=== PATIENT | female | born 1975 | race Caucasian/White ===

== ENCOUNTER 2021-01-22 18:06 | Inpatient (IN) | payer SELFPAY ==
--- OUTSIDE RECORDS SUMMARY | 2021-01-22 18:10 | XMS REPORT | Continuity of Care Document ---
:1975 Author Organization [facility] t Address [address] [place] [address] Care Team Providers Name Role Phone Asked, Pcp Primary Care Physician Unavailable Neva VOGT Attending Clinician Hoa Gonzalez Attending Clinician Ian MOLINA Attending Clinician Vishnu MOLINA Attending Clinician Doctor Unassigned, Name Attending Clinician Unavailable Da Duval MD Attending Clinician Priscilla MOLINA Attending Clinician Pranav MOLINA Attending Clinician Rogerio Lawrence MD Attending Clinician Provider Attending Clinician Unavailable MD ROGERIO LAWRENCE Attending Clinician Unavailable Prem MOLINA Attending Clinician Edwin MOLINA Attending Clinician Nas Rueda MD Attending Clinician MD ROMULO FLORIAN Attending Clinician Unavailab opal Gaona MD, Attending Clinician Jesus Thomason MD Attending Clinician Vishnu MOLINA Admitting Clinician PRISCILLA Admitting Clinician Unavailable OMAR Admitting Clinician Unavailable MD ROGERIO LAWRENCE Admitting Clinician Unavailable EDWIN Admitting Clinician Unavailable MD ROMULO FLORIAN Admitting Clinician Unavailab Li Admitting Clinician Unavailable Payers Payer Name Policy Type Policy Number Effective Date Expiration Date S ource Problems Condition Condition Condition Status Onset Resolution Last Treating Co mments Source Name Details Category Date Date Treatment Clinician Date Acute on Acute on Disease Active [place] chronic chronic 4-13 [facility] congestive congestive 00:00: st heart heart 00 failure failure Abdominal Abdominal Disease Active Rafy ston pain pain 11-19 Methodi 00:00: st 00 COPD COPD Disease Active [place] (chronic (chronic 308 Method i obstructiv obstructiv 00:00: st e e 00 pulmonary pulmonary disease) disease) COPD COPD Disease Active [place] exacerbati exacerbati 3-05 Me thodi on on 00:00: st 00 Acute Acute Disease Active Overview: [place] systolic systolic 3-05 [place] Met hodi congestive congestive 00:00: g of this heart heart note failure failure might be different from the original. Added automatic ally from request for surgery [id number] Dyspnea on Dyspnea on Disease Active [place] exertion exertion 2-22 Method i 00:00: st 00 Allergies, Adverse Reactions, Alerts Allergy Allergy Status Severity Reaction(s) Onset Inactive Treating Comm ents Source Name Type Date Date Clinician Metronid Propensi Active Rash [place] azole ty to 2-22 Method[facility] adverse 00:00: st reaction 00 s to drug metronid DA Active [facility] azole 1-16 [place] [facility] Social History Social Habit Start Date Stop Date Quantity Comments Source History SDOH [place] Meth odist Alcohol Std Drinks History [facility] Meth odist Alcohol Binge Tobacco use and 2020-11-19 2020-11-19 Former user Alonso Buddhist exposure 00:00:00 00:00:00 Alcohol intake 2020-11-19 2020-11-19 Lifetime [place] Me thodist 00:00:00 00:00:00 non-drinker (finding) History of tobacco 2020-11-05 Current smoker Dieter felipe Buddhist use 00:00:00 History SDOH 2020-10-14 2020-10-14 1 Gupta Meth odist Alcohol Frequency 00:00:00 00:00:00 History SDOH 2020-10-14 2020-10-14 3 Alonso Meth odist Financial 00:00:00 00:00:00 History SDOH Food 2020-10-14 2020-10-14 2 Alonso Mendez Worry 00:00:00 00:00:00 History SOFYRI Food 2020-10-14 2020-10-14 2 Alonso Mendez Scarcity 00:00:00 00:00:00 Sex [birth year] Alonso conrad 00:00:00 00:00:00 Smoking Status Start Date Stop Date Source Former smoker 2020-11-19 00:00:00 2020-11-19 00:00:00 Alonso Mendez Medications Ordered Filled Start Stop Current Ordering Indication Dosage Frequency Signature Comments Components Source Medication Medication Date Date Medication? Clinician (SIG) Name Name lisinopriL Yes 10mg QD Take 1 [place] (PRINIVIL) 4-14 tablet (10 Met hodi 10 mg 00:00: mg total) st tablet 00 by mouth daily for 30 days. albuterol Yes Q6H Inhale [place] (PROAIR 4-13 every 6 Method[facility] HFA) 90 13:04: (six) st mcg/actuati 21 hours as on inhaler needed for wheezing or shortness of breath. carvediloL 2020- No 6.25mg Q.5D Take 1 [place] (COREG) 12-02- tablet Methodi 6.25 MG 00:00: 23:59 (6.[address] tablet 00 :00 total) by mouth 2 (two) times a day for 30 days. furosemide No 40mg QD Take 1 [place] (Lasix) 40 12-02-13 tablet (40 Me thodi mg tablet 00:00: 23:59 mg total) st 00 :00 by mouth daily for 30 days. doxycycline 2020- No 100mg Q.5D Take 1 [place] (DORYX) 100 11-20-06 tablet Metho di MG EC 00:00: 23:59 ([address] tablet 00 :00 total) by mouth 2 (two) times a day for 5 days. fluticasone 2020-0 Yes QD Inhale 1 [place] furoate-omar 3-10 inhalation Me thodi anteroL 00:00: s once st (BREO 00 daily. ELLIPTA) 200-25 mcg/dose blister with device powder for inhalation lisinopriL 0 Yes 5mg QD Take 1 [place] (PRINIVIL) -10 tablet (5 Meth preeti 5 mg tablet 00:00: mg total) s t 00 by mouth daily for 30 days. spironolact 2020- No 25mg QD Take 1 Rafy ston one 10-29 tablet (25 Methodi (ALDACTONE) 00:00: 23:59 mg total) st 25 MG 00 :00 by mouth tablet daily for 30 days. aspirin 2020- No 81mg QD Take 1 Gupta (ECOTRIN) 10-28 tablet (81 Met hodi 81 MG 00:00: 23:59 mg total) st enteric 00 :00 by mouth coated daily for tablet 30 days. carvediloL 2020- No 6.25mg Q.5D Take 1 [place] (COREG) 10-28 tablet Methodi 6.25 MG 00:00: 23:59 (6.[address] tablet 00 :00 total) by mouth 2 (two) times a day for 30 days. Hold if heart rate below 55 acetaminoph 2020- No 650mg Q6H Take 2 [place] en 10-28 tablets Methodi (TYLENOL) 00:00: 23:59 ([address] 325 MG 00 :00 total) by tablet mouth every 6 (six) hours as needed for mild pain or fever for up to 30 days. furosemide 2020- No 40mg QD Take 1 [place] (LASIX) 40 10-28 tablet (40 Me thodi mg tablet 00:00: 23:59 mg total) st 00 :00 by mouth daily for 30 days. guaiFENesin 2020-2020- No 100mg Q4H Take 5 mL Gupta (ROBITUSSIN 10-28 (100 mg Meth preeti ) 100 mg/5 00:00: 23:59 total) by s t mL syrup 00 :00 mouth every 4 (four) hours as needed for cough or congestion for up to 14 days. budesonide/ No Inhale. Dieter felipe formoterol 10-24-05 Methodi fumarate 21:54: 00:00 st (SYMBICORT 20 :00 INHL) budesonide- 2020- No 2{puff} Q.5D Inhale 2 Gupta formoteroL 10-24-13 puffs 2 Metho di (Symbicort) 00:00: 00:00 (two) st 80-4.5 00 :00 times a mcg/actuati day. on inhaler albuterol No 2{puff} Q4H Inhale 2 Alonso (PROAIR 10-24-04 puffs Methodi HFA) 90 00:00: 23:[address] mcg/actuati 00 :00 (four) on inhaler hours as needed for wheezing for up to 30 days. predniSONE No 20mg QD Take 2 Teodora menchaca (DELTASONE) 10-24-10 tablets Meth preeti 10 mg 00:00: 23:59 ([address] tablet 00 :00 total) by mouth daily for 5 days. azithromyci No 250mg QD Take 1 Dieter felipe n 10-24-10 tablet Methodi (ZITHROMAX) 00:00: 23:59 ([address] 250 MG 00 :00 total) by tablet mouth daily for 5 days. Take first 2 tablets together, then 1 every day until finished. Vital Signs Vital Name Observation Time Observation Value Comments Source Systolic blood 2020-12-02 13:30:00 130 mm[Hg] Champ arce Buddhist pressure Diastolic blood 2020-12-02 13:30:00 62 mm[Hg] Zaria huang Buddhist pressure Heart rate 2020-12-02 13:30:00 90 /min Alonso Mendez Respiratory rate 2020-12-02 13:30:00 18 /min Teodora Mendez Oxygen saturation in 2020-12-02 13:30:00 98 /min Alonso Mendez Arterial blood by Pulse oximetry Body temperature 2020-12-02 09:22:00 36.56 Chandrika Mendez Body height 2020-12-02 04:22:00 165.1 cm Alonso Mendez Body weight 2020-12-02 04:22:00 86.183 kg Alonso Mendez BMI 2020-12-02 04:22:00 31.62 kg/m2 Alonso Mendez Procedures Procedure Date / Time Performing Clinician Source Performed TROPONIN 2020-12-02 12:37:00 Yeyo Wells URINE DRUGS OF ABUSE 2020-12-02 09:49:00 Yeyo Wells SCREEN TROPONIN 2020-12-02 09:30:00 Yeyo Wells ECG ED PRELIMINARY 2020-12-02 05:02:38 Calvin Duval ethodist INTERPRETATION Da XR CHEST 1 VW PORTABLE 2020-12-02 04:58:58 Calvin Duval on Buddhist Da B NATRIURETIC PEPTIDE 2020-12-02 04:52:00 Calvin Duval Buddhist Da HC COMPLETE BLD COUNT 2020-12-02 04:52:00 Calvin Duvalist W/AUTO DIFF Da COMPREHENSIVE METABOLIC 2020-12-02 04:52:00 Calvin Duval Buddhist PANEL Da TROPONIN 2020-12-02 04:52:00 Yeyo Wells ESTIMATED GFR 2020-12-02 04:52:00 Calvin Duval Meth odist Da SMEAR REVIEW 2020-12-02 04:52:00 Calvin Duval Meth odist Da ECG 12-LEAD 2020-12-02 04:43:07 Calvin Duval Meth odist Da HC COMPLETE BLD COUNT 2020-11-20 05:30:00 Derick Rock Buddhist W/AUTO DIFF COMPREHENSIVE METABOLIC 2020-11-20 05:30:00 Derick Rock Buddhist PANEL B NATRIURETIC PEPTIDE 2020-11-20 05:30:00 Mathew Latif ESTIMATED GFR 2020-11-20 05:30:00 Derick Rock odthee LACTIC ACID LEVEL, SEPSIS 2020-11-20 01:33:00 Derick Rockist - NOW AND REPEAT 2X EVERY 3 HOURS LACTIC ACID LEVEL, SEPSIS 2020-11-19 22:36:00 Rock, Derick Moreist - NOW AND REPEAT 2X EVERY 3 HOURS COVID-19 QUALITATIVE PCR 2020-11-19 19:39:00 Derick Rock LACTIC ACID LEVEL, SEPSIS 2020-11-19 19:11:00 Rock, Derick eMndez - NOW AND REPEAT 2X EVERY 3 HOURS BLOOD CULTURE, AEROBIC & 2020-11-19 19:11:00 RockDerick ANAEROBIC BLOOD CULTURE, AEROBIC & 2020-11-19 18:52:[address] ABDOMEN PELVIS W 2020-11-19 16:43:[address] ANGIOGRAM PE CHEST 2020-11-19 16:42:26 Derick Rock XR CHEST 1 VW PORTABLE 2020-11-19 16:25:00 Derick Rock on Buddhist URINE CULTURE 2020-11-19 14:08:00 Derick Rock odist ECG 12-LEAD 2020-11-19 13:58:50 Derick Rock Meth odist HC COMPLETE BLD COUNT 2020-11-19 13:57:00 Derick Rock W/AUTO DIFF COMPREHENSIVE METABOLIC 2020-11-19 13:57:00 Derick Rock PANEL URINALYSIS SCREEN AND 2020-11-19 13:57:00 Derick Rock MICROSCOPY, WITH REFLEX TO CULTURE ALCOHOL LEVEL, BLOOD 2020-11-19 13:57:00 Derick Rock D-DIMER 2020-11-19 13:57:00 Derick Rock Meth odist ESTIMATED GFR 2020-11-19 13:57:00 Derick Rock HCG QUALITATIVE, URINE 2020-11-19 13:57:00 Derick Rock on Buddhist SCREEN URINE DRUGS OF ABUSE 2020-11-19 13:48:00 Mathew Latif Buddhist SCREEN ECG ED PRELIMINARY 2020-11-19 13:42:01 Derick Rock M ethodist INTERPRETATION HC COMPLETE BLD COUNT 2020-10-28 05:44:00 Amaya Corbett W/AUTO DIFF BASIC METABOLIC PANEL 2020-10-28 05:44:00 Amaya Corbett MAGNESIUM LEVEL 2020-10-28 05:44:00 Amaya Corbett ESTIMATED GFR 2020-10-28 05:44:00 Amaya Corbett CV RIGHT AND LEFT HEART 2020-10-27 16:46:00 David Richter CATH SELECTIVE CORONARY LV GRAM POC BLOOD GAS, VENOUS AND 2020-10-27 16:37:00 Hong Florian LYTES POC BLOOD GAS, VENOUS AND 2020-10-27 16:32:00 Hong Florian LYLULÚ POC BLOOD GAS, ARTERIAL 2020-10-27 16:27:00 Hong Florian AND LYTES TYPE AND SCREEN 2020-10-27 06:57:00 David Richter Met hodist PARTIAL THROMBOPLASTIN 2020-10-27 06:57:00 David Richter TIME (PTT) PROTHROMBIN TIME WITH INR 2020-10-27 06:57:00 David Richter HCG QUANTITATIVE, SERUM 2020-10-27 06:57:00 David Richter CBC WITH PLATELET AND 2020-10-27 04:42:00 PearsonAnahi smith Buddhist DIFFERENTIAL Kiya COMPREHENSIVE METABOLIC 2020-10-27 04:42:00 PearsonAnahi smith PANEL Kiya MAGNESIUM LEVEL 2020-10-27 04:42:00 Amaya Corbett ESTIMATED GFR 2020-10-27 04:42:00 Anahi Pearson Ok thodist Kiya MANUAL DIFFERENTIAL 2020-10-27 04:42:00 Anahi Pearson n Buddhist Kiya ECG 12-LEAD 2020-10-26 23:07:15 David Richter Met hodthee URINE CULTURE 2020-10-26 18:22:00 Amaya Corbett URINALYSIS SCREEN AND 2020-10-26 18:15:00 Amaya Corbett Buddhist MICROSCOPY, WITH REFLEX TO CULTURE XR CHEST 1 VW PORTABLE 2020-10-26 10:32:17 Amaya Corbett HC COMPLETE BLD COUNT 2020-10-26 05:40:00 PearsonAnahi trujillo Buddhist W/AUTO DIFF Kiya COMPREHENSIVE METABOLIC 2020-10-26 05:40:00 PearsonAnahi smith Buddhist PANEL Kiya ESTIMATED GFR 2020-10-26 05:40:00 Anahi Pearson Me thodist Kiya TTE COMPLETE, W CONTRAST, 2020-10-25 13:55:00 David Richter Buddhist W DOPPLER ([id number]) TROPONIN 2020-10-25 05:37:00 Luis Amaro odist HC COMPLETE BLD COUNT 2020-10-25 05:37:00 PearsonAnahi smith Buddhist W/AUTO DIFF Kiya COMPREHENSIVE METABOLIC 2020-10-25 05:37:00 Anahi Pearson Buddhist PANEL Kiya ESTIMATED GFR 2020-10-25 05:37:00 Anahi Pearson Me thodist Kiya TROPONIN 2020-10-25 01:30:00 Luis Amaro COVID-19 QUALITATIVE PCR 2020-10-24 22:57:00 Luis Amaro HCG QUALITATIVE, URINE 2020-10-24 22:14:00 Luis Amaro on Buddhist SCREEN XR CHEST 1 VW 2020-10-24 22:13:30 Luis Amaro odthee HC COMPLETE BLD COUNT 2020-10-24 20:11:00 Luis Amaro Buddhist W/AUTO DIFF COMPREHENSIVE METABOLIC 2020-10-24 20:11:00 Luis Amaro Buddhist PANEL PARTIAL THROMBOPLASTIN 2020-10-24 20:11:00 Luis Amaro on Buddhist TIME (PTT) PROTHROMBIN TIME WITH INR 2020-10-24 20:11:00 Luis Amaro CREATINE KINASE, TOTAL 2020-10-24 20:11:00 Luis Amaro Buddhist (CPK) B NATRIURETIC PEPTIDE 2020-10-24 20:11:00 Luis Amaro Buddhist ESTIMATED GFR 2020-10-24 20:11:00 Luis Amaro odist TROPONIN 2020-10-24 20:11:00 Luis Amaro ECG 12-LEAD 2020-10-24 19:45:52 Luis Amaro ECG ED PRELIMINARY 2020-10-24 19:34:02 Luis Amaro ethodist INTERPRETATION US HEPATIC 2020-10-14 15:52:47 NwokedKaren tejeda Mary TROPONIN 2020-10-14 04:25:00 NwokediKaren Mary HC COMPLETE BLD COUNT 2020-10-14 04:25:00 NwKaren gore Buddhist W/AUTO DIFF Mary PROTHROMBIN TIME WITH INR 2020-10-14 04:25:00 NwKaren gore Mary LIPASE LEVEL 2020-10-14 04:25:00 NwokedKaren tejeda Mary COMPREHENSIVE METABOLIC 2020-10-14 04:25:00 NwKaren gore Buddhist PANEL Mary THYROID STIMULATING 2020-10-14 04:25:00 NwokedKaren tejeda HORMONE Mary ESTIMATED GFR 2020-10-14 04:25:00 NwKaren gore Mary LIPID PANEL 2020-10-14 04:25:00 NwokediKaren odist Mary RESPIRATORY PATHOGEN PANEL 2020-10-14 02:41:00 Sidra Giron WITH COVID-19 TROPONIN 2020-10-14 00:23:[address] ANGIOGRAM PE CHEST 2020-10-13 23:18:26 Sidra Giron ECG ED PRELIMINARY 2020-10-13 21:27:29 Sidra Giron ethodist INTERPRETATION ECG 12-LEAD 2020-10-13 21:18:29 Karen Bello Mary HC COMPLETE BLD COUNT 2020-10-13 21:04:00 Sidra Giron W/AUTO DIFF COMPREHENSIVE METABOLIC 2020-10-13 21:04:00 Sidra Giron PANEL CREATINE KINASE, TOTAL 2020-10-13 21:04:00 Sidra Giron on Buddhist (CPK) TROPONIN 2020-10-13 21:04:00 Karen Bello Mary B NATRIURETIC PEPTIDE 2020-10-13 21:04:00 Sidra Giron D-DIMER 2020-10-13 21:04:00 Sidra Giron HCG QUALITATIVE, SERUM 2020-10-13 21:04:00 Sidra Giron on Buddhist SCREEN ESTIMATED GFR 2020-10-13 21:04:00 Sidra Giron XR CHEST 1 VW PORTABLE 2020-10-13 20:39:45 Sidra Giron on Buddhist Plan of Care Planned Activity Planned Date Details Comments Source Future Scheduled 2021-03-22 INFLUENZA VACCINE Champ arce Buddhist Test 00:00:00 [code = INFLUENZA VACCINE] Future Scheduled 1995 Screening for Gupta Ok thodist Test 00:00:00 malignant neoplasm of cervix (procedure) [code = 926505004] Future Scheduled 1992 Hepatitis C Gupta Met hodist Test 00:00:00 screening (procedure) [code = 186349427] Future Scheduled 1986 COVID-19 VACCINE (1) Rafy leonardon Buddhist Test 00:00:00 [code = COVID-19 VACCINE (1)] Encounters Start End Encounter Admission Attending Care Care Encounter Source Date/Time Date/Time Type Type Clinicians Facility Department ID 2021-01-14 2021-01-14 Transition Jeni Hooks [id number] 00:00:00 00:00:00 of Care Molly Almendarez [id number] [place] [id number] 2021-01-11 2021-01-13 [facility] Shahnaz Zamudio [facility] [id number] 17:30:00 15:20:00 Encounter IanTatianna Gin 350.1.13.10 Noah Mares [facility] [id number] [place] [id number] 2021-01-11 2021-01-11 Orders Doctor GASTON [id number] 00:00:00 00:00:00 Only Unassigned, ROSALIO [id number] [facility] [id number] [id number] 2020-12-02 2020-12-02 Outpatient GORDONBEATRIZYESSENIA, [facility] [id number] [place] 00:00:00 00:00:00 YYEO [address] 2020-11-19 2020-11-20 Inpatient RADHAMES LAWRENCE [facility] [id number] [place] 00:00:00 00:00:[address] 2020-10-24 2020-10-28 Inpatient EDWIN, [place] [id number] [place] 00:00:00 00:00:00 HONG 675 Method i 2020-10-13 2020-10-14 Inpatient SALVADOR [place] [id number] [place] 00:00:00 00:00:00 JANELL Chris [address] Results Test Description Test Time Test Comments Results Result [facility] e Comments - XR SHOULDER 2 + 2020-12-05 V RT 04:14:[facility] 1975 Sex: F FAX: Carmita Truong [phone] [place]: St: REG FAX: Jose Herrmann MD Name: ANAHI HAYWOOD [facility] : 1975 Age/S: 45/F [address] [facility] Unit #: [id number] Loc: [address] Phys: [place] [id number] Acct: [id number] Dis Date: Status: REG ER PHONE #: [phone] Exam Date: 12/05/2020 0401 FAX #: [phone] Reason: pain EXAMS: CPT CODE: [id number] XR SHOULDER 2 + V RT [id number] EXAM: - XR SHOULDER 2 + V RT HISTORY: Pain. COMPARISON: None available time of interpretation. FINDINGS: Internal and external rotated AP views of the right shoulder with scapular Y view is provided. There is no acute fracture or dislocation. The osseous structures are intact. IMPRESSION: No acute osseous abnormality. at 0419 Reported and signed by: Gerald Light M.D. CC: Carmita Randall MD; Jose Herrmann MD Technologist: NGUYEN RÍOS Trnscrd Date/Time/By: 12/05/2020 (0414) : By: [email or web address] PAGE 1 Signed Report FAX: Carmita Truong [phone] [place]: St: REG FAX: Jose Herrmann MD Name: ANAHI HAYWOOD : 1975 Age/S: 45/F [address] [facility] Unit #: [id number] Loc: E.ERS2 [place], [place] Phys: [place] [id number] Acct: [id number] Dis Date: Status: REG ER PHONE #: [phone] Exam Date: 12/05/2020 040 FAX #: [phone] Reason: pain EXAMS: CPT CODE: [id number] XR SHOULDER 2 + V RT [id number] <Continued> Orig Print D/T: S: 12/05/2020 (0418) PAGE 2 Signed Report ECG 12 lead 2020-12-02 22:49:04 Test Item Value Reference Range Interpretation Comme nts Ventricular rate (test code = 253) 110 Atrial rate (test code = 255) 110 CO interval (test code = 266) 170 QRSD interval (test code = 260) 82 QT interval (test code = 264) 358 QTC interval (test code = 265) 484 P axis 1 (test code = 267) 78 QRS axis 1 (test code = 268) -29 T wave axis (test code = 270) 89 EKG impression (test code = 273) Sinus tachycardia-Nonspecific T wa ve abnormality-Abnormal ECG-In automated comparison with ECG of 19-NOV-2020 13:58,-No significant change was found-- [place] [facility] 1 Vw [id number] 05:11:23Hm Interface, Radiology Results Incoming - 12/02/2020 5:14 AM CDT Examination: XR CHEST 1 VW PORTABLEClinical history: "SOB" Comparison: Prior imaging, including a chest radiograph obtained on 11/19/2020.One radiographic view of the chest was evaluated.Impression: There are no apparent infiltrates, pleural effusions, or pneumothoraces. The cardiomediastinal silhouette, the imaged bones, and the remainder of the chest are stable in appearance.[facility] Methodist[facility] ED Preliminary Interpretation - Not an [id number] 05:02:38Calvin Duval MD 12/02/2020 5:48 AMECG ED Preliminary Interpretation - Not an OrderPerformed by: Calvin Duval MDAuthorized by: Calvin Duval MD Interpretation: Interpretation: non-specific Quality: Tracing quality: Limited by artifactRate: ECG rate: 110 ECG rate assessment: tachycardic Rhythm: Rhythm: sinus tachycardia Ectopy: Ectopy: none ST segments: ST segments: Non-specificT waves: T waves: non-specific Alonso MethodistUrine [id number] 14:17:27 Test Item Value Reference Range Interpretation Comments Urine culture Mixed lawrence Specimen isolate (test <=10-3 col/cc InformationSp ecimen code = 58534-5) Source: Urin eSpecimen Site: Clean cat [facility] IfayedsoaSNUD-SvB-1 (COVID-19) RNA [Presence] in Respiratory specimen by SYD with probe [id number] 05:35:10 Test Item Value Reference Range Interpretation Comments SARS-CoV-2 (COVID-19) RNA Not detected Not-Detected [Presence] in Respiratory specimen by SYD with probe detection (test code = 92432-0) CT Angiogram Pe [id number] 16:55:30Hm Interface, Radiology Results Incoming - 11/19/2020 4:58 PM CDT EXAMINATION:CT ANGIOGRAM PE CHESTCLINICAL HISTORY: dyspnea tachycarida ho copdTECHNIQUE:CT angiographic images of the chest were obtained during intravenous administration of iodinated contrast. Computerized reformatted images and 3-D MIP images were also obtained and archived (CT pulmonary embolus protocol). Approximately 60 cc of Omnipaque [address] scan performed using radiation dose reduction techniques. Technical factors are evaluated and adjusted to ensure appropriate moderation of exposure. Automated dose management technology is applied to adjust the radiation dose to minimize expose while achieving a diagnostic quality image.COMPARISON:10/13/2020FINDINGS:The main pulmonary artery, right pulmonary artery and left pulmonary artery as well as their visualized segmental and subsegmental branches demonstrate no evidence of pulmonary embolism. The pulmonary arteries are normal in caliber.There is no evidence of aortic aneurysm or dissection.Mild right hilar adenopathy as prior. No mediastinum, left hilar or axillary pathologic adenopathy is seen.The heart is normal in caliber. No pericardial effusion is seen.No consolidation is seen. There has been decrease in density of left upper lobe 6 mm groundglass nodule, series 3 image #35. There has been resolution of right upper lobe groundglass nodules and a right lower lobe groundglass nodule. A right middle lobe 4 mm pulmonary nodule is stable. No new pulmonary nodule or mass is seen. No pleural effusion. There is no evidence of pneumothorax. The image portion of the abdomen viscera is unremarkable.IMPRESSION:No CTA evidence of pulmonary embolism.No CTA evidence of aortic aneurysm or dissection.Interval resolution of right pulmonary groundglass nodules and decrease in density of left upper lobe ground glass nodule, suggestive of resolving pneumonitis.Stable right middle lobe pulmonary nodule, probably representing a granuloma.Indeterminate mild right hilar adenopathy as prior.[id number] MethodistCT Abdomen Pelvis W [id number] 16:54:35Hm Interface, Radiology Results 11/19/2020 4:57 PM CDT EXAMINATION: CT ABDOMEN PELVIS W CONTRASTCLINICAL HISTORY: abdominal painTECHNIQUE: Multiple axial images of the abdomen and pelvis were obtained following intravenous administration of iodinated contrast. Sagittal and coronal computerized reformatted images were also obtained. CT imaging was performed with iterative reconstruction technique and/or automated exposure control to reduce radiation dose.COMPARISON: June 28, 2007 CT abdomen pelvisFINDINGS:The lung bases areclear. No free intraperitoneal air or fluid.Abdomen:Fatty infiltration of the liver as beforeNo focal hepatic abnormalityPortal veins patentNo biliary dilatationGallbladder grossly unremarkable.Spleen n ormal.Adrenal glands normal.Pancreas normalAbdominal aorta normal caliber. Moderate atherosclerosisNo bowel obstruction. Scattered fecal material throughout the colon. Appendectomy clips.Normal size kidneys. Symmetrical function from each kidney. No renal mass. No hydronephrosis or tract calculusPelvis:Scattered fecal material throughout the colon. No diverticulitis or bowel obstruction.Uterus grossly unremarkable.Follicular changes on the ovaries.No pelvic mass or sidewall adenopathy.Urinary bladder grossly unremarkable.Diffuse subcutaneous infiltration and at the level of the patient's pediculus. No focal fluid collection seenVisualized skeleton intact. Moderate degenerative lumbar facet hypertrophy. Mild scattered osteophytic changesIMPRESSION:Changes suspicious for panniculitisFatty infiltration of the liver as on previousOtherwise unremarkable CT abdomen [id number] [id number] 10:57:33Norma Irving Haywood1975 [id number]/08/21 Indications:New onset systolic CHF Procedures:Coronary angiogramLHC with LVgramRHC with cardiac output Closure:TR band Access site:Right radial artery and Right internal jugular vein Procedure details: Risks and benefits were discussed with the patient, informed consent was obtained.Patient was brought to the quality lab technician in a fasting state and prepped in a sterile manner. Patient was sedated with fentanyl and versed. The site was then infiltrated with 1% lidocaine. Right radial artery and Right internal jugular vein was then accessed. A 5Fr balloon guided swan-garcía catheter was then inserted into the venous sheath and directed toward the heart. Pressureswere then measure. The catheter was then left at the PA position and thermodilution cardiac output was then measure. O2 sat was also obtained. The catheter was then removed from the body. RHC:CPWP: 41 mmHgPA: 51/15 mmHg Mean 41RV: 53/18 mmHg Mean 27RA: 26 O2 sat: Arterial 99%; PA 61%; RA 65%C.O. 3.57 (T) 2.46 (F)C.I. 2.48 (T) 1.71 (F) PPVR: A slender 6 Fr sheath was then inserted over the wirein the right radial artery without difficulty. A 5 Fr Lansing catheter was then advance over the wireinto the ascending aorta. Angiogram of the left and right coronary was performed. The Lansing catheter was then position in the LV. Left ventriculogram was performed. Pull back showed no gradient across the aortic valve. The catheter was then removed over the wire. Findings:Right dominantOverall Nosignificant diseaseLeft main: Patent. Subdivided into LAD and left circumflexLAD: Long vessel with one large D1 and several small diagonals. Reaching all the way to apex and wrapped around the distalinferior wall. No significant diseaseLeft circumflex: with 3 OM. No significant diseaseRCA: is thedominant vessel giving rise to PDA and PLB. NO significant disease LV gram: estimated EF 35%Wall motion: Global hypokinesisMitral regurgitation: 1+LVEDP: 17 mmHgAo Pressure: 127/95 mmHg Sheath was then removed and hemostasis was achieved with TR band closure device. Patient tolerate the procedure well. Complication: There is no immediate complication EBL: 5 cc Impression: NICMVolume overloaded Plan: DiuresingOptimizing medical therapy Total contrast used: 35 mlFlouro-time: 1.5 minutesAir Kerma:505 mGy 10/27/20VinAmna Dee MethodistTransthoracic Echocardiogram Complete, (w Contrast, Strain and 3D if needed)2020-10-26 11:20:16 Test Item Value Reference Range Interpretation Comments Velocity Ratio (V1/V2) 0.70 m/s (test code = 4689) IVS,d (test code = 1.05 cm 7724264347) EF (test code = 27.14 % 6964870448) LVPWD,d (test code = 0.97 cm 5856947525) AoV Mean PG (test code 4.12 mmHg = 5085360569) AV LVOT peak gradient 3.90 mmHg (test code = 0238631574) MV valve area p 1/2 5.59 cm2 method (test code = 6183992628) E wave decelartion time 122.75 msec (test code = 7288850514) LVOT Diam,S (test code 2.23 cm = 7900212978) LVOT area (test code = 3.90 cm2 7906780934) LVOT Vmax (test code = 0.99 m/s 2808014420) LVOT VTI (test code = 0.17 m 6093277267) LVOT stroke volume 0.66 cm3 (test code = 9394865459) AoV Peak PG (test code 8.02 mmHg = 6013357200) MV Peak E [place] (test 1.32 m/s code = 4989480054) MV stenosis pressure 39.33 ms 1/2 time (test code = 9173859814) MV Peak A [place] (test 0.00 m/s code = 5670501756) LV Vol,s A2C (test code 126.84 mL = 1475964450) LV Vol,d A2C (test code 186.07 mL = 5432251244) AoV Area, Vmax (test 2.73 cm2 code = 3903179803) AoV Area, VTI (test 3.37 cm2 code = 2150888988) AoV Vmax (test code = 1.42 m/s 8727181799) LV,d (test code = 5.39 cm 2765736650) LV,s (test code = 4.70 cm 5201136637) LV Vol,d A4C (test code 164.06 ml = 6679231365) LV Vol,s A4C (test code 106.99 ml = 5798795472) TR Vpeak (test code = 2.66 mm/s 7197557747) MV E A ratio (test code 327.82 = 9241560187) RA pressure (test code 12.00 mmHg = 2842080978) TR pk grad (test code = 26.83 mmHg 3339307738) MR peak grad (test code 108.98 mmHg = 5695828954) LA Vol 4C (test code = 97.00 ml 6604237518) RVSP (test code = 40.26 mmHg 4778829472) LV SYS VOL (test code = 102.44 ml 6877798308) LV HEDRICK VOL (test code 140.60 ml = 9384553842) LA diam s (test code = 4.10 cm 9069365601) LA area s A4C (test 28.10 cm2 code = 6706120539) LA Vol MOD A4C (test 97.27 ml code = 0764887483) LV SV Teich 2D (test 38.16 ml code = 6045143955) LVOT SI (test code = 33.69 ml/m2 2036094117) AoV Cusp sep (test code 1.88 = 2371187431) Aortic Root (test code 2.53 cm = 1433544188) AoV Vmn (test code = 0.95 7802132483) IVS s 2D (test code = 1.15 9915221922) LA Ao Ratio Mmode (test 1.61 code = 6576745593) CO End Hedrick Grad (test 4.20 code = 0228828455) CO End Diat [place] (test 1.02 code = 2074352859) D E excurs (test code = 1.90 1076390458) E f slope (test code = 0.09 4195554976) E prime lat (test code 0.10 = 0838639213) E favio sept (test code 0.11 = 3187633277) PV acc T slope (test 4.60 code = 0689799620) PV AT (test code = 119.89 msec 4754656364) NGUYEN BP EF (test 32.00 % code = 0930331840) LA VOL 2C (test code = 74.00 ml 0279376390) AoV VTI (test code = 0.20 m 7100974312) LV EF,A2C (test code = 31.83 % 2810832594) LV EF,A4C (test code = 34.78 % 3188383225) LV EF,BP (test code = 32.29 % 0022602533) Diego [place],d A2C (test 9.24 cm code = 2395968460) Diego [place],d A4C (test 9.11 cm code = 8276627620) Diego [place],s A2C (test 8.07 cm code = 7076986411) Diego [place],s A4C (test 7.70 cm code = 0951816819) LV SV,A2C (test code = 59.23 % 2554845308) LV SV,A4C (test code = 57.06 % 9286882591) LV Vol,d BP (test code 175.67 ml = 3117264547) LV Vol,s BP (test code 118.95 nl = 7342952970) MR Vmax (test code = 5.55 m/s 7302063713) LVOT Vmn (test code = 0.67 3371071774) Pt Size (test code = 165.10 8492194317) Pt Wt (test code = 93.89 6335021614) LVOT mean grad (test 2.05 mmHg code = 4987935232) LVPW s PLAX (test code 1.17 cm = 7598580186) MV Decel slope (test 10.79 m/s2 code = 5570292700) LVOT VTI (CM) (test 17.00 cm code = 2002846728) LINDA (test code = LINDA) The left ventricle chamber size is mildly enlarged. Left ventricular systolic function is severely impaired. Left Ventricular ejection fraction is 30 - 35%. Left atrium size is mildly dilated. Right atrium size is mildly enlarged. There is pericardial effusion. There is a small pericardial effusion. There is moderate mitral valve regurgitation. Moderate tricuspid valve regurgitation. Spectral Doppler shows abnormal pattern of left ventricular diastolic filling. Elevated LV filling pressure. Alonso ChisholmFrdtonqknXEWX-AqM-5 (COVID-19) RNA [Presence] in Respiratory specimen by SYD with probe [id number] 05:38:53 Test Item Value Reference Range Interpretation Comments SARS-CoV-2 (COVID-19) RNA Not detected Not-Detected [Presence] in Respiratory specimen by SYD with probe detection (test code = 00045-6) XR Chest 1 [id number] 22:16:24Hm Interface, Radiology Results 10/24/2020 10:19 PM CST CLINICAL HISTORY: 45 years Female Cough persistentCOMPARISON: AP view of the chest from 10/13/2020.IMPRESSION:Lines/Tubes: None.Lungs/Pleura: No significant pleural effusionis identified. There is mild bibasilar atelectasis. No consolidation or pneumothorax identified.Heart/Mediastinum: The cardiac silhouette is enlarged. Mediastinal contours are normal.Bones: No acute osseous abnormality.[id number] BuddhistUS [id number] 15:58:42Hm Interface, Radiology Results - 10/14/2020 4:01 PM CST EXAMINATION: US HEPATICCLINICAL HISTORY: abnormal hepatic function testsCOMPARISON: None.IMPRESSION:Liver: The liver is normal in size and echogenicity. There is no evidence of focal mass or intrahepatic biliary ductal dilatation.Portal vein: The portal vein is normal in size and demonstrates normal hepatopetal flow.Gallbladder: Contracted. No stones.Common bile duct: Normal caliber.[facility]-[id number] Buddhist
[2021-01-22 19:23] LABS: Absolute Lymphocytes (CBC) 2.9 K/uL (0.7-4.9); Basophils % 1.9 % (0-1.3); Hematocrit 50.1 % (36.0-45.0); MPV 8.5 fL (7.6-11.3); RBC Red Blood Cell Count 5.53 M/uL (3.86-4.86)
[2021-01-22 19:57] LABS: Albumin 3.4 g/dL (3.4-5.0); Bilirubin Direct 0.2 mg/dL (0-0.2); Protein, Total 7.8 g/dL (6.4-8.2); Troponin (Emerg Dept Use Only) 0.06 ng/mL (0.0-0.045)
[2021-01-22 19:59] LABS: Potassium 5.5 mmol/L (3.5-5.1)
[2021-01-22 20:00] LABS: Magnesium 1.9 mg/dL (1.8-2.4)
[2021-01-22 20:20] LABS: Protime INR 1.24
[2021-01-22] MEDS ORDERED: FUROSEMIDE 100 MG/10 ML VIAL IV ONE (20:31)
[2021-01-22] MEDS ORDERED: ASPIRIN 81 MG CHEWABLE TABLET ONE (20:31)
--- NOTE | 2021-01-22 20:35 | RAD REPORT ---
EXAM DESCRIPTION: RAD - Chest Single View - 01/22/2021 7:26 pm CLINICAL HISTORY: Chest pain;SOB Chest pain. COMPARISON: No comparisons FINDINGS: Portable technique limits examination quality. The lungs are grossly clear. The heart is mildly enlarged in size. No displaced fractures. IMPRESSION: Mild cardiomegaly.
--- NOTE | 2021-01-22 20:40 | ER ---
Nurse's Notes [facility] Name: Anahi Downing Age: 45 yrs Sex: Female : 1975 Arrival Date: 01/22/2021 Time: 18:14 Bed 20 Private MD: Diagnosis: Unspecified combined systolic (congestive) and diastolic (congestive) heart failure;Orthopnea;Pulmonary edema Presentation: 01/22 18:43 Chief complaint: Patient states: SOB x 1 week, worse today, hx of CHF, reports jl7 intermittent midsternal CP x 1 day. Coronavirus screen: Client denies travel out of the [place] in the last 14 days. At this time, the client does not indicate any symptoms associated with coronavirus-19. Ebola Screen: No symptoms or risks identified at this time. Initial Sepsis Screen: Does the patient meet any 2 criteria? No. Patient's initial sepsis screen is negative. Does the patient have a suspected source of infection? No. Patient's initial sepsis screen is negative. Risk Assessment: Do you want to hurt yourself or someone else? Patient reports no desire to harm self or others. Onset of symptoms was January 21, 2021. Care prior to arrival: None. 18:43 Method Of Arrival: Ambulatory 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 - Social history:: Smoking status: Patient/guardian denies using tobacco, Stopped _ months ago 1. Screenin:18 Abuse screen: Denies threats or abuse. Nutritional screening: No deficits noted. ea Tuberculosis screening: No symptoms or risk factors identified. Fall Risk None identified. Assessment: 18:50 General: Appears uncomfortable, Behavior is anxious. Pain: Complains of pain in rb3 mid-sternal area Pain currently is 8 out of 10 on a pain scale. Neuro: Level of Consciousness is awake, alert, obeys commands, Oriented to person, place, time, situation. Cardiovascular: Patient's skin is warm and dry. Respiratory: Airway is patent Respiratory effort is even, labored, Respiratory pattern is tachypnea Applied a Non-rebreather, pt reports feeling like she can breath better. 20:24 Reassessment: Patient and/or family updated on plan of care and expected duration. Pain ea level reassessed. Patient is alert, oriented x 3, equal unlabored respirations, skin warm/dry/pink. 21:30 Reassessment: Patient and/or family updated on plan of care and expected duration. Pain ea level reassessed. Patient is alert, oriented x 3, equal unlabored respirations, skin warm/dry/pink. Vital Signs: 18:43 BP 145 / 111; Pulse 119; Resp 25; Temp 98.4; Pulse Ox 97% on R/A; Weight 78.47 kg; jl7 Height 5 ft. 5 in. (165.10 cm); Pain 8/10; 19:00 BP 143 / 119; Pulse 115; Resp 23; Pulse Ox 99% on R/A; ea 21:50 BP 138 / 102; Pulse 70; Resp 18; Pulse Ox 99% on R/A; ea 18:43 Body Mass Index 28.79 (78.47 kg, 165.10 cm) jl7 ED Course: 18:14 Patient arrived in ED. am2 18:45 Triage completed. jl7 18:47 Arm band placed on right wrist. jl7 18:48 Stefan Hoang PA is PHCP. cp 18:48 Apolinar Angeles MD is Attending Physician. cp 19:12 Inserted saline lock: 22 gauge in right antecubital area, using aseptic technique. jb5 Blood collected. 19:13 Joselito Miller MD is Attending Physician. cp 19:18 Cyndie Vidales RN is Primary Nurse. ea 19:19 Patient has correct armband on for positive identification. Bed in low position. Call ea light in reach. 19:19 Basic Metabolic Panel Sent. jb5 19:19 CBC with Diff Sent. jb5 19:19 LFT's Sent. jb5 19:19 Magnesium Sent. jb5 19:19 NT PRO-BNP Sent. jb5 19:19 PT-INR Sent. jb5 19:19 Troponin (emerg Dept Use Only) Sent. jb5 19:26 XRAY Chest (1 view) In Process Unspecified. EDMS 20:39 Hunter Gee PA is Hospitalizing Provider. cp 20:44 No provider procedures requiring assistance completed. Patient admitted, IV remains in ea place. 20:51 Socrates Sanders is Hospitalizing Provider. cp 20:54 US Extremity Venous W Compression Tera In Process Unspecified. EDMS Administered Medications: 20:01 CANCELLED (Physician Discretion): Lasix (furosemide) 40 mg IVP once; give over 2 minutescp 20:22 Drug: Lasix (furosemide) 60 mg Route: IVP; Site: right antecubital; ea 21:53 Follow up: Response: No adverse reaction ea 20:29 Drug: Aspirin Chewable Tablet 324 mg Route: PO; ea 21:52 Follow up: Response: No adverse reaction ea 21:40 Drug: Lovenox (enoxaparin) 1 mg/kg Route: Sub-Q; Site: right lower abdomen; ea 21:53 Follow up: Response: No adverse reaction ea Outcome: 20:40 Decision to Hospitalize by Provider. cp 21:53 Admitted to ER Hold. Please see [facility] for further documentation. ea 21:53 Condition: stable 21:53 Instructed on the need for admit, Demonstrated understanding of instructions. 01/23 17:02 Patient left the ED. kl Signatures: Dispatcher [employer] EDMS Stephanie Palafox RN RN Stefan Pompa PA PA cp Broussard, Jennifer jb5 Mauricio Branch RN RN jl7 Sandra Maria Elena, RN RN ea Barber, Rebecca, RN RN rb3
--- NOTE | 2021-01-22 20:40 | EDPHYS ---
Physician Documentation [facility] Name: Anahi Downing Age: 45 yrs Sex: Female : 1975 Arrival Date: 01/22/2021 Time: 18:14 Bed 20 Private MD: ED Physician Joselito Miller HPI: 01/22 19:00 This 45 yrs old Female presents to ER via Ambulatory with complaints of cp Shortness Of Breath. 19:00 The patient has shortness of breath when lying flat. Onset: The symptoms/episode cp began/occurred 1 week(s) ago. 19:00 Duration: The symptoms are continuous, and are steadily getting worse. The patient's cp shortness of breath is aggravated by light activity, lying flat, is alleviated by nothing. 19:00 Associated signs and symptoms: Pertinent positives: chest pain, Pertinent negatives: cp productive cough, diaphoresis, fever. 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 - Social history:: Smoking status: Patient/guardian denies using tobacco, Stopped _ months ago 1. ROS: 19:02 Constitutional: Negative for body aches, chills, fever, poor PO intake. cp 19:02 Eyes: Negative for injury, pain, redness, and discharge. cp 19:02 ENT: Negative for ear pain, sore throat, difficulty swallowing, difficulty handling secretions. 19:02 Cardiovascular: Positive for chest pain, Negative for edema, palpitations. 19:02 Respiratory: Positive for shortness of breath, at rest. Negative for cough, wheezing. 19:02 Abdomen/GI: Negative for abdominal pain, nausea, vomiting, and diarrhea. 19:02 Back: Negative for radiated pain. 19:02 : Negative for urinary symptoms. 19:02 Neuro: Negative for altered mental status, headache, syncope. 19:02 All other systems are negative. Exam: 19:00 ECG was reviewed by the Attending Physician. cp 19:05 Constitutional: The patient appears alert, awake, non-diaphoretic, non-toxic, well cp developed, well nourished, in obvious distress, mildly distressed. 19:05 Head/Face: Normocephalic, atraumatic. cp 19:05 Eyes: Periorbital structures: appear normal, Conjunctiva: normal, no exudate, no injection, Sclera: no appreciated abnormality, Lids and lashes: appear normal, bilaterally. 19:05 ENT: External ear(s): are unremarkable, Nose: is normal, Mouth: Lips: moist, Oral mucosa: moist, Posterior pharynx: Airway: no evidence of obstruction, patent. 19:05 Neck: ROM/movement: is normal, is supple, without pain, no range of motions limitations. 19:05 Chest/axilla: Inspection: normal, Palpation: is normal, no crepitus, no tenderness. 19:05 Cardiovascular: Rate: tachycardic, Rhythm: regular, Edema: is not appreciated, JVD: is not appreciated. 19:05 Respiratory: mild respiratory distress is noted, Respirations: labored breathing, that is mild, Breath sounds: bronchial sounds, that are mild, are heard diffusely, stridor, is not appreciated, wheezing: is not appreciated. 19:05 Abdomen/GI: Inspection: abdomen appears normal, Palpation: abdomen is soft and non-tender, in all quadrants. 19:05 Skin: no rash present. 19:05 Neuro: Orientation: to person, place \\T\\ time. Mentation: is normal, Motor: moves all fours, strength is normal. Vital Signs: 18:43 BP 145 / 111; Pulse 119; Resp 25; Temp 98.4; Pulse Ox 97% on R/A; Weight 78.47 kg; jl7 Height 5 ft. 5 in. (165.10 cm); Pain 8/10; 19:00 BP 143 / 119; Pulse 115; Resp 23; Pulse Ox 99% on R/A; ea 21:50 BP 138 / 102; Pulse 70; Resp 18; Pulse Ox 99% on R/A; ea 18:43 Body Mass Index 28.79 (78.47 kg, 165.10 cm) 7 MDM: 18:59 Patient medically screened. cp 19:00 Differential diagnosis: Bronchitis CHF exacerbation, Chronic Obstructive Pulmonary cp Disease pneumonia, Pneumothorax pulmonary edema, Pulmonary Embolism Unstable Angina. 20:35 Data reviewed: vital signs, nurses notes, lab test result(s), EKG, radiologic studies, cp plain films. 20:35 Antibiotic administration: Not indicated, the patient does not have an appreciated cp infiltrate. Test interpretation: by ED physician or midlevel provider: ECG, plain radiologic studies. 20:45 Physician consultation: Hunter GEORGE was contacted at 20:30, regarding admission, to the telemetry unit. patient's condition. 01/22 18:49 Order name: Basic Metabolic Panel; Complete Time: 20:00 / 20:01 Interpretation: Normal except: CL 108; GLUC 108; GFR 82; K 5.5. 01/22 18:49 Order name: CBC with Diff; Complete Time: 20:00 01/22 20:02 Interpretation: Normal except: RBC 5.53; HGB 15.9; HCT 50.1; MCHC 31.7; RDW 16.9; BASO% cp 1.9. 01/22 18:49 Order name: LFT's; Complete Time: 20:00 01/22 18:49 Order name: Magnesium; Complete Time: 20:00 01/22 18:49 Order name: NT PRO-BNP; Complete Time: 20:00 / 20:02 Interpretation: Abnormal: NT PRO-BNP 5251. 01/22 18:49 Order name: PT-INR; Complete Time: 20:30 01/22 18:49 Order name: Troponin (emerg Dept Use Only); Complete Time: 20:00 01/22 21:52 Order name: COVID-19 : Document "Date of Symptom Onset" if Symptomatic. ea 01/22 22:40 Order name: CORONAVIRUS EDOK 01/22 23:46 Order name: SARS-COV-2 RT PCR EDOK 01/23 06:15 Order name: CBC with Automated Diff EDOK 01/23 06:27 Order name: Comprehensive Metabolic Panel EDOK 01/23 06:27 Order name: Troponin I EDOK 01/23 06:27 Order name: Lipid Profile EDOK 01/22 18:49 Order name: XRAY Chest (1 view) 01/22 18:49 Order name: EKG; Complete Time: 18:50 cp 01/22 18:49 Order name: Cardiac monitoring; Complete Time: 19:18 cp 01/22 20:02 Order name: US Extremity Venous W Compression Tera cp 01/22 21:26 Order name: CONS Physician Consult EDOK 01/23 06:27 Order name: T4 Free EDOK 01/23 06:27 Order name: Magnesium EDOK 01/23 06:28 Order name: Thyroid Stimulating Hormone EDOK 01/23 09:05 Order name: Phosphorus EDOK 01/23 13:55 Order name: Urinalysis EDOK 01/23 14:03 Order name: Potassium EDOK 01/23 14:03 Order name: Troponin I EDOK 01/22 18:49 Order name: EKG - Nurse/Tech; Complete Time: 19:18 cp 01/22 18:49 Order name: IV Saline Lock; Complete Time: 19:18 cp 01/22 18:49 Order name: Labs collected and sent; Complete Time: 19:18 cp 01/22 18:49 Order name: O2 Per Protocol; Complete Time: 19:18 cp 01/22 18:49 Order name: O2 Sat Monitoring; Complete Time: 19:18 cp EC:00 Rate is 113 beats/min. Rhythm is regular. ME interval is normal. QRS interval is cp normal. QT interval is normal. T waves are Inverted in lead aVL. Interpreted by me. Reviewed by me. Administered Medications: 20:01 CANCELLED (Physician Discretion): Lasix (furosemide) 40 mg IVP once; give over 2 minutescp 20:22 Drug: Lasix (furosemide) 60 mg Route: IVP; Site: right antecubital; ea 21:53 Follow up: Response: No adverse reaction ea 20:29 Drug: Aspirin Chewable Tablet 324 mg Route: PO; ea 21:52 Follow up: Response: No adverse reaction ea 21:40 Drug: Lovenox (enoxaparin) 1 mg/kg Route: Sub-Q; Site: right lower abdomen; ea 21:53 Follow up: Response: No adverse reaction ea Disposition: 01/22/21 20:40 Hospitalization ordered by Socrates Sanders for Inpatient Admission. Preliminary diagnosis are Unspecified combined systolic (congestive) and diastolic (congestive) heart failure, Orthopnea, Pulmonary edema. - Bed requested for Telemetry/MedSurg (Inpatient). - Status is Inpatient Admission. kl - Condition is Fair. - Problem is an acute exacerbation. - Symptoms have improved. Signatures: Dispatcher [employer] EDStephanie Phipps RN RN kl Webb, Martha, RN RN mw Page, Corey, PA PA cp Leal, Jahala, RN RN jl7 Cyndie Vidales RN RN ea Corrections: (The following items were deleted from the chart) 20:01 20:00 Lasix (furosemide) 40 mg IVP once; give over 2 minutes ordered. [facility] 20:47 20:40 Hospitalization Ordered by Hunter GEORGE for Inpatient Admission. Preliminary diagnosis is Unspecified combined systolic (congestive) and diastolic (congestive) heart failure; Orthopnea; Pulmonary edema. Bed requested for Telemetry/MedSurg (Inpatient). Status is Inpatient Admission. Condition is Fair. Problem is an acute exacerbation. Symptoms have improved. 20:51 20:47 01/22/2021 20:40 Hospitalization Ordered by Hunter GEORGE for Inpatient cp Admission. Preliminary diagnosis is Unspecified combined systolic (congestive) and diastolic (congestive) heart failure; Orthopnea; Pulmonary edema. Bed requested for [facility] ER HOLD. Status is Inpatient Admission. Condition is Fair. Problem is an acute exacerbation. Symptoms have improved. 01/23 16:16 06 20:51 01/22/2021 20:40 Hospitalization Ordered by Socrates Sanders for Inpatient kl Admission. Preliminary diagnosis is Unspecified combined systolic (congestive) and diastolic (congestive) heart failure; Orthopnea; Pulmonary edema. Bed requested for [facility] ER HOLD. Status is Inpatient Admission. Condition is Fair. Problem is an acute exacerbation. Symptoms have improved. 01/23 17:02 16:16 01/22/2021 20:40 Hospitalization Ordered by Socrates Sanders for Inpatient kl Admission. Preliminary diagnosis is Unspecified combined systolic (congestive) and diastolic (congestive) heart failure; Orthopnea; Pulmonary edema. Bed requested for Telemetry/MedSurg (Inpatient). Status is Inpatient Admission. Condition is Fair. Problem is an acute exacerbation. Symptoms have improved. kl
--- NOTE | 2021-01-22 21:15 | RAD REPORT ---
EXAM DESCRIPTION: US - Extrem Venous W Compress Tera - 01/22/2021 8:55 pm CLINICAL HISTORY: PAIN Bilateral leg edema and swelling. COMPARISON: <Comparisons> TECHNIQUE: Real-time sonographic interrogation of the left and right lower extremity deep venous sys tems was performed. FINDINGS: Normal compressibility, flow augmentation, phasic flow and spontaneous flow is identified in both the left and right lower extremity deep venous systems. IMPRESSION: No sonographic evidence of left or right lower extremity deep venous thrombosis.
[2021-01-22] MEDS ORDERED: ENOXAPARIN 80 MG/0.8 ML SQ ONE (21:43)
--- NOTE | 2021-01-22 21:57 | P.HP ---
Certification for Inpatient Patient admitted to: Inpatient With expected LOS: <2 Midnights Patient will require the following post-hospital care: None Practitioner: I am a practitioner with admitting privileges, knowledge of patient current condition, hospital course, and medical plan of care. Services: Services provided to patient in accordance with Admission requirements found in Title 42 Section 412.3 of the Code of Federal Regulations Patient History Date of Service: 01/22/21 Reason for admission: CHF exacerbation History of Present Illness: Ms. Downing is a 45 y/o F w/ CHF, COPD who presents today w/ worsening SOB x several months. She states that she had an episode of SOB last night that was not relieved w/ home oxygen. Her SOB gets worse w/ activity. She is also c/o intermittent substernal stabbing chest pain, which is unusual for her. She reports cough and nausea. She denies any wheezing, fevers, chills. She reports being hospitalized 6-7x since October for CHF exacerbation. Her last hospitalization was ~1 week ago in [place]. She reports her SOB has improved and the chest pain has completely resolved now. BNP 5251, troponin 0.06. - Past Medical/Surgical History Diabetic: No -: CHF -: COPD -: HTN -: appendix Psychosocial/ Personal History: lives by self - Family History Mother Notes: from [place] at 47 - Social History Smoking Status: Former smoker Alcohol use: No CD- Drugs: No Caffeine use: Yes Review of Systems Respiratory: Shortness of Breath, SOB with Excertion, As per HPI Cardiovascular: Chest Pain, Orthopnea, Edema, As per HPI Gastrointestinal: Nausea Physical Examination - Physical Exam General: Alert, In no apparent distress HEENT: Atraumatic, PERRLA, Mucous membr. moist/pink, EOMI, Sclerae nonicteric Neck: Supple Respiratory: Clear to auscultation bilaterally Cardiovascular: No edema, Regular rate/rhythm, Normal S1 S2, Other (mildly tachycardic) Capillary refill: <2 Seconds Gastrointestinal: Normal bowel sounds, Soft and benign, Non-distended, No tenderness, No guarding Musculoskeletal: No tenderness Integumentary: No rashes Neurological: Normal gait, Normal speech, Normal strength at 5/5 x4 extr, Normal tone, Normal affect Lymphatics: No axilla or inguinal lymphadenopathy - Studies Laboratory Data (last 24 hrs) 01/22/21 19:30: PT 14.7 H, INR 1.24 01/22/21 19:30: Sodium 138, Potassium 5.5 H, BUN 13, Creatinine 0.76, Glucose 108 H, Magnesium 1.9, Total Bilirubin 1.0, AST 40 H, ALT 32, Alkaline Phosphatase 141 H 01/22/21 19:07: WBC 10.50, Hgb 15.9 H, Hct 50.1 H, Plt Count 319 Assessment and Plan - Problems (Diagnosis) (1) Acute exacerbation of CHF (congestive heart failure) Current Visit: Yes Status: Acute Qualifiers: Heart failure type: unspecified Qualified Code(s): I50.9 - Heart failure, unspecified (2) COPD (chronic obstructive pulmonary disease) Current Visit: Yes Status: Chronic Qualifiers: COPD type: unspecified COPD Qualified Code(s): J44.9 - Chronic obstructive pulmonary disease, unspecified (3) HTN (hypertension) Current Visit: Yes Status: Acute Qualifiers: Hypertension type: unspecified Qualified Code(s): I10 - Essential (primary) hypertension - Plan IV lasix trend troponin x2 q4h since initial 0.06 echo in the morning monitor on telemetry repeat potassium lab consult cardiology reconcile and continue home meds receive full dose lovenox and ASA in ED Discharge Plan: Home Plan to discharge in: 48 Hours - Advance Directives Does patient have a Living Will: No Does patient have a Durable POA for Healthcare: No - Code Status/Comfort Care Code Status Assessed: Yes Code Status: Full Code Critical Care: No Time Spent Managing Pts Care (In Minutes): 70
[2021-01-23] MEDS ORDERED: ACETAMINOPHEN 500 MG TAB PO PRN (01:24)
[2021-01-23] MEDS ORDERED: ALBUTEROL 2.5 MG/3 ML NEB SOL NEB PRN (01:24)
[2021-01-23] MEDS ORDERED: ONDANSETRON 4 MG/2 ML VIAL IV PRN (01:24)
[2021-01-23] MEDS ORDERED: HYDRALAZINE HCL 20 MG/ML VIAL IV PRN (01:24)
[2021-01-23 06:12] LABS: Absolute Lymphocytes (CBC) 2.9 K/uL (0.7-4.9); Basophils % 1.4 % (0-1.3); Hematocrit 44.4 % (36.0-45.0); Lymphocytes % 30.8 % (15.3-44.8); MPV 8.6 fL (7.6-11.3)
[2021-01-23 06:25] LABS: ALT/SGPT 24 U/L (12-78); AST/SGOT 20 U/L (15-37); Albumin 3.1 g/dL (3.4-5.0); Alkaline Phosphatase 123 U/L (45-117); BUN Blood Urea Nitrogen 13 mg/dL (7-18); Bicarbonate 27 mmol/L (21-32); Bilirubin Total 1.4 mg/dL (0.2-1.0); Glucose Level 110 mg/dL (74-106); HDL Cholesterol 28 mg/dL (40-60); LDL Cholesterol, Calculated 98 (<130); Magnesium 1.7 mg/dL (1.8-2.4); Protein, Total 6.9 g/dL (6.4-8.2); Sodium Level 140 mmol/L (136-145); Troponin I 0.07 ng/mL (0.0-0.045)
[2021-01-23] MEDS ORDERED: MAGNESIUM SULFATE 1 gm IVPB 1 GM/100 ML BAG IV ONE ×2 (08:25→09:31)
[2021-01-23] MEDS ORDERED: FUROSEMIDE 40 MG/4 ML VIAL ONE ×2 (09:30→15:26)
[2021-01-23] MEDS ORDERED: ENOXAPARIN 40 MG/0.4 ML SQ ONE (09:31)
[2021-01-23] MEDS: ENOXAPARIN 40 MG/0.4 ML SQ SCH (09:52)
[2021-01-23] MEDS: FUROSEMIDE 40 MG/4 ML VIAL IV SCH ×2 (09:53→16:31)
--- NOTE | 2021-01-23 11:24 | ECHO ---
HEIGHT: 5 ft 5 in WEIGHT: 172 lb 15.948 oz DATE OF STUDY: 01/23/[address]: Hunter Gee 2-DIMENSIONAL: YES M.MODE: YES DOPPLER: YES COLOR FLOW: YES TDS: NO PORTABLE: NO DEFINITY: NO BUBBLE STUDY: NO DIAGNOSIS: CONGESTIVE HEART FAILURE CARDIAC HISTORY: CATHERIZATION: NO SURGERY: NO PROSTHETIC VALVE: NO PACEMAKER: NO MEASUREMENTS (cm) DIASTOLIC (NORMALS) SYSTOLIC (NORMALS) IVSd 1.0 (0.6-1.2) LA Diam 4.1 (1.9-4.0) LVEF 27% LVIDd 5.4 (3.5-5.7) LVIDs 4.7 (2.0-3.5) %FS 12% LVPWd 1.2 (0.6-1.2) Ao Diam 2.7 (2.0-3.7) 2 DIMENSIONAL ASSESSMENT: RIGHT ATRIUM: NORMAL LEFT ATRIUM: ENLARGED RIGHT VENTRICLE: NORMAL LEFT VENTRICLE: DILATED TRICUSPID VALVE: MITRAL VALVE: PULMONIC VALVE: AORTIC VALVE: PERICARDIAL EFFUSION: NONE AORTIC ROOT: NORMAL LEFT VENTRICULAR WALL MOTION: SEVERE GLOBAL HYPOKINESIS. DOPPLER/COLOR FLOW: SEE BELOW. COMMENTS: SEVERELY DEPRESSED LEFT VENTRICULAR EJECTION FRACTION 25-30%. SEVERE GLOBAL HYPOKINESIS. MODERATE TRICUSPID AND MITRAL REGURGITATION. MILD AORTIC REGURGITATION. SEVERE DIASTOLIC DYSFUNCTION. PULMONARY HYPERTENSION WITH RIGHT VENTRICULAR SYSTOLIC PRESSURE OF 55-60 mmHg AND RIGHT ATRIAL PRESSURE >20 mmHg. TECHNOLOGIST: Yuliana COLLIER
[2021-01-23 12:48] LABS: Urine Appearance CLEAR (Clear); Urine Bilirubin NEGATIVE (Negative); Urine Blood NEGATIVE (Negative); Urine Color YELLOW (Yellow); Urine Glucose NEGATIVE (Negative); Urine Protein TRACE (Negative)
[2021-01-23 13:55] LABS: Urine Microscopic Reflex NO UMIC
[2021-01-23 14:02] LABS: Potassium 4.2 mmol/L (3.5-5.1); Troponin I 0.06 ng/mL (0.0-0.045)
--- NOTE | 2021-01-23 16:33 | CON ---
Date of Consultation: 01/23/2021 Reason For Consultation: Heart failure exacerbation. History Of Present Illness: A 45-year-old female with history of heart failure, presently nonischemi c, history of COPD, hypertension, presented with worsening shortness of breath and orthopnea. No low er extremity edema. No nausea, vomiting, or diarrhea. Reports some cough. No dysuria, polyuria, or urinary urgency. She has been hospitalized multiple times for heart failure. Past Medical History: As outlined above in the HPI. Medications: Refer to reconciliation sheet for detailed list. Allergies: METRONIDAZOLE. Family History: No premature coronary artery disease or cancer. Social History: She does not smoke or drink. Does not use any drugs. Review of Systems: All systems reviewed and they were negative except what is mentioned in the HPI. Physical Examination: Vital Signs: Temperature is 98.6, pulse 102, breathing at 20, blood pressure 139/96, saturating 93% on room air. General: Pleasant young female, in no apparent distress. Head and Neck: Pupils are equal, reactive to light. Intact eye movements. Positive JVD. No cervic al lymphadenopathy. Neck: Supple. Thyroid is not enlarged. Lungs: Crackles in both bases. No accessory muscle use or muscle retraction. HEART: Regular rate and rhythm. No extra sounds. Abdomen: Soft, nontender. Bowel sounds positive. No organomegaly. No masses or hernia. No rigidi ty or rebound. Extremities: No clubbing, cyanosis. Intact pulses. Skin: No rash noted. Neurologic: Alert, awake, oriented x3. No acute focal deficits appreciated. Investigations: Creatinine 0.69. Troponin rapid 2.06. NT-proBNP is 5251. Hemoglobin is 14.8. Shyanne st x-ray, mild cardiomegaly. Assessment And Plan: 1.Acute on chronic systolic congestive heart failure exacerbation. Start on Lasix 40 mg IV q.12 kong rs. Obtain echo and monitor BUN, creatinine, electrolytes, and serial sets of cardiac enzymes to rul e out any myocardial injury. 2.Hypertension. Blood pressure is acceptable, diastolic is slightly high. Should improve with diur esis and we will monitor the patient. SR/MODL Voice ID: [id number] Report ID: [id number]
--- NOTE | 2021-01-23 19:07 | P.PN ---
Subjective Date of Service: 01/23/21 Chief Complaint: CHF exacerbation Patient reports feeling better today. Troponin trended flat. She is tolerating room air. Physical Examination - Vital Signs Temperature: 97.3 F Blood Pressure: 132/93 Pulse: 106 Respirations: 19 Pulse Ox (%): 95 - Physical Exam General: Alert, In no apparent distress, Oriented x3 HEENT: PERRLA, Mucous membr. moist/pink, Sclerae nonicteric Neck: Supple, JVD not distended Respiratory: Clear to auscultation bilaterally, Normal air movement Cardiovascular: No edema, Normal S1 S2, Other (Tachycardia) Gastrointestinal: Normal bowel sounds, Soft and benign, Non-distended, No tenderness Musculoskeletal: No swelling, No erythema Integumentary: No rashes Neurological: Normal strength at 5/5 x4 extr - Studies Laboratory Data (last 24 hrs) 01/22/21 19:30: PT 14.7 H, INR 1.24 01/22/21 19:30: Sodium 138, Potassium 5.5 H, BUN 13, Creatinine 0.76, Glucose 108 H, Magnesium 1.9, Total Bilirubin 1.0, AST 40 H, ALT 32, Alkaline Phosphatase 141 H 01/22/21 19:07: WBC 10.50, Hgb 15.9 H, Hct 50.1 H, Plt Count 319 Assessment And Plan - Current Problems (Diagnosis) (1) Acute on chronic systolic CHF (congestive heart failure) Current Visit: Yes Status: Acute (2) Elevated troponin Current Visit: Yes Status: Acute (3) HTN (hypertension) Current Visit: Yes Status: Acute Qualifiers: Hypertension type: unspecified Qualified Code(s): I10 - Essential (primary) hypertension - Plan Cardiology input appreciated. Continue diuresis with IV Lasix. Troponin trended flat. ACS unlikely. Daily weight, intake and output. Monitor electrolytes and renal function on IV Lasix. Continue Coreg and Lisinopril. Patient is tolerating room air. Possible discharge in a.m.
[2021-01-24 03:28] VITALS: BMI 28.6
[2021-01-24 04:31] LABS: Absolute Lymphocytes (CBC) 2.5 K/uL (0.7-4.9); Hematocrit 51.3 % (36.0-45.0); Lymphocytes % 26.7 % (15.3-44.8); MPV 8.6 fL (7.6-11.3); RBC Red Blood Cell Count 5.77 M/uL (3.86-4.86)
[2021-01-24 04:40] LABS: Potassium 3.8 mmol/L (3.5-5.1)
[2021-01-24] MEDS ORDERED: POTASSIUM CL SA 10 MEQ TAB PO ONE (05:13)
[2021-01-24] MEDS ORDERED: carvediloL 12.5 MG TAB PO SCH (08:00)
[2021-01-24] MEDS: ENOXAPARIN 40 MG/0.4 ML SQ SCH (09:00)
[2021-01-24] MEDS ORDERED: lisinopriL 5 MG TAB PO SCH (09:00)
[2021-01-24] MEDS: FUROSEMIDE 40 MG/4 ML VIAL IV SCH (10:01)
--- NOTE | 2021-01-24 12:21 | P.DS ---
Admission Date: 01/22/21 Discharge Date: 01/25/21 Disposition: ROUTINE DISCHARGE Discharge Condition: FAIR Reason for Admission: CHF exacerbation - Problems (1) Acute on chronic systolic CHF (congestive heart failure) Current Visit: Yes Status: Acute (2) Elevated troponin Current Visit: Yes Status: Acute (3) HTN (hypertension) Current Visit: Yes Status: Acute Qualifiers: Hypertension type: unspecified Qualified Code(s): I10 - Essential (primary) hypertension Brief History of Present Illness: 45-year-old woman with a history of chronic systolic heart failure presented to the ED with a complaint of progressive shortness of breath which has been present for several weeks. She also reported chest pain. Her initial troponin was mildly elevated. BNP is significantly elevated chest x-ray reported grossly clear lungs and cardiomegaly. Patient not hypoxic. She was hospitalized for further management. Hospital Course: Patient admitted to the medical floor. Troponin elevated to 0.05 and trended flat. ACS unlikely. She was diuresed with IV Lasix for CHF exacerbation. She was seen in consultation by cardiology, no changes in medications. Echocardiogram done reported EF of 20-25%, global hypokinesia and moderate pulmonary hypertension. Patient reports multiple hospitalizations for CHF since October this year. Patient states her shortness of breath has improved. No chest pain. Her blood pressure was low at some point with systolic as low 70s. Patient of the time was complaining of dizziness with standing. Her Coreg, lisinopril and Lasix doses have been cut in half. Patient informed to check her blood pressure taking these medications. He has been given parameters to hold her medications and not take them. She is asymptomatic today. Vitals are stable. Patient deemed stable for discharge. Vital Signs/Physical Exam: Temp Pulse Resp BP Pulse Ox 97.3 F 96 H 17 118/73 95 01/24/21 08:00 01/24/21 10:01 01/24/21 08:00 01/24/21 10:01 01/24/21 08:00 General: Alert, In no apparent distress, Oriented x3 HEENT: Mucous membr. moist/pink Neck: JVD not distended Respiratory: Clear to auscultation bilaterally, Normal air movement Cardiovascular: No edema, Regular rate/rhythm, Normal S1 S2 Gastrointestinal: Soft and benign, Non-distended, No tenderness Musculoskeletal: No swelling Integumentary: No rashes Neurological: Normal strength at 5/5 x4 extr Laboratory Data at Discharge: WBC 9.30 K/uL (4.3-10.9) 01/24/21 03:54 Hgb 16.6 g/dL (12.0-15.0) H 01/24/21 03:54 Hct 51.3 % (36.0-45.0) H D 01/24/21 03:54 Plt Count 279 K/uL (152-406) 01/24/21 03:54 PT 14.7 SECONDS (9.2-12.8) H 01/22/21 19:30 INR 1.24 01/22/21 19:30 Sodium 140 mmol/L (136-145) 01/24/21 03:54 Potassium 3.8 mmol/L (3.5-5.1) 01/24/21 03:54 BUN 19 mg/dL (7-18) H 01/24/21 03:54 Creatinine 0.71 mg/dL (0.55-1.3) 01/24/21 03:54 Glucose 116 mg/dL (74-106) H 01/24/21 03:54 Phosphorus 3.7 mg/dL (2.5-4.9) 01/23/21 05:42 Magnesium 1.7 mg/dL (1.8-2.4) L 01/23/21 05:42 Total Bilirubin 1.4 mg/dL (0.2-1.0) H 01/23/21 05:42 AST 20 U/L (15-37) 01/23/21 05:42 ALT 24 U/L (12-78) 01/23/21 05:42 Alkaline Phosphatase 123 U/L (45-117) H 01/23/21 05:42 Troponin I 0.06 ng/mL (0.0-0.045) H 01/23/21 13:34 Triglycerides 90 mg/dL (<150) 01/23/21 05:42 Cholesterol 144 mg/dL (<200) 01/23/21 05:42 HDL Cholesterol 28 mg/dL (40-60) L 01/23/21 05:42 Cholesterol/HDL Ratio 5.14 01/23/21 05:42 Home Medications: Aspirin [Aspirin EC 81 MG] 81 mg PO DAILY 01/23/21 Furosemide [Lasix*] 40 mg PO DAILY #30 tab 01/25/21 Lisinopril [Zestril] 1 tab PO DAILY #30 01/25/21 carvediloL [Coreg] 6.25 mg PO BID #60 tab 01/25/21 New Medications: carvediloL [Coreg] 6.25 mg PO BID #60 tab Furosemide [Lasix*] 40 mg PO DAILY #30 tab Lisinopril [Zestril] 1 tab PO DAILY #30 Diet: AHA Activity: Ad lida Followup: NONE,NONE [Primary Care Provider] -
--- NOTE | 2021-01-24 15:02 | P.PN ---
Subjective Date of Service: 01/24/21 Chief Complaint: CHF exacerbation Patient report black spots and dizziness after standing up today. Patient noted to be orthostatic. Systolic blood pressure low this afternoon. She is tolerating room air. Physical Examination - Vital Signs Temperature: 97.3 F Blood Pressure: 118/73 Pulse: 96 Respirations: 17 Pulse Ox (%): 95 - Physical Exam General: Alert, In no apparent distress, Oriented x3 HEENT: Mucous membr. moist/pink Neck: JVD not distended Respiratory: Clear to auscultation bilaterally, Normal air movement Cardiovascular: No edema, Regular rate/rhythm, Normal S1 S2 Gastrointestinal: Soft and benign, Non-distended, No tenderness Musculoskeletal: No swelling Integumentary: No rashes Neurological: Normal strength at 5/5 x4 extr Assessment And Plan - Current Problems (Diagnosis) (1) Acute on chronic systolic CHF (congestive heart failure) Current Visit: Yes Status: Acute (2) Elevated troponin Current Visit: Yes Status: Acute (3) HTN (hypertension) Current Visit: Yes Status: Acute Qualifiers: Hypertension type: unspecified Qualified Code(s): I10 - Essential (primary) hypertension - Plan Cardiology input appreciated. Hold lasix. Hold Coreg and Lisinopril. Monitor blood pressure. Troponin trended flat. ACS unlikely. Echocardiogram reported EF of 20-25% and severe global hypokinesis. Daily weight, intake and output. Monitor electrolytes and renal function. Orthostatic precautions. Patient is tolerating room air.
[2021-01-25 04:11] LABS: Absolute Lymphocytes (CBC) 2.9 K/uL (0.7-4.9); Basophils % 1.3 % (0-1.3); Hematocrit 53.2 % (36.0-45.0); Lymphocytes % 28.6 % (15.3-44.8); MPV 8.3 fL (7.6-11.3); RBC Red Blood Cell Count 5.97 M/uL (3.86-4.86)
[2021-01-25] MEDS: ENOXAPARIN 40 MG/0.4 ML SQ SCH (07:52)
[2021-01-25 08:14] VITALS: BP 108/71; TEMP 97.2
[2021-01-25 11:42] VITALS: O2SAT 96
== END 2021-01-25 12:53 | disposition home or self-care (01) | DRG 293 ==
LOC: ER 18:06 → ERHOLD 21:24 → 4TH 01-23 16:47
PROVIDERS: ADMIT Internal Medicine; ATTEND Internal Medicine
DX: I11.0 Hypertensive heart disease with heart failure (principal); I50.23 Acute on chronic systolic (congestive) heart failure; J44.9 Chronic obstructive pulmonary disease, unspecified; I95.1 Orthostatic hypotension; I27.20 Pulmonary hypertension, unspecified; R77.8 Other specified abnormalities of plasma proteins; R00.0 Tachycardia, unspecified; Z79.899 Other long term (current) drug therapy; Z98.51 Tubal ligation status; Z90.49 Acquired absence of other specified parts of digestive tract; Z60.2 Problems related to living alone; Z79.82 Long term (current) use of aspirin; Z87.891 Personal history of nicotine dependence; Z20.822 Contact with and (suspected) exposure to COVID-19
CPT/HCPCS: 36415; 71045; 80048; 80053; 80061; 80076; 81003; 83735; 83880; 84100; 84132; 84439; 84443; 84484; 85025; 85610; 93005; 93306; 93970; 94760; 96372; 96374; 99285; J1650; J1940; J3475; U0003

== ENCOUNTER 2021-04-11 17:18 | Inpatient (IN) | payer SELFPAY ==
--- OUTSIDE RECORDS SUMMARY | 2021-04-11 17:23 | XMS REPORT | Continuity of Care Document ---
:1975 Author Organization [facility] t Address [address] [place] [address] Care Team Providers Name Role Phone Asked, Pcp Primary Care Physician Unavailable Singer CORONADO Attending Clinician Cory Reese Attending Clinician Albaro VOGT E Attending Clinician Jasmin GEOGRAPHIC INFORMATION SYSTEM SURVEYOR Attending Clinician Deejay CORONADO Attending Clinician Juan FIRE COORDINATOR Attending Clinician Roman MOLINA Attending Clinician Vishnu MOLINA Attending Clinician Elizabeth Foster MD Attending Clinician Da Duval MD Attending Clinician Priscilla MOLINA Attending Clinician Pranav MOLINA Attending Clinician Rogerio Lawrence MD Attending Clinician Provider Attending Clinician Unavailable MD ROGERIO LAWRENCE Attending Clinician Unavailable Prem MOLINA Attending Clinician Edwin MOLINA Attending Clinician Nas uReda MD Attending Clinician MD ROMULO FLORIAN Attending Clinician Unavailab opal Gaona MD, Kia Attending Clinician Jesus Hassan MD Attending Clinician Deejay CORONADO Admitting Clinician Vishnu MOLINA Admitting Clinician PRISCILLA Admitting Clinician Unavailable OMAR Admitting Clinician Unavailable MD ROGERIO LAWRENCE Admitting Clinician Unavailable EDWIN Admitting Clinician Unavailable MD ROMULO FLORIAN Admitting Clinician Unavailab opal HASSAN Admitting Clinician Unavailable Payers Payer Name Policy Type Policy Number Effective Date Expiration Date S ource Problems Condition Condition Condition Status Onset Resolution Last Treating Co mments Source Name Details Category Date Date Treatment Clinician Date Acute on Acute on Disease Active Metho di chronic chronic 4-13 st congestive congestive 00:00: Ho spita heart heart 00 l failure failure Abdominal Abdominal Disease Active Met hodi pain pain 3-31 st 00:00: Hospita 00 l COPD COPD Disease Active Methodi (chronic (chronic 3-08 st obstructiv obstructiv 00:00: Ho spita e e 00 l pulmonary pulmonary disease) disease) COPD COPD Disease Active Methodi exacerbati exacerbati 3-05 st on on 00:00: Hospita 00 l Acute Acute Disease Active Overview: Method i systolic systolic 3-[address] congestive congestive 00:00: g of this Hospita heart heart 00 note l failure failure might be different from the original. Added automatic ally from request for surgery [id number] Dyspnea on Dyspnea on Disease Active M ethodi exertion exertion 2- st 00:00: Hospita 00 l Allergies, Adverse Reactions, Alerts Allergy Allergy Status Severity Reaction(s) Onset Inactive Treating Comm ents Source Name Type Date Date Clinician Metronid Propensi Active Rash Method i azole ty to 2-22 st adverse 00:00: Hospita reaction 00 l s to drug metronid DA Active [facility] azole 1-16 [place] [facility]: [facility] Social History Social Habit Start Date Stop Date Quantity Comments Source History SDOH [facility] Alcohol Std Drinks Hospit al History SDOH [facility] Alcohol Binge Hospital Tobacco use and 2020-11-19 2020-11-19 Former user Methodis t exposure 00:00:00 00:00:00 Hospital Alcohol intake 2020-11-19 2020-11-19 Lifetime [facility] 00:00:00 00:00:00 non-drinker Hospital (finding) History of tobacco 2020-11-05 Current smoker Me thodist use 00:00:00 Hospital History SDOH 2020-10-14 2020-10-14 1 [facility] Alcohol Frequency 00:00:00 00:00:00 Hospita l History SDOH 2020-10-14 2020-10-14 3 [facility] Financial 00:00:00 00:00:00 Hospital History SDDE Food 2020-10-14 2020-10-[address] Worry 00:00:00 00:00:00 Hospital History SDDE Food 2020-10-14 2020-10-[address] Scarcity 00:00:00 00:00:00 Hospital Sex Assigned At [birth year] [facility] 00:00:00 00:00:00 Hospital Smoking Status Start Date Stop Date Source Former smoker 2020-11-19 00:00:00 2020-11-19 00:00:00 Methodis t [facility] Medications Ordered Filled Start Stop Current Ordering Indication Dosage Frequency Signature Comments Components Source Medication Medication Date Date Medication? Clinician (SIG) Name Name lisinopriL Yes 10mg QD Take 1 Metho di (PRINIVIL) 4-14 tablet (10 st 10 mg 00:00: mg total) Hospita tablet 00 by mouth l daily for 30 days. albuterol Yes Q6H Inhale Method i (PROAIR 4-[address] HFA) 90 18:04: (six) Hospita mcg/actuati 21 hours as l on inhaler needed for wheezing or shortness of breath. carvediloL 2020- No 6.25mg Q.5D Take 1 Me thodi (COREG) 4-13 05-[address] 6.25 MG 00:00: 04:59 (6.25 mg Hospi ta tablet 00 :00 total) by l mouth 2 (two) times a day for 30 days. furosemide 2020- No 40mg QD Take 1 Meth preeti (Lasix) 40 13 05-14 tablet (40 st mg tablet 00:00: 04:59 mg total) Ho spita 00 :00 by mouth l daily for 30 days. doxycycline 2020- No 100mg Q.5D Take 1 Me thodi (DORYX) 100 4 04-[address] MG EC 00:00: 04:59 (100 mg Hospita tablet 00 :00 total) by l mouth 2 (two) times a day for 5 days. fluticasone Yes QD Inhale 1 Me thodi furoate-omar 3-[address] anteroL 00:00: s once Hospita (BREO 00 daily. l ELLIPTA) 200-25 mcg/dose blister with device powder for inhalation lisinopriL Yes 5mg QD Take 1 Metho di (PRINIVIL) 3-10 tablet (5 st 5 mg tablet 00:00: mg total) H ospita 00 by mouth l daily for 30 days. spironolact 2020- No 25mg QD Take 1 Met hodi one - 04-10 tablet (25 st (ALDACTONE) 00:00: 04:59 mg total) Hospita 25 MG 00 :00 by mouth l tablet daily for 30 days. aspirin 2020- No 81mg QD Take 1 Methodi (ECOTRIN) 10-28- tablet (81 st 81 MG 00:00: 04:59 mg total) Hospit a enteric 00 :00 by mouth l coated daily for tablet 30 days. carvediloL 2020- No 6.25mg Q.5D Take 1 Me thodi (COREG) 10-28- tablet st 6.25 MG 00:00: 04:59 (6.25 mg Hospi ta tablet 00 :00 total) by l mouth 2 (two) times a day for 30 days. Hold if heart rate below 55 acetaminoph 2020- No 650mg Q6H Take 2 Me thodi en 10-28-[address] (TYLENOL) 00:00: 04:59 (650 mg Hosp eladio 325 MG 00 :00 total) by l tablet mouth every 6 (six) hours as needed for mild pain or fever for up to 30 days. furosemide No 40mg QD Take 1 Meth preeti (LASIX) 40 10-28 tablet (40 st mg tablet 00:00: 04:59 mg total) Ho spita 00 :00 by mouth l daily for 30 days. guaiFENesin 2020- No 100mg Q4H Take 5 mL Methodi (ROBITUSSIN 10-28 ([address] ) 100 mg/5 00:00: 04:59 total) by H ospita mL syrup 00 :00 mouth l every 4 (four) hours as needed for cough or congestion for up to 14 days. budesonide/ 2020- No Inhale. Me thodi formoterol 10-25-05 st fumarate 03:54: 00:00 Hospita (SYMBICORT 20 :00 l INHL) budesonide- 2020- No 2{puff} Q.5D Inhale 2 Methodi formoteroL 10-24-[address] (Symbicort) 00:00: 00:00 (two) Hosp eladio 80-4.5 00 :00 times a l mcg/actuati day. on inhaler albuterol No 2{puff} Q4H Inhale 2 Methodi (PROAIR 10-24 04-[address] HFA) 90 00:00: 04:59 every 4 Hospit a mcg/actuati 00 :00 (four) l on inhaler hours as needed for wheezing for up to 30 days. predniSONE No 20mg QD Take 2 Meth preeti (DELTASONE) 10-24- tablets st 10 mg 00:00: 05:59 (20 mg Hospita tablet 00 :00 total) by l mouth daily for 5 days. azithromyci No 250mg QD Take 1 Me thodi n 10-[address] (ZITHROMAX) 00:00: 05:59 (250 mg Ho spita 250 MG 00 :00 total) by l tablet mouth daily for 5 days. Take first 2 tablets together, then 1 every day until finished. Vital Signs Vital Name Observation Time Observation Value Comments Source Systolic blood 2020-12-02 18:30:00 130 mm[Hg] [facility] pressure Diastolic blood 2020-12-02 18:30:00 62 mm[Hg] [facility] pressure Heart rate 2020-12-02 18:30:00 90 /min [facility] Respiratory rate 2020-12-02 18:30:00 18 /min [facility] Oxygen saturation in 2020-12-02 18:30:00 98 /min [facility] Arterial blood by Pulse oximetry Body temperature 2020-12-02 14:22:00 36.56 Chandrika [facility] Body height 2020-12-02 09:22:00 165.1 cm [facility] Body weight 2020-12-02 09:22:00 86.183 kg [facility] BMI 2020-12-02 09:22:00 31.62 kg/m2 [facility] Procedures Procedure Date / Time Performing Clinician Source Performed TROPONIN 2020-12-02 17:37:00 [facility] URINE DRUGS OF ABUSE 2020-12-02 14:49:00 Yeyo Wells [facility] SCREEN TROPONIN 2020-12-02 14:30:[address] [facility] [address] [facility] ECG ED PRELIMINARY 2020-12-02 10:02:38 Calvin Duval [facility] INTERPRETATION Da XR CHEST 1 VW PORTABLE 2020-12-02 09:58:58 Calvin Duval [facility] B NATRIURETIC PEPTIDE 2020-12-02 09:52:00 Calvin Duval [facility] HC COMPLETE BLD COUNT 2020-12-02 09:52:00 Calvin Duval [facility] W/AUTO DIFF Da COMPREHENSIVE METABOLIC 2020-12-02 09:52:00 Calvin Duval [facility] PANEL Da TROPONIN 2020-12-02 09:52:00 Priscilla Yeyo [facility] ESTIMATED GFR 2020-12-02 09:52:00 [facility] 2020-12-02 09:52:00 [facility] 12-LEAD 2020-12-02 09:43:07 Calvin Duval spital Da HC COMPLETE BLD COUNT 2020-11-20 10:30:00 [facility] W/AUTO DIFF COMPREHENSIVE METABOLIC 2020-11-20 10:30:00 [facility] PANEL B NATRIURETIC PEPTIDE 2020-11-20 10:30:00 Salomon Mathew Barragan Jamie [facility] ESTIMATED GFR 2020-11-20 10:30:00 [facility] LACTIC ACID LEVEL, SEPSIS 2020-11-20 06:33:00 [facility] NOW AND REPEAT 2X EVERY 3 HOURS LACTIC ACID LEVEL, SEPSIS 2020-11-20 03:36:00 [facility] - NOW AND REPEAT 2X EVERY 3 HOURS COVID-19 QUALITATIVE 2020-11-20 00:39:00 [facility] RT-PCR LACTIC ACID LEVEL, SEPSIS 2020-11-20 00:11:00 [facility] - NOW AND REPEAT 2X EVERY 3 HOURS BLOOD CULTURE, AEROBIC & 2020-11-20 00:11:00 RockDerick [facility] ANAEROBIC BLOOD CULTURE, AEROBIC & 2020-11-19 23:52:00 [facility] ANAEROBIC CT ABDOMEN PELVIS W 2020-11-19 21:43:28 [facility] Derick [facility] CONTRAST CT ANGIOGRAM PE CHEST 2020-11-19 21:42:26 [facility] XR CHEST 1 VW PORTABLE 2020-11-19 21:25:00 Pranav Derick [facility] URINE CULTURE 2020-11-19 19:08:00 Derick [facility] ECG 12-LEAD 2020-11-19 18:58:50 RockDerick spital HC COMPLETE BLD COUNT 2020-11-19 18:57:00 [facility] W/AUTO DIFF COMPREHENSIVE METABOLIC 2020-11-19 18:57:00 [facility] PANEL URINALYSIS SCREEN AND 2020-11-19 18:57:00 [facility] MICROSCOPY, WITH REFLEX TO CULTURE ALCOHOL LEVEL, BLOOD 2020-11-19 18:57:00 [facility] D-DIMER 2020-11-19 18:57:00 RcokTequilalani Mendez Ho spital ESTIMATED GFR 2020-11-19 18:57:00 Derick Rock spital HCG QUALITATIVE, URINE 2020-11-19 18:57:00 [facility] SCREEN URINE DRUGS OF ABUSE 2020-11-19 18:48:00 Mathew Latif [facility] SCREEN ECG ED PRELIMINARY 2020-11-19 18:42:01 [facility] INTERPRETATION HC COMPLETE BLD COUNT 2020-10-28 11:44:00 [facility] W/AUTO DIFF BASIC METABOLIC PANEL 2020-10-28 11:44:00 [facility] MAGNESIUM LEVEL 2020-10-28 11:44:00 [facility] ESTIMATED GFR 2020-10-28 11:44:00 [facility] CV RIGHT AND LEFT HEART 2020-10-27 22:46:00 David Richter [facility] CATH SELECTIVE CORONARY LV GRAM POC BLOOD GAS, VENOUS AND 2020-10-27 22:37:00 [facility] LYTES POC BLOOD GAS, VENOUS AND 2020-10-27 22:32:00 [facility] POC BLOOD GAS, ARTERIAL 2020-10-27 22:27:00 [facility] AND LYTES TYPE AND SCREEN 2020-10-27 12:57:00 David Richter H ospital PARTIAL THROMBOPLASTIN 2020-10-27 12:57:00 David Richter [facility] TIME (PTT) PROTHROMBIN TIME WITH INR 2020-10-27 12:57:00 [facility] QUANTITATIVE, SERUM 2020-10-27 12:57:00 David Richter [facility] CBC WITH PLATELET AND 2020-10-27 10:42:00 PearsonAnahi leonard [facility] DIFFERENTIAL Kiya COMPREHENSIVE METABOLIC 2020-10-27 10:42:00 [facility] PANEL Kiya MAGNESIUM LEVEL 2020-10-27 10:42:00 [facility] ESTIMATED GFR 2020-10-27 10:42:00 [facility] Kiya MANUAL DIFFERENTIAL 2020-10-27 10:42:00 [facility] Kiya ECG 12-LEAD 2020-10-27 05:07:15 [facility]URE 2020-10-27 00:22:00 [facility] URINALYSIS SCREEN AND 2020-10-27 00:15:00 [facility] MICROSCOPY, WITH REFLEX TO CULTURE XR CHEST 1 VW PORTABLE 2020-10-26 16:32:17 [facility] HC COMPLETE BLD COUNT 2020-10-26 11:40:00 [facility] W/AUTO DIFF Kiya COMPREHENSIVE METABOLIC 2020-10-26 11:40:00 [facility] PANEL Kiya ESTIMATED GFR 2020-10-26 11:40:00 [facility] Kiya TTE COMPLETE, W CONTRAST, 2020-10-25 19:55:00 [facility] ([id number][facility] TROPONIN 2020-10-25 11:37:00 Luis Amarotal HC COMPLETE BLD COUNT 2020-10-25 11:37:00 [facility] W/AUTO DIFF Kiya COMPREHENSIVE METABOLIC 2020-10-25 11:37:00 [facility] PANEL Kiya ESTIMATED GFR 2020-10-25 11:37:00 [facility] Kiya TROPONIN 2020-10-25 07:30:00 Luis Amaro spital COVID-19 QUALITATIVE 2020-10-25 04:57:00 Luis Amaro [facility] RT-PCR HCG QUALITATIVE, URINE 2020-10-25 04:14:00 Prem [facility] SCREEN XR CHEST 1 VW 2020-10-25 04:13:30 Luis Amaro spital HC COMPLETE BLD COUNT 2020-10-25 02:11:00 Prem [facility] W/AUTO DIFF COMPREHENSIVE METABOLIC 2020-10-25 02:11:00 Prem [facility] PANEL PARTIAL THROMBOPLASTIN 2020-10-25 02:11:00 Prem [facility] TIME (PTT) PROTHROMBIN TIME WITH INR 2020-10-25 02:11:00 Prem [facility] CREATINE KINASE, TOTAL 2020-10-25 02:11:00 Prem [facility] ([facility]) B NATRIURETIC PEPTIDE 2020-10-25 02:11:00 Prem [facility] ESTIMATED GFR 2020-10-25 02:11:00 Luis Amaro spital TROPONIN 2020-10-25 02:11:00 Luis Amaro spital ECG 12-LEAD 2020-10-25 01:45:52 [facility] 2020-10-25 01:34:02 Prem [facility] INTERPRETATION US HEPATIC 2020-10-14 21:52:47 Karen Bello spital Mary TROPONIN 2020-10-14 10:25:00 Karen Bello spital Mary HC COMPLETE BLD COUNT 2020-10-14 10:25:00 Karen Bello [facility] W/AUTO DIFF Mary PROTHROMBIN TIME WITH INR 2020-10-14 10:25:00 [facility] LIPASE LEVEL 2020-10-14 10:25:00 Karen Bello spital Mary COMPREHENSIVE METABOLIC 2020-10-14 10:25:00 [facility] Mary THYROID STIMULATING 2020-10-14 10:25:00 [facility] Mary ESTIMATED GFR 2020-10-14 10:25:00 Karen Bello spital Mary LIPID PANEL 2020-10-14 10:25:00 Karen Bello spital Mary RESPIRATORY PATHOGEN 2020-10-14 08:41:00 [facility] WITH COVID-19 RT-PCR TROPONIN 2020-10-14 06:23:00 Karen Bello spital Mary CT ANGIOGRAM PE CHEST 2020-10-14 05:18:26 [facility] 2020-10-14 03:27:29 Mack [facility] INTERPRETATION ECG 12-LEAD 2020-10-14 03:18:29 Kraen Bello spijanes Mary COMPREHENSIVE METABOLIC 2020-10-14 03:04:00 [facility] CREATINE KINASE, TOTAL 2020-10-14 03:04:00 [facility] TROP[facility]IN 2020-10-14 03:04:00 Karen Bello spital Mary B NATRIURETIC PEPTIDE 2020-10-14 03:04:00 [facility] D-[facility] 2020-10-14 03:04:00 Sidra Giron HCG QUALITATIVE, SERUM 2020-10-14 03:04:00 [facility] S[facility]EN [facility]IMATED GFR 2020-10-14 03:04:00 Sidra Girontal HC COMPLETE BLD COUNT 2020-10-14 03:04:00 [facility] W/AUTO DIFF XR CHEST 1 VW PORTABLE 2020-10-14 02:39:45 [facility] Plan of Care Planned Activity Planned Date Details Comments Source Future Scheduled Test COVID-19 VACCINE (1) [facility] [code = COVID-19 VACCINE (1)] Future Scheduled Test Hepatitis C screening [facility] (procedure) [code = 646975233] Future Scheduled Test Screening for [facility] malignant neoplasm of cervix (procedure) [code = 618666266] Future Scheduled Test INFLUENZA VACCINE [facility] [code = INFLUENZA VACCINE] Encounters Start End Encounter Admission Attending Care Care Encounter Source Date/Time Date/Time Type Type Clinicians Facility Department ID 2021-04-06 2021-04-06 Emergency [facility] [id number] 12:13:00 14:26:00 Theo Greenfield 350.1.13.10 Mary 4.2.7.2.686 [place] [id number] 2021-04-06 2021-04-06 Patient HughCharleyyazmin 1.2.840.114 [id number] 00:00:00 00:00:00 Outreach Elyssa E Almendarez 350.1.13.10 [place] 4.2.7.2.686 [id number] 2021-04-02 2021-04-02 Patient Rosetta Irvinyazmin 1.2.840.114 [id number] 00:00:00 00:00:00 Outreach E Almendarez 350.1.13.10 [place] 4.2.7.2.686 [id number] 2021-03-30 2021-03-30 Patient Rosetta Irvinyazmin 1.2.840.114 [id number] 00:00:00 00:00:00 Outreach E Almendarez 350.1.13.10 [place] 4.2.7.2.686 [id number] 2021-03-25 2021-03-25 Patient Rosetta Irvin 1.2.840.114 [id number] 00:00:00 00:00:00 Outreach E Almendarez 350.1.13.10 [place] 4.2.7.2.686 [id number] 2021-03-16 2021-03-18 Emergency Apolinar Castellanos [facility] 1.2.840. 114 [id number] 19:40:00 14:45:00 Yony Villalba 350.1.13.10 Mary 4.2.7.2.686 [place] [id number] 081 2021-03-10 2021-03-10 Transition Jnei Martinez 1.2.840.114 [id number] 00:00:00 00:00:00 of Care Yasmeen Almendarez 350.1.13.10 [place] 4.2.7.2.686 [id number] 2021-03-07 2021-03-09 [facility] Edinson Owens [facility] 1.2.840.1 14 [id number] 08:22:00 12:00:00 Encounter SelvinNoah rasmussen [place] 350.1.13.10 [place] 4.2.7.2.686 [place] [id number] 2021-03-09 2021-03-09 Patient Rosetta Irvinyazmin 1.2.840.114 [id number] 00:00:00 00:00:00 Outreach E Almendarez 350.1.13.10 [place] 4.2.7.2.686 [id number] 403 2021-03-04 2021-03-04 Patient Rosetta Irvinyazmin 1.2.840.114 [id number] 00:00:00 00:00:00 Outreach E Almendarez 350.1.13.10 [place] 4.2.7.2.686 [id number] 2021-02-25 2021-02-25 Patient Rosetta Irvinyazmin 1.2.840.114 [id number] 00:00:00 00:00:00 Outreach E Almendarez 350.1.13.10 [place] 4.2.7.2.686 [id number] 2021-02-09 2021-02-09 Transition Jeni Martinez 1.2.840.114 [id number] 00:00:00 00:00:00 of Care Yasmeen Almendarez 350.1.13.10 [place] 4.2.7.2.686 [id number] 2021-01-26 2021-01-26 Telephone [facility] 1.2.840.114 [id number] 00:00:00 00:00:00 [facility] 350.1.13.10 [facility] 4.2.7.2.686 [id number] 059 2020-12-02 2020-12-02 Emergency Calvin Duval 1.2.840.1 [id number] Methodi 04:27:00 14:00:00 Yeyo Wells [address]11.1.[address] 3.430.2.7 Hospit a .3.812163 l .8 2020-12-02 2020-12-02 Outpatient PRISCILLA, [facility] [id number] [place] 00:00:00 00:00:[address] YE[address]O [address] 2020-12-02 2020-12-02 Travel 1.2.840.1 1.2.708.195 [id number] Methodi 00:00:00 00:00:[address] 3.430.2.7 0.2.7.3.698 Ho spita .3.270803 084.8 l .8 2020-11-19 2020-11-20 [facility] Derick Rock 1.2.840.1 [id number] Methodi 13:36:00 16:25:00 Encounter Radhames Lawrence Rogerio 30439.1.[address] 3.430.2.7 Hospit a .3.009082 l .8 2020-11-20 2020-11-20 Documentat Provider, 1.2.840.1 [id number] Methodi 00:00:00 00:00:00 ion Matt 93538.1.[address] 3.430.2.7 Hospit a .3.528477 l .8 2020-11-19 2020-11-20 Inpatient RADHAMES LAWRENCE [facility] 064 [id number] [place] 00:00:00 00:00:[address] 2020-11-19 2020-11-19 Travel 1.2.840.1 1.2.064.871 [id number] Methodi 00:00:00 00:00:[address] 3.430.2.7 0.2.7.3.698 Ho spita .3.319844 084.8 l .8 2020-10-24 2020-10-28 [facility] Luis Amaro 1.2.840.1 [id number] Methodi 19:16:00 12:58:00 Encounter Hong Florian 90766.1.[address] 3.430.2.7 Hospit a .3.992093 l .8 2020-10-24 2020-10-28 Inpatient EDWIN [facility] 903 [id number] [place] 00:00:00 00:00:[address] 2020-10-27 2020-10-27 Surgery Rueda, 1.2.840.1 [id number] Methodi 14:30:00 15:30:00 Ernesto Lovell [address]693.1.[address] 3.430.2.7 Hospit a .3.345777 l .8 2020-10-24 2020-10-24 Travel 1.2.840.1 1.2.249.263 7011 [id number] Methodi 00:00:00 00:00:[address] 3.430.2.7 0.2.7.3.698 Ho spita .3.533007 084.8 l .8 2020-10-13 2020-10-14 [facility] 1.2.840.1 [id number] 004 [id number] Methodi 19:58:00 19:56:00 Encounter Surjit Hassan 48407.[address] 3.430.2.7 Hospit a .3.168079 l .8 2020-10-13 2020-10-14 Inpatient SALVADOR [facility] 064 [id number] [place] 00:00:00 00:00:00 SURJIT Chris [address] 2020-10-13 2020-10-13 Travel 1.2.840.1 1.2.577.304 [id number] Methodi 00:00:00 00:00:[address] 3.430.2.7 0.2.7.3.698 Ho spita .3.957321 084.8 l .8 Results Test Description Test Time Test Comments Results Result [facility] e Comments - XR SHOULDER 2 + 2020-12-05 V RT 04:14:00 [facility] 1975 Sex: F FAX: Carmita Truong [phone] [place]: St: [facility] FAX: Jose Herrmann MD Name: ANAHI HAYWOOD [facility] : 1975 Age/S: 45/F [address] [facility] Unit #: [id number] Loc: E.ERS[address] [place] [address] [place]: [place] [id number] Acct: [id number] Dis Date: Status: REG ER PHONE #: [phone] Exam Date: 12/05/2020 0401 FAX #: [phone] Reason: pain EXAMS: CPT CODE: [id number] XR SHOULDER 2 + V RT [id number] EXAM: - XR SHOULDER 2 + V RT HISTORY: Pain. COMPARISON: None available time of interpretation. FINDINGS: Internal and external rotated AP views of the right shoulder with scapular Y view is provided. There is no acute fracture or dislocation. The osseous structures are intact. IMPRESSION: No acute osseous abnormality. at 0414 Reported and signed by: Gerald Light M.D. CC: Carmita Randall MD; Jose Herrmann MD Technologist: NGUYEN RÍOS Trnscrd Date/Time/By: 12/05/2020 (0414) : By: [email or web address] PAGE 1 Signed Report FAX: Carmita Truong [phone] [place]: St: REG FAX: Jose Herrmann MD Name: ANAHI HAYWOOD [facility] : 1975 Age/S: 45/F [address] [facility] Unit #: [id number] Loc: [address] Phys: [place] [address] Acct: [id number] Dis Date: Status: REG ER PHONE #: [phone] Exam Date: 12/05/2020 0401 FAX #: [phone] Reason: pain EXAMS: CPT CODE: [id number] XR SHOULDER 2 + V RT [id number] <Continued> Orig Print D/T: S: 12/05/2020 (0416) PAGE 2 Signed Report ECG 12 lead 2020-12-03 03:49:04 Test Item Value Reference Range Interpretation Comme nts Ventricular rate (test code = 253) Atrial rate (test code = 255) GA interval (test code = 266) QRSD interval (test code = 260) QT interval (test code = 264) QTC interval (test code = 265) P axis 1 (test code = 267) QRS axis 1 (test code = 268) T wave axis (test code = 270) EKG impression (test code = 273) Sinus tachycardia-Nonspecific T wa ve abnormality-Abnormal ECG-In automated comparison with ECG of 19-NOV-2020 13:58,-No significant change was found-- [facility] Vw [id number] 10:11:23Examination: XR CHEST 1 PORTABLEClinical history: "SOB" Comparison: Prior imaging, including achest radiograph obtained on 11/19/2020.One radiographic view of the chest was evaluated. Impression: There are no apparent infiltrates, pleural effusions, or pneumothoraces. The cardiomediastinalsilhouette, the imaged bones, and the remainder of the chest are stable in appearance. [facility] Interface, Radiology Results 12/02/2020 5:14 AM CDT Examination: XR CHEST 1 PORTABLEClinical history: "SOB" Comparison: Prior imaging, including a chest radiograph obtained on 11/19/2020.One radiographic view of the chest was evaluated.Impression: There are no apparent infiltrates, pleural effusions, or pneumothoraces. The cardiomediastinal silhouette, the imaged bones, and the remainder of the chest are stable in appearance.FINA [facility] ED Preliminary Interpretation - Not an [id number] 10:02:38Calvin Duvla MD 12/02/2020 5:48 [facility] ED Preliminary Interpretation - Not an OrderPerformed by: Calvin Duval MDAuthorized by: Calvin Duval MD Interpretation: Interpretation: non-specific Quality: Tracing quality: Limited by artifactRate: ECG rate: 110 ECG rate assessment: tachycardic Rhythm: Rhythm: sinus tachycardia Ectopy: Ectopy: none ST segments: ST segments: Non-specificT waves: T waves: non-specific [facility] [id number] 19:17:27 Test Item Value Reference Range Interpretation Comments Urine culture isolate Mixed lawrence <=10-3 (test code = 38132-8) col/[facility] [Presence] in Respiratory specimen by SYD with probe [id number] 05:35:10 Test Item Value Reference Range Interpretation Comments SARS-CoV-2 (COVID-19) RNA Not detected Not-Detected [Presence] in Respiratory specimen by SYD with probe detection (test code = 23291-7) CT Angiogram Pe [id number] 21:55:30EXAMINATION:CT ANGIOGRAM PE CHEST CLINICAL HISTORY: dyspnea tachycarida h o copd TECHNIQUE:CT angiographic images of the chest were obtained during intravenous administration of iodinated contrast. Computerized reformatted images and 3-D MIP images were also obtained and archived (CT pulmonary embolus protocol). Approximately 60 cc of Omnipaque [address] scan performed using radiation dose reduction techniques. Technical factors are evaluated and adjusted to ensure appropriate moderation of exposure. Automated dose management technology is applied to adjust the radiation dose to minimize expose while achieving a diagnostic quality image. COMPARISON: 10/13/2020 FINDINGS: The main pulmonary artery, right pulmonary artery and left pulmonary artery as well as their visualized segmental and subsegmental branches demonstrate no evidence of pulmonary embolism. The pulmonary arteries are normal in caliber. There is no evidence of aortic aneurysm or dissection. Mild right hilar adenopathy as prior. No mediastinum, left hilar or axillary pathologic adenopathy is seen. The heart is normal in caliber. No pericardial effusion is seen. No consolidation is seen. There has been decrease in density of left upper lobe 6 mm groundglass nodule, series 3 image #35. There has been resolution of right upper lobe groundglass nodules and a right lower lobe groundglass nodule. A right middle lobe 4 mm pulmonary nodule is stable. No new pulmonary nodule or mass is seen. No pleural effusion. There is noevidence of pneumothorax. The image portion of the abdomen viscera is unremarkable. IMPRESSION: No CTA evidence of pulmonary embolism. No CTA evidence of aortic aneurysm or dissection. Interval resolution of right pulmonary groundglass nodules and decrease in density of left upper lobe groundglass nodule, suggestive of resolving pneumonitis. Stable right middle lobe pulmonary nodule, probably representing a granuloma. Indeterminate mild right hilar adenopathy as prior. [id number] Interface, Radiology Results Incoming - 11/19/2020 4:58 PM CDT EXAMINATION:CT ANGIOGRAM PE CHESTCLINICAL HISTORY: dyspnea tachycarida h o copdTECHNIQUE:CT angiographic images of the chest were obtained during intravenous administration of iodinated contrast. Computerized reformatted images and 3-D MIP images were also obtained and archived (CT pulmonaryembolus protocol). Approximately 60 cc of Omnipaque 350 [...] aortic aneurysm or dissection.Mild right hilar adenopathy asprior. No mediastinum, left hilar or axillary pathologic [...] decrease in density of left upper lobe groundglass nodule, suggestive of resolving pneumonitis.Stable right middle lobe pulmonary nodule, probably representing a granuloma.Indeterminate mild right hilar adenopathy as prior.[id number] 2020-11-19 21:54:35EXAMINATION: CT ABDOMEN PELVIS W CONTRAST CLINICAL HISTORY: abdominal pain TECHNIQUE: Multiple axial images of the abdomen and pelvis were obtained following intravenous administration of iodinated contrast. Sagittal and coronal computerized reformatted images were also obtained. CT imaging was performed with iterative reconstruction technique and/or automated exposure control to reduce radiation dose. COMPARISON: June 28, 2007 CT abdomen pelvis FINDINGS:The lung bases are clear. No free intraperitoneal air or fluid. Abdomen:Fatty infiltration of the liver as before No focal hepatic abnormality Portal veins patent No biliary dilatation Gallbladder grossly unremarkable. Spleen normal. Adrenalglands normal. Pancreas normal Abdominal aorta normal caliber. Moderate atherosclerosis No bowel obstruction. Scattered fecal material throughout the colon. Appendectomy clips. Normal size kidneys. Symmetrical function from each kidney. No renal mass. No hydronephrosis or tract calculus Pelvis:Scattered fecal material throughout the colon. No diverticulitis or bowel obstruction. Uterus grossly unremarkable. Follicular changes on the ovaries. No pelvic mass or sidewall adenopathy. Urinary bladder grossly unremarkable. Diffuse subcutaneous infiltration and at the level of the patient's pediculus. No focal fluid collection seen Visualized skeleton intact. Moderate degenerative lumbar facet hypertrophy. Mild scattered osteophytic changes IMPRESSION: Changes suspicious for panniculitis Fatty infiltration of the liver as on previous Otherwise unremarkable CT abdomen pelvis [id number] Interface, Radiology Results 11/19/2020 4:57 PM CDT EXAMINATION: CT ABDOMEN PELVIS W CONTRASTCLINICAL HISTORY: abdominal painTECHNIQUE: Multiple axial images of the abdomen and pelvis were obtained following intravenous administration ofiodinated contrast. Sagittal and coronal computerized reformatted images were also obtained. CT imaging was performed with iterative reconstruction technique and/or automated exposure control to reduceradiation dose.COMPARISON: June 28, 2007 CT abdomen pelvisFINDINGS:The lung bases are clear. No free intraperitoneal air or fluid.Abdomen:Fatty infiltration of the liver as beforeNo focal hepatic abnormalityPortal veins patentNo biliary dilatationGallbladder grossly unremarkable.Spleen normal.Adrenal glands normal.Pancreas normalAbdominal aorta normal caliber. Moderate atherosclerosisNo bowel obstruction. Scattered fecal material throughout the colon. Appendectomy clips.Normal size kidneys. Symmetrical function from each kidney. No renal mass. No hydronephrosis or tract calculusPelvis:Scattered fecal material throughout the colon. No diverticulitis or bowel obstruction.Uterus grossly unremarkable.Follicular changes on the ovaries.No pelvic mass or sidewall adenopathy.Urinary bladder grosslyunremarkable.Diffuse subcutaneous infiltration and at the level of the patient's pediculus. No focalfluid collection seenVisualized skeleton intact. Moderate degenerative lumbar facet hypertrophy. Mild scattered osteophytic changesIMPRESSION:Changes suspicious for panniculitisFatty infiltration of the liver as on previousOtherwise unremarkable CT abdomen [id number] lab [id number] 16:57:33Anahi Haywood09/03/[id number] Indications:New onset systolic CHF Procedures:Coronary angiogramLHC with LVgramRHC with cardiac output Closure:TR band Access site:Right radial artery and Right internal jugular vein Procedure details: Risks and benefits were discussed with the patient, info rmed consent was obtained.Patient was brought to the [...] radial artery without difficulty. A 5 Fr [place] catheter was then advance over the wireinto the ascending aorta. Angiogram of the left and right coronary was performed. The [place] catheter was then position in the LV. [...] Total contrast used: 35 mlFlouro-time: 1.5 minutesAir Keramaury:505 mGy 10/27/20[facility]ercathi [facility]aThe [facility]an[facility] Ech[facility] Complete, (w Contrast, Strain and 3D if needed) 2020-10-26 17:20:16 Test Item Value Reference Range Interpretation Comments Velocity Ratio (V1/V2) (test code 0.70 m/s = 4689) IVS,d (test code = 8738240113) 1.05 cm EF (test code = 9839199387) 27.14 % LVPWD,d (test code = 1202704769) 0.97 cm AoV Mean PG (test code = mmHg 7467379507) AV LVOT peak gradient (test code mmHg = 8119631134) MV valve area p 1/2 method (test 5.59 cm2 code = 6828774527) E wave decelartion time (test msec code = 0557435050) LVOT Diam,S (test code = 2.23 cm 6191636752) LVOT area (test code = 3.90 cm2 9446918406) LVOT Vmax (test code = 0.99 m/s 5152321052) LVOT VTI (test code = 0680661847) 0.17 m LVOT stroke volume (test code = 0.66 cm3 1895125423) AoV Peak PG (test code = mmHg 1198628488) MV Peak E [place] (test code = 1.32 m/s 8451612558) MV stenosis pressure 1/2 time 39.33 ms (test code = 7121716766) MV Peak A [place] (test code = 0.00 m/s 0186105378) LV Vol,s A2C (test code = 126.84 mL 8568299524) LV Vol,d A2C (test code = 186.07 mL 4661317319) AoV Area, Vmax (test code = 2.73 cm2 9261208843) AoV Area, VTI (test code = 3.37 cm2 6403950264) AoV Vmax (test code = 0829263302) 1.42 m/s LV,d (test code = 9492440112) 5.39 cm LV,s (test code = 1209229192) 4.70 cm LV Vol,d A4C (test code = 164.06 ml 3261381525) LV Vol,s A4C (test code = 106.99 ml 6523812564) TR Vpeak (test code = 3207556331) 2.66 mm/s MV E A ratio (test code = 0421996719) RA pressure (test code = mmHg 8903750664) TR pk grad (test code = mmHg 7863678554) MR peak grad (test code = mmHg 2060833182) LA Vol 4C (test code = 97.00 ml 6515842331) RVSP (test code = 1479752566) mmHg LV SYS VOL (test code = 102.44 ml 1387946059) LV HEDRICK VOL (test code = 140.60 ml 2832702521) LA diam s (test code = 4.10 cm 8128505421) LA area s A4C (test code = 28.10 cm2 4135007730) LA Vol MOD A4C (test code = 97.27 ml 0202753693) LV SV Teich 2D (test code = 38.16 ml 0120062429) LVOT SI (test code = 7251013264) 33.69 ml/m2 AoV Cusp sep (test code = 1327806876) Aortic Root (test code = 2.53 cm 3888826711) AoV Vmn (test code = 1536086179) IVS s 2D (test code = 1798549736) LA Ao Ratio Mmode (test code = 3833225445) GA End Hedrick Grad (test code = 4526803955) GA End Diat [place] (test code = 8986016137) D E excurs (test code = 4453318881) E f slope (test code = 7763872362) E prime lat (test code = 9798041994) E favio sept (test code = 6616737237) PV acc T slope (test code = 9725876118) PV AT (test code = 9903005688) msec NGUYEN BP EF (test code = 32.00 % 1341196833) LA VOL 2C (test code = 74.00 ml 6850537460) AoV VTI (test code = 4326785039) 0.20 m LV EF,A2C (test code = 31.83 % 0187167983) LV EF,A4C (test code = 34.78 % 3082934022) LV EF,BP (test code = 9316916902) 32.29 % Diego Ruthven,d A2C (test code = 9.24 cm 1639145110) Diego Ruthven,d A4C (test code = 9.11 cm 2586157031) Diego Ruthven,s A2C (test code = 8.07 cm 9044711910) Diego Ruthven,s A4C (test code = 7.70 cm 0632305686) LV SV,A2C (test code = 59.23 % 0966421739) LV SV,A4C (test code = 57.06 % 7104360105) LV Vol,d BP (test code = 175.67 ml 5761919435) LV Vol,s BP (test code = 118.95 nl 3358355237) MR Vmax (test code = 4623101885) 5.55 m/s LVOT Vmn (test code = 5020888729) Pt Size (test code = 9457569164) Pt Wt (test code = 3786145619) LVOT mean grad (test code = mmHg 8251933149) LVPW s PLAX (test code = 1.17 cm 4621839153) MV Decel slope (test code = 10.79 m/s2 9145868457) LVOT VTI (CM) (test code = 17.00 cm 1592841359) LINDA (test code = LINDA) [facility] [Presence] in Respiratory specimen by SYD with probe [id number] 05:38:53 Test Item Value Reference Range Interpretation Comments SARS-CoV-2 (COVID-19) RNA Not detected Not-Detected [Presence] in Respiratory specimen by SYD with probe detection (test code = 47647-7) XR Chest 1 [id number] 04:16:24 CLINICAL HISTORY: 45 years Female Cough persistent COMPARISON: AP view of the chest from 10/13/2020. IMPRESSION: Lines/Tubes: None. Lungs/Pleura: No significant pleural effusion is identified. Thereis mild bibasilar atelectasis. No consolidation or pneumothorax identified. Heart/Mediastinum: The cardiac silhouette is enlarged. Mediastinal contours are normal. Bones: No acute osseous abnormality. [id number] Interface, Radiology Results - 10/24/2020 10:19 PM CST CLINICAL HISTORY: 45 years Female Cough persistentCOMPARISON: AP view of the chest from 10/13/2020.IMPRESSION:Lines/Tubes: None.Lungs/Pleura: No significant pleural effusion is identified. There is mild bibasilar atelectasis. No consolidation or pneumothorax identified.Heart/Mediastinum: The cardiac silhouette is enlarged. Mediastinal contours are normal.Bones:No acute osseous abnormality.[id number] [facility]2021-02-23 21:58:42EXAMINATION: US HEPATIC CLINICAL HISTORY: abnormal hepatic function tests COMPARISON: None. IMPRESSION: Liver: The liver is normal in size and echogenicity. There is no evidence of focal mass or intrahepatic biliary ductal dilatation. Portal vein: The portal vein is normal in size and demonstrates normal hepatopetal flow. Gallbladder: Contracted. No stones. Common bile duct: Normal caliber. [facility]-[id number] [facility], Radiology Results [facility] - 10/14/2020 4:01 PM CSTFormatting of this notemight be different from the original.EXAMINATION: US HEPATICCLINICAL HISTORY: abnormal hepatic function testsCOMPARISON: None.IMPRESSION:Liver: The liver is normal in size and echogenicity. There isno evidence of focal mass or intrahepatic biliary ductal dilatation.Portal vein: The portal vein is normal in size and demonstrates normal hepatopetal flow.Gallbladder: Contracted. No stones.Common bile duct: Normal caliber.[facility]-[id number] Hospital
[2021-04-11 19:49] LABS: Protime INR 1.74
[2021-04-11] MEDS ORDERED: MORPHINE 4 MG/ML SYR ONE (19:53)
[2021-04-11] MEDS ORDERED: ONDANSETRON 4 MG/2 ML VIAL ONE (19:53)
--- NOTE | 2021-04-11 20:05 | RAD REPORT ---
EXAM DESCRIPTION: Claudine Single View04/11/2021 7:56 pm CLINICAL HISTORY: Chest pain COMPARISON: January 2021 FINDINGS: Mild bilateral pulmonary opacities. Heart is moderately enlarged IMPRESSION: Mild bilateral pulmonary opacities may represent pulmonary edema or pneumonia
[2021-04-11 20:13] LABS: Urine Blood Negative (Negative); Urine Glucose Negative (Negative); Urine Protein 3+ (Negative); Urine Specific Gravity >=1.030 (1.005-1.030); Urine pH 5.5 (5.0-7.0)
[2021-04-11 20:38] LABS: Albumin 3.4 g/dL (3.4-5.0); Bilirubin Direct 0.5 mg/dL (0-0.2); Bilirubin Total 1.1 mg/dL (0.2-1.0); Magnesium 1.6 mg/dL (1.8-2.4); Potassium 3.8 mmol/L (3.5-5.1); Troponin (Emerg Dept Use Only) 0.07 ng/mL (0.0-0.045)
[2021-04-11 21:13] LABS: Barbiturates NEGATIVE (NEGATIVE); Benzodiazepines POSITIVE (NEGATIVE); Cocaine NEGATIVE (NEGATIVE); METHAMPHETAM POSITIVE (NEGATIVE); Methadone NEGATIVE (NEGATIVE); Opiates POSITIVE (NEGATIVE); Phencyclidine NEGATIVE (NEGATIVE); THC Cannibis NEGATIVE (NEGATIVE)
[2021-04-11] MEDS ORDERED: FUROSEMIDE 40 MG/4 ML VIAL ONE (21:22)
[2021-04-11 21:29] LABS: Absolute Lymphocytes (CBC) 1.4 K/uL (0.7-4.9); Basophils % 1.1 % (0-1.3); Hematocrit 43.8 % (36.0-45.0); Lymphocytes % 17.8 % (15.3-44.8); MPV 7.8 fL (7.6-11.3); RBC Red Blood Cell Count 4.58 M/uL (3.86-4.86)
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
[2021-04-12] MEDS ORDERED: ONDANSETRON 4 MG/2 ML VIAL IV PRN (00:07)
[2021-04-12] MEDS: FUROSEMIDE 40 MG/4 ML VIAL IV SCH ×3 (01:00→17:00)
[2021-04-12 05:25] LABS: Absolute Lymphocytes (CBC) 1.9 K/uL (0.7-4.9); Basophils % 1.1 % (0-1.3); Hematocrit 42.9 % (36.0-45.0); Lymphocytes % 25.6 % (15.3-44.8); MPV 7.6 fL (7.6-11.3); RBC Red Blood Cell Count 4.45 M/uL (3.86-4.86)
[2021-04-12] MEDS: METOPROLOL TAR 25 MG TAB PO SCH ×2 (05:39→18:00)
[2021-04-12 05:53] LABS: ALT/SGPT 25 U/L (12-78); AST/SGOT 22 U/L (15-37); Albumin 3.1 g/dL (3.4-5.0); Alkaline Phosphatase 139 U/L (45-117); BUN Blood Urea Nitrogen 12 mg/dL (7-18); Bicarbonate 27 mmol/L (21-32); Bilirubin Total 1.1 mg/dL (0.2-1.0); Glucose Level 98 mg/dL (74-106); HDL Cholesterol 28 mg/dL (40-60); LDL Cholesterol, Calculated 78 (<130); Magnesium 1.5 mg/dL (1.8-2.4); Protein, Total 6.5 g/dL (6.4-8.2); Sodium Level 138 mmol/L (136-145); Troponin I 0.07 ng/mL (0.0-0.045)
[2021-04-12] MEDS ORDERED: METOPROLOL TAR 25 MG TAB ONE ×2 (05:57→18:31)
[2021-04-12] MEDS ORDERED: APIXABAN 5 MG TABLET ONE ×2 (08:53→21:34)
[2021-04-12] MEDS ORDERED: lisinopriL 5 MG TAB ONE (08:53)
[2021-04-12] MEDS ORDERED: FUROSEMIDE 40 MG/4 ML VIAL ONE ×2 (08:53→18:31)
[2021-04-12] MEDS: APIXABAN 5 MG TABLET PO SCH ×2 (09:00→21:00)
[2021-04-12] MEDS: lisinopriL 5 MG TAB PO SCH (09:00)
[2021-04-12] MEDS ORDERED: ENOXAPARIN 40 MG/0.4 ML SQ SCH (09:00)
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
[2021-04-12] MEDS ORDERED: MAGNESIUM SULFATE 1 gm IVPB 1 GM/100 ML BAG IV ONE ×2 (10:36→13:06)
--- NOTE | 2021-04-12 10:40 | EKG ---
Test Date: 2021-04-11 Test Time: 19:45:11 Plate Stacker Hand: ZENA MEASUREMENT RESULTS: Intervals: Rate: 122 WV: 158 QRSD: 82 QT: 318 QTc: 453 [place]: P: 92 WV: 158 QRS: -13 T: 88 INTERPRETIVE STATEMENTS: Sinus tachycardia Possible Left atrial enlargement Anterior infarct, age undetermined Abnormal ECG Compared to ECG 01/23/2021 09:46:49 No significant changes Electronically Signed On 04-12-21 10:39:46 CDT by Xavier Jacobs
--- NOTE | 2021-04-12 13:02 | CON ---
Date of Consultation: 04/12/2021 Reason For Consultation: Congestive heart failure. History Of Present Illness: Ms. Downing is 45, has a history of chronic systolic congestive heart mei lure with ejection fraction of 27% recently. She also has severe pulmonary hypertension with right v entricular systolic pressure of 60 mmHg. She has COPD, history of pulmonary embolus, hypertension, a nd pneumonia. Came in with shortness of breath consistent with congestive heart failure. Denied lili st pain. Denied syncope. Denied fever or chills. Allergies: SHE IS ALLERGIC TO FLAGYL. Review of Systems: Negative. Social History: Negative. Family History: Negative. Medications: At home include aspirin, Lasix, lisinopril, Coreg, and Eliquis. Physical Examination: Vital Signs: Blood pressure was 133/91, sinus tach at 108. HEENT: Negative. Neck: Supple with no bruit. Chest: Revealed rales at both bases. Cardiac: Revealed a regular rhythm and rate with S3 gallops and S4 gallops and a tricuspid regurgita tion murmur. Abdomen: Benign. Extremities: Revealed 1+ edema. Diagnostic Data: Urinalysis showed opiates, benzodiazepine, and amphetamine. Troponin was 0.07. BN P was 7147. Impression And Plan: 1.Acute on chronic systolic congestive heart failure exacerbation. 2.Chronic obstructive pulmonary disease. 3.History of pulmonary embolus, on Eliquis. 4.Hypertension. 5. . There is definitely no plan for heart catheterization coronary syndrome. This is congestive heart failure causing the troponin to be elevated as well as BNP to be elevated. No need to repeat the echo. I think we need to increase her Lasix, her lisinopril and her carvedilol , actually double the dosages on all her medicine. Continue present regimen and consider discharge t omorrow. EMELY/BEBETO Voice ID: [id number] Report ID: [id number]
[2021-04-12] MEDS ORDERED: ATORVASTATIN 40 MG TAB PO SCH (21:00)
[2021-04-12] MEDS: ACETAMINOPHEN 500 MG TAB PO PRN (21:20)
[2021-04-12] MEDS ORDERED: ATORVASTATIN 20 MG TAB ONE (21:34)
[2021-04-12] MEDS ORDERED: ACETAMINOPHEN 500 MG TAB ONE (21:34)
[2021-04-13] MEDS: FUROSEMIDE 40 MG/4 ML VIAL IV SCH ×2 (01:00→08:12)
[2021-04-13] MEDS ORDERED: FUROSEMIDE 40 MG/4 ML VIAL ONE ×2 (01:24→07:53)
[2021-04-13 02:05] VITALS: O2SAT 95
[2021-04-13] MEDS: ACETAMINOPHEN 500 MG TAB PO PRN (02:09)
[2021-04-13] MEDS ORDERED: ACETAMINOPHEN 500 MG TAB ONE ×2 (02:30→07:51)
[2021-04-13 03:06] LABS: Absolute Lymphocytes (CBC) 2.5 K/uL (0.7-4.9); Basophils % 0.9 % (0-1.3); Hematocrit 43.6 % (36.0-45.0); Lymphocytes % 25.8 % (15.3-44.8); MPV 7.7 fL (7.6-11.3); RBC Red Blood Cell Count 4.56 M/uL (3.86-4.86)
[2021-04-13 03:21] LABS: Bilirubin Total 0.7 mg/dL (0.2-1.0); Magnesium 1.6 mg/dL (1.8-2.4); Potassium 3.5 mmol/L (3.5-5.1); Protein, Total 6.5 g/dL (6.4-8.2)
[2021-04-13] MEDS: METOPROLOL TAR 25 MG TAB PO SCH (06:00)
[2021-04-13] MEDS ORDERED: POTASSIUM 25 MEQ EFFERV TAB PO ONE (07:07)
[2021-04-13] MEDS ORDERED: MAGNESIUM SULFATE 1 gm IVPB 1 GM/100 ML BAG IV ONE ×2 (07:08→08:41)
--- NOTE | 2021-04-13 07:15 | RAD REPORT ---
EXAM DESCRIPTION: RAD - Chest Single View - 04/13/2021 5:16 am CLINICAL HISTORY: CHF, follow-up right pleural effusion COMPARISON: Chest Single View dated 04/11/2021; Chest Single View dated 01/22/2021 FINDINGS: Mild improved aeration of the lung though there is still some residual opacities medially within the right lung base. Moderate cardiomegaly.No acute osseous abnormality. IMPRESSION: Mild improved aeration compared with 04/11/2021 though there is still some residual opac ities medially within the right lung base which may reflect atelectasis. Moderate cardiomegaly.
[2021-04-13] MEDS ORDERED: POTASSIUM 25 MEQ EFFERV TAB ONE (07:51)
[2021-04-13] MEDS ORDERED: METOPROLOL TAR 25 MG TAB ONE (07:51)
[2021-04-13] MEDS ORDERED: lisinopriL 5 MG TAB ONE (07:52)
[2021-04-13] MEDS ORDERED: APIXABAN 5 MG TABLET ONE (07:52)
[2021-04-13] MEDS: APIXABAN 5 MG TABLET PO SCH (08:12)
[2021-04-13] MEDS: lisinopriL 5 MG TAB PO SCH (08:12)
[2021-04-13 08:13] VITALS: BP 138/101
[2021-04-13 08:31] VITALS: BMI 26.6
[2021-04-13 13:20] VITALS: TEMP 97.5
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
--- NOTE | 2021-04-13 22:35 | PN ---
Date of Progress Note: 04/13/2021 Ms. Downing was admitted and seen for acute on chronic systolic congestive heart failure. She today h as no complaints. She is feeling better. Blood pressure is 138/100, pulse of 92, respiratory rate i s 17. She is afebrile, sinus rhythm. I's and O's were adequate. The last creatinine of 0.71. Her troponin and BNP were slightly elevated and consistent with congestive heart failure. The patient vidal s positive opiate, positive amphetamine, positive benzodiazepine on her urinalysis. She is presently on Eliquis, Lipitor, Lasix 40 mg IV b.i.d., metoprolol 25 b.i.d., and lisinopril 5 mg daily. I agre e with her present regimen. I am comfortable with her going home whenever it is okay with Dr. Espinoza. I will see her in the office in the very near future. EMELY/BEBETO Voice ID: [id number] Report ID: [id number]
== END 2021-04-13 13:47 | disposition home or self-care (01) | DRG 293 ==
LOC: ER 17:18 → ERHOLD 22:18
PROVIDERS: ADMIT Hospitalist; ATTEND Hospitalist
DX: I11.0 Hypertensive heart disease with heart failure (principal); I50.23 Acute on chronic systolic (congestive) heart failure; J44.9 Chronic obstructive pulmonary disease, unspecified; I27.20 Pulmonary hypertension, unspecified; Z86.711 Personal history of pulmonary embolism; Z79.01 Long term (current) use of anticoagulants; Z20.822 Contact with and (suspected) exposure to COVID-19
CPT/HCPCS: 36415; 70450; 71045; 71260; 72125; 74177; 80048; 80053; 80061; 80076; 80307; 81003; 83735; 83880; 84439; 84443; 84484; 85025; 85610; 86850; 86900; 86901; 87040; 93005; 96374; 96375; 99285; J1940; J2405; J3475; Q9967; U0003

== ENCOUNTER 2021-04-25 11:38 | Inpatient (IN) | payer SELFPAY ==
--- OUTSIDE RECORDS SUMMARY | 2021-04-25 11:43 | XMS REPORT | Continuity of Care Document ---
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 MAGNESIUM LEVEL 2020-10-28 11:44:00 [facility] ESTIMATED GFR 2020-10-28 11:44:00 [facility] CV RIGHT AND LEFT HEART 2020-10-27 22:46:00 David Richter [facility] CATH SELECTIVE CORONARY LV GRAM POC BLOOD GAS, VENOUS AND 2020-10-27 22:37:00 Hong Pineda [facility] LYTES POC BLOOD GAS, VENOUS AND 2020-10-27 22:32:00 Hong Pineda [facility] POC BLOOD GAS, ARTERIAL 2020-10-27 22:27:00 Edwin, [facility] AND LYTES TYPE AND SCREEN 2020-10-27 12:57:00 David Richter [facility] PARTIAL THROMBOPLASTIN 2020-10-27 12:57:00 Liset [facility] TIME (PTT) PROTHROMBIN TIME WITH INR 2020-10-27 12:57:00 Rober, [facility] HCG QUANTITATIVE, SERUM 2020-10-27 12:57:00 David Richter [facility] CBC WITH PLATELET AND 2020-10-27 10:42:00 [facility] DIFFERENTIAL Kiya COMPREHENSIVE METABOLIC 2020-10-27 10:42:00 [facility] PANEL Kiya MAGNESIUM LEVEL 2020-10-27 10:42:00 [facility] ESTIMATED GFR 2020-10-27 10:42:00 [facility] Kiya MANUAL DIFFERENTIAL 2020-10-27 10:42:00 [facility] Kiya ECG 12-LEAD 2020-10-27 05:07:15 David Richter [facility] ospital URINE CULTURE 2020-10-27 00:22:00 [facility] URINALYSIS SCREEN AND 2020-10-27 00:15:00 [facility] MICROSCOPY, WITH REFLEX TO CULTURE XR CHEST 1 VW PORTABLE 2020-10-26 16:32:17 [facility] HC COMPLETE BLD COUNT 2020-10-26 11:40:00 [facility] W/AUTO DIFF Kiya COMPREHENSIVE METABOLIC 2020-10-26 11:40:00 [facility] PANEL Kiya ESTIMATED GFR 2020-10-26 11:40:00 [facility] Kiya TTE COMPLETE, W CONTRAST, 2020-10-25 19:55:00 Rober [facility] W DOPPLER ([id number]) TROPONIN 2020-10-25 11:37:00 Luis Amaro Ho spital HC COMPLETE BLD COUNT 2020-10-25 11:37:00 [facility] W/AUTO DIFF Kiya COMPREHENSIVE METABOLIC 2020-10-25 11:37:00 [facility] PANEL Kiya ESTIMATED GFR 2020-10-25 11:37:00 [facility] Kiya TROPONIN 2020-10-25 07:30:00 Luis Amarotal COVID-19 QUALITATIVE 2020-10-25 04:57:00 [facility] HCG QUALITATIVE, URINE 2020-10-25 04:14:00 Prem [facility] SCREEN XR CHEST 1 VW 2020-10-25 04:13:30 Luis Amarotal HC COMPLETE BLD COUNT 2020-10-25 02:11:00 Luis Amaro [facility] W/AUTO DIFF [facility] 2020-10-25 02:11:[address] [facility] PANEL PARTIAL THROMBOPLASTIN 2020-10-25 02:11:00 Prem [facility] TIME (PTT) PROTHROMBIN TIME WITH INR 2020-10-25 02:11:00 Prem [facility] CREATINE KINASE, TOTAL 2020-10-25 02:11:00 [facility] B NATRIURETIC PEPTIDE 2020-10-25 02:11:00 [facility] 2020-10-25 02:11:00 Luis Amaro spital TROPONIN 2020-10-25 02:11:00 Luis Amaro spital ECG 12-LEAD 2020-10-25 01:45:52 Luis Amarotal ECG ED PRELIMINARY 2020-10-25 01:34:02 [facility] 2020-10-14 21:52:47 Karen Bellotal Mary TROPONIN 2020-10-14 10:25:00 Karen Bello spital Mary HC COMPLETE BLD COUNT 2020-10-14 10:25:00 [facility] Mary PROTHROMBIN TIME WITH INR 2020-10-14 10:25:00 Karen Bello [facility] Mary LIPASE LEVEL 2020-10-14 10:25:00 Karen Bello spital Mary COMPREHENSIVE METABOLIC 2020-10-14 10:25:00 [facility] Mary THYROID STIMULATING 2020-10-14 10:25:00 [facility] Mary ESTIMATED GFR 2020-10-14 10:25:00 Karen Bello spital Mary LIPID PANEL 2020-10-14 10:25:00 Karen Bello spital Mary RESPIRATORY PATHOGEN 2020-10-14 08:41:00 Sidra Giron [facility] PANEL WITH COVID-19 RT-PCR TROPONIN 2020-10-14 06:23:00 Karen Bello spital Mary CT ANGIOGRAM PE CHEST 2020-10-14 05:18:26 Mack [facility] ECG ED PRELIMINARY 2020-10-14 03:27:29 [facility] INTERPRETATION ECG 12-LEAD 2020-10-14 03:18:29 Karen Bello spital Mary COMPREHENSIVE METABOLIC 2020-10-14 03:04:00 [facility] PANEL CREATINE KINASE, TOTAL 2020-10-14 03:04:[address] [facility] ([facility] TROPONIN 2020-10-14 03:04:00 Karen Bello spital Mary B NATRIURETIC PEPTIDE 2020-10-14 03:04:00 Mack [facility] D-DIMER 2020-10-14 03:04:00 Sidra Giron marizol HCG QUALITATIVE, SERUM 2020-10-14 03:04:00 [facility] SCREEN ESTIMATED GFR 2020-10-14 03:04:00 [facility] HC COMPLETE BLD COUNT 2020-10-14 03:04:00 Mack [facility] W/AUTO DIFF XR CHEST 1 VW PORTABLE 2020-10-14 02:39:45 Sidra Giron [facility] Plan of Care Planned Activity Planned Date Details Comments Source Future Scheduled COVID-19 VACCINE (1) Met [facility] Test [code = COVID-19 VACCINE (1)] Future Scheduled [facility] screening (procedure) [code = 279150078] Future Scheduled [facility] Test malignant neoplasm of cervix (procedure) [code = 624717796] Future Scheduled [facility]ZA [facility]ACCINE [facility] [code = INFLUENZA VACCINE] Future Scheduled COVID-19 VACCINE (1) Met [facility] Test [code = COVID-19 VACCINE (1)] Future Scheduled [facility] screening (procedure) [code = 247774703] Future Scheduled [facility] Test malignant neoplasm of cervix (procedure) [code = 758226580] Future Scheduled IN[facility]UENZA [facility]ACCINE [facility] [code = INFLUENZA VACCINE] Medication 2021-05-14 rivaroxaban [facility] 14:00:00 (XARELTO) tablet 20 Medical Branch mg [code = 5363547] Medication 2021-05-14 rivaroxaban 20 mg [facility] 00:00:00 tablet [code = Medical Bran h 2936488] Medication 2021-05-14 rivaroxaban 20 mg [facility] 00:00:00 tablet [code = Medical Branc h 2104424] Encounters Start End Encounter Admission Attending Care Care Encounter Source Date/Time Date/Time Type Type Clinicians Facility Department ID 2021-04-24 2021-04-24 Transition Jeni Hooks 1.2.840.114 [id number] 00:00:00 00:00:00 of Care Molly Gonzalezy 350.1.13.10 it y of [place] 4.2.7.2.686 [facility] [id number] [facility] darek 403 Branch 2021-04-20 2021-04-22 Hospital Jessie Blancas MDYOLANDA 1.2.840.1 [id number] [facility] 19:46:00 17:22:00 Encounter Yony Villalba 350.1.13.10 ity of [place] 4.2.7.2.686 [facility] [id number] Medi darek 080 Branch 2021-04-06 2021-04-06 Emergency [facility] 1.2.925.178 [id number] 12:13:00 14:26:00 Theo Greenfield 350.1.13.10 [place] 4.2.7.2.686 [place] [id number] 2021-04-06 2021-04-06 Patient [place] 1.2.840.114 [id number] 00:00:00 00:00:00 Outreach Elyssa E Almendarez 350.1.13.10 [place] 4.2.7.2.686 [id number] 403 2021-04-02 2021-04-02 Patient Rosetta Irvin Jeni 1.2.840.114 [id number] 00:00:00 00:00:00 Outreach E Almendarez 350.1.13.10 [place] 4.2.7.2.686 [id number] 403 2021-03-30 2021-03-30 Patient Rosetta Irvin Jeni 1.2.840.114 [id number] 00:00:00 00:00:00 Outreach E Almendarez 350.1.13.10 [place] 4.2.7.2.686 [id number] 403 2021-03-25 2021-03-25 Patient Rosetta Irvin Jeni 1.2.840.114 [id number] 00:00:00 00:00:00 Outreach E Almendarez 350.1.13.10 [place] 4.2.7.2.686 [id number] 403 2021-03-16 2021-03-18 Emergency Apolinar Castellanos [facility] 1.2.840. 114 [id number] 19:40:00 14:45:00 Yony Villalba 350.1.13.10 [place] 4.2.7.2.686 [place] [id number] 081 2021-03-10 2021-03-10 Transition Jeni Martinez 1.2.840.114 [id number] 00:00:00 00:00:00 of Care Yasmeen Almendarez 350.1.13.10 [place] 4.2.7.2.686 [id number] 403 2021-03-07 2021-03-09 [facility] Edinson Owens [facility] 1.2.840.1 14 [id number] 08:22:00 12:00:00 Encounter SelvinvalerySheritaan Gin 350.1.13.10 [place] 4.2.7.2.686 [place] [id number] 081 2021-03-09 2021-03-09 Patient Rosetta Irvin Jeni 1.2.840.114 [id number] 00:00:00 00:00:00 Outreach E Almendarez 350.1.13.10 [place] 4.2.7.2.686 [id number] 403 2021-03-04 2021-03-04 Patient Rosetta Irvin Jeni 1.2.840.114 [id number] 00:00:00 00:00:00 Outreach E Almendarez 350.1.13.10 [place] 4.2.7.2.686 [id number] 403 2021-02-25 2021-02-25 Patient Rosetta Irvin Jeni 1.2.840.114 [id number] 00:00:00 00:00:00 Outreach E Almendarez 350.1.13.10 [place] 4.2.7.2.686 [id number] 403 2021-02-09 2021-02-09 Transition Jeni Martinez 1.2.840.114 [id number] 00:00:00 00:00:00 of Care Yasmeen Almendarez 350.1.13.10 [place] 4.2.7.2.686 [id number] 403 2021-01-26 2021-01-26 Telephone CHRISTIANO Foster 1.2.840.114 [id number] 00:00:00 00:00:00 [facility] 350.1.13.10 [facility] 4.2.7.2.686 [id number] 059 2020-12-02 2020-12-02 Emergency Calvin Duval 1.2.840.1 [id number] Methodi 04:27:00 14:00:00 Matt Wells 47126.1.[address] 3.430.2.7 Hospit a .3.674801 l .8 2020-12-02 2020-12-02 Emergency Calvin Duval 1.2.840.1 [id number] Methodi 04:27:00 14:00:00 Matt Wells 78767.1.[address] 3.430.2.7 Hospit a .3.247677 l .8 2020-12-02 2020-12-02 Travel 1.2.840.1 1.2.604.603 9217 [id number] Methodi 00:00:00 00:00:[address] 3.430.2.7 0.2.7.3.698 Ho spita .3.361591 084.8 l .8 2020-12-02 2020-12-02 Travel 1.2.840.1 1.2.627.373 8999 [id number] Methodi 00:00:00 00:00:[address] 3.430.2.7 0.2.7.3.698 Ho spita .3.684987 084.8 l .8 2020-11-19 2020-11-20 [facility] 1.2.840.1 [id number] 2 [id number] Methodi 13:36:00 16:25:00 Encounter OmarDkeverardo Eden 45831.1.[address] 3.430.2.7 Hospit a .3.255163 l .8 2020-11-19 2020-11-20 [facility] 1.2.840.1 [id number] 2 [id number] Methodi 13:36:00 16:25:00 Encounter Wil Lawrence Karey 88648.1.[address] 3.430.2.7 Hospit a .3.053572 l .8 2020-11-20 2020-11-20 Documentat Provider, 1.2.840.1 [id number] 2 [id number] Methodi 00:00:00 00:00:00 ion Unknown 37600.1.[address] 3.430.2.7 Hospit a .3.713864 l .8 2020-11-20 2020-11-20 Documentat Provider, 1.2.840.1 [id number] 2 [id number] Methodi 00:00:00 00:00:00 ion Unknown 57577.1.[address] 3.430.2.7 Hospit a .3.925602 l .8 2020-11-19 2020-11-19 Travel 1.2.840.1 1.2.037.788 7313 [id number] Methodi 00:00:00 00:00:[address] 3.430.2.7 0.2.7.3.698 Ho spita .3.788763 084.8 l .8 2020-11-19 2020-11-19 Travel 1.2.840.1 1.2.693.120 2140 [id number] Methodi 00:00:00 00:00:[address] 3.430.2.7 0.2.7.3.698 Ho spita .3.981303 084.8 l .8 2020-10-24 2020-10-28 [facility] Luis 1.2.840.1 [id number] 02 [id number] Methodi 19:16:00 12:58:00 Encounter Hong Pineda 19370.1.[address] 3.430.2.7 Hospit a .3.288702 l .8 2020-10-24 2020-10-28 [facility] Luis 1.2.840.1 [id number] 02 [id number] Methodi 19:16:00 12:58:00 Encounter Hong Pineda 97732.1.[address] 3.430.2.7 Hospit a .3.541857 l .8 2020-10-27 2020-10-27 Surgery [facility] 1.2.840.1 [id number] Methodi 14:30:00 15:30:00 [address]esto Lovell [address]3674.1.[address] 3.430.2.7 Hospit a .3.619947 l .8 2020-10-27 2020-10-27 Surgery Rueda, 1.2.840.1 [id number] Methodi 14:30:00 15:30:[address] Lovell [address].1.[address] 3.430.2.7 Hospit a .3.029924 l .8 2020-10-24 2020-10-24 Travel 1.2.840.1 1.2.238.201 3547 [id number] Methodi 00:00:00 00:00:[address] 3.430.2.7 0.2.7.3.698 Ho spita .3.023770 084.8 l .8 2020-10-24 2020-10-24 Travel 1.2.840.1 1.2.166.518 8050 [id number] Methodi 00:00:00 00:00:[address] 3.430.2.7 0.2.7.3.698 Ho spita .3.570783 084.8 l .8 2020-10-13 2020-10-14 [facility] 1.2.840.1 [id number] 004 [id number] Methodi 19:58:00 19:56:00 Encounter Surjit Thomason 85423.[address] 3.430.2.7 Hospit a .3.567486 l .8 2020-10-13 2020-10-14 [facility] 1.2.840.1 [id number] 004 [id number] Methodi 19:58:00 19:56:00 Encounter Surjit Thomason 38912.[address] 3.430.2.7 Hospit a .3.853918 l .8 2020-10-13 2020-10-13 Travel 1.2.840.1 1.2.859.021 5119 [id number] Methodi 00:00:00 00:00:[address] 3.430.2.7 0.2.7.3.698 Ho spita .3.732223 084.8 l .8 2020-10-13 2020-10-13 Travel 1.2.840.1 1.2.407.014 9408 [id number] Methodi 00:00:00 00:00:[address] 3.430.2.7 0.2.7.3.698 Ho spita .3.328651 084.8 l .8 Results Test Description Test Time Test Comments Results Result Sour e Comments XR CHEST 1 VW Stable chest. No Univ ersity of 1 acute process no [facility] dical 18:56:38 signs of acute Branch cardiac decompensation. IRadha MD., have reviewed this study and agree with theabove report.EXAM: XR CHEST 1 VW COMPARISON: Chest radiographs dated 04/20/[address] chest dated04/21/2021. HISTORY: 45 year-old female admitted with heart failure and pulmonaryembolus. Chest radiograph for follow-up on pleural effusion. FINDINGS: Lungs: Low lung volumes. No new focal opacities. Minimal blunting of theright costophrenic angle. Heart/Mediastinum: The cardiac silhouette remains enlarged. Bones and soft tissues: Scoliotic curvature of the thoracic spine. No focalosseous lesions. [facility], Radiant Results Inft User - 04/22/2021 2:04 PM CDT EXAM: XR CHEST 1 VWCOMPARISON: Chest radiographs dated 04/20/[address] chest dated04/21/2021.HIS TORY: 45 year-old female admitted with heart failure and pulmonaryembolus. Chest radiograph for follow-up on pleural effusion.FINDINGS: Lungs: Low lung volumes. No new focal opacities. Minimal blunting of theright costophrenic angle.Heart/Medias tinum: The cardiac silhouette remains enlarged.Bones and soft tissues: Scoliotic curvature of the thoracic spine. No focalosseous lesions.IMPRESSION Stable chest. No acute process no signs of acute cardiac decompensation.IRadha MD., have reviewed this study and agree with theabove report. TROPONIN I 2021-04-22 15:04:01 Test Item Value Reference Range Interpretation Comme nts TROPONIN I (test code = 0.044 ng/mL See_Comment H [Au tomated message] The 5635953483) system which ge nerated this result tra nsmitted reference range : <=0.034. The reference r venu was not used to int erpret this result as normal/abnormal . LINDA (test code = LINDA) Reference (Normal) Range (defined by the 99th percentile reference limit): <= 0.034 ng/mL Note: Cardiac troponin begins to rise 3-4 hours after the onset of ischemia. Repeat in 4-6 hours if the sample was drawn within 3-4 hours of the onset of the symptom and found normal. Diagnosis of myocardial injury is made with acute changes in cTn concentrations with at least one serial sample above the 99th percentile upper reference limit (URL), taken together with the patient's clinical presentation. Biotin has been reported to cause a negative bias, interpret results relative to patient's use of biotin. Lab Interpretation Abnormal (test code = 75336-8) [facility]08 Test Item Value Reference Range Interpretation Comments MAGNESIUM (test code = 1019966867) 1.3 mg/dL 1.7-2.4 L Lab Interpretation (test code = Abnormal 54469-2) [facility]OL[facility] PAN[facility] (NA, K, CL, CO2, GLUCOSE, BUN, CREATININE, CA)2021-04-22 10:36:08 Test Item Value Reference Range Interpretation Comments NA (test code = 133 mmol/L 135-145 L 2754840885) K (test code = 3.7 mmol/L 3.5-5.0 8152137230) CL (test code = 103 mmol/L 98-108 5159036476) CO2 TOTAL (test code = 25 mmol/L 23-31 0482218888) AGAP (test code = 2-16 6866828171) BUN (test code = 26 mg/dL 7-23 H 7112701167) GLUCOSE (test code = 108 mg/dL 70-110 3220040509) CREATININE (test code = 0.77 mg/dL 0.50-1.04 7540107601) CALCIUM (test code = 8.7 mg/dL 8.6-10.6 9489511847) eGFR (test code = mL/min/1.73m2 8272141438) LINDA (test code = LINDA) Association of Glomerular Filtration Rate (GFR) and Staging of Kidney Disease* + --+ --+ ------+| GFR (mL/min/1.73 m2) ?| With Kidney Damage ?| ?Without Kidney Damage+ --------+ --------+ +| ?>90 ?| ?Stage one ?| ? Normal ?+ ---+ ---+ -------+| ?60-89 ?| ?Stage two ?| ? Decreased GFR ? + --+ --+ ------+| ?30-59 ?| ?Stage three ?| ? Stage three ? + --+ --+ ------+| ?15-29 ?| ?Stage four ? | ? Stage four ?+ ---+ ---+ -------+| ?<15 (or dialysis) ? ?| ?Stage five ? | ? Stage five ?+ ---+ ---+ -------+ *Each stage assumes the associated GFR level has been in effect for at least three months. ?Stages 1 to 5, with or without kidney disease, indicate chronic kidney disease. Notes: Determination of stages one and two (with eGFR >59mL/min/1.73 m2) requires estimation of kidney damage for at least three months as defined by structural or functional abnormalities of the kidney, manifested by either:Pathological abnormalities or Markers of kidney damage (including abnormalities in the composition of the blood or urine or abnormalities in imaging tests). Lab Interpretation Abnormal (test code = 44454-9) [facility] FUN[facility] PANEL (31088) (ALB,T.PRO,BILI T,BU/BC,ALT,AST,ALK PHOS)2021-04-22 10:36:08 Test Item Value Reference Range Interpretation Comments TOTAL BILI (test code = 6293191531) 0.9 mg/dL 0.1-1.1 BILI UNCON (test code = 4496803694) 0.4 mg/dL 0.1-1.1 BILI CONJ (test code = 4150961062) 0.0 mg/dL 0.0-0.3 T PROTEIN (test code = 2728902824) 6.5 g/dL 6.3-8.2 ALBUMIN (test code = 7014589837) 3.5 g/dL 3.5-5.0 ALK PHOS (test code = 0202265797) 153 U/L 34-122 H ALTv (test code = 1742-6) 45 U/L 5-35 H AST(SGOT) (test code = 8832110028) 70 U/L 13-40 H Lab Interpretation (test code = Abnormal 73383-7) [facility] SoutheastLIPID PANEL (40554)(TOTAL CHOLESTEROL, TRIGLYCERIDES, HDL)2021-04-22 08:53:50 Test Item Value Reference Range Interpretation Comments CHOL (test code = 78 mg/dL 120-200 L 9339192643) HDL (test code = 17 mg/dL >50 L 9858745887) HDLC RATIO (test code = See_Comment H [Au tomated message] 7694265801) The system [employer]at generated this result transmitted ref erence range: <=4.5. T he reference range was not used to int erpret this result as normal/abnormal . TRIG (test code = 62 mg/dL 30-170 3445921195) LDL CHOL (test code = 49 mg/dL See_Comment [Auto mated message] 34805-3) The system [employer] generated this result transmitted ref erence range: <=160. T he reference range was not used to int erpret this result as normal/abnormal . VLDL (test code = 12 mg/dL 5-60 6790514507) Lab Interpretation (test Abnormal code = 35394-6) [facility] [id number] 08:20:04 Test Item Value Reference Interpretation Comments Range TROPONIN I (test 0.059 ng/mL See_Comment H [Automated code = 8430088249) message] The system which generated this result transmitted reference range : <=0.034. The reference range was not used to interpret this result as normal/abnormal . LINDA (test code = Reference (Normal) LINDA) Range (defined by the 99th percentile reference limit): <= 0.034 ng/mL Note: Cardiac troponin begins to rise 3-4 hours after the onset of ischemia. Repeat in 4-6 hours if the sample was drawn within 3-4 hours of the onset of the symptom and found normal. Diagnosis of myocardial injury is made with acute changes in cTn concentrations with at least one serial sample above the 99th percentile upper reference limit (URL), taken together with the patient's clinical presentation. Biotin has been reported to cause a negative bias, interpret results relative to patient's use of biotin. Lab Interpretation Abnormal (test code = 45660-9) [facility] THRMPLAS [id number] 08:10:24 Test Item Value Reference Range Interpretation Comments APTT Patient (test See_Comment [Automat ed code = 3173-2) message] The system which generated this result transmitted reference range : 23 - 38 Seconds . The reference range was not used to interpr et this result as normal/abnormal . LINDA (test code = LINDA) The [facility] patient population mean normal value for aPTT is 30 seconds. Lab Interpretation Normal (test code = 20988-7) [facility] [id number] 04:25:31 Test Item Value Reference Interpretation Comments Range TROPONIN I (test 0.056 ng/mL See_Comment H [Automated code = 8257931430) message] The system which generated this result transmitted reference range : <=0.034. The reference range was not used to interpret this result as normal/abnormal . LINDA (test code = Reference (Normal) LINDA) Range (defined by the 99th percentile reference limit): <= 0.034 ng/mL Note: Cardiac troponin begins to rise 3-4 hours after the onset of ischemia. Repeat in 4-6 hours if the sample was drawn within 3-4 hours of the onset of the symptom and found normal. Diagnosis of myocardial injury is made with acute changes in cTn concentrations with at least one serial sample above the 99th percentile upper reference limit (URL), taken together with the patient's clinical presentation. Biotin has been reported to cause a negative bias, interpret results relative to patient's use of biotin. Lab Interpretation Abnormal (test code = 51136-7) [id number] 20:39:59 Test Item Value Reference Interpretation Comments Range TROPONIN I (test 0.071 ng/mL See_Comment H [Automated code = 6005249318) message] The system which generated this result transmitted reference range : <=0.034. The reference range was not used to interpret this result as normal/abnormal . LINDA (test code = Reference (Normal) LINDA) Range (defined by the 99th percentile reference limit): <= 0.034 ng/mL Note: Cardiac troponin begins to rise 3-4 hours after the onset of ischemia. Repeat in 4-6 hours if the sample was drawn within 3-4 hours of the onset of the symptom and found normal. Diagnosis of myocardial injury is made with acute changes in cTn concentrations with at least one serial sample above the 99th percentile upper reference limit (URL), taken together with the patient's clinical presentation. Biotin has been reported to cause a negative bias, interpret results relative to patient's use of biotin. Lab Interpretation Abnormal (test code = 53575-5) [facility] 1 [id number] 19:15:14 No acute cardiopulmonary process. Preliminary Report Dictated by Resident: aJquelin Garcia MD., have reviewed this study and agree with the abovereport.PROCEDURE: XR CHEST 1 VW CLINICAL INDICATION: chest pain TECHNIQUE: Frontal chest radiograph was obtained. COMPARISON: CT chest 04/06/2021. Chest x- ray 03/16/2021 FINDINGS: The lungs are clear. Trace right-sided pleural effusion is noted. Nopneumothorax is seen. The cardiac silhouette is moderately enlarged. No acute bony abnormality is noted. [facility], Radiant Results Inft User - 04/21/2021 2:16 PM CDTFormatting of this note might bedifferent from the original.PROCEDURE: XR CHEST 1 VWCLINICAL INDICATION: chest pain TECHNIQUE: Frontal chest radiograph was obtained.COMPARISON: CT chest 04/06/2021. Chest x- ray 03/16/2021FINDINGS:The lungs are clear. Trace right-sided pleural effusion is noted. Nopneumothorax is seen. The cardiac silhouette is moderately enlarged.No acute bony abnormality is noted.IMPRESSIONNo acute cardiopulmonary pro cess.Preliminary Report Dictated by Resident: Dakotah Mcclain MD., have reviewed this study and agree with the abovereport.[facility] COVID [id number] 18:36:40COVID DMT InterpretationInterpretation/Recommendations:Molecular NAAT Tests for Active Infection with the SARS-CoV-2 Virus:The patient has currently tested negative for the SARS-CoV-2 virus that causesCOVID-19 illness. This most likely indicates that the patient does not have an active infection withthe SARS-CoV-2 virus. However, infection is not completely ruled out as the false negative rate for m olecular NAAT testing using a nasopharyngeal sample can be up to 30%, mostly dependent on the timingof sample collection in relation to illness onset and any deficiencies in sampling techniques. If the patient has symptoms concerning for COVID-19 illness, a repeat NAAT test (PCR, Rapid ID Now, etc.) should be performed, at which time the SARS-CoV-2 virus if present may have reached a detectable viral load (usually peaking by the end of the first week of symptoms). Tests for IgM and/or IgG Antibodies to the SARS-CoV-2 Virus:Testing for IgM and IgG antibodies approximately 3 weeks after illness onset will likely indicate if the patient has produced antibodies to the SARS-CoV-2 virus. However , some patients may take longer to develop detectable antibodies, while others infected with SARS-CoV-2 may never develop antibodies, particularly those who have had mild or asymptomatic illness. Of note, if the patient has been vaccinated earlier than 1-2 weeks prior to antibody testing, any positive SARS-CoV-2 IgG antibody result is likely due to vaccination. The specific duration and strength of immunity from SARS-CoV-2 IgG antibodies is highly variable between individuals and is dependent on a variety of factors, including infection vs. vaccination response, initial infection severity, the strength of the patient's own immune system, and the variants to which the patient has been exposed. ? --- Interpretation Result Comments:These interpretation comments are based upon all COVID-19 testing the patient has had at [facility], including molecular NAAT testing (more commonly known as PCR testing and Rapid ID Now testing) and antibody testing. It does not take into account any testing that a patient has had outside of the [facility] medical record. [facility] LABORATORY SERVICESCOVID [id number] Rapid ID NOW (no units) ? ? Date ? Value ? 04/20/2021 ? Not Detected ? ? ? 03/16/2021 ? Not Detected ? ? ? 03/07/2021 ? Not Detected ? ? ? 01/11/2021 ? Not Detected ? [facility] SERVICESH[facility]CT ANGIOGRAM [id number] 15:37:58 1. ?Acute pulmonary embolism in the right lower lobe basal posterior/medialsegmental arteries, extending to the subsegmental arteries.2. ?Geographic, wedge-shaped groundglass opacity in the posterior medialright lower lobe, possibly secondary to developing pulmonary infarct oratelectasis.3. ?Large right-sided pleural effusion.4. ?Marked four- chamber cardiomegaly. Severe reflux of contrast into thehepatic veins, suggestive of right ventricular dysfunction. Findings were discussed with Dr. Villalba at3:25 AM on 04/21/2021. I, Dakotah Avalos MD., have reviewed this study and agree with the abovereport.PROCEDURE: CT CHEST WITH CONTRAST- CHEST PE PROTOCOL CLINICAL INDICATION: Pulmonary embolism (PE), re-evaluation ? Comparison: ?CT chest 04/06/2021, 03/16/2021. TECHNIQUE: Volumetric helical CT angiogramwas performed of the chest (lungapices to bases) with IV contrast. Images were reconstructed at 1.25mmslice thickness. Corresponding axial, sagittal and coronal MIP images wereperformed. Axial MIPs and coronal and sagittal MPR images were generatedand reviewed. FINDINGS: HEART AND GREAT VESSELS: Theopacification of the pulmonary vasculature isappropriate. There are acute appearing pulmonary emboliin right lower lobebasal posterior and medial segmental pulmonary arteries, extending to thesubsegmental level, new since 04/06/2021. The pulmonary trunk is uppernormal in caliber. (2.9 cm in diameter) T he thoracic aorta is normal in caliber. Marked four-chamber cardiomegaly. Severe reflux of contrast into thehepatic veins, suggestive of right heart dysfunction. The RV to LV ratio isgrossly normal. Nopericardial abnormalities are identified. MEDIASTINUM AND LOWER NECK: No central airway lesions aredetected. Theesophagus is within normal limits. The included thyroid gland appearsnormal. LYMPH NODES: No evidence of intrathoracic lymphadenopathy. LUNGS AND PLEURA: The lungs are well-expanded. Moderate to largeright-sided pleural effusion, worse since 04/06/2021. Interval resolution ofthe left sidedpleural effusion. Patchy wedge- shaped ground glass opacityin the posterior medial right lower lobe. Mild groundglass opacity in theleft lower lobe is likely atelectasis. VISUALIZED UPPER ABDOMEN: The included solid organs and hollow viscusappear within normal limits. OSSEOUS STRUCTURES AND SOFT TISSUES: No focal osseous lesions are detected.The soft tissues appear normal. [facility], Radiant Results Inft User - 04/21/2021 10:39 AM CDT PROCEDURE:CT CHEST WITH CONTRAST- CHEST PE PROTOCOLCLINICAL INDICATION: Pulmonary embolism (PE), re-evaluation Comparison: CT chest 04/06/2021, 03/16/2021.TECHNIQUE: Volumetric helical CT angiogram was performedof the chest (lungapices to bases) with IV contrast. Images were reconstructed at 1.25 mmslice thickness. Corresponding axial, sagittal and coronal MIP images wereperformed. Axial MIPs and coronal and sagittal MPR images were generatedand reviewed.FINDINGS:HEART AND GREAT VESSELS: The opacification ofthe pulmonary vasculature isappropriate. There are acute appearing pulmonary emboli in right lower lobebasal posterior and medial segmental pulmonary arteries, extending to thesubsegmental level, new since 04/06/2021. The pulmonary trunk is uppernormal in caliber. (2.9 cm in diameter)The thoracic aortais normal in caliber.Marked four-chamber cardiomegaly. Severe reflux of contrast into thehepatic veins, suggestive of right heart dysfunction. The RV to LV ratio isgrossly normal. No pericardial abnormalities are identified. MEDIASTINUM AND LOWER NECK: No central airway lesions are detected. Theesophagus is within normal limits. The included thyroid gland appearsnormal.LYMPH NODES: No evidence of intrathoracic lymphadenopathy.LUNGS AND PLEURA: The lungs are well-expanded. Moderate to largeright-sided pleural effusion, worse since 04/06/2021. Interval resolution ofthe left sided pleural effusion. Patchy wedge-shaped ground glass opacityin the posterior medial right lower lobe. Mild groundglass opacity in theleft lower lobe is likely atelectasis. VISUALIZED UPPER ABDOMEN: The included solid organs and hollow viscusappear within normal limits.OSSEOUS STRUCTURES AND SOFT TISSUES: No focal osseous lesions are detected.The soft tissues appear normal.IMPRESSION1. Acute pulmonary embolism in the right lower lobe basal posterior/medialsegmental arteries, extending to the subsegmental arteries.2. Geographic, wedge-shaped groundglass opacity in the posterior medialright lower lobe, possibly secondary to developing pulmonary infarct oratelectasis.3. Large right-sided pleural effusion.4. Marked four-chamber cardiomegaly. Severe reflux of contrast into thehepatic veins, suggestive of right ventricular dysfunction.Findings were discussed with Dr. Villalba at 3:25 AM on 04/21/2021.I, Dakotah Avalos MD., have reviewed this study and agree with the abovereport. [facility] (IMMUNOASSAY) - COMPREHENSIVE DRUG SCREEN W/O [id number] 04:25:21 Test Item Value Reference Range Interpretation Comments AMPHET (test code = Presumptive Positive Negative A 1954930625) MARIAH U (test code = Negative Negative 2962736450) BENZO U (test code = Presumptive Positive Negative A 2505708090) Cocaine Metabolite (test Negative Negative code = 0497163093) METHADONE (test code = Negative Negative 2660267428) OPIATES (test code = Presumptive Positive Negative A 4963579180) PCP (test code = Negative Negative 4115896843) THC (test code = Negative Negative 8766580363) LINDA (test code = LINDA) Urine Drug Cutoff Ranges Cocaine: ? 150 ng/mLBenzodiazepines: ? ? 200 ng/mLMethadone: ? 300 ng/mLAmphetamine: ? 1,000 ng/mLOpiates: ? 300 ng/mLCannabinoids: ?50 ng/mLPhencyclidine: ? ? ? 25 ng/mLBarbiturates: ?200 ng/mL The results are to be used only for medical (i.e., treatment) purposes. Unconfirmed screening results must not be used for non-medical purposes (e.g., employment testing, legal testing). Lab Interpretation (test Abnormal code = 49802-8) [facility]POCT [id number] 03:10:00 Test Item Value Reference Range Interpretation Comments POCT PREG (test code = 1605) negative On board controls acceptable with yes C Line (test code = 3574) POCT PREG LOT # (test code = 3575) [id number] POCT PREG TEST DATE (test 08/21/2022 code = 3576) Lab Interpretation (test code = Normal 24878-2) [facility] SoutheastTROPONIN [id number] 02:30:55 Test Item Value Reference Interpretation Comments Range TROPONIN I (test 0.031 ng/mL See_Comment [Automated code = 1163491054) message] The system which generated this result transmitted reference range : <=0.034. The reference range was not used to interpret this result as normal/abnormal . LINDA (test code = Reference (Normal) LINDA) Range (defined by the 99th percentile reference limit): <= 0.034 ng/mL Note: Cardiac troponin begins to rise 3-4 hours after the onset of ischemia. Repeat in 4-6 hours if the sample was drawn within 3-4 hours of the onset of the symptom and found normal. Diagnosis of myocardial injury is made with acute changes in cTn concentrations with at least one serial sample above the 99th percentile upper reference limit (URL), taken together with the patient's clinical presentation. Biotin has been reported to cause a negative bias, interpret results relative to patient's use of biotin. Lab Interpretation Normal (test code = 76113-2) [facility]N-TERMINAL [id number] 02:27:56 Test Item Value Reference Range Interpretation Comments NT-proBNP (test code 8820 pg/mL See_Comment H [Autom ated = 3169982288) message] The system which generated this result transmitted reference range : <=125. The reference range was not used to interpret this result as normal/abnormal . LINDA (test code = LINDA) Biotin has been reported to cause a negative bias, interpret results relative to patient's use of biotin. Lab Interpretation Abnormal (test code = 27011-3) [facility]. METABOLIC PANEL ([id number])[id number] 02:19:13 Test Item Value Reference Range Interpretation Comments NA (test code = 136 mmol/L 135-145 7765716785) K (test code = 3.5 mmol/L 3.5-5.0 6625176930) CL (test code = 102 mmol/L 98-108 4954801777) CO2 TOTAL (test code = 24 mmol/L 23-31 1542197286) AGAP (test code = 2-16 2576958227) BUN (test code = 13 mg/dL 7-23 8351500646) GLUCOSE (test code = 115 mg/dL 70-110 H 3315965483) CREATININE (test code = 0.60 mg/dL 0.50-1.04 6043934173) TOTAL BILI (test code = 1.4 mg/dL 0.1-1.1 H 6964763687) CALCIUM (test code = 9.4 mg/dL 8.6-10.6 0564661467) T PROTEIN (test code = 7.0 g/dL 6.3-8.2 5078689103) ALBUMIN (test code = 3.8 g/dL 3.5-5.0 7271681501) ALK PHOS (test code = 189 U/L 34-122 H 2805788860) ALTv (test code = 31 U/L 5-35 1742-6) AST(SGOT) (test code = 42 U/L 13-40 H 3877879366) eGFR (test code = mL/min/1.73m2 4170286589) LINDA (test code = LINDA) Association of Glomerular Filtration Rate (GFR) and Staging of Kidney Disease* + --+ --+ ------+| GFR (mL/min/1.73 m2) ?| With Kidney Damage ?| ?Without Kidney Damage+ --------+ --------+ +| ?>90 ?| ?Stage one ?| ? Normal ?+ ---+ ---+ -------+| ?60-89 ?| ?Stage two ?| ? Decreased GFR ? + --+ --+ ------+| ?30-59 ?| ?Stage three ?| ? Stage three ? + --+ --+ ------+| ?15-29 ?| ?Stage four ? | ? Stage four ?+ ---+ ---+ -------+| ?<15 (or dialysis) ? ?| ?Stage five ? | ? Stage five ?+ ---+ ---+ -------+ *Each stage assumes the associated GFR level has been in effect for at least three months. ?Stages 1 to 5, with or without kidney disease, indicate chronic kidney disease. Notes: Determination of stages one and two (with eGFR >59mL/min/1.73 m2) requires estimation of kidney damage for at least three months as defined by structural or functional abnormalities of the kidney, manifested by either:Pathological abnormalities or Markers of kidney damage (including abnormalities in the composition of the blood or urine or abnormalities in imaging tests). Lab Interpretation Abnormal (test code = 30657-4) [facility]ACTIVATED PARTIAL THRMPLAS [id number] 01:31:51 Test Item Value Reference Range Interpretation Comments APTT Patient (test See_Comment [Automat ed code = 3173-2) message] The system which generated this result transmitted reference range : 23 - 38 Seconds . The reference range was not used to interpr et this result as normal/abnormal . LINDA (test code = LINDA) The [facility] patient population mean normal value for aPTT is 30 seconds. Lab Interpretation Normal (test code = 67022-2) [facility] SoutheastPROTHROMBIN TIME / [id number] 01:29:48 Test Item Value Reference Range Interpretation Comments PROTIME PATIENT (test See_Comment H [Auto mated message] code = 5964-2) The system wh ich generated this result transmitted ref erence range: 12.0 - 1 4.7 Seconds. The reference range was not used to int erpret this result as normal/abnormal . INR (test code = 6301-6) Nor mal INR <1.1; Warfarin Therap eutic range 2.0 to 3. 0 or 2.5 to 3.5, dep ending upon the indica tions. Lab Interpretation (test Abnormal code = 82263-4) [facility]CB WITH [id number] 01:26:08 Test Item Value Reference Range Interpretation Comments WBC (test code = See_Comment [Automated 6690-2) message] The sy stem which generated this result transmitted reference range : 4.30 - 11.10 10*3/?L. The reference range was not used to interpret this result as normal/abnormal . RBC (test code = See_Comment [Automated 789-8) message] The sy stem which generated this result transmitted reference range : 3.93 - 5.25 10*6/?L. The reference range was not used to interpret this result as normal/abnormal . HGB (test code = 13.6 g/dL 11.6-15.0 718-7) HCT (test code = 42.8 % 35.7-45.2 4544-3) MCV (test code = 98.2 fL 80.6-95.5 H 787-2) MCH (test code = 31.2 pg 25.9-32.8 785-6) MCHC (test code = 31.8 g/dL 31.6-35.1 786-4) RDW-SD (test code = 57.7 fL 39.0-49.9 H 59127-2) RDW-CV (test code = 16.2 % 12.0-15.5 H 788-0) PLT (test code = See_Comment [Automated 777-3) message] The sy stem which generated this result transmitted reference range : 166 - 358 10*3/ ?L. The reference r venu was not used to interpret this result as normal/abnormal . MPV (test code = 10.1 fL 9.5-12.9 87544-3) NRBC/100 WBC (test See_Comment [Automat ed code = 4976221903) message] The system which generated this result transmitted reference range : 0.0 - 10.0 /100 WBCs. The refer ence range was not u sed to interpret th is result as normal/abnormal . NRBC x10^3 (test code See_Comment [Auto mated = 0823211221) message] The s ystem which generated this result transmitted reference range : 10*3/?L. The reference range was not used to interpret this result as normal/abnormal . GRAN MAT (NEUT) % 65.9 % (test code = 770-8) IMM GRAN % (test code 0.40 % = 2617576100) LYMPH % (test code = 22.7 % 736-9) MONO % (test code = 9.7 % 5905-5) EOS % (test code = 0.8 % 713-8) BASO % (test code = 0.5 % 706-2) GRAN MAT x10^3(ANC) 4.91 10*3/uL 1.88-7.09 (test code = 0822617156) IMM GRAN x10^3 (test 0.03 10*3/uL 0.00-0.06 code = 0262147596) LYMPH x10^3 (test code 1.69 10*3/uL 1.32-3.29 = 731-0) MONO x10^3 (test code 0.72 10*3/uL 0.33-0.92 = 742-7) EOS x10^3 (test code = 0.06 10*3/uL 0.03-0.39 711-2) BASO x10^3 (test code 0.04 10*3/uL 0.01-0.07 = 704-7) Lab Interpretation Abnormal (test code = 71101-3) [facility] (ID NOW RAPID TESTING)2021-04-21 01:23:25 Test Item Value Reference Range Interpretation Comments SARS-CoV-2 Rapid ID NOW Not Detected Not Detected (test code = 66742-1) LINDA (test code = LINDA) ID NOW COVID-19 Assay is an isothermal nucleic acid amplification test intended for the qualitative detection of nucleic acid from SARS-CoV-2 viral RNA in nasopharyngeal (CARDIOVASCULAR SURGICAL TECH) specimens. It is used under Emergency Use Authorization (EUA) by FDA. The limit of detection (LOD) of the assay is 125 Genome Equivalents/mL. A positive result is indicative of the presence of SARS-CoV-2 RNA. ?Clinical correlation with patient history and other diagnostic information is necessary to determine patient infection status. A negative (Not Detected) result does not preclude SARS-CoV-2 infection. In patients with clinical symptoms and other tests that are consistent with SARS-CoV-2 infection, negative results should be treated as presumptive negative and a new specimen should be tested with alternative PCR molecular test. Invalid: Please collect a new specimen for repeat patient testing if clinically indicated. Lab Interpretation Normal (test code = 95173-2) [facility]- XR SHOULDER 2 + V [id number] 04:14:00 [facility] 1975 Sex: F FAX: Carmita Truong [phone] [place]: St: REG FAX: Jose Herrmann MD Name: ASHLY HAYWOOD [facility] : 1975 Age/S: 45/F [address] [facility] Unit #: [id number] Loc: [address] Phys: [place] [id number] Acct: [id number] Dis Date: Status: REG ER PHONE #: [phone] Exam Date: 12/05/2020 0401 FAX #: [phone] Reason: pain EXAMS: CPT CODE: [id number] XR SHOULDER 2 + V RT [address] EXAM:- XR SHOULDER 2 + V RT HISTORY: Pain. COMPARISON: None available time ofinterpretation. FINDINGS: Internal and external rotated AP views of the right shoulder with scapular Y view is provided. There is no acute fracture or dislocation. The osseous structures are intact. IMPRESSION: No acute osseous abnormality. at 7574 Reported and signed by: Gerald Light M.D. CC: Carmita Randall MD; Jose Herrmann MD Technologist: NGUYEN RÍOS Trnnerd Date/Time/By: 12/05/2020 (0414) : By: [email or web address] PAGE1 Signed Report FAX: Carmita Truong [phone] [place]: St: REG FAX: Jose Herrmann MD Name: ASHLY HAYWOOD [facility] : 1975 Age/S: 45/F [address] [facility] Unit #: [id number] Loc: [address] Phys: [place] [id number] Acct: [id number] Dis Date: Status: REG ER PHONE #: [phone] Exam Date: 12/05/2020 0401 FAX #: [phone] Reason: pain EXAMS: CPT CODE: [id number] XR SHOULDER2 + V RT [address]659 <Continued> Orig Print D/T: S: 12/05/2020 (0418) PAGE 2 Signed ReportECG [id number] 03:49:04 Test Item Value Reference Range Interpretation Comments Ventricular rate (test code = 253) Atrial rate (test code = 255) AR interval (test code = 266) QRSD interval (test code = 260) QT interval (test code = 264) QTC interval (test code = 265) P axis 1 (test code = 267) QRS axis 1 (test code = 268) T wave axis (test code = 270) EKG impression (test Sinus code = 273) tachycardia-Nonspecifi c T wave abnormality-Abnormal ECG-In automated comparison with ECG of 19-NOV-2020 13:58,-No significant change was found-- [facility] [id number] 03:49:04 Test Item Value Reference Range Interpretation Comments Ventricular rate (test code = 253) Atrial rate (test code = 255) AR interval (test code = 266) QRSD interval (test code = 260) QT interval (test code = 264) QTC interval (test code = 265) P axis 1 (test code = 267) QRS axis 1 (test code = 268) T wave axis (test code = 270) EKG impression (test Sinus code = 273) tachycardia-Nonspecifi c T wave abnormality-Abnormal ECG-In automated comparison with ECG of 19-NOV-2020 13:58,-No significant change was found-- [facility] HospitalRqexsyko6721-[facility]-65 10:11:23Examination: XR CHEST 1 PORTABLEClinical history: "SOB" Comparison: Prior imaging, including achest radiograph obtained on 11/19/2020.One radiographic view of the chest was evaluated. Impression: There are no apparent infiltrates, pleural effusions, or pneumothoraces. The cardiomediastinalsilhouette, the imaged bones, and the remainder of the chest are stable in appearance. [facility], Radiology Results Incoming - 12/02/2020 5:14 AM CDT Examination: XR CHEST 1 PORTABLEClinical history: "SOB" Comparison: Prior imaging, including a chest radiograph obtained on 11/19/2020.One radiographic view of the chest was evaluated.Impression: There are no apparent infiltrates, pleural effusions, or pneumothoraces. The cardiomediastinal silhouette, the imaged bones, and the remainder of the chest are stable in appearance.[facility] 1 [id number] 10:11:23Examination: XR CHEST 1 PORTABLEClinical history: "SOB" Comparison: Prior imaging, including achest radiograph obtained on 11/19/2020.One radiographic view of the chest was evaluated. Impression: There are no apparent infiltrates, pleural effusions, or pneumothoraces. The cardiomediastinalsilhouette, the imaged bones, and the remainder of the chest are stable in appearance. [facility] Interface, Radiology Results Incoming - 12/02/2020 5:14 AM CDT Examination: XR CHEST 1 VW PORTABLEClinical history: "SOB" Comparison: Prior imaging, including a chest radiograph obtained on 11/19/2020.One radiographic view of the chest was evaluated.Impression: There are no apparent infiltrates, pleural effusions, or pneumothoraces. The cardiomediastinal silhouette, the imaged bones, and the remainder of the chest are stable in appearance.[facility] Preliminary Interpretation - Not an [id number] 10:02:38Calvin Duval MD 12/02/2020 5:48 [facility] ED Preliminary Interpretation - Not an OrderPerformed by: Calvin Duval MDAuthorized by: Calvin Duval MD Interpretation: Interpretation: non-specific Quality: Tracing quality: Limited by artifactRate: ECG rate: 110 ECG rate assessment: tachycardic Rhythm: Rhythm: sinus tachycardia Ectopy: Ectopy: none ST segments: ST segments: Non-specificT waves: T waves: non-specific [facility] Preliminary Interpretation - Not an [id number] 10:02:38Calvin Duval MD 12/02/2020 5:48 [facility] ED Preliminary Interpretation - Not an OrderPerformed by: Calvin Duval MDAuthorized by: Calvin Duval MD Interpretation: Interpretation: non-specific Quality: Tracing quality: Limited by artifactRate: ECG rate: 110 ECG rate assessment: tachycardic Rhythm: Rhythm: sinus tachycardia Ectopy: Ectopy: none ST segments: ST segments: Non-specificT waves: T waves: non-specific [facility] [id number] 19:17:27 Test Item Value Reference Range Interpretation Comments Urine culture Mixed lawrence Specimen isolate (test <=10-3 col/cc InformationSp ecimen code = 04284-9) Source: Urin eSpecimen Site: Clean cat ch [facility] [id number] 19:17:27 Test Item Value Reference Range Interpretation Comments Urine culture isolate Mixed lawrence <=10-3 (test code = 66100-7) col/cc [facility] Pe [id number] 21:55:30EXAMINATION:CT ANGIOGRAM PE CHEST CLINICAL HISTORY: dyspnea [...] in density of left upper lobe groundglass nod ule, suggestive of resolving pneumonitis. Stable right middle lobe pulmonary nodule, probably representing a granuloma. Indeterminate mild right hilar adenopathy as prior. [id number] Interface, Radiology Results Incoming - 11/19/2020 4:58 PM CDTFormatting of this note might be different from the o riginal.EXAMINATION:CT ANGIOGRAM PE CHESTCLINICAL HISTORY: dyspnea tachycarida h [...] while achieving a diagnostic quality image.COMPARISON:10/13/2020FINDINGS:The main pulmo nary artery, right pulmonary artery and left pulmonary [...] mild right hilar adenopathy as prior.[id number] Chest 2020-11-19 21:55:30EXAMINATION:CT ANGIOGRAM PE CHEST CLINICAL HISTORY: dyspnea [...] density of left upper lobe groundglass nodule, sugg estive of resolving pneumonitis.Stable right middle lobe pulmonary nodule, probably representing a granuloma.Indeterminate mild right hilar adenopathy as prior.[id number] Ab[facility] Pelvis W [id number] 21:54:35EXAMINATION: CT ABDOMEN PELVIS W CONTRAST CLINICAL [...] at the level of the patient's pediculus. N o focal fluid collection seen Visualized skeleton intact. Moderate degenerative lumbar facet hypertrophy. Mild scattered osteophytic changes IMPRESSION: Changes suspicious for panniculitis Fatty infiltration of the liver as on previous Otherwise unremarkable CT abdomen pelvis [id number] Interface, Radiology Results 11/19/2020 4:57 PM CDT [...] normalAbdominal aorta normal caliber. Moderate atherosclerosisNo bowel obstr uction. Scattered fecal material throughout the colon. Appendectomy clips.Normal size kidneys. Symmetrical function from each kidney. No renal mass. No hydronephrosis or tract calculusPelvis:Scattered fecal material throughout the colon. No diverticulitis or bowel obstruction.Uterus grossly unremark able.Follicular changes on the ovaries.No pelvic mass or sidewall adenopathy.Urinary bladder grosslyunremarkable.Diffuse subcutaneous infiltration and at the level of the patient's pediculus. No focalfluid collection seenVisualized skeleton intact. Moderate degenerative lumbar facet hypertrophy. Mild scattered osteophytic changesIMPRESSION:Changes suspicious for panniculitisFatty infiltration of the liver as on previousOtherwise unremarkable CT abdomen [id number] W Contrast 2020-11-19 21:54:35EXAMINATION: [...] at the level of the patient's pediculus. N o focal fluid collection seen Visualized skeleton intact. Moderate degenerative lumbar facet hypertrophy. Mild scattered osteophytic changes IMPRESSION: Changes suspicious for panniculitis Fatty infiltration of the liver as on previous Otherwise unremarkable CT abdomen pelvis [id number] Interface, Radiology Results - 11/19/2020 4:57 PM CDT EXAMINATION: CT ABDOMEN [...] normalAbdominal aorta normal caliber. Moderate atherosclerosisNo bowel obstr uction. Scattered fecal material throughout the colon. Appendectomy clips.Normal size kidneys. Symmetrical function from each kidney. No renal mass. No hydronephrosis or tract calculusPelvis:Scattered fecal material throughout the colon. No diverticulitis or bowel obstruction.Uterus grossly unremark able.Follicular changes on the ovaries.No pelvic mass or sidewall adenopathy.Urinary bladder grosslyunremarkable.Diffuse subcutaneous infiltration and at the level of the patient's pediculus. No focalfluid collection seenVisualized skeleton intact. Moderate degenerative lumbar facet hypertrophy. Mild scattered osteophytic changesIMPRESSION:Changes suspicious for panniculitisFatty infiltration of the liver as on previousOtherwise unremarkable CT abdomen [id number] lab [id number] 16:57:33Novaleri Langford//[id number] Indications:New onset systolic CHF Procedures:Coronary angiogramLHC with LVgramRHC with cardiac output Closure:TR band Access site:Right radial artery and Right internal jugular vein Procedure details: Risks and benefits were discussed with the patient, informed consent was obtained.Patient was brought to the veterinary laboratory technician in a fasting state and prepped [...] radial artery without difficulty. A 5 Fr Bonaparte catheter was then advance over the wireinto the ascending aorta. Angiogram of the left and right coronary was performed. The Bonaparte catheter was then position in the LV. [...] used: 35 mlFlouro-time: 1.5 minutesAir Kerma:505 mGy 10/27/20Ernesto Nas Rueda [facility] lab [id number] 16:57:33Norma Irving Miller09/03/484227500549830/08/21 Indications:New onset systolic CHF Procedures:Coronary angiogramLHC with LVgramRHC with cardiac output Closure:TR band Access site:Right radial artery and Right internal jugular vein Procedure details: Risks and benefits were discussed with the patient, informed consent was obtained.Patient was brought to the veterinary laboratory technician in a fasting state and prepped in a sterile manner. Patient was sedated with fentanyl and versed. The site was then infiltrated with 1% lido reyes. Right radial artery and Right internal jugular [...] radial artery without difficulty. A 5 Fr Bonaparte catheter was then advance over the wireinto the ascending aorta. Angiogram of the left and right coronary was performed. The Bonaparte catheter was then position in the LV. Left ventriculogram was performed. Pull back showed no gradient across the aortic valve. The catheter was then removed over the wire. Findings:Right dominantOverall No significant diseaseLeft main: Patent. Subdivided into LAD and [...] used: 35 mlFlouro-time: 1.5 minutesAir Kerma:505 mGy 10/27/20[facility] Transthor[facility] Echocardiogram Complete, (w Contrast, Strain and 3D if needed) 2020-10-26 17:20:16 Test Item Value Reference Range Interpretation Comments Velocity Ratio (V1/V2) 0.70 m/s (test code = 4689) IVS,d (test code = 1.05 cm 4774575609) EF (test code = 27.14 % 1458142867) LVPWD,d (test code = 0.97 cm 0771823002) AoV Mean PG (test code mmHg = 0398958985) AV LVOT peak gradient mmHg (test code = 3053825255) MV valve area p 1/2 5.59 cm2 method (test code = 8965675265) E wave decelartion time msec (test code = 3843855448) LVOT Diam,S (test code 2.23 cm = 8503290605) LVOT area (test code = 3.90 cm2 0056367838) LVOT Vmax (test code = 0.99 m/s 0894867025) LVOT VTI (test code = 0.17 m 5783879650) LVOT stroke volume 0.66 cm3 (test code = 5221167826) AoV Peak PG (test code mmHg = 2954017608) MV Peak E [place] (test 1.32 m/s code = 6407307275) MV stenosis pressure 39.33 ms 1/2 time (test code = 5565884085) MV Peak A [place] (test 0.00 m/s code = 4572006699) LV Vol,s A2C (test code 126.84 mL = 6256726754) LV Vol,d A2C (test code 186.07 mL = 6673279454) AoV Area, Vmax (test 2.73 cm2 code = 2913842913) AoV Area, VTI (test 3.37 cm2 code = 0338488369) AoV Vmax (test code = 1.42 m/s 3453720657) LV,d (test code = 5.39 cm 0145253873) LV,s (test code = 4.70 cm 1053676827) LV Vol,d A4C (test code 164.06 ml = 9356379027) LV Vol,s A4C (test code 106.99 ml = 8469974533) TR Vpeak (test code = 2.66 mm/s 3886045616) MV E A ratio (test code = 5892099587) RA pressure (test code mmHg = 7470085217) TR pk grad (test code = mmHg 3664909122) MR peak grad (test code mmHg = 3610843972) LA Vol 4C (test code = 97.00 ml 5238165507) RVSP (test code = mmHg 8878893390) LV SYS VOL (test code = 102.44 ml 9680313814) LV HEDRICK VOL (test code 140.60 ml = 4986627095) LA diam s (test code = 4.10 cm 5874307517) LA area s A4C (test 28.10 cm2 code = 9835304457) LA Vol MOD A4C (test 97.27 ml code = 9050273272) LV SV Teich 2D (test 38.16 ml code = 2795511459) LVOT SI (test code = 33.69 ml/m2 5414996304) AoV Cusp sep (test code = 2761258337) Aortic Root (test code 2.53 cm = 2603177444) AoV Vmn (test code = 9674152676) IVS s 2D (test code = 3094235320) LA Ao Ratio Mmode (test code = 0280702530) AR End Hedrick Grad (test code = 5493426197) AR End Diat [place] (test code = 2945247662) D E excurs (test code = 3131288128) E f slope (test code = 5364228657) E prime lat (test code = 4791074594) E favio sept (test code = 0505112472) PV acc T slope (test code = 5783946830) PV AT (test code = msec 2439861283) NGUYEN BP EF (test 32.00 % code = 4546303654) LA VOL 2C (test code = 74.00 ml 8027292085) AoV VTI (test code = 0.20 m 2435713147) LV EF,A2C (test code = 31.83 % 6095702126) LV EF,A4C (test code = 34.78 % 8410190981) LV EF,BP (test code = 32.29 % 1094064108) [place],d A2C (test 9.24 cm code = 6220454292) [place],d A4C (test 9.11 cm code = 8743937541) [place],s A2C (test 8.07 cm code = 2507995436) [place],s A4C (test 7.70 cm code = 1313234009) LV SV,A2C (test code = 59.23 % 6683961498) LV SV,A4C (test code = 57.06 % 4685617128) LV Vol,d BP (test code 175.67 ml = 5182044638) LV Vol,s BP (test code 118.95 nl = 5140686909) MR Vmax (test code = 5.55 m/s 2456968964) LVOT Vmn (test code = 1150236473) Pt Size (test code = 4712311750) Pt Wt (test code = 3092362995) LVOT mean grad (test mmHg code = 3126300412) LVPW s PLAX (test code 1.17 cm = 5999386939) MV Decel slope (test 10.79 m/s2 code = 2046839187) LVOT VTI (CM) (test 17.00 cm code = 8079471998) LINDA (test code = LINDA) The left [...] ventricular diastolic filling. Elevated LV filling pressure. [facility], (w Contrast, Strain and 3D if needed)2020-10-26 17:20:16 Test Item Value Reference Range Interpretation Comments Velocity Ratio (V1/V2) (test code 0.70 m/s = 4689) IVS,d (test code = 0603561074) 1.05 cm EF (test code = 1288761969) 27.14 % LVPWD,d (test code = 4679326542) 0.97 cm AoV Mean PG (test code = mmHg 8011054780) AV LVOT peak gradient (test code mmHg = 2443802873) MV valve area p 1/2 method (test 5.59 cm2 code = 5644596224) E wave decelartion time (test msec code = 4537210215) LVOT Diam,S (test code = 2.23 cm 8740544834) LVOT area (test code = 3.90 cm2 5958144870) LVOT Vmax (test code = 0.99 m/s 6709603228) LVOT VTI (test code = 9855811618) 0.17 m LVOT stroke volume (test code = 0.66 cm3 7109497247) AoV Peak PG (test code = mmHg 0227286349) MV Peak E [place] (test code = 1.32 m/s 4706643613) MV stenosis pressure 1/2 time 39.33 ms (test code = 5128306072) MV Peak A [place] (test code = 0.00 m/s 7638410062) LV Vol,s A2C (test code = 126.84 mL 7727475527) LV Vol,d A2C (test code = 186.07 mL 8536286721) AoV Area, Vmax (test code = 2.73 cm2 1596785339) AoV Area, VTI (test code = 3.37 cm2 5839117947) AoV Vmax (test code = 0991789624) 1.42 m/s LV,d (test code = 5863026827) 5.39 cm LV,s (test code = 1271112895) 4.70 cm LV Vol,d A4C (test code = 164.06 ml 7517673091) LV Vol,s A4C (test code = 106.99 ml 4312776286) TR Vpeak (test code = 8517743862) 2.66 mm/s MV E A ratio (test code = 7294629656) RA pressure (test code = mmHg 5867701911) TR pk grad (test code = mmHg 7659465413) MR peak grad (test code = mmHg 9096991928) LA Vol 4C (test code = 97.00 ml 3889568269) RVSP (test code = 8460053273) mmHg LV SYS VOL (test code = 102.44 ml 7182693684) LV HEDRICK VOL (test code = 140.60 ml 9064655076) LA diam s (test code = 4.10 cm 1993854268) LA area s A4C (test code = 28.10 cm2 1563170607) LA Vol MOD A4C (test code = 97.27 ml 2855342884) LV SV Teich 2D (test code = 38.16 ml 7636932888) LVOT SI (test code = 8916629598) 33.69 ml/m2 AoV Cusp sep (test code = 6196128031) Aortic Root (test code = 2.53 cm 6701354294) AoV Vmn (test code = 0139769319) IVS s 2D (test code = 4128365418) LA Ao Ratio Mmode (test code = 7317253010) AR End Hedrick Grad (test code = 5860026963) AR End Diat [place] (test code = 2385577045) D E excurs (test code = 2571038298) E f slope (test code = 1504046651) E prime lat (test code = 5641242777) E favio sept (test code = 2787298928) PV acc T slope (test code = 4795693442) PV AT (test code = 0526962158) msec NGUYEN BP EF (test code = 32.00 % 5715003685) LA VOL 2C (test code = 74.00 ml 3928812273) AoV VTI (test code = 6360679639) 0.20 m LV EF,A2C (test code = 31.83 % 0136582276) LV EF,A4C (test code = 34.78 % 9439164229) LV EF,BP (test code = 3013027790) 32.29 % [place],d A2C (test code = 9.24 cm 3180659425) [place],d A4C (test code = 9.11 cm 3772198235) [place],s A2C (test code = 8.07 cm 5859373143) [place],s A4C (test code = 7.70 cm 2116539014) LV SV,A2C (test code = 59.23 % 2027621922) LV SV,A4C (test code = 57.06 % 1162198743) LV Vol,d BP (test code = 175.67 ml 8350011045) LV Vol,s BP (test code = 118.95 nl 1072600556) MR Vmax (test code = 8054215326) 5.55 m/s LVOT Vmn (test code = 5185680449) Pt Size (test code = 5480032578) Pt Wt (test code = 1758936564) LVOT mean grad (test code = mmHg 2219283691) LVPW s PLAX (test code = 1.17 cm 9906500941) MV Decel slope (test code = 10.79 m/s2 4805196662) LVOT VTI (CM) (test code = 17.00 cm 6906887944) LINDA (test code = LINDA) [facility] Chest 1 [id number] 04:16:24 CLINICAL HISTORY: 45 years Female Cough persistent COMPARISON: AP view of the chest from 10/13/2020. IMPRESSION: Lines/Tubes: None. Lungs/Pleura: No significant pleural effusion is identified. Thereis mild bibasilar atelectasis. No consolidation or pneumothorax identified. Heart/Mediastinum: The cardiac silhouette is enlarged. Mediastinal contours are normal. Bones: No acute osseous abnormality. [id number] Interface, Radiology Results 10/24/2020 10:19 PM CST CLINICAL HISTORY: 45 years Female Cough persistentCOMPARISON: AP view of the chest from 10/13/2020.IMPRESSION:Lines/Tubes: None.Lungs/Pleura: No significant pleural effusion is identified. There is mild bibasilar atelectasis. No consolidation or pneumothorax identified.Heart/Mediastinum: The cardiac silhouette is enlarged. Mediastinal contours are normal.Bones:No acute osseous abnormality.[id number] [facility] Chest 1 [id number] 04:16:24 CLINICAL HISTORY: 45 years Female Cough persistent COMPARISON: AP view of the chest from 10/13/2020. IMPRESSION: Lines/Tubes: None. Lungs/Pleura: No significant pleural effusion is identified. Thereis mild bibasilar atelectasis. No consolidation or pneumothorax identified. Heart/Mediastinum: The cardiac silhouette is enlarged. Mediastinal contours are normal. Bones: No acute osseous abnormality. [id number] Interface, Radiology Results Incoming - 10/24/2020 10:19 PM CST CLINICAL HISTORY: 45 years Female Cough persistentCOMPARISON: AP view of the chest from 10/13/2020.IMPRESSION:Lines/Tubes: None.Lungs/Pleura: No significant pleural effusion is identified. There is mild bibasilar atelectasis. No consolidation or pneumothorax identified.Heart/Mediastinum: The cardiac silhouette is enlarged. Mediastinal contours are normal.Bones:No acute osseous abnormality.[id number] [facility]2021-02-23 21:58:42EXAMINATION: US HEPATIC CLINICAL HISTORY: abnormal hepatic function tests COMPARISON: None. IMPRESSION: Liver: The liver is normal in size and echogenicity. There is no evidence of focal mass or intrahepatic biliary ductal dilatation. Portal vein: The portal vein is normal in size and demonstrates normal hepatopetal flow. Gallbladder: Contracted. No stones. Common bile duct: Normal caliber. [facility]-[id number] Interface, Radiology Results 10/14/2020 4:01 PM CSTFormatting of this notemight be different from the original.EXAMINATION: US HEPATICCLINICAL HISTORY: abnormal hepatic function testsCOMPARISON: None.IMPRESSION:Liver: The liver is normal in size and echogenicity. There isno evidence of focal mass or intrahepatic biliary ductal dilatation.Portal vein: The portal vein is normal in size and demonstrates normal hepatopetal flow.Gallbladder: Contracted. No stones.Common bile duct: Normal caliber.[facility]-[id number] [facility]2021-[facility]-23 21:58:42EXAMINATION: US HEPATIC CLINICAL HISTORY: abnormal hepatic function tests COMPARISON: None. IMPRESSION: Liver: The liver is normal in size and echogenicity. There is no evidence of focal mass or intrahepatic biliary ductal dilatation. Portal vein: The portal vein is normal in size and demonstrates normal hepatopetal flow. Gallbladder: Contracted. No stones. Common bile duct: Normal caliber. [facility]-[id number] [facility], Radiology Results - 10/14/2020 4:01 PM CSTFormatting of this notemight be different from the original.EXAMINATION: US HEPATICCLINICAL HISTORY: abnormal hepatic func tion testsCOMPARISON: None.IMPRESSION:Liver: The liver is normal in size and echogenicity. There isno evidence of focal mass or intrahepatic biliary ductal dilatation.Portal vein: The portal vein is normal in size and demonstrates normal hepatopetal flow.Gallbladder: Contracted. No stones.Common bile duct: Normal caliber.[facility]-[id number] Hospital
[2021-04-25 12:24] LABS: Absolute Lymphocytes (CBC) 1.1 K/uL (0.7-4.9); Basophils % 0.4 % (0-1.3); Hematocrit 44.5 % (36.0-45.0); Lymphocytes % 13.7 % (15.3-44.8); MPV 8.1 fL (7.6-11.3); RBC Red Blood Cell Count 4.62 M/uL (3.86-4.86)
[2021-04-25 12:34] LABS: Protime INR 8.48
[2021-04-25 12:37] LABS: Albumin 3.4 g/dL (3.4-5.0); Bilirubin Total 2.1 mg/dL (0.2-1.0); Magnesium 1.6 mg/dL (1.8-2.4); Potassium 4.5 mmol/L (3.5-5.1); Protein, Total 7.1 g/dL (6.4-8.2); Troponin (Emerg Dept Use Only) 0.11 ng/mL (0.0-0.045)
--- NOTE | 2021-04-25 13:13 | RAD REPORT ---
EXAM DESCRIPTION: Claudine Single View04/25/2021 12:43 pm CLINICAL HISTORY: sob COMPARISON: April 13, 2020 FINDINGS: The lungs appear clear of acute infiltrate. The heart is moderately enlarged IMPRESSION: No acute abnormalities displayed
--- NOTE | 2021-04-25 15:43 | RAD REPORT ---
EXAM DESCRIPTION: CT - Chest Abdomen Pelvis W Cont - 04/25/2021 3:29 pm CLINICAL HISTORY: Chest and abdominal pain COMPARISON: none TECHNIQUE: Computed axial tomography of the chest, abdomen and pelvis was obtained. Oral and IV cont rast were not requested. All CT scans are performed using dose optimization technique as appropriate and may include automated exposure control or mA/KV adjustment according to patient size. FINDINGS: The evaluation of mediastinum, [place], vessels,bowel and solid organs is limited secondary to the lack of IV contrast administration Cardiomegaly Small to moderate right pleural effusion. No mediastinal or hilar lymphadenopathy is seen. Tiny right middle lobe nodule. A pericardial effusion is not seen. Fatty infiltration liver Spleen, pancreas, adrenals and left kidney appear grossly normal. 5 millimeter nonobstructing left renal calculus. Left renal cortical thinning perhaps secondary to pr ior inflammation. There is no evidence of diverticulitis. Small amount of ascites. Diffuse edema within the subcutaneous tissues IMPRESSION: Small to moderate right pleural effusion Fatty infiltration liver Small amount of ascites. Diffuse edema within the subcutaneous tissues
[2021-04-25] MEDS ORDERED: MAGNESIUM SULFATE 1 gm IVPB 1 GM/100 ML BAG IV ONE (16:19)
[2021-04-25] MEDS ORDERED: PANTOPRAZOLE 40 MG INJ ONE (16:19)
--- NOTE | 2021-04-25 17:10 | EDPHYS ---
Physician Documentation [facility] Name: Anahi Downing Age: 45 yrs Sex: Female : 1975 Arrival Date: 04/25/2021 Time: 11:40 Bed 20 Private MD: AFUA Physician Stefan Sosa HPI: 04/25 16:52 This 45 yrs old Female presents to ER via Wheelchair with complaints of kristie Shortness Of Breath, Edema. 16:52 The patient has shortness of breath at rest, with light activity. Onset: The kristie symptoms/episode began/occurred 1 day(s) ago. Duration: The symptoms are continuous, and are steadily getting worse. The patient's shortness of breath is aggravated by coughing, light activity, prone position, supine position. Associated signs and symptoms: Pertinent positives: chest pain, non-productive cough, dizziness. Severity of symptoms: At their worst the symptoms were mild in the emergency department the symptoms are unchanged. 16:54 The patient presents with abdominal distention in the upper abdomen, in the lower kristie abdomen. Onset: The symptoms/episode began/occurred 3 day(s) ago. hx of chf, copd, htn, on xarelto. The symptoms do not radiate. Associated signs and symptoms: Pertinent positives: shortness of breath, sob, cp , distended abdomen. The symptoms are described as crampy. Modifying factors: The symptoms are alleviated by nothing, the symptoms are aggravated by nothing. Severity of pain: At its worst the pain was mild in the emergency department the pain is unchanged. Historical: - Allergies: 11:55 Flagyl; aa5 - PMHx: 11:55 CHF; COPD; EMBOLISM; Hypertension; Pneumonia; pulmonary embolisim; Pulmonary emphysema; aa5 - PSHx: 11:55 Appendectomy; Ligation of fallopian tube; right ankle sx; aa5 - Immunization history:: Client reports having NOT received the Covid vaccine. - Social history:: Smoking status: Patient denies any tobacco usage or history of. - Family history:: not pertinent, No immediate family members are acutely ill. - Code Status:: Full code. ROS: 16:57 Constitutional: Negative for fever, chills, and weight loss, Eyes: Negative for injury, kristie pain, redness, and discharge, ENT: Negative for injury, pain, and discharge, Neck: Negative for injury, pain, and swelling, Back: Negative for injury and pain, : Negative for injury, bleeding, discharge, and swelling, Skin: Negative for injury, rash, and discoloration, Neuro: Negative for headache, weakness, numbness, tingling, and seizure, Psych: Negative for depression, anxiety, suicide ideation, homicidal ideation, and hallucinations, Allergy/Immunology: Negative for hives, rash, and allergies, Endocrine: Negative for neck swelling, polydipsia, polyuria, polyphagia, and marked weight changes, Hematologic/Lymphatic: Negative for swollen nodes, abnormal bleeding, and unusual bruising. 16:57 Cardiovascular: Positive for chest pain, edema, palpitations. 16:57 Abdomen/GI: Positive for abdominal distension. 16:57 MS/extremity: Positive for swelling. Exam: 16:57 Constitutional: This is a well developed, well nourished patient who is awake, alert, kristie and in no acute distress. Head/Face: Normocephalic, atraumatic. Eyes: Pupils equal round and reactive to light, extra-ocular motions intact. Lids and lashes normal. Conjunctiva and sclera are non-icteric and not injected. Cornea within normal limits. Periorbital areas with no swelling, redness, or edema. ENT: Nares patent. No nasal discharge, no septal abnormalities noted. Tympanic membranes are normal and external auditory canals are clear. Oropharynx with no redness, swelling, or masses, exudates, or evidence of obstruction, uvula midline. Mucous membranes moist. Neck: Trachea midline, no thyromegaly or masses palpated, and no cervical lymphadenopathy. Supple, full range of motion without nuchal rigidity, or vertebral point tenderness. No Meningismus. Chest/axilla: Normal chest wall appearance and motion. Nontender with no deformity. No lesions are appreciated. Cardiovascular: Regular rate and rhythm with a normal S1 and S2. No gallops, murmurs, or rubs. Normal PMI, no JVD. No pulse deficits. Respiratory: Lungs have equal breath sounds bilaterally, clear to auscultation and percussion. No rales, rhonchi or wheezes noted. No increased work of breathing, no retractions or nasal flaring. Back: No spinal tenderness. No costovertebral tenderness. Full range of motion. Skin: Warm, dry with normal turgor. Normal color with no rashes, no lesions, and no evidence of cellulitis. Neuro: Awake and alert, GCS 15, oriented to person, place, time, and situation. Cranial nerves II-XII grossly intact. Motor strength 5/5 in all extremities. Sensory grossly intact. Cerebellar exam normal. Normal gait. 16:57 ECG was reviewed by the Attending Physician. 16:57 Abdomen/GI: Inspection: distension, that is moderate, Bowel sounds: normal, Palpation: nontender, Liver: no appreciated palpable abnormalities, Hernia: not appreciated. Vital Signs: 11:54 BP 123 / 90; Pulse 99; Resp 20 S; Temp 97.3(TE); Pulse Ox 98% on R/A; Weight 84.37 kg aa5 (R); Height 5 ft. 5 in. (165.10 cm) (R); 14:15 BP 128 / 96; Pulse 88; Resp 24; Temp 98.2; Pulse Ox 100% on R/A; kh1 16:00 BP 131 / 111; Pulse 91; Resp 20; Temp 97.2; Pulse Ox 96% on R/A; kh1 17:00 BP 128 / 95; Pulse 88; Resp 18; Pulse Ox 100% ; kh1 18:00 BP 139 / 101; Pulse 87; Resp 20; Temp 97.4(TE); Pulse Ox 100% on R/A; kh1 11:54 Body Mass Index 30.95 (84.37 kg, 165.10 cm) aa5 Thayer Coma Score: 14:34 Eye Response: spontaneous(4). Verbal Response: oriented(5). Motor Response: obeys kh1 commands(6). Total: 15. MDM: 14:20 Patient medically screened. kristie 17:02 Differential diagnosis: Anemia CHF exacerbation, Chronic Obstructive Pulmonary Disease kristie pneumonia, pulmonary edema, reactive airway disease, Sepsis bowel obstruction, coronary artery disease, gastritis, non-specific abd pain, pancreatitis, urinary tract infection. Antibiotic administration: rocephin. Differential Diagnosis sepsis. The patient's Wells Deep Vein Thrombosis Score was calculated as follows: Total Score: 0-2 Pts- Low Risk. The patient's pulmonary embolism risk score was calculated as follows: Total Score: 0-2 points. This patient was found to be at low risk for a pulmonary embolism by using the Well's assessment criteria. Immunization status:. Data reviewed: vital signs, nurses notes, lab test result(s), EKG, radiologic studies, CT scan, plain films. Data interpreted: monitoring manager: rate is 88 beats/min, rhythm is regular, Pulse oximetry:. Test interpretation: by ED physician or midlevel provider: ECG, plain radiologic studies. Counseling: I had a detailed discussion with the patient and/or guardian regarding: the historical points, exam findings, and any diagnostic results supporting the discharge/admit diagnosis, lab results. 04/25 12:03 Order name: Basic Metabolic Panel [facility] 04/25 12:03 Order name: CBC with Diff [facility] 04/25 12:03 Order name: LFT's [facility] 04/25 12:03 Order name: Magnesium [facility] 04/25 12:03 Order name: NT PRO-BNP; Complete Time: 14:14 [facility] 04/25 12:03 Order name: PT-INR; Complete Time: 14:14 [facility] 04/25 12:03 Order name: Troponin (emerg Dept Use Only); Complete Time: 14:14 [facility] 04/25 12:04 Order name: Basic Metabolic Panel; Complete Time: 14:14 [facility] 04/25 12:04 Order name: CBC with Automated Diff; Complete Time: 14:14 [facility] 04/25 12:04 Order name: Liver (Hepatic) Function; Complete Time: 14:14 [facility] 04/25 12:04 Order name: Magnesium; Complete Time: 14:14 [facility] 04/25 14:28 Order name: Type And Screen [facility] 04/25 15:45 Order name: AMMONIA; Complete Time: 16:52 [facility] 04/25 12:03 Order name: XRAY Chest (1 view); Complete Time: 14:14 [facility] 04/25 15:21 Order name: Chest Abdomen Pelvis W Cont; Complete Time: 15:44 [facility] 04/25 16:13 Order name: Blood Culture Adult (2) [facility] 04/25 16:13 Order name: Lactate; Complete Time: 19:18 [facility] 04/25 18:23 Order name: SARS-COV-2 RT PCR; Complete Time: 19:18 [facility] 04/25 19:42 Order name: Comprehensive Metabolic Panel [facility] 04/25 19:42 Order name: Comprehensive Metabolic Panel [facility] 04/25 19:42 Order name: Echo with Doppler [facility] 04/25 19:42 Order name: Hepatitis Panel,Acute [facility] 04/26 05:00 Order name: CBC with Automated Diff [facility] 04/26 05:16 Order name: Lipid Profile [facility] 04/26 05:50 Order name: Thyroid Stimulating Hormone [facility] 04/26 06:04 Order name: T4 Free [facility] 04/25 12:03 Order name: EKG; Complete Time: 12:04 [facility] 04/25 12:03 Order name: Cardiac monitoring [facility] 04/25 12:03 Order name: EKG - Nurse/Tech; Complete Time: 12:03 [facility] 04/25 12:03 Order name: IV Saline Lock; Complete Time: 12:03 [facility] 04/25 12:03 Order name: Labs collected and sent; Complete Time: 12:03 [facility] 04/25 12:03 Order name: O2 Per Protocol [facility] 04/25 12:03 Order name: O2 Sat Monitoring [facility] 04/25 19:42 Order name: CONS Physician Consult [facility] EC:57 Rate is 98 beats/min. Rhythm is regular. QRS [place] is Normal. CT interval is normal. QRS kristie interval is normal. QT interval is prolonged at 86 msec. No Q waves. T waves are Normal. T waves are Inverted in leads I, aVL, V5, V6. No ST changes noted. Clinical impression: NSR w/ Non-specific ST/T Changes and No evidence of ischemia. Interpreted by me. Reviewed by me. Administered Medications: 16:10 Drug: Magnesium Sulfate 1 grams Route: IVPB; Infused Over: 1 hrs; Site: right 1 antecubital; 16:10 Drug: ProTONIX (pantoprazole) 40 mg Route: IVP; Site: right antecubital; [facility] 17:04 Drug: Vitamin K1 (phytonadione) 10 mg Route: Sub-Q; Site: left lower abdomen; [facility] 17:04 Drug: Rocephin (cefTRIAXone) 1 grams Route: IV; Rate: per protocol; Site: left 1 antecubital; 17:04 Drug: Lasix (furosemide) 20 mg Route: IVP; Site: left antecubital; [facility] Disposition Summary: 04/25/21 17:09 Hospitalization Ordered Provider: Adriano Fraser cha Condition: Fair kristie Problem: new kristie Symptoms: have improved kristie Bed/Room Type: Standard kristie Hospitalization Status: Inpatient Admission(04/25/21 17:15) kristie Location: Telemetry/MedSurg (Inpatient)(04/26/21 08:13) em1 Room Assignment: 225(04/26/21 08:13) em1 Diagnosis - Chest pain, unspecified kristie - Abdominal pain, Generalized - mild ascites, edema kristie - Dyspnea, unspecified kristie - COPD/ Chronic obstructive pulmonary disease, unspecified kristie - Pleural condition, unspecified - right, moderate kristie - Hypomagnesemia kristie - Abnormal coagulation profile - pt 99.7 inr 8.48, on Xarelto(04/25/21 17:15) kristie Forms: - Medication Reconciliation Form kristie - SBAR form kristie Signatures: Dispatcher [employer] EDMS Stefan Sosa MD MD cha Martinez, Aston em1 Karlee Prieto, RN RN aa5 Sapna Em, RN RN Deandra Kraus 1 Corrections: (The following items were deleted from the chart) 15:21 14:28 Abdomen Pelvis W Con+CT.RAD.BRZ ordered. [facility] EDMS 17:15 17:09 Observation kristie kristie 17:15 17:09 Telemetry/MedSurg (observation) kristie kristie 17:15 17:09 kristie kristie 17:15 17:09 Abnormal coagulation profile - pt 99.7 inr 8.48 kristie kristei 17:25 16:14 CORONAVIRUS+MR.LAB.BRZ ordered. [facility]MA EDMS 20:56 17:15 Telemetry/MedSurg (Inpatient) kristie cg 20:56 17:15 kristie cg 04/26 08:13 04/25 20:56 [facility] ER HOLD cg em1 04/26 08:13 04/25 20:56 ERHOLD- cg em1
--- NOTE | 2021-04-25 17:10 | ER ---
Nurse's Notes [facility] Name: Anahi Downing Age: 45 yrs Sex: Female : 1975 Arrival Date: 04/25/2021 Time: 11:40 Bed 20 Private MD: Diagnosis: Chest pain, unspecified;Abnormal coagulation profile-pt 99.7 inr 8.48, on Xarelto;Abdominal pain, Generalized-mild ascites, edema;Dyspnea, unspecified;COPD/ Chronic obstructive pulmonary disease, unspecified;Pleural condition, unspecified-right, moderate;Hypomagnesemia Presentation: 04/25 11:54 Chief complaint: Patient states: "I am short of breath and this morning I noticed my aa5 belly is retaining fluid". Coronavirus screen: At this time, the client does not indicate any symptoms associated with coronavirus-19. Ebola Screen: Patient negative for fever greater than or equal to 101.5 degrees Fahrenheit, and additional compatible Ebola Virus Disease symptoms. Initial Sepsis Screen: Does the patient meet any 2 criteria? HR > 90 bpm. Does the patient have a suspected source of infection? No. Patient's initial sepsis screen is negative. Risk Assessment: Do you want to hurt yourself or someone else? Patient reports no desire to harm self or others. Onset of symptoms was April 2021. 11:54 Method Of Arrival: Wheelchair aa5 11:54 Acuity: RALPH 3 aa5 Triage Assessment: 14:31 General: Appears in no apparent distress. Pain: Denies pain. Respiratory: Reports kh1 shortness of breath at rest on exertion. Historical: - Allergies: 11:55 Flagyl; aa5 - PMHx: 11:55 CHF; COPD; EMBOLISM; Hypertension; Pneumonia; pulmonary embolisim; Pulmonary emphysema; aa5 - PSHx: 11:55 Appendectomy; Ligation of fallopian tube; right ankle sx; aa5 - Immunization history:: Client reports having NOT received the Covid vaccine. - Social history:: Smoking status: Patient denies any tobacco usage or history of. - Family history:: not pertinent, No immediate family members are acutely ill. - Code Status:: Full code. Screenin:34 Abuse screen: Denies threats or abuse. Nutritional screening: No deficits noted. kh1 Tuberculosis screening: No symptoms or risk factors identified. Fall Risk IV access (20 points). Assessment: 14:34 General: Appears in no apparent distress. uncomfortable. Pain: Denies pain. kh1 Cardiovascular: No deficits noted. Respiratory: Reports shortness of breath labored breathing. 15:00 Reassessment: Patient appears in no apparent distress at this time. No changes from [facility] previously documented assessment. Patient and/or family updated on plan of care and expected duration. Pain level reassessed. Patient is alert, oriented x 3, equal unlabored respirations, skin warm/dry/pink. 16:00 Reassessment: Patient appears in no apparent distress at this time. No changes from [facility] previously documented assessment. Patient and/or family updated on plan of care and expected duration. Pain level reassessed. Patient is alert, oriented x 3, equal unlabored respirations, skin warm/dry/pink. 17:00 Reassessment: Patient appears in no apparent distress at this time. No changes from [facility] previously documented assessment. Patient and/or family updated on plan of care and expected duration. Pain level reassessed. Patient is alert, oriented x 3, equal unlabored respirations, skin warm/dry/pink. 18:00 Reassessment: Patient appears in no apparent distress at this time. No changes from [facility] previously documented assessment. Patient and/or family updated on plan of care and expected duration. Pain level reassessed. Patient is alert, oriented x 3, equal unlabored respirations, skin warm/dry/pink. Vital Signs: 11:54 BP 123 / 90; Pulse 99; Resp 20 S; Temp 97.3(TE); Pulse Ox 98% on R/A; Weight 84.37 kg aa5 (R); Height 5 ft. 5 in. (165.10 cm) (R); 14:15 BP 128 / 96; Pulse 88; Resp 24; Temp 98.2; Pulse Ox 100% on R/A; kh1 16:00 BP 131 / 111; Pulse 91; Resp 20; Temp 97.2; Pulse Ox 96% on R/A; kh1 17:00 BP 128 / 95; Pulse 88; Resp 18; Pulse Ox 100% ; kh1 18:00 BP 139 / 101; Pulse 87; Resp 20; Temp 97.4(TE); Pulse Ox 100% on R/A; kh1 11:54 Body Mass Index 30.95 (84.37 kg, 165.10 cm) aa5 Vitals: 14:34 Cardiac Rhythm Assessment Regular. kh1 Maryann Coma Score: 14:34 Eye Response: spontaneous(4). Verbal Response: oriented(5). Motor Response: obeys [facility] commands(6). Total: 15. ED Course: 11:40 Patient arrived in ED. as 11:54 Arm band placed on. aa5 11:55 Triage completed. aa5 12:00 EKG completed in triage. Results shown to MD. aa 12:03 Initial lab(s) drawn, by de, sent to lab. Inserted saline lock: 20 gauge in left aa5 antecubital area, using aseptic technique. Blood collected. 12:44 XRAY Chest (1 view) In Process Unspecified. EDWI 14:20 Stefan Sosa MD is Attending Physician. [facility] 14:30 Deandra Chavez is Primary Nurse. 1 14:34 Patient has correct armband on for positive identification. Fall risk band placed. kh1 Placed in gown. Bed in low position. Call light in reach. Side rails up X 1. 15:29 Chest Abdomen Pelvis W Cont In Process Unspecified. EDWI 16:10 AMMONIA Sent. [facility] 16:53 Lactate Sent. 1 16:53 Blood Culture Adult (2) Sent. [facility] 17:05 Adriano Fraser MD is Hospitalizing Provider. [facility] Administered Medications: 16:10 Drug: Magnesium Sulfate 1 grams Route: IVPB; Infused Over: 1 hrs; Site: right 1 antecubital; 16:10 Drug: ProTONIX (pantoprazole) 40 mg Route: IVP; Site: right antecubital; [facility] 17:04 Drug: Vitamin K1 (phytonadione) 10 mg Route: Sub-Q; Site: left lower abdomen; [facility] 17:04 Drug: Rocephin (cefTRIAXone) 1 grams Route: IV; Rate: per protocol; Site: left kh1 antecubital; 17:04 Drug: Lasix (furosemide) 20 mg Route: IVP; Site: left antecubital; [facility] Outcome: 17:09 Decision to Hospitalize by Provider. [facility] 04/26 12:58 Patient left the ED. iw Signatures: Dispatcher [employer] EDMS Stefan Sosa MD MD cha Martinez, Amelia as Enid Brito RN RN Karlee Guy, SIN RN aa5 Deandra Chavez [facility] Corrections: (The following items were deleted from the chart) 04/25 17:25 16:53 CORONAVIRUS+ drawn and sent. 1 EDMS
[2021-04-25] MEDS ORDERED: VITAMIN K (ADULT) 10 MG/ML ONE (17:18)
[2021-04-25] MEDS ORDERED: FUROSEMIDE 20 MG/ 2ML VIAL ONE (17:18)
[2021-04-25] MEDS ORDERED: CEFTRIAXONE/SWI 1gm 1 GM/10 ML SYR ONE (17:19)
--- NOTE | 2021-04-25 19:48 | P.HP ---
Certification for Inpatient Patient admitted to: Inpatient With expected LOS: >2 Midnights Patient will require the following post-hospital care: None Practitioner: I am a practitioner with admitting privileges, knowledge of patient current condition, hospital course, and medical plan of care. Services: Services provided to patient in accordance with Admission requirements found in Title 42 Section 412.3 of the Code of Federal Regulations Patient History Date of Service: 04/25/21 Primary Care Provider: Evelio Reason for admission: chf exacerbation. History of Present Illness: Patient has recently moved to the [facility]. She has a pmh of copd, chf, htn. She was diagnoised with a PE had some fluid on her lungs. She was getting more exertion dyspnea. She was also having increased swelling of the belly. Something she has had before. She does admit snoring and being told she stops breathing in her sleep. The patient has some fluid on her lungs and belly on CT Scan as well as fatty liver disease. Allergies metronidazole [From Flagyl] Allergy (Verified 01/23/21 09:51) Itching/Hives/Rash Home Medications: Aspirin [Aspirin EC 81 MG] 81 mg PO DAILY 01/23/21 Apixaban [Eliquis] 5 mg PO BID tablet 04/13/21 Carvedilol [Coreg] 12.5 mg PO BID 30 Days #60 tablet 04/13/21 Furosemide [Lasix] 40 mg PO BID 30 Days #60 tablet 04/13/21 lisinopriL [Prinivil*] 5 mg PO DAILY 30 Days #30 tab 04/13/21 - Past Medical/Surgical History Diabetic: No -: Systolic CHF -: COPD -: HTN -: PE -: appendix Psychosocial/ Personal History: lives by self - Family History Mother Notes: from [place] at 47 - Social History Alcohol use: No CD- Drugs: No Caffeine use: Yes Review of Systems 10-point ROS is otherwise unremarkable Respiratory: SOB with Excertion Cardiovascular: Orthopnea Physical Examination - Physical Exam General: Alert, In no apparent distress HEENT: Atraumatic, PERRLA, Mucous membr. moist/pink, EOMI, Sclerae nonicteric Neck: Supple, 2+ carotid pulse no bruit, No LAD, Without JVD or thyroid abnormality Respiratory: Clear to auscultation bilaterally, Normal air movement Cardiovascular: Regular rate/rhythm, Normal S1 S2 Gastrointestinal: Normal bowel sounds, No tenderness, Ascites (mild shifting gluid dullness. ) Musculoskeletal: No tenderness Integumentary: No rashes Neurological: Normal gait, Normal speech, Normal strength at 5/5 x4 extr, Normal tone, Normal affect Lymphatics: No axilla or inguinal lymphadenopathy - Studies Laboratory Data (last 24 hrs) 04/25/21 12:00: PT 99.7 H, INR 8.48 H* 04/25/21 12:00: WBC 8.30 D, Hgb 14.5, Hct 44.5, Plt Count 330 04/25/21 12:00: Sodium 135 L, Potassium 4.5, BUN 28 H, Creatinine 0.97, Glucose 156 H, Magnesium 1.6 L, Total Bilirubin 2.1 H, AST 209 H D, ALT 180 H D, Alkaline Phosphatase 259 H Assessment and Plan - Problems (Diagnosis) (1) Acute exacerbation of CHF (congestive heart failure) Current Visit: No Status: Acute Plan: will get an echo and consult Dr. Jacobs. Will start the patient on Entresto. Will see how she does creatine is very good. Start her on 40mg of iv lasix as well. Check daily weights as well as i's and o's. Qualifiers: Heart failure type: unspecified (2) Elevated INR Current Visit: Yes Status: Acute Plan: check a hepatitis panel. However if the patient does have sleep apnea which would explain the fatty liver disease. (3) HTN (hypertension) Current Visit: No Status: Acute Plan: will hold the lisinopril. Will be on losartan as part of the entresto. Will adjust as necessary. Qualifiers: Hypertension type: primary hypertension Qualified Code(s): I10 - Essential (primary) hypertension (4) COPD (chronic obstructive pulmonary disease) Current Visit: No Status: Chronic Plan: Patient has a history of smoking. Is currently stable on only albuterol. She can use her own. We can levalbuterol as needed. Qualifiers: COPD type: chronic bronchitis (5) Sleep apnea Current Visit: Yes Status: Chronic Plan: she has the body habitus and wittnessed apnea spells. Qualifiers: Sleep apnea type: other type Qualified Code(s): G47.39 - Other sleep apnea Discharge Plan: Home Plan to discharge in: Greater than 2 days - Advance Directives Does patient have a Living Will: No Does patient have a Durable POA for Healthcare: No - Code Status/Comfort Care Code Status Assessed: Yes Code Status: Full Code Physician Review: Patient Assessed, Agree with Above Assessment and Plan Critical Care: No Time Spent Managing Pts Care (In Minutes): 45
[2021-04-25] MEDS ORDERED: LEVALBUTEROL 0.63 MG/3 ML NEB NEB PRN (20:10)
[2021-04-25] MEDS ORDERED: ALBUTEROL 2.5 MG/3 ML NEB SOL NEB PRN (20:31)
[2021-04-25] MEDS: carvediloL 6.25 MG TAB PO SCH (21:00)
[2021-04-25] MEDS ORDERED: carvediloL 6.25 MG TAB ONE (21:37)
[2021-04-25] MEDS ORDERED: ACETAMINOPHEN 325 MG TABLET ONE (23:44)
[2021-04-25] MEDS ORDERED: DIPHENHYDRAMINE 50 MG/ML VIAL ONE (23:46)
[2021-04-26 00:39] VITALS: BMI 30.7
[2021-04-26] MEDS ORDERED: NA CHLORIDE 0.9% 500 ML ONE (01:45)
[2021-04-26 04:48] LABS: Absolute Lymphocytes (CBC) 2.3 K/uL (0.7-4.9); Basophils % 0.5 % (0-1.3); Lymphocytes % 23.5 % (15.3-44.8); MPV 8.3 fL (7.6-11.3); RBC Red Blood Cell Count 4.21 M/uL (3.86-4.86)
[2021-04-26 05:21] LABS: Albumin 3.4 g/dL (3.4-5.0); Bilirubin Total 1.7 mg/dL (0.2-1.0); Potassium 4.2 mmol/L (3.5-5.1); Protein, Total 6.9 g/dL (6.4-8.2)
[2021-04-26 05:50] LABS: Thyroid Stimulating Hormone 5.15 uIU/mL (0.360-3.740)
[2021-04-26] MEDS ORDERED: ASPIRIN EC 81 MG TAB PO ONE (07:48)
[2021-04-26] MEDS ORDERED: carvediloL 6.25 MG TAB ONE (07:48)
[2021-04-26] MEDS ORDERED: FUROSEMIDE 40 MG/4 ML VIAL ONE (07:49)
[2021-04-26] MEDS: carvediloL 6.25 MG TAB PO SCH ×2 (08:00→16:37)
[2021-04-26] MEDS: ASPIRIN EC 81 MG TAB PO SCH (08:34)
[2021-04-26] MEDS: FUROSEMIDE 40 MG/4 ML VIAL IV SCH (08:35)
[2021-04-26 08:51] LABS: Protime INR 3.12
--- NOTE | 2021-04-26 11:31 | CON ---
Date of Consultation: 04/26/2021 Reason For Consultation: Congestive heart failure. History Of Present Illness: Ms. Downing is a 45-year-old woman who has severe congestive heart failur e, systolic ejection fraction 27%. She has severe pulmonary hypertension, COPD, history of pulmonary embolus, was admitted with shortness of breath, PND, orthopnea without any pedal edema. Denied any palpitation or syncope. Denied any fever or chills or cough. She has already improved since she has been here. Of note is that she had elevated liver function test. INR was 8.48. It is now 3.12. S he was switched from Eliquis to Xarelto. Allergies: FLAGYL. Medications: At home include Eliquis, aspirin, Coreg, Lasix, lisinopril. Review of Systems: Negative. Social History: Negative. Family History: Negative. Physical Examination: General: Today, she was in sinus rhythm, no complaint, much better as far as breathing is concerned. Afebrile. HEENT: Negative. Neck: Supple with no bruit. Chest: Clear to auscultation and percussion. Cardiac: Revealed a tricuspid regurgitation murmur. Regular rhythm and rate. No gallops. No rubs. Abdomen: Benign. Extremities: Revealed trace edema. Diagnostic Data: Listed earlier. Impression And Plan: [id number] systolic congestive heart failure. The patient is on appropri ate therapy including lisinopril, Lasix, Coreg, aspirin. Her INR was elevated, it is now 3.12. She is on Xarelto instead of Eliquis. I will continue her present regimen. Definitely can increase her Lasix dose and lisinopril dose and Coreg dose before she goes home. She has elevated liver function tests. Hepatitis panel is pending. Echocardiogram is pending. Troponin is elevated. BNP is elevat ed secondary to congestive heart failure. This is not an acute coronary syndrome. She needs to be o n anticoagulant for life because of her history of congestive heart failure and pulmonary embolus and she is on Xarelto for now. Her pulmonary hypertension should improve given her present regimen. I will continue to follow as needed. Ms. Downing should be a candidate for a heart catheterization some time down the road as she might be a candidate for an AICD and a biventricular pacemaker. We can sarbjit e arrangement for that as an outpatient. She should see me in clinic after discharge. EMELY/BEBETO Voice ID: [id number] Report ID: [id number]
[2021-04-26] MEDS: RIVAROXABAN 20 MG TABLET PO SCH (16:37)
[2021-04-26] MEDS ORDERED: RIVAROXABAN 10 MG TABLET PO SCH (17:00)
[2021-04-26] MEDS ORDERED: BISMUTH SUBSALICYL 262MG/15ML-240 ML BTL PO PRN (18:46)
[2021-04-26] MEDS ORDERED: MAGNES/ALUMIN/SIMET 30ML UCUP PO PRN (18:56)
[2021-04-26] MEDS ORDERED: MAGNE/ALUM HYDROXD 30 ML UCUP ONE (19:24)
[2021-04-26] MEDS ORDERED: ASPIRIN 325 MG TAB PO ONE (20:21)
[2021-04-26] MEDS ORDERED: MORPHINE 2 MG/ML SYR IV ONE (20:21)
[2021-04-26] MEDS ORDERED: MORPHINE 2 MG/ML SYR ONE (20:51)
[2021-04-26] MEDS ORDERED: ASPIRIN 325 MG TAB ONE (20:51)
[2021-04-26] MEDS ORDERED: MORPHINE 4 MG/ML SYR IV PRN (22:13)
[2021-04-26] MEDS ORDERED: VANCOMYCIN 1 GM in NA CHLORIDE 0.9% 500 ML IVPB ONE (22:14)
[2021-04-26] MEDS ORDERED: NA CHLORIDE 0.9% 250 ML ONE (22:56)
[2021-04-26] MEDS ORDERED: VANCOMYCIN 1 GM/VIAL ONE (22:56)
[2021-04-27 06:54] LABS: Hematocrit 40.7 % (36.0-45.0); Lymphocytes % 31.3 % (15.3-44.8); MPV 8.4 fL (7.6-11.3); RBC Red Blood Cell Count 4.22 M/uL (3.86-4.86)
[2021-04-27 07:01] LABS: Albumin 2.9 g/dL (3.4-5.0); Bilirubin Total 0.9 mg/dL (0.2-1.0); Potassium 3.8 mmol/L (3.5-5.1); Protein, Total 6.4 g/dL (6.4-8.2)
[2021-04-27] MEDS: FUROSEMIDE 40 MG/4 ML VIAL IV SCH (09:54)
[2021-04-27] MEDS: ASPIRIN EC 81 MG TAB PO SCH (09:54)
[2021-04-27] MEDS: carvediloL 6.25 MG TAB PO SCH ×2 (09:54→16:33)
[2021-04-27] MEDS: SMZ./TMP. 800/160 MG TABLET PO SCH ×2 (09:54→20:29)
[2021-04-27] MEDS: PANTOPRAZOLE 40MG TABLET PO SCH (09:54)
--- NOTE | 2021-04-27 13:08 | P.PN ---
Subjective Date of Service: 04/26/21 Primary Care Provider: Evelio Chief Complaint: chf exacerbation. Subjective: Improving Review of Systems 10-point ROS is otherwise unremarkable Physical Examination - Vital Signs Temperature: 97.5 F Blood Pressure: 138/95 Pulse: 79 Respirations: 18 Pulse Ox (%): 95 - Physical Exam General: Alert, In no apparent distress HEENT: Atraumatic, PERRLA, EOMI Neck: Supple, JVD not distended Respiratory: Clear to auscultation bilaterally, Normal air movement Cardiovascular: Regular rate/rhythm, Normal S1 S2 Gastrointestinal: Normal bowel sounds, No tenderness Musculoskeletal: No tenderness Integumentary: No rashes Neurological: Normal speech, Normal tone, Normal affect Lymphatics: No axilla or inguinal lymphadenopathy - Studies Microbiology Data (last 24 hrs): 04/25/21 16:50 Blood - Blood Aerobic Blood Culture - Final 04/25/21 16:50 Blood - Blood Blood Culture Gram Stain - Final 04/25/21 16:50 Blood - Blood Anaerobic Blood Culture - Final 04/25/21 16:50 Blood - Blood Gram Stain - Final Assessment & Plan - Problems (Diagnosis) (1) Acute exacerbation of CHF (congestive heart failure) Current Visit: No Status: Acute Plan: will get an echo and consult Dr. Jacobs. Will start the patient on Entresto. Will see how she does creatine is very good. Start her on 40mg of iv lasix as well. Check daily weights as well as i's and o's. Qualifiers: Heart failure type: unspecified (2) Elevated INR Current Visit: Yes Status: Acute Plan: check a hepatitis panel. However if the patient does have sleep apnea which would explain the fatty liver disease. (3) HTN (hypertension) Current Visit: No Status: Acute Plan: will hold the lisinopril. Will be on losartan as part of the entresto. Will adjust as necessary. Qualifiers: Hypertension type: primary hypertension Qualified Code(s): I10 - Essential (primary) hypertension (4) COPD (chronic obstructive pulmonary disease) Current Visit: No Status: Chronic Plan: Patient has a history of smoking. Is currently stable on only albuterol. She can use her own. We can levalbuterol as needed. Qualifiers: COPD type: chronic bronchitis (5) Sleep apnea Current Visit: Yes Status: Chronic Plan: she has the body habitus and wittnessed apnea spells. Qualifiers: Sleep apnea type: other type Qualified Code(s): G47.39 - Other sleep apnea Discharge Plan: Home Plan to discharge in: 24 Hours - Code Status/Comfort Care Code Status Assessed: No Physician Review: Patient Assessed, Agree with Above Assessment and Plan
--- NOTE | 2021-04-27 13:13 | P.PN ---
Subjective Date of Service: 04/27/21 Primary Care Provider: Evelio Chief Complaint: chf exacerbation. Subjective: New changes (had an episode of chest pain after dinner last nigh.) Review of Systems 10-point ROS is otherwise unremarkable Physical Examination - Vital Signs Temperature: 97.5 F Blood Pressure: 138/95 Pulse: 79 Respirations: 18 Pulse Ox (%): 95 - Physical Exam General: Alert, In no apparent distress HEENT: Atraumatic, PERRLA, EOMI Neck: Supple, JVD not distended Respiratory: Clear to auscultation bilaterally, Normal air movement Cardiovascular: Regular rate/rhythm, Normal S1 S2 Gastrointestinal: Normal bowel sounds, No tenderness Musculoskeletal: No tenderness Integumentary: No rashes Neurological: Normal speech, Normal tone, Normal affect Lymphatics: No axilla or inguinal lymphadenopathy - Studies Microbiology Data (last 24 hrs): 04/25/21 16:50 Blood - Blood Aerobic Blood Culture - Final 04/25/21 16:50 Blood - Blood Blood Culture Gram Stain - Final 04/25/21 16:50 Blood - Blood Anaerobic Blood Culture - Final 04/25/21 16:50 Blood - Blood Gram Stain - Final Assessment & Plan - Problems (Diagnosis) (1) Acute exacerbation of CHF (congestive heart failure) Current Visit: No Status: Acute Plan: will get an echo and consult Dr. Jacobs. Will start the patient on Entresto. Will see how she does creatine is very good. Start her on 40mg of iv lasix as well. Check daily weights as well as i's and o's. 04/27 one episode of chest pain after dinner. Resolved. Will start her on omeprazole. Qualifiers: Heart failure type: unspecified (2) Elevated INR Current Visit: Yes Status: Acute Plan: check a hepatitis panel. However if the patient does have sleep apnea which would explain the fatty liver disease. (3) HTN (hypertension) Current Visit: No Status: Acute Plan: will hold the lisinopril. Will be on losartan as part of the entresto. Will adjust as necessary. Qualifiers: Hypertension type: primary hypertension Qualified Code(s): I10 - Essential (primary) hypertension (4) COPD (chronic obstructive pulmonary disease) Current Visit: No Status: Chronic Plan: Patient has a history of smoking. Is currently stable on only albuterol. She can use her own. We can levalbuterol as needed. Qualifiers: COPD type: chronic bronchitis (5) Sleep apnea Current Visit: Yes Status: Chronic Plan: she has the body habitus and wittnessed apnea spells. Qualifiers: Sleep apnea type: other type Qualified Code(s): G47.39 - Other sleep apnea Discharge Plan: Home Plan to discharge in: 24 Hours Physician Review: Patient Assessed, Agree with Above Assessment and Plan Critical Care: No Time Spent Managing Pts Care (In Minutes): 25
[2021-04-27] MEDS: RIVAROXABAN 20 MG TABLET PO SCH (16:34)
--- NOTE | 2021-04-27 16:57 | EKG ---
Test Date: 2021-04-26 Test Time: 20:36:15 Reproductive Surgeon: RT-O MEASUREMENT RESULTS: Intervals: Rate: 82 MA: 176 QRSD: 86 QT: 396 QTc: 462 [place]: P: 84 MA: 176 QRS: -43 T: 114 INTERPRETIVE STATEMENTS: Normal sinus rhythm Possible Left atrial enlargement Left axis deviation Anterolateral infarct, age undetermined Abnormal ECG Compared to ECG 04/25/2021 11:57:18 Left-axis deviation now present Myocardial infarct finding now present Left anterior fascicular block no longer present T-wave abnormality no longer present Prolonged QT interval no longer present Electronically Signed On 04-27-21 16:55:36 CDT by Xavier Jacobs
--- NOTE | 2021-04-27 17:01 | EKG ---
Test Date: 2021-04-25 Test Time: 11:57:18 Keyboard Action Assembler: MARCELO MEASUREMENT RESULTS: Intervals: Rate: 98 NM: 170 QRSD: 86 QT: 370 QTc: 472 [place]: P: 84 NM: 170 QRS: -61 T: 101 INTERPRETIVE STATEMENTS: Normal sinus rhythm Possible Left atrial enlargement Left anterior fascicular block Nonspecific T wave abnormality Prolonged QT Abnormal ECG Compared to ECG 04/11/2021 19:45:11 Left anterior fascicular block now present T-wave abnormality now present Prolonged QT interval now present Sinus tachycardia no longer present Myocardial infarct finding no longer present Electronically Signed On 04-27-21 16:57:06 CDT by Xavier Jacobs
[2021-04-28 06:48] LABS: Absolute Lymphocytes (CBC) 1.7 K/uL (0.7-4.9); Basophils % 0.5 % (0-1.3); Hematocrit 41.8 % (36.0-45.0); Lymphocytes % 21.5 % (15.3-44.8); MPV 8.1 fL (7.6-11.3); RBC Red Blood Cell Count 4.36 M/uL (3.86-4.86)
[2021-04-28 07:17] LABS: Albumin 3.1 g/dL (3.4-5.0); Bilirubin Total 0.9 mg/dL (0.2-1.0); Protein, Total 6.5 g/dL (6.4-8.2)
[2021-04-28] MEDS: PANTOPRAZOLE 40MG TABLET PO SCH (08:14)
[2021-04-28] MEDS: FUROSEMIDE 40 MG/4 ML VIAL IV SCH (08:14)
[2021-04-28] MEDS: carvediloL 6.25 MG TAB PO SCH (08:15)
[2021-04-28] MEDS: SMZ./TMP. 800/160 MG TABLET PO SCH (08:15)
[2021-04-28] MEDS: ASPIRIN EC 81 MG TAB PO SCH (08:15)
--- NOTE | 2021-04-28 08:57 | P.DS ---
Admission Date: 04/25/21 Discharge Date: 04/28/21 Primary Care Provider: Evelio Disposition: ROUTINE DISCHARGE Discharge Condition: GOOD Reason for Admission: chf exacerbation. - Problems (1) Acute exacerbation of CHF (congestive heart failure) Current Visit: No Status: Acute Qualifiers: Heart failure type: unspecified (2) Elevated INR Current Visit: Yes Status: Acute (3) HTN (hypertension) Current Visit: No Status: Acute Qualifiers: Hypertension type: primary hypertension Qualified Code(s): I10 - Essential (primary) hypertension (4) COPD (chronic obstructive pulmonary disease) Current Visit: No Status: Chronic Qualifiers: COPD type: chronic bronchitis (5) Sleep apnea Current Visit: Yes Status: Chronic Qualifiers: Sleep apnea type: other type Qualified Code(s): G47.39 - Other sleep apnea Brief History of Present Illness: Patient has recently moved to the [facility]. She has a pmh of copd, chf, htn. She was diagnoised with a PE had some fluid on her lungs. She was getting more exertion dyspnea. She was also having increased swelling of the belly. Something she has had before. She does admit snoring and being told she stops breathing in her sleep. The patient has some fluid on her lungs and belly on CT Scan as well as fatty liver disease. Hospital Course: Patient was admitted. seen by cardiology. The patient has had echo in the past. She needs cpap and a defibrillator. Needs to follow up with Dr. Hatfield. If she so chooses she can follow up with me. She does need a new pcp Vital Signs/Physical Exam: Temp Pulse Resp BP Pulse Ox 97.5 F 87 18 155/98 H 94 04/28/21 04:00 04/28/21 08:14 04/28/21 08:14 04/28/21 08:14 04/28/21 08:14 General: Alert, In no apparent distress HEENT: Atraumatic, PERRLA, EOMI Neck: Supple, JVD not distended Respiratory: Clear to auscultation bilaterally, Normal air movement Cardiovascular: Regular rate/rhythm, Normal S1 S2 Gastrointestinal: Normal bowel sounds, No tenderness Musculoskeletal: No tenderness Integumentary: No rashes Neurological: Normal speech, Normal tone, Normal affect Lymphatics: No axilla or inguinal lymphadenopathy Laboratory Data at Discharge: WBC 8.00 K/uL (4.3-10.9) D 04/28/21 06:09 Hgb 13.8 g/dL (12.0-15.0) 04/28/21 06:09 Hct 41.8 % (36.0-45.0) 04/28/21 06:09 Plt Count 240 K/uL (152-406) 04/28/21 06:09 PT 36.3 SECONDS (9.5-12.5) H 04/26/21 08:30 INR 3.12 04/26/21 08:30 Sodium 137 mmol/L (136-145) 04/28/21 06:09 Potassium 4.0 mmol/L (3.5-5.1) 04/28/21 06:09 BUN 18 mg/dL (7-18) 04/28/21 06:09 Creatinine 0.78 mg/dL (0.55-1.3) 04/28/21 06:09 Glucose 116 mg/dL (74-106) H 04/28/21 06:09 Magnesium 1.6 mg/dL (1.8-2.4) L 04/25/21 12:00 Total Bilirubin 0.9 mg/dL (0.2-1.0) 04/28/21 06:09 AST 111 U/L (15-37) H 04/28/21 06:09 ALT 152 U/L (12-78) H 04/28/21 06:09 Alkaline Phosphatase 220 U/L (45-117) H 04/28/21 06:09 Troponin I 0.09 ng/mL (0.0-0.045) H 04/26/21 22:12 Triglycerides 67 mg/dL (<150) 04/26/21 03:52 Cholesterol 103 mg/dL (<200) 04/26/21 03:52 HDL Cholesterol 21 mg/dL (40-60) L 04/26/21 03:52 Cholesterol/HDL Ratio 4.90 04/26/21 03:52 Home Medications: Aspirin [Aspirin EC 81 MG] 81 mg PO DAILY 01/23/21 Apixaban [Eliquis] 5 mg PO BID tablet 04/13/21 Carvedilol [Coreg] 12.5 mg PO BID 30 Days #60 tablet 04/13/21 Furosemide [Lasix] 40 mg PO BID 30 Days #60 tablet 04/13/21 lisinopriL [Prinivil*] 5 mg PO DAILY 30 Days #30 tab 04/13/21 Diet: AHA Activity: Ad lida Followup: NONE,NONE [Primary Care Provider] - Adriano Fraser MD [ACTIVE - CAN ADMIT] - 1-2 Weeks Pearl Feliciano MD [OUTSIDE PHYSICIAN] - 1 Week Time spent managing pt's care (in minutes): 20
[2021-04-28 12:14] VITALS: O2SAT 96
[2021-04-28 13:23] VITALS: BP 109/74; TEMP 97
[2021-04-29 18:38] LABS: HBsAG Nonreactive (Nonreactive)
== END 2021-04-28 13:52 | disposition home or self-care (01) | DRG 293 ==
LOC: ER 11:38 → ERHOLD 19:51 → 2ND 04-26 12:47
PROVIDERS: ADMIT Internal Medicine; ATTEND Internal Medicine
PROC: 30233N1 Transfusion of Nonautologous Red Blood Cells into Peripheral Vein, Percutaneous Approach (ICD-10-PCS; principal; 2021-04-26)
DX: I11.0 Hypertensive heart disease with heart failure (principal); I50.23 Acute on chronic systolic (congestive) heart failure; J44.9 Chronic obstructive pulmonary disease, unspecified; G47.30 Sleep apnea, unspecified; R79.1 Abnormal coagulation profile; Z86.711 Personal history of pulmonary embolism; Z20.822 Contact with and (suspected) exposure to COVID-19
CPT/HCPCS: 36415; 71045; 71260; 74177; 80048; 80053; 80061; 80074; 80076; 82140; 83605; 83735; 83880; 84439; 84443; 84484; 85025; 85610; 86850; 86900; 86901; 86927; 87040; 87205; 93005; 94640; 96372; 99284; C9113; J0696; J1200; J1940; J2270; J3370; J3430; J3475; J7040; J7050; P9017; P9059; Q9967; U0003

== ENCOUNTER 2021-08-19 14:28 | Inpatient (IN) | payer SELFPAY ==
--- OUTSIDE RECORDS SUMMARY | 2021-08-19 14:32 | XMS REPORT | Continuity of Care Document ---
:1975 Author Organization [facility] t Address [address] [place] [address] [address] [place] [address] Care Team Providers Name Role Phone PCP, DOES NOT HAVE A Primary Care Physician Unavailable Jagdeep VOGT, B Attending Clinician Unavailable VISHNU Attending Clinician Unavailable Singer CORONADO Attending Clinician Cory Reese Attending Clinician Albaro VOGT E Attending Clinician Jasmin OPERATION AGENT Attending Clinician Deejay CORONADO Attending Clinician Juan GONZALEZ Attending Clinician Roman MOLINA Attending Clinician Vishnu MOLINA Attending Clinician Kristin MOLINA, Elizabeth Attending Clinician Da Duval MD Attending Clinician Priscilla MOLINA Attending Clinician Provider Attending Clinician Unavailable OMAR Attending Clinician Unavailable CHIQUI Attending Clinician Unavailable Marybeth MOLINA, Nas Attending Clinician Jimenez MOLINA, Kia Attending Clinician Jesus Thomason MD Attending Clinician Prakash, A Admitting Clinician Unavailable VISHNU Admitting Clinician Unavailable Deejay CORONADO Admitting Clinician Vishnu MOLINA Admitting Clinician PRISCILLA Admitting Clinician Unavailable OMAR Admitting Clinician Unavailable CHIQUI Admitting Clinician Unavailable SONYA Admitting Clinician Unavailable Payers Payer Name Policy Type Policy Number Effective Date Expiration Date S ource Problems Condition Condition Condition Status Onset Resolution Last Treating Co mments Source Name Details Category Date Date Treatment Clinician Date NSVT NSVT Disease Active 2020-08 Univers (nonsustai (nonsustai 2-08 it y of tiffany tiffany 00:00: [place] ventricula ventricula 00 Me dical r r Branch tachycardi tachycardi a) a) COPD with COPD with Disease Active 2020-08 Uni vers acute acute 2-06 [place] exacerb[place] exacerb[place] Acute on Acute on Disease Active 2020-08 Unive rs chronic chronic 2-05 ity of combined combined 00:00: [place] systolic systolic 00 Medica l and and Branch diastolic diastolic heart heart failure failure Acute on Acute on Disease Active 2020-08 Unive rs chronic chronic 1-18 ity of heart heart 00:00: [place] failure, failure, 00 Medica l unspecifie unspecifie Br anch d heart d heart failure failure type type Hypotensio Hypotensio Disease Active U nivers n due to n due to 18 ity of hypovolemi hypovolemi [place] Acute on Acute on Disease Active Unive rs chronic chronic 9-13 ity of clinical clinical 00:00: [place] systolic systolic 00 Medica l heart heart Branch failure failure Acute on Acute on Disease Active Unive rs chronic chronic 9-12 [place] of diastolic diastolic [place] (congestiv (congestiv 00 Me dical e) heart e) heart Branch failure failure Other Other Disease Active Univers pulmonary pulmonary 04-22 ity of embolism embolism 00:00: [place] without without 00 Medical acute cor acute cor Bran ch pulmonale pulmonale Recurrent Recurrent Disease Active Uni vers pulmonary pulmonary 04-22 ity of embolism embolism 00:00: [place] 00 Medical Branch Troponin I Troponin I Disease Active U nivers above above 9-01 ity of reference [facility] Pleural Pleural Disease Active Univers effusion effusion 8-31 ity of 00:00: [place] [facility] History of History of Disease Active U nivers pulmonary pulmonary 8-31 ity of embolism embolism 00:00: [place] [facility] Chest pain Chest pain Disease Active U nivers in adult in adult 8-30 ity of 00:00: [place] [facility] Acute Acute Disease Active Univers left-sided left-sided 7-27 it y of CHF CHF 00:00: [place] (congestiv (congestiv 00 Me dical e heart e heart Branch failure) failure) SOB SOB Disease Active Univers (shortness (shortness 7-18 it y of of breath) of breath) [place] [facility] [place] Nonobstruc Nonobstruc Disease Active U nivers tive tive 7-18 ity of atheroscle atheroscle [place] ro[place] of rosis of 00 Medica 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 COPD Disease Active Univers exacerbati exacerbati 7-17 it y of on on 00:00: [place] [facility] Obesity Obesity Disease Active Univers (BMI (BMI 7-17 ity of 30-39.9) 30-39.9) 00:00: [place] [facility] Acute on Acute on Disease Active Unive rs chronic chronic 5-24 ity of systolic systolic 00:00: and and Medical diastolic diastolic Bran ch heart heart failure, failure, NYHA class NYHA class 3 3 Nonischemi Nonischemi Disease Active U nivers c c 5-24 ity of cardiomyop cardiomyop [place] at[place] athy Medical [place] Essential Essential Disease Active Uni vers hypertensi hypertensi 5-24 it y of on on 00:00: [place] [facility] Admitted Admitted Disease Active Unive rs for acute for acute 5-23 ity of congestive congestive [place] heart heart 00 Medical failure failure Branch Acute on Acute [...] Added automatic ally from request for surgery [id number] Dyspnea on Dyspnea on Disease Active M ethodi exertion exertion 2-22 st 00:00: Hospita 00 l Allergies, Adverse Reactions, Alerts Allergy Allergy Status Severity Reaction(s) Onset Inactive Treating Comm ents Source Name Type Date Date Clinician METRONID DRUG Active Rash Univers AZOLE INGREDI 5-23 ity of 00:00: [place] 00 Medical Branch Metronid Propensi Active Rash Univer s azole ty to 5-23 ity of adverse 00:00: [place] reaction 00 Medical s Branch Metronid Propensi Active Rash Method i azole ty to 2-22 st adverse 00:00: Hospita reaction 00 l s to drug metronid DA Active [facility] azole 1-16 [place] [facility] metronid DA Active SV [facility] azole RASH 1-16 [place] 00:[facility]: d [facility] Social History Social Habit Start Date Stop Date Quantity Comments Source Exposure to Not sure [facility] SARS-CoV-2 [facility] (event) Branch History SDOH [facility] Alcohol Std Drinks History SOFYOH [facility] Alcohol Binge Alcohol intake 2021-07-27 2021-07-27 Ex-drinker [facility] 00:00:00 00:00:00 (finding) [facility] [place] [facility] Education 2021-05-03 2021-05-03 10 [facility] 00:00:00 00:00:00 [facility] [place] [facility] Tobacco Comment 2021-03-17 2021-03-17 Quit smoking Univers ity of 00:00:00 00:00:00 10/2020 [facility] [place] [facility] Tobacco use and 2021-01-11 2021-01-11 Never used Universit y of exposure 00:00:00 00:00:00 [facility] [place] [facility] History of 2020-11-05 Smoker [facility] tobacco use 00:00:00 History SDNM 2020-10-14 2020-10-14 1 [facility] Alcohol Frequency 00:00:00 00:00:00 History SDOH 2020-10-14 2020-10-14 3 [facility] Financial 00:00:00 00:00:00 History [facility] Food 2020-10-14 2020-10-14 2 [facility] Worry 00:00:00 00:00:00 History [facility] Food 2020-10-14 2020-10-14 2 [facility] Scarcity 00:00:00 00:00:00 [facility][birth year] [facility] [place] [facility] Smoking Status Start Date Stop Date Source Former smoker 2021-01-11 00:00:00 2021-01-11 00:00:00 [facility] [place] [facility] Medications Ordered Filled Start Stop Current Ordering Indication Dosage Frequency Signature Comments Components Source Medication Medication Date Date Medication? Clinician (SIG) Name Name rivaroxaban 2020-08- Yes [id number] 20mg Take 1 Uni vers 20 mg 2-10 01-10 tablet by ity of tablet 00:00: 05:59 mouth [place] 00 :00 daily for Medical 30 days. Branch Indication s: a clot in the lung lisinopriL 2020-08- Yes [id number] 2.5mg Take 1 Univers 2.5 mg 2-10 01-10 tablet by ity of tablet 00:00: 05:59 mouth [place] 00 :00 daily for Medical 30 days. Branch budesonide- 2020-08 Yes [id number] 2{puff} Inhale 2 Univers formoteroL 2-09 Puffs 2 ity of 160-4.5 00:00: (two) [place] mcg/actuati 00 times Medical on inhaler daily. Branch meclizine 2020-08 Yes [id number] 12.5mg Take 1 Univers 12.5 mg 09-30 tablet by ity of tablet 00:00: mouth 3 [place] 00 (three) Medical times Branch daily as needed for Dizziness. furosemide 2020-08- Yes [id number] 40mg Take 2 Univers 20 mg 09-30 tablets by ity of tablet 00:00: 05:59 mouth 3 [place] 00 :00 (three) Medical times Branch daily for 30 days. atorvastati 2020-08- Yes [id number] 20mg Take 1 Univers n 20 mg 09-30 tablet by ity of tablet 00:00: 05:59 mouth at [place] 00 :00 bedtime Medical for 30 Branch days. carvediloL 2020-08- Yes [id number] 6.25mg Take 1 Univers 6.25 mg 09-30 tablet by ity of tablet 00:00: 05:59 mouth 2 [place] 00 :00 (two) Medical times Branch daily with meals for 30 days. amoxicillin 2020-08- Yes [id number] 1{tbl} Take 1 Univers -clavulanat 09-30 [id number] tablet by ity of e 875-125 00:00: 05:59 [place] mg per 00 :00 (two) Medical tablet times Branch daily for 4 days. doxycycline 2020-08- Yes [id number] 100mg Take 1 Univers hyclate 100 09-30 [id number] capsule by ity of mg capsule 00:00: 05:59 mouth [place] 00 :00 every 12 Medical (twelve) Branch hours for 4 days. KCL 20 mEq 2020-08 Yes [id number] 20meq Take 1 Univers tablet 1-19 tablet by ity of 00:00: mouth [place] 00 daily. Medical Branch spironolact 2020-08 Yes [id number] 25mg Take 1 Univers one 25 mg 1-19 tablet by ity o f tablet 00:00: mouth 2 [place] 00 (two) Medical times Branch daily. lisinopriL Yes 10mg QD Take 1 Metho [...] Q.5D Take 1 Me thodi (DORYX) 100 11-20 04-[address] MG EC 00:00: 04:59 [...] 81mg QD Take 1 Methodi (ECOTRIN) 10-28 04-09 tablet (81 st 81 MG 00:00: 04:59 mg total) Hospit a enteric 00 :00 by mouth l coated daily for tablet 30 days. carvediloL 2020- No 6.25mg Q.5D Take 1 Me thodi (COREG) 3-09 04-[address] 6.25 MG 00:00: 04:59 (6.25 [...] No 2{puff} Q.5D Inhale 2 Methodi formoteroL - 04-[address] (Symbicort) 00:00: 00:00 [...] l mouth daily for 5 days. azithromyci 250mg QD Take 1 Me beltran n 10-[address] (ZITHROMAX) 00:00: 05:59 (250 mg Ho spita 250 MG 00 :00 total) by l tablet mouth daily for 5 days. Take first 2 tablets together, then 1 every day until finished. Vital Signs Vital Name Observation Time Observation Value Comments Source Systolic blood 2020-12-02 18:30:00 130 mm[Hg] [facility] [place] pressure Diastolic blood 2020-12-02 18:30:00 62 mm[Hg] [facility] pressure Heart rate 2020-12-02 18:30:00 90 /min [facility] Respiratory rate 2020-12-02 18:30:00 18 /min [facility] [place] Oxygen saturation in 2020-12-02 18:30:00 98 /min [facility] Arterial blood by Pulse oximetry Body temperature 2020-12-02 14:22:00 36.56 Chandrika [facility] [place] Body height 2020-12-02 09:22:00 165.1 cm [facility] Body weight 2020-12-02 09:22:00 86.183 kg [facility] BMI 2020-12-02 09:22:00 31.62 kg/m2 [facility] Procedures Procedure Date / Time Performing Clinician Source Performed TROPONIN 2020-12-02 17:37:00 [facility] URINE DRUGS OF ABUSE 2020-12-02 14:49[facility]00 [facility]IN 2020-12-02 14:30:00 [facility] ECG ED PRELIMINARY 2020-12-02 10:02:38 Mukund [facility] INTERPRETATION Da XR CHEST 1 VW PORTABLE 2020-12-02 09:58:58 Calvin Duval [facility] [place] [facility] B NATRIURETIC PEPTIDE 2020-12-02 09:52:00 Calvin Duval [facility] HC COMPLETE BLD COUNT 2020-12-02 09:52:00 [facility] W/AUTO DIFF Da COMPREHENSIVE METABOLIC 2020-12-02 09:52:[address] [facility] PANEL Da TROPONIN 2020-12-02 09:52:00 Matt Wells [facility] ESTIMATED GFR 2020-12-02 09:52:00 Mukund Calvin Mendez spital Da SMEAR REVIEW 2020-12-02 09:52:00 Mukund Calvin Mendez spital Da ECG 12-LEAD 2020-12-02 09:43:07 [facility] Da HC COMPLETE BLD COUNT 2020-11-20 10:30:00 [facility] W/AUTO DIFF COMPREHENSIVE METABOLIC 2020-11-20 10:30:00 [facility] PANEL B NATRIURETIC PEPTIDE 2020-11-20 10:30:00 Mathew Latif eli [facility] ESTIMATED GFR 2020-11-20 10:30:00 [facility] LACTIC ACID LEVEL, SEPSIS 2020-11-20 06:33:00 [facility] - NOW AND REPEAT 2X EVERY 3 HOURS LACTIC ACID LEVEL, SEPSIS 2020-11-20 03:36:00 [facility] - NOW AND REPEAT 2X EVERY 3 HOURS COVID-19 QUALITATIVE 2020-11-20 00:39:00 [facility] RT-PCR BLOOD CULTURE, AEROBIC & 2020-11-20 00:11:00 [facility] ANAEROBIC LACTIC ACID LEVEL, SEPSIS 2020-11-20 00:11:00 [facility] - NOW AND REPEAT 2X EVERY 3 HOURS BLOOD CULTURE, AEROBIC & 2020-11-19 23:52:00 [facility] ANAEROBIC CT ABDOMEN PELVIS W 2020-11-19 21:43:28 [facility] CONTRAST CT ANGIOGRAM PE CHEST 2020-11-19 21:42:26 [facility] XR CHEST 1 VW PORTABLE 2020-11-19 21:25:00 [facility] URINE CULTURE 2020-11-19 19:08:00 [facility] ECG 12-LEAD 2020-11-19 18:58:50 [facility] sp[facility] HC COMPLETE BLD COUNT 2020-11-19 18:57:00 [facility] W/AUTO DIFF COMPREHENSIVE METABOLIC 2020-11-19 18:57:00 [facility] PANEL URINALYSIS SCREEN AND 2020-11-19 18:57:00 [facility] MICROSCOPY, WITH REFLEX TO CULTURE ALCOHOL LEVEL, BLOOD 2020-11-19 18:57:00 [facility] D-DIMER 2020-11-19 18:57:00 [facility] spital ESTIMATED GFR 2020-11-19 18:57:00 [facility] spital HCG QUALITATIVE, URINE 2020-11-19 18:57:00 [facility] SCREEN URINE DRUGS OF ABUSE 2020-11-19 18:48:00 Mathew Latif [facility] SCREEN ECG ED PRELIMINARY 2020-11-19 18:42:01 [facility] INTERPRETATION HC COMPLETE BLD COUNT 2020-10-28 11:44:00 [facility] W/AUTO DIFF BASIC METABOLIC PANEL 2020-10-28 11:44:00 [facility] MAGNESIUM LEVEL 2020-10-28 11:44:00 [facility] ESTIMATED GFR 2020-10-28 11:44:00 [facility] CV RIGHT AND LEFT HEART 2020-10-27 22:46:00 David Richter [facility] [place] [facility] CATH SELECTIVE CORONARY LV GRAM POC BLOOD GAS, VENOUS AND 2020-10-27 22:37:00 [facility] LYTES POC BLOOD GAS, VENOUS AND 2020-10-27 22:32:00 [facility] LYTES POC BLOOD GAS, ARTERIAL 2020-10-27 22:27:00 [facility] AND LYTES TYPE AND SCREEN 2020-10-27 12:57:00 David Richter ospital PARTIAL THROMBOPLASTIN 2020-10-27 12:57:00 David Richter [facility] [place] TIME (PTT) PROTHROMBIN TIME WITH INR 2020-10-27 12:57:00 David Richter [facility] HCG QUANTITATIVE, SERUM 2020-10-27 12:57:00 [facility] CBC WITH PLATELET AND 2020-10-27 10:42:00 [facility] DIFFERENTIAL Kiya COMPREHENSIVE METABOLIC 2020-10-27 10:42:00 [facility] PANEL Kiya MAGNESIUM LEVEL 2020-10-27 10:42:00 [facility] ESTIMATED GFR 2020-10-27 10:42:00 [facility] Kiya MANUAL DIFFERENTIAL 2020-10-27 10:42:00 [facility] Kiya ECG 12-LEAD 2020-10-27 05:07:15 David Richter [facility] ospital URINE CULTURE 2020-10-27 00:22:00 [facility] URINALYSIS SCREEN AND 2020-10-27 00:15:00 [facility] MICROSCOPY, WITH REFLEX TO CULTURE XR CHEST 1 VW PORTABLE 2020-10-26 16:32:17 [facility] HC COMPLETE BLD COUNT 2020-10-26 11:40:00 [facility] W/AUTO DIFF Kiya COMPREHENSIVE METABOLIC 2020-10-26 11:40:00 [facility] PANEL Kiya ESTIMATED GFR 2020-10-26 11:40:00 [facility] Kiya TTE COMPLETE, W CONTRAST, 2020-10-25 19:55:00 [facility] D[facility]ER ([id number]) TROPONIN 2020-10-25 11:37:00 Luis Amaro Ho spital HC COMPLETE BLD COUNT 2020-10-25 11:37:00 [facility] W/AUTO DIFF Kiya COMPREHENSIVE METABOLIC 2020-10-25 11:37:00 [facility] PANEL Kiya ESTIMATED GFR 2020-10-25 11:37:00 [facility] Kiya TROPONIN 2020-10-25 07:30:00 Luis Amaro spital COVID-19 QUALITATIVE 2020-10-25 04:57:00 [facility] QUALITATIVE, URINE 2020-10-25 04:14:00 Prem [facility] SCREEN XR CHEST 1 VW 2020-10-25 04:13:30 Luis Amarotal HC COMPLETE BLD COUNT 2020-10-25 02:11:00 Luis Amaro [facility] [place] W/AUTO DIFF [facility] METABOLIC 2020-10-25 02:11:00 Prem [facility] [place] [facility] PANEL PARTIAL THROMBOPLASTIN 2020-10-25 02:11:00 Prem [facility] TIME (PTT) PROTHROMBIN TIME WITH INR 2020-10-25 02:11:00 Prem [facility] CREATINE KINASE, TOTAL 2020-10-25 02:11:00 [facility] B NATRIURETIC PEPTIDE 2020-10-25 02:11:00 Prem [facility] [place] [facility] ESTIMATED GFR 2020-10-25 02:11:00 Luis Amaro spital TROPONIN 2020-10-25 02:11:00 Luis Amaro spital ECG 12-LEAD 2020-10-25 01:45:52 Luis Amaro josietal ECG ED PRELIMINARY 2020-10-25 01:34:02 [facility] US HEPATIC 2020-10-14 21:52:47 Karen Bellotal Mary TROPONIN 2020-10-14 10:25:00 Karen Bello [facility] HC COMPLETE BLD COUNT 2020-10-14 10:25:00 Nw[facility] [place] [facility]/AUTO DIFF Mary PROTHROMBIN TIME WITH INR 2020-10-14 10:25:00 Karen Bello [facility] Mary LIPASE LEVEL 2020-10-14 10:25:00 Karen Bello Ho spital Mary COMPREHENSIVE METABOLIC 2020-10-14 10:25:00 [facility] Mary THYROID STIMULATING 2020-10-14 10:25:00 [facility] Mary ESTIMATED GFR 2020-10-14 10:25:00 Karen Bello spital Mary LIPID PANEL 2020-10-14 10:25:00 Karen Bello spital Mary RESPIRATORY PATHOGEN 2020-10-14 08:41:00 [facility] WITH COVID-19 RT-PCR TROPONIN 2020-10-14 06:23:00 Karen Bello spital Mary CT ANGIOGRAM PE CHEST 2020-10-14 05:18:[facility] 2020-10-14 03:27:29 Mack [facility] INTERPRETATION ECG 12-LEAD 2020-10-14 03:18:29 Karen Bellotal Mary HC COMPLETE BLD COUNT 2020-10-14 03:04:00 Mack [facility] W/AUTO DIFF COMPREHENSIVE METABOLIC 2020-10-14 03:04:00 Mack [facility] PANEL CREATINE KINASE, TOTAL 2020-10-14 03:04:00 [facility] TROP[facility]IN 2020-10-14 03:04:00 Karen Bello spital Mary B NATRIURETIC PEPTIDE 2020-10-14 03:04:00 [facility] D[facility] 2020-10-14 03:04:00 Sidra Giron HCG QUALITATIVE, SERUM 2020-10-14 03:04:00 [facility] S[facility]IM[facility] GFR 2020-10-14 03:04:00 Sidra Giron spital XR CHEST 1 VW PORTABLE 2020-10-14 02:39:45 Sidra Giron [facility] Plan of Care Planned Activity Planned Date Details Comments Source Future Scheduled Test COVID-19 VACCINE (1) [facility] [code = COVID-19 VACCINE (1)] Future Scheduled Test Hepatitis C screening [facility] (procedure) [code = 903808595] Future Scheduled Test Screening for [facility] malignant neoplasm of cervix (procedure) [code = 567779068] Future Scheduled Test INFLUENZA VACCINE [facility] [code = INFLUENZA VACCINE] Encounters Start End Encounter Admission Attending Care Care Encounter Source Date/Time Date/Time Type Type Clinicians Facility Department ID 2020-12-05 Inpatient HCAMN PABLO [id number] [facility] 03:20:00 [id number] [facility] 2021-07-31 2021-07-31 Transition JENI Gannon [id number] Univers 00:00:00 00:00:00 of Care Farhana RAI [id number] it y of [place] [id number] [address] 2021-07-26 2021-07-30 [facility] [id number] Univers 15:34:00 13:25:00 FAUSTINA srivastava [facility] 2021-04-06 2021-04-06 [facility] [id number] 12:13:00 14:26:00 Thoe [place] 350.1.13.10 [place] 4.2.7.2.686 [place] [id number] 2021-04-06 2021-04-06 Patient Jeni Reese 1.2.840.114 [id number] 00:00:00 00:00:00 Outreach Elyssa E Rai 350.1.13.10 [place] 4.2.7.2.686 [id number] 2021-04-02 2021-04-02 Patient Rosetta Irvin 1.2.840.114 [id number] 00:00:00 00:00:00 Outreach E Rai 350.1.13.10 [place] 4.2.7.2.686 [id number] 2021-03-30 2021-03-30 Patient Rosetta Irvin 1.2.840.114 [id number] 00:00:00 00:00:00 Outreach E Rai 350.1.13.10 [place] 4.2.7.2.686 [id number] 2021-03-25 2021-03-25 Patient Rosetta Irvin 1.2.840.114 [id number] 00:00:00 00:00:00 Outreach E Rai 350.1.13.10 [place] 4.2.7.2.686 [id number] 2021-03-16 2021-03-18 Emergency Apolinar Castellanos [facility] 1.2.840. 114 [id number] 19:40:00 14:45:00 Yony Villalba 350.1.13.10 [place] 4.2.7.2.686 [place] [id number] [facility] 2021-03-10 2021-03-10 Transition Jeni Martinez 1.2.840.114 [id number] 00:00:00 00:00:00 of Care Yasmeen Rai 350.1.13.10 [place] 4.2.7.2.686 [id number] [facility] 2021-03-07 2021-03-09 [facility] Edinson Owens [facility] 1.2.840.1 [id number] 08:22:00 12:00:00 Encounter Faustina Mares 350.1.13.10 [place] 4.2.7.2.686 [place] [id number] [facility] 2021-03-09 2021-03-09 Patient Rosetta Irvin 1.2.840.114 [id number] 00:00:00 00:00:00 Outreach E Rai 350.1.13.10 [place] 4.2.7.2.686 [id number] 403 2021-03-04 2021-03-04 Patient Rosetta Irvin 1.2.840.114 [id number] 00:00:00 00:00:00 Outreach E Rai 350.1.13.10 [place] 4.2.7.2.686 [id number] 403 2021-02-25 2021-02-25 Patient Rosetta Irvin 1.2.840.114 [id number] 00:00:00 00:00:00 Outreach Cory Rai 350.1.13.10 [place] 4.2.7.2.686 [id number] 2021-02-09 2021-02-09 Transition Jeni Martinez 1.2.840.114 [id number] 00:00:00 00:00:00 of Care Yasmeen Rai 350.1.13.10 [place] 4.2.7.2.686 [id number] 2021-01-26 2021-01-26 Telephone CHRISTIANO Foster 1.2.840.114 [id number] 00:00:00 00:00:00 [facility] 350.1.13.10 [facility] 4.2.7.2.686 [id number] 2020-12-02 2020-12-02 Emergency Calvin Duval 1.2.840.1 [id number] Methodi 04:27:00 14:00:[address] 3.430.2.7 Hospit a .3.513171 l .8 2020-12-02 2020-12-02 Travel 1.2.840.1 1.2.064.363 [id number] Methodi 00:00:00 00:00:[address] 3.430.2.7 0.2.7.3.698 spita .3.896640 084.8 l .8 2020-11-20 2020-11-20 Documentat Provider, 1.2.840.1 [id number] Methodi 00:00:00 00:00:00 ion Unknown 93903.1.[address] 3.430.2.7 Hospit a .3.386137 l .8 2020-11-19 2020-11-20 [facility] RADHAMES NELSON 1.2.840.1 [id number] [place] 00:00:00 00:00:00 Encounter 75333.1.1 [id number] .3.528111 .8 2020-11-19 2020-11-19 Travel 1.2.840.1 1.2.805.976 [id number] Methodi 00:00:00 00:00:[address] 3.430.2.7 0.2.7.3.698 Ho spita .3.282240 084.8 l .8 2020-10-24 2020-10-28 Hospital [facility], 1.2.840.1 [id number] [place] 00:00:00 00:00:00 Encounter SEGUNDO 11902.1.1 [id number] .3.181782 .8 2020-10-27 2020-10-27 Surgery Rueda, 1.2.840.1 [id number] Methodi 14:30:00 15:30:00 Ernesto Lovell [address]62.1.[address] 3.430.2.7 Hospit a .3.160091 l .8 2020-10-24 2020-10-24 Travel 1.2.840.1 1.2.322.209 [id number] Methodi 00:00:00 00:00:[address] 3.430.2.7 0.2.7.3.698 Ho spita .3.618457 084.8 l .8 2020-10-13 2020-10-14 [facility] Tariq H 1.2.840.1 [id number] 004 [id number] Methodi 19:58:00 19:56:00 Encounter Surjit Thomason [address] 3.430.2.7 Hospit a .3.725488 l .8 2020-10-13 2020-10-13 Travel 1.2.840.1 1.2.963.171 [id number] Methodi 00:00:00 00:00:00 85031.1.1 350.1.13.43 086 3.430.2.7 0.2.7.3.698 spita .3.363742 084.8 l .8 Results Test Description Test Time Test Comments Results Result [facility] e Comments - XR SHOULDER 2 + 2020-12-05 V RT 04:14:00 [facility] : 1975 Sex: F FAX: Carmita Truong [phone] [place]: St: REG FAX: Jose Herrmann MD Name: YOBANYASHLY [facility] : 1975 Age/S: 45/F [address] [facility] Unit #: [id number] Loc: E.ERS2 [place], [place]: [place] [address] Acct: [id number] Dis Date: Status: REG ER PHONE #: [phone] Exam Date: 12/05/2020 0401 FAX #: [phone] Reason: pain EXAMS: CPT CODE: [id number] XR SHOULDER 2 + V RT [id number] EXAM: - XR SHOULDER 2 + V [...] MD; Jose Herrmann MD Technologist: NGUYEN RÍOS [facility] Date/Time/By: 12/05/2020 (0414) : By: [email or web address] PAGE 1 Signed Report FAX: Carmita Truong [phone] [place]: St: REG FAX: Jose Herrmann MD Name: ASHLY HAYWOOD [facility] : 1975 Age/S: 45/F [address] [facility] Unit #: [id number] Loc: [address] Phys: [place] [address] Acct: [id number] Dis Date: Status: REG ER PHONE #: [phone] Exam Date: 12/05/2020 0401 FAX #: [phone] Reason: pain EXAMS: CPT CODE: [id number] XR SHOULDER 2 + V RT [id number] <Continued> Orig Print D/T: S: 12/05/2020 (0419) PAGE 2 Signed Report ECG 12 lead 2020-12-03 03:49:04 Test Item Value Reference Range Interpretation Comme nts Ventricular rate (test code = 253) Atrial rate (test code = 255) MA interval (test code = 266) QRSD interval [...] of 19-NOV-2020 13:58,-No significant change was found-- [facility] Chest 1 [id number] 10:11:23Examination: XR CHEST 1 PORTABLEClinical history: "SOB" Comparison: Prior imaging, including achest radiograph obtained on 11/19/2020.One radiographic view of the chest was evaluated. Impression: There are no apparent infiltrates, pleural effusions, or pneumothoraces. The cardiomediastinalsilhouette, the imaged bones, and the remainder of the chest are stable in appearance. [facility] Interface, Radiology Results Incoming - 12/02/2020 5:14 AM CDT Examination: XR CHEST 1 PORTABLEClinical history: "SOB" Comparison: Prior imaging, including a chest radiograph obtained on 11/19/2020.One radiographic view of the chest was evaluated.Impression: There are no apparent infiltrates, pleural effusions, or pneumothoraces. The cardiomediastinal silhouette, the imaged bones, and the remainder of the chest are stable in appearance.[address] [facility] ED Preliminary Interpretation - Not an [id number] 10:02:38Calvin Duval MD 12/02/2020 5:48 [facility] ED Preliminary Interpretation - Not an OrderPerformed by: Calvin Duval MDAuthorized by: Calvin Duval MD Interpretation: Interpretation: non-specific Quality: Tracing quality: Limited by artifactRate: ECG rate: 110 ECG rate assessment: tachycardic Rhythm: Rhythm: sinus tachycardia Ectopy: Ectopy: none ST segments: ST segments: Non-specificT waves: T waves: non-specific [facility] [id number] 19:17:27 Test Item Value Reference Range Interpretation Comments Urine culture Mixed lawrence Specimen isolate (test <=10-3 col/cc InformationSp ecimen code = 59783-7) Source: Soumya eSpecimen Site: [facility] Angiogram Pe [id number] 21:55:30EXAMINATION:CT ANGIOGRAM PE CHEST CLINICAL HISTORY: dyspnea [...] as on previousOtherwise unremarkable CT abdomen [id number] lab [id number] 16:57:33Normcarmen Haywood1//[id number] Indications:New onset systolic CHF Procedures:Coronary angiogramLHC with LVgramRHC with cardiac output Closure:TR band Access site:Right radial artery and Right internal jugular vein Procedure details: Risks and benefits were discussed with the patient, informed consent was obtained.Patient was brought to the woods laborer in a fasting state and prepped in [...] radial artery without difficulty. A 5 Fr [place] catheter was then advance over the wireinto the ascending aorta. Angiogram of the left and right coronary was performed. The [place] catheter was then position in the LV. [...] 35 mlFlouro-time: 1.5 minutesAir Kerma:505 mGy 10/27/20[facility] Complete, (w Contrast, Strain and 3D if needed) 2020-10-26 17:20:16 Test Item Value Reference Range Interpretation Comments Velocity Ratio (V1/V2) 0.70 m/s (test code = 4689) IVS,d (test code = 1.05 cm 6276672891) EF (test code = 27.14 % 0543050578) LVPWD,d (test code = 0.97 cm 8169229271) AoV Mean PG (test code mmHg = 6678510145) AV LVOT peak gradient mmHg (test code = 0286692108) MV valve area p 1/2 5.59 cm2 method (test code = 9722207591) E wave decelartion time msec (test code = 5756292140) LVOT Diam,S (test code 2.23 cm = 5125615514) LVOT area (test code = 3.90 cm2 9193183245) LVOT Vmax (test code = 0.99 m/s 6683812167) LVOT VTI (test code = 0.17 m 5632190293) LVOT stroke volume 0.66 cm3 (test code = 8427301658) AoV Peak PG (test code mmHg = 9145831220) MV Peak E [place] (test 1.32 m/s code = 5623488228) MV stenosis pressure 39.33 ms 1/2 time (test code = 5040889242) MV Peak A [place] (test 0.00 m/s code = 1714569978) LV Vol,s A2C (test code 126.84 mL = 1104635593) LV Vol,d A2C (test code 186.07 mL = 1792717632) AoV Area, Vmax (test 2.73 cm2 code = 9902002916) AoV Area, VTI (test 3.37 cm2 code = 1950385706) AoV Vmax (test code = 1.42 m/s 3913380288) LV,d (test code = 5.39 cm 3585669059) LV,s (test code = 4.70 cm 7193796551) LV Vol,d A4C (test code 164.06 ml = 3758792961) LV Vol,s A4C (test code 106.99 ml = 5848607054) TR Vpeak (test code = 2.66 mm/s 4160009949) MV E A ratio (test code = 5212721685) RA pressure (test code mmHg = 0653490111) TR pk grad (test code = mmHg 5025795406) MR peak grad (test code mmHg = 3026990326) LA Vol 4C (test code = 97.00 ml 8302331931) RVSP (test code = mmHg 1457767521) LV SYS VOL (test code = 102.44 ml 7507415202) LV HEDRICK VOL (test code 140.60 ml = 8043432918) LA diam s (test code = 4.10 cm 0677568957) LA area s A4C (test 28.10 cm2 code = 7608551008) LA Vol MOD A4C (test 97.27 ml code = 1077741858) LV SV Teich 2D (test 38.16 ml code = 0173019041) LVOT SI (test code = 33.69 ml/m2 8007373025) AoV Cusp sep (test code = 7518493287) Aortic Root (test code 2.53 cm = 3851424391) AoV Vmn (test code = 7714614359) IVS s 2D (test code = 2352066038) LA Ao Ratio Mmode (test code = 1104306509) MA End Hedrick Grad (test code = 6020265195) MA End Diat [place] (test code = 4678681143) D E excurs (test code = 3178689759) E f slope (test code = 5434493988) E prime lat (test code = 4877886735) E favio sept (test code = 2146474644) PV acc T slope (test code = 7954721957) PV AT (test code = msec 3902512533) NGUYEN BP EF (test 32.00 % code = 7996846737) LA VOL 2C (test code = 74.00 ml 1532145329) AoV VTI (test code = 0.20 m 1428011950) LV EF,A2C (test code = 31.83 % 4328629256) LV EF,A4C (test code = 34.78 % 3558602856) LV EF,BP (test code = 32.29 % 6533809480) [place],d A2C (test 9.24 cm code = 1803957493) [place],d A4C (test 9.11 cm code = 2044024662) [place],s A2C (test 8.07 cm code = 4796412138) [place],s A4C (test 7.70 cm code = 6543347512) LV SV,A2C (test code = 59.23 % 1963151220) LV SV,A4C (test code = 57.06 % 6570879923) LV Vol,d BP (test code 175.67 ml = 4726674984) LV Vol,s BP (test code 118.95 nl = 2459024722) MR Vmax (test code = 5.55 m/s 9220082486) LVOT Vmn (test code = 6969481364) Pt Size (test code = 0850905776) Pt Wt (test code = 9260343445) LVOT mean grad (test mmHg code = 0137037376) LVPW s PLAX (test code 1.17 cm = 5342697669) MV Decel slope (test 10.79 m/s2 code = 4452573125) LVOT VTI (CM) (test 17.00 cm code = 1947714179) LINDA (test code = LINDA) The left [...] ventricular diastolic filling. Elevated LV filling pressure. [facility] 1 [id number] 04:16:24 CLINICAL HISTORY: 45 years Female Cough [...] Mediastinal contours are normal.Bones:No acute osseous abnormality.[id number] [facility]2021-02-23 21:58:42EXAMINATION: US HEPATIC CLINICAL HISTORY: abnormal hepatic function tests COMPARISON: None. IMPRESSION: Liver: The liver is normal in size and echogenicity. There is no evidence of focal mass or intrahepatic biliary ductal dilatation. Portal vein: The portal vein is normal in size and demonstrates normal hepatopetal flow. Gallbladder: Contracted. No stones. Common bile duct: Normal caliber. [facility]-[id number] Interface, Radiology Results Incoming - 10/14/2020 4:01 PM CSTFormatting of this notemight be different from the original.EXAMINATION: US HEPATICCLINICAL HISTORY: abnormal hepatic function testsCOMPARISON: None.IMPRESSION:Liver: The liver is normal in size and echogenicity. There isno evidence of focal mass or intrahepatic biliary ductal dilatation.Portal vein: The portal vein is normal in size and demonstrates normal hepatopetal flow.Gallbladder: Contracted. No stones.Common bile duct: Normal caliber.[facility]-[id number] [facility]
--- NOTE | 2021-08-19 17:12 | RAD REPORT ---
EXAM DESCRIPTION: RAD - Chest Single View - 08/19/2021 5:03 pm CLINICAL HISTORY: Abdominal distention;SOB Chest pain. COMPARISON: Chest Single View dated 04/25/2021; Chest Single View dated 04/13/2021; Chest Single View d ated 04/11/2021; Chest Single View dated 01/22/2021 FINDINGS: Portable technique limits examination quality. The lungs are grossly clear. Moderate cardiomegaly.
[2021-08-19 17:13] LABS: Urine Blood Negative (Negative); Urine Glucose Negative (Negative); Urine Protein 3+ (Negative); Urine Specific Gravity >=1.030 (1.005-1.030)
[2021-08-19 17:17] LABS: Hematocrit 43.1 % (36.0-45.0); Lymphocytes % 37.7 % (15.3-44.8); MPV 8.1 fL (7.6-11.3); RBC Red Blood Cell Count 4.41 M/uL (3.86-4.86)
[2021-08-19 17:18] LABS: Protime INR 1.82
[2021-08-19] MEDS ORDERED: FUROSEMIDE 40 MG/4 ML VIAL ONE (17:20)
[2021-08-19 17:28] LABS: Urine Bacteria 20-50 /HPF (<20); Urine RBC <5 /HPF (NONE SEEN)
[2021-08-19] MEDS ORDERED: ACETAMINOPHEN 500 MG TAB PO PRN (17:37)
[2021-08-19] MEDS ORDERED: ONDANSETRON 4 MG/2 ML VIAL IV PRN (17:37)
--- NOTE | 2021-08-19 17:37 | P.HP ---
Certification for Inpatient Patient admitted to: Inpatient With expected LOS: >2 Midnights Patient will require the following post-hospital care: None Practitioner: I am a practitioner with admitting privileges, knowledge of patient current condition, hospital course, and medical plan of care. Services: Services provided to patient in accordance with Admission requirements found in Title 42 Section 412.3 of the Code of Federal Regulations Patient History Date of Service: 08/19/21 Reason for admission: CHF exacerbation History of Present Illness: Patient is a 45-year-old female who came to the hospital with difficulty breathing. Patient has a history of congestive heart failure with any ejection fraction of less than 30%. Patient also with severe pulmonary hypertension with right-sided heart pressures of 55 mm of mercury. Patient will be admitted for diuresis. Will also get a dedicated CT scan. Patient may need right-sided heart catheterization. Patient be admitted for further evaluation. Will continue with diuresing patient. Continue with cardiac meds. Allergies metronidazole [From Flagyl] Allergy (Verified 01/23/21 09:51) Itching/Hives/Rash Home Medications: Aspirin [Aspirin EC 81 MG] 81 mg PO DAILY 01/23/21 Apixaban [Eliquis] 5 mg PO BID tablet 04/13/21 Carvedilol [Coreg] 12.5 mg PO BID 30 Days #60 tablet 04/13/21 Furosemide [Lasix] 40 mg PO BID 30 Days #60 tablet 04/13/21 lisinopriL [Prinivil*] 5 mg PO DAILY 30 Days #30 tab 04/13/21 - Past Medical/Surgical History Diabetic: No -: Systolic CHF -: COPD -: HTN -: PE -: Pulmonary hypertension -: Diastolic heart failure -: Appendectomy Psychosocial/ Personal History: lives by self - Family History Mother Notes: from [place] at 47 - Social History Smoking Status: Former smoker Alcohol use: No CD- Drugs: No Caffeine use: Yes Review of Systems 10-point ROS is otherwise unremarkable Physical Examination - Vital Signs Temperature: 98.6 F Blood Pressure: 150/80 Pulse: 88 Respirations: 24 Pulse Ox (%): 88 - Physical Exam General: Alert, In no apparent distress, Oriented x3, Moderate distress HEENT: Atraumatic, PERRLA, Mucous membr. moist/pink, EOMI, Sclerae nonicteric Neck: Supple, 2+ carotid pulse no bruit, No LAD, Without JVD or thyroid abnormality Respiratory: Diminished, Crackles/rales Cardiovascular: Regular rate/rhythm, Normal S1 S2, Systolic murmur Gastrointestinal: Normal bowel sounds, Soft and benign, No tenderness, No rebound, No guarding, Distended Musculoskeletal: No clubbing, No tenderness, Swelling Integumentary: No rashes Neurological: Normal gait, Normal speech, Normal strength at 5/5 x4 extr, Normal tone, Sensation intact, Cranial nerves 3-12 intact, Normal affect Lymphatics: No axilla or inguinal lymphadenopathy - Studies Laboratory Data (last 24 hrs) 08/19/21 17:05: PT 21.1 H, INR 1.82 08/19/21 17:05: WBC 5.30, Hgb 13.8, Hct 43.1, Plt Count 271 Assessment & Plan - Problems (Diagnosis) (1) Acute exacerbation of CHF (congestive heart failure) Current Visit: No Status: Acute Qualifiers: (2) HTN (hypertension) Current Visit: No Status: Acute Qualifiers: (3) COPD (chronic obstructive pulmonary disease) Current Visit: No Status: Chronic (4) Right-sided heart failure Current Visit: Yes Status: Acute (5) Severe pulmonary hypertension Current Visit: Yes Status: Acute - Plan 1. Continue with diuretics 2. Cardiology consultation 3. Low-dose beta-kellen and angiotensin receptor kellen 4. Review echocardiogram 5. We may need to do pulmonary consultation for pulmonary hypertension 6. Strict I's and O's 7. Repeat CXR 8. Daily weights 9. Education regarding diet and treatment of congestive heart failure Discharge Plan: Home Plan to discharge in: Greater than 2 days - Advance Directives Does patient have a Living Will: No Does patient have a Durable POA for Healthcare: No - Code Status/Comfort Care Code Status Assessed: Yes Code Status: Full Code Critical Care: No Time Spent Managing PTS Care (In Minutes): 45
[2021-08-19 17:48] LABS: Albumin 3.1 g/dL (3.4-5.0); Bilirubin Direct 0.5 mg/dL (0-0.2); Bilirubin Total 1.3 mg/dL (0.2-1.0); Troponin (Emerg Dept Use Only) 0.09 ng/mL (0.0-0.045)
[2021-08-19 17:55] LABS: Magnesium 1.7 mg/dL (1.8-2.4); Potassium 4.2 mmol/L (3.5-5.1)
[2021-08-19] MEDS ORDERED: ASPIRIN 81 MG CHEWABLE TABLET ONE (18:09)
--- NOTE | 2021-08-19 18:13 | EDPHYS ---
Physician Documentation [facility] Name: Anahi Downing Age: 45 yrs Sex: Female : 1975 Arrival Date: 08/19/2021 Time: 14:30 Bed 20 Private MD: ED Physician Apolinar Angeles HPI: 08/19 16:30 This 45 yrs old Female presents to ER via Ambulatory with complaints of Shortness Of cp Breath, hx of chf, Chest Pain > 30 y/o. 16:30 The patient has shortness of breath at rest. Onset: The symptoms/episode began/occurred cp gradually, and became worse today. 16:30 Duration: The symptoms are continuous, and are steadily getting worse. Associated signs cp and symptoms: Pertinent positives: chest pain, Pertinent negatives: productive cough, fever. Severity of symptoms: in the emergency department the symptoms are unchanged despite home interventions. 16:30 Patient with PMHX of CHF. Reports increasing shortness of breath, abdominal distention cp and chest pain this morning. MANAGER COUNCIL: 15:01 LMP N/A - Post-menopause vg1 Historical: - Allergies: 15:01 Flagyl; vg1 - Home Meds: 15:01 aspirin 81 mg Oral TbEC 1 tab once daily [Active]; carvedilol 12.5 mg Oral tab 1 tab 2 vg1 times per day [Active]; Lasix 40 mg Oral tab 1 tab 2 times per day [Active]; lisinopril 5 mg Oral tab 1 tab once daily [Active]; potassium chloride 20 mEq Oral TbER 2 tab once daily [Active]; Xarelto oral [Active]; - PMHx: 15:01 CHF; COPD; EMBOLISM; Hypertension; Pneumonia; pulmonary embolisim; Pulmonary emphysema; vg1 - PSHx: 15:01 Appendectomy; Ligation of fallopian tube; right ankle sx; vg1 - Immunization history:: Client reports having NOT received the Covid vaccine. - Social history:: Smoking status: Patient denies any tobacco usage or history of. ROS: 16:35 Constitutional: Negative for body aches, chills, fever, poor PO intake. cp 16:35 Eyes: Negative for injury, pain, redness, and discharge. cp 16:35 ENT: Negative for ear pain, sore throat, difficulty swallowing, difficulty handling secretions. 16:35 Cardiovascular: Positive for chest pain, edema, Negative for palpitations. 16:35 Respiratory: Positive for shortness of breath, at rest. Negative for cough, wheezing. 16:35 Abdomen/GI: Positive for abdominal distension, Negative for nausea, vomiting, and diarrhea. 16:35 : Negative for urinary symptoms. 16:35 Neuro: Negative for altered mental status, dizziness, headache, syncope, weakness. 16:35 All other systems are negative. Exam: 16:40 Constitutional: The patient appears in no acute distress, alert, awake, cp non-diaphoretic, non-toxic, well developed, well nourished. 16:40 Head/Face: Normocephalic, atraumatic. cp 16:40 Eyes: Periorbital structures: appear normal, Conjunctiva: normal, no exudate, no injection, Sclera: no appreciated abnormality, Lids and lashes: appear normal, bilaterally. 16:40 ENT: External ear(s): are unremarkable, Nose: is normal, Mouth: Lips: moist, Oral mucosa: moist, Posterior pharynx: Airway: no evidence of obstruction, patent. 16:40 Neck: ROM/movement: is normal, is supple, without pain, no range of motions limitations, no nuchal rigidity. 16:40 Chest/axilla: Inspection: normal. 16:40 Cardiovascular: Rate: tachycardic, Rhythm: regular, Edema: ankle edema, that is mild, JVD: is not appreciated. 16:40 Respiratory: the patient does not display signs of respiratory distress, Respirations: labored breathing, that is mild, shallow respirations, that is mild, Breath sounds: decreased breath sounds, that are mild, throughout, stridor, is not appreciated, wheezing: is not appreciated. 16:40 Abdomen/GI: Inspection: distension, that is moderate, in the abdomen diffusely, Bowel sounds: active, all quadrants, Palpation: abdomen is soft and non-tender, in all quadrants. 16:40 Back: pain, is absent, ROM is normal. 16:40 Neuro: Orientation: to person, place \\T\\ time. Mentation: is normal, Motor: moves all fours, strength is normal, Sensation: is normal, Gait: is steady, at a normal pace, without difficulty. Vital Signs: 14:56 BP 127 / 95; Pulse 102; Resp 22; Temp 97.8; Pulse Ox 94% ; Weight 79.83 kg; Height 5 vg1 ft. 5 in. (165.10 cm); Pain 7/10; 17:30 BP 131 / 99; Pulse 107; Resp 26 S; Pulse Ox 100% on R/A; jg9 21:00 BP 126 / 78; Pulse 97; Resp 19; Temp 98.4; Pulse Ox 97% on R/A; Pain 1/10; mr2 14:56 Body Mass Index 29.29 (79.83 kg, 165.10 cm) vg1 MDM: 16:22 Patient medically screened. cp 18:05 Data reviewed: vital signs, nurses notes, lab test result(s), EKG, radiologic studies, cp plain films. 18:05 Test interpretation: by ED physician or midlevel provider: ECG, plain radiologic cp studies. Counseling: I had a detailed discussion with the patient and/or guardian regarding: the historical points, exam findings, and any diagnostic results supporting the discharge/admit diagnosis, lab results, radiology results, the need for further work-up and treatment in the hospital. Physician consultation: Alyssa Rose MD was called at 18:00, was contacted at 18:00, regarding admission, to the telemetry unit. patient's condition. 08/19 16:24 Order name: Basic Metabolic Panel; Complete Time: 17:57 cp 08/19 17:57 Interpretation: Normal except: CL 108; BUN 20; GFR 61. 08/19 16:24 Order name: CBC with Diff; Complete Time: 17:48 cp 08/19 16:24 Order name: LFT's; Complete Time: 17:57 cp 08/19 17:57 Interpretation: Normal except: AST 52; ALK 165; BILIT 1.3; BILID 0.5; ALB 3.1; GLOB cp 3.9; A/G 0.8. 08/19 16:24 Order name: Magnesium; Complete Time: 17:57 cp 08/19 17:57 Interpretation: Abnormal: MG 1.7. 08/19 16:24 Order name: NT PRO-BNP; Complete Time: 17:57 cp 08/19 17:58 Interpretation: Abnormal: NT PRO-BNP 3374. 08/19 16:24 Order name: PT-INR; Complete Time: 17:48 cp 08/19 16:24 Order name: Troponin (emerg Dept Use Only); Complete Time: 17:57 08/19 17:58 Interpretation: Abnormal: TROPED 0.09. 08/19 16:24 Order name: XRAY Chest (1 view); Complete Time: 17:15 08/19 17:15 Interpretation: Report review. 08/19 16:24 Order name: Urine Microscopic Only; Complete Time: 17:48 08/19 16:24 Order name: COVID-19 (Coronavirus) Document "Date of Onset" if Symptomatic 08/19 17:13 Order name: Urine Dipstick-Ancillary; Complete Time: 17:15 EDMA 08/19 17:30 Order name: Urine Culture EDMA 08/19 17:41 Order name: Troponin I; Complete Time: 18:11 EDMA 08/19 19:07 Order name: SARS-COV-2 RT PCR [facility] 08/19 16:24 Order name: EKG; Complete Time: 16:25 08/19 16:24 Order name: Cardiac monitoring; Complete Time: 17:18 08/19 16:24 Order name: EKG - Nurse/Tech; Complete Time: 17:28 08/19 16:24 Order name: IV Saline Lock; Complete Time: 17:18 08/19 16:24 Order name: Labs collected and sent; Complete Time: 17:18 08/19 16:24 Order name: O2 Per Protocol; Complete Time: 17:18 08/19 16:24 Order name: O2 Sat Monitoring; Complete Time: 17:18 08/19 16:24 Order name: Urine Dipstick-Ancillary (obtain specimen); Complete Time: 17:18 08/19 16:24 Order name: Urine Test (obtain specimen); Complete Time: 17:34 08/19 17:41 Order name: CONS Physician Consult EDMA 08/19 17:41 Order name: Echo with Doppler EDMA Administered Medications: 17:42 Drug: Lasix (furosemide) 40 mg Route: IVP; Site: right forearm; jg9 18:09 Drug: Aspirin Chewable Tablet 324 mg Route: PO; jg9 18:28 Drug: Magnesium 800 mg Route: PO; jg9 Point of Care Testing: Urine : 17:35 hCG Reading: Negative; Control Reading: Positive; jg9 17:35 Exp: 12/19/2022; Lot #: [id number]; jg9 Disposition Summary: 08/19/21 18:13 Hospitalization Ordered Hospitalization Status: Inpatient Admission cp Provider: Alyssa Rose cp Location: Telemetry/MedSurg (Inpatient) cp Condition: Stable cp Problem: an acute exacerbation cp Symptoms: are unchanged cp Bed/Room Type: Standard cp Room Assignment: 221(08/19/21 19:58) cg Diagnosis - Unspecified combined systolic (congestive) and diastolic (congestive) heart failure cp - Dyspnea cp Forms: - Medication Reconciliation Form cp - SBAR form cp Addendum: 08/22/2021 08:58 Co-signature as Attending Physician, Apolinar Angeles MD I agree with the assessment and k dr plan of care. Signatures: Dispatcher [employer] EDMS Apolinar Angeles MD MD [facility] Stefan Hoang PA PA cp Sapna Em RN RN Radha Em RN RN vg1 Radha Bello jg9 Corrections: (The following items were deleted from the chart) 08/19 15:02 15:01 Home Meds: Eliquis 5 mg Oral tab 2 tabs 2 times per day; vg1 vg1 19:58 18:13 cp cg
--- NOTE | 2021-08-19 18:13 | ER ---
Nurse's Notes [facility] Name: Anahi Downing Age: 45 yrs Sex: Female : 1975 Arrival Date: 08/19/2021 Time: 14:30 Bed 20 Private MD: Diagnosis: Unspecified combined systolic (congestive) and diastolic (congestive) heart failure;Dyspnea Presentation: 08/19 14:56 Chief complaint: Patient states: chest pain that began this morning, states SOB and vg1 nausea and has gained 26 pounds in one week. States hx of CHF. Coronavirus screen: Vaccine status: Patient reports receiving the 2nd dose of the covid vaccine. Client denies travel out of the [place] in the last 14 days. Ebola Screen: Patient negative for fever greater than or equal to 101.5 degrees Fahrenheit, and additional compatible Ebola Virus Disease symptoms. Initial Sepsis Screen: Does the patient meet any 2 criteria? RR > 20 per min. HR > 90 bpm. Yes Does the patient have a suspected source of infection? No. Patient's initial sepsis screen is negative. Risk Assessment: Do you want to hurt yourself or someone else? Patient reports no desire to harm self or others. Onset of symptoms was August 19, 2021. 14:56 Method Of Arrival: Ambulatory vg1 14:56 Acuity: RALPH 2 vg1 Triage Assessment: 15:01 General: Appears in no apparent distress. uncomfortable, Behavior is calm, cooperative. vg1 Pain: Complains of pain in anterior aspect of left upper chest Pain currently is 7 out of 10 on a pain scale. Respiratory: Reports shortness of breath at rest on exertion cough that is dry, Onset: The symptoms/episode began/occurred this morning, the patient has moderate shortness of breath. PATIENTS TRANSPORTER: 15:01 LMP N/A - Post-menopause vg1 Historical: - Allergies: 15: Flagyl; vg1 - Home Meds: 15:01 aspirin 81 mg Oral TbEC 1 tab once daily [Active]; carvedilol 12.5 mg Oral tab 1 tab 2 vg1 times per day [Active]; Lasix 40 mg Oral tab 1 tab 2 times per day [Active]; lisinopril 5 mg Oral tab 1 tab once daily [Active]; potassium chloride 20 mEq Oral TbER 2 tab once daily [Active]; Xarelto oral [Active]; - PMHx: 15:01 CHF; COPD; EMBOLISM; Hypertension; Pneumonia; pulmonary embolisim; Pulmonary emphysema; vg1 - PSHx: 15:01 Appendectomy; Ligation of fallopian tube; right ankle sx; vg1 - Immunization history:: Client reports having NOT received the Covid vaccine. - Social history:: Smoking status: Patient denies any tobacco usage or history of. Screenin:20 Abuse screen: Denies threats or abuse. Denies injuries from another. Nutritional mr2 screening: No deficits noted. Tuberculosis screening: No symptoms or risk factors identified. Fall Risk None identified. Assessment: 19:20 Cardiovascular: Rhythm is regular. Respiratory: Airway is patent Respiratory effort is mr2 even, unlabored, Breath sounds are coarse bilaterally. Vital Signs: 14:56 BP 127 / 95; Pulse 102; Resp 22; Temp 97.8; Pulse Ox 94% ; Weight 79.83 kg; Height 5 vg1 ft. 5 in. (165.10 cm); Pain 7/10; 17:30 BP 131 / 99; Pulse 107; Resp 26 S; Pulse Ox 100% on R/A; jg9 21:00 BP 126 / 78; Pulse 97; Resp 19; Temp 98.4; Pulse Ox 97% on R/A; Pain 1/10; mr2 14:56 Body Mass Index 29.29 (79.83 kg, 165.10 cm) vg1 ED Course: 14:30 Patient arrived in ED. am2 15:01 Triage completed. vg1 15:01 Arm band placed on. EKG completed in triage. Results shown to MD. vg1 16:17 Stefan Hoang PA is PHCP. cp 16:17 Apolinar Angeles MD is Attending Physician. cp 17:00 Inserted saline lock: 22 gauge in right forearm, using aseptic technique. jg9 17:04 XRAY Chest (1 view) In Process Unspecified. EDMS 17:18 Radha Bello is Primary Nurse. jg9 18:11 Alyssa Rose MD is Hospitalizing Provider. cp 19:10 Primary Nurse role handed off by Radha Bello [facility] 19:13 Ching Enciso, RN is Primary Nurse. 5 19:20 Patient has correct armband on for positive identification. Bed in low position. Call mr2 light in reach. Side rails up X2. 19:20 No provider procedures requiring assistance completed. mr2 21:25 Patient admitted, IV remains in place. mr2 Administered Medications: 17:42 Drug: Lasix (furosemide) 40 mg Route: IVP; Site: right forearm; jg9 18:09 Drug: Aspirin Chewable Tablet 324 mg Route: PO; jg9 18:28 Drug: Magnesium 800 mg Route: PO; jg9 Point of Care Testing: Urine : 17:35 hCG Reading: Negative; Control Reading: Positive; jg9 17:35 Exp: 12/19/2022; Lot #: [id number]; jg9 Outcome: 18:13 Decision to Hospitalize by Provider. cp 21:25 Admitted to Med/surg accompanied by tech, via wheelchair. mr2 21:25 Condition: stable 21:25 Instructed on the need for admit. 21:32 Patient left the ED. mr2 Signatures: Dispatcher [employer] EDMS Stefan Hoang PA PA cp Moreno, Amanda Oral Doe 4 Radha Em, RN RN vg1 Jeremi Phipps RN RN mr2 Ching Enciso, RN RN 5 Radha Bello jg9 Corrections: (The following items were deleted from the chart) 15:02 15:01 Home Meds: Eliquis 5 mg Oral tab 2 tabs 2 times per day; vg1 vg1
[2021-08-19] MEDS ORDERED: MAGNESIUM OXIDE 400 MG TAB ONE (18:28)
[2021-08-19] MEDS ORDERED: ENOXAPARIN 40 MG/0.4 ML SQ SCH (20:00)
[2021-08-19] MEDS: POTASSIUM 25 MEQ EFFERV TAB PO SCH (21:00)
[2021-08-19] MEDS ORDERED: METOPROLOL TAR 25 MG TAB PO SCH (21:00)
[2021-08-19] MEDS ORDERED: APIXABAN 5 MG TABLET PO SCH (21:00)
[2021-08-19] MEDS ORDERED: carvediloL 12.5 MG TAB PO SCH (21:00)
[2021-08-19] MEDS: RIVAROXABAN 15 MG TABLET PO SCH (22:17)
[2021-08-20] MEDS: LORAZEPAM 0.5 MG TABLET PO PRN ×2 (04:22→21:34)
[2021-08-20 04:34] LABS: Absolute Lymphocytes (CBC) 2.3 K/uL (0.7-4.9); Hematocrit 44.3 % (36.0-45.0); Lymphocytes % 40.5 % (15.3-44.8); MPV 8.4 fL (7.6-11.3); RBC Red Blood Cell Count 4.56 M/uL (3.86-4.86)
[2021-08-20 04:39] LABS: Albumin 3.3 g/dL (3.4-5.0); Bilirubin Total 1.6 mg/dL (0.2-1.0); Magnesium 1.5 mg/dL (1.8-2.4); Potassium 3.8 mmol/L (3.5-5.1); Protein, Total 7.2 g/dL (6.4-8.2)
[2021-08-20] MEDS ORDERED: RIVAROXABAN 15 MG TABLET PO SCH (09:00)
[2021-08-20] MEDS ORDERED: MAGNESIUM 50% 3 GM in NA CHLORIDE 0.9% 100 ML IV ONE (09:00)
[2021-08-20] MEDS: POTASSIUM 25 MEQ EFFERV TAB PO SCH ×2 (09:14→21:17)
[2021-08-20] MEDS: ASPIRIN EC 81 MG TAB PO SCH (09:15)
[2021-08-20] MEDS: FUROSEMIDE 40 MG/4 ML VIAL IV SCH ×2 (09:15→16:34)
[2021-08-20] MEDS: RIVAROXABAN 15 MG TABLET PO SCH ×2 (09:21→21:17)
[2021-08-20] MEDS: carvediloL 6.25 MG TAB PO SCH ×2 (09:21→21:17)
[2021-08-20] MEDS: VALSARTAN 80 MG TAB PO SCH (10:21)
--- NOTE | 2021-08-20 12:29 | P.CNS ---
Date of Consult: 08/20/21 Reason for Consult: Pulmonary hypertension CHF exacerbation Chief Complaint: CHF exacerbation History of Present Illness: Patient is 45 years of age poor historian admitted with shortness of breath she has severe congestive heart failure very poor ejection fraction secondary pulmonary hypertension currently was supposed to follow-up with a news assignment editor becoming short of breath of the past 3 days feeling a little better does not smoke Allergies metronidazole [From Flagyl] Allergy (Verified 01/23/21 09:51) Itching/Hives/Rash Home Medications: Aspirin [Aspirin EC 81 MG] 81 mg PO DAILY 01/23/21 Furosemide [Lasix] 40 mg PO BID 30 Days #60 tablet 04/13/21 Rivaroxaban [Xarelto] 15 mg PO BID 08/19/21 Spironolactone 25 mg PO DAILY 08/19/21 carvediloL [Carvedilol] 6.25 mg PO BID 08/19/21 - Past Medical/Surgical History Diabetic: No -: Systolic CHF -: COPD -: HTN -: PE -: Pulmonary hypertension -: Congestive heart failure -: Appendectomy Psychosocial/ Personal History: lives by self - Family History Mother Notes: from [place] at 47 - Social History Alcohol use: No CD- Drugs: No Caffeine use: Yes Place of Residence: Home Review of Systems 10-point ROS is otherwise unremarkable General: Weakness Respiratory: Shortness of Breath Physical Examination Temp Pulse Resp BP Pulse Ox 97.2 F 104 H 20 131/85 90 L 08/20/21 08:00 08/20/21 10:21 08/20/21 08:00 08/20/21 10:21 08/20/21 04:00 General: Alert, Oriented x3 Neck: Supple Respiratory: Crackles/rales Cardiovascular: No edema, Regular rate/rhythm, Normal S1 S2 Gastrointestinal: Normal bowel sounds, Soft and benign Laboratory Data (last 24 hrs) 08/19/21 17:05: Troponin I 0.08 H 08/19/21 17:05: PT 21.1 H, INR 1.82 08/19/21 17:05: WBC 5.30, Hgb 13.8, Hct 43.1, Plt Count 271 08/19/21 17:05: Sodium 138, Potassium 4.2, BUN 20 H, Creatinine 0.98, Glucose 86, Magnesium 1.7 L, Total Bilirubin 1.3 H, AST 52 H, ALT 56, Alkaline Phosphatase 165 H - Problems (1) CHF (congestive heart failure) Current Visit: Yes Status: Acute Plan: Patient has severe congestive heart failure pliant with her medication and not follow-up with a news assignment editor she has secondary pulmonary hypertension chest x- ray shows significant cardiomegaly labs reviewed continue with Lasix aggressive diuresis no treatment for secondary pulmonary hypertension he is supposed to have a cardiac cath also consider Entresto patient is uninsured sitter follow-up in the [facility] Qualifiers: Heart failure type: systolic
[2021-08-21 06:17] VITALS: BMI 27.3
[2021-08-21 06:22] LABS: Potassium 3.4 mmol/L (3.5-5.1)
[2021-08-21] MEDS: RIVAROXABAN 15 MG TABLET PO SCH ×2 (08:26→21:09)
[2021-08-21] MEDS: ASPIRIN EC 81 MG TAB PO SCH (08:26)
[2021-08-21] MEDS: VALSARTAN 80 MG TAB PO SCH (08:26)
[2021-08-21] MEDS: POTASSIUM 25 MEQ EFFERV TAB PO SCH ×2 (08:26→21:09)
[2021-08-21] MEDS: FUROSEMIDE 40 MG/4 ML VIAL IV SCH ×2 (08:27→18:05)
[2021-08-21] MEDS: carvediloL 6.25 MG TAB PO SCH ×2 (08:27→21:08)
[2021-08-21] MEDS ORDERED: MAGNESIUM SULFATE 1 gm IVPB 1 GM/100 ML BAG IV ONE (09:00)
[2021-08-21] MEDS ORDERED: POTASSIUM 25 MEQ EFFERV TAB PO ONE (09:00)
--- NOTE | 2021-08-21 14:26 | PN ---
Date of Progress Note: 08/21/2021 Subjective: Seen by bedside. She is laying flat comfortably. No significant shortness of breath or chest pain. No nausea, vomiting, diarrhea. All other systems reviewed are negative. Physical Examination: Vital Signs: Temperature is 97.6, pulse 84, breathing at 16, blood pressure is 95/65, saturating 99% on room air. General: Pleasant young female in no apparent distress. Head and Neck: Pupils are equal, reactive to light. Intact eye movements. No JVD. No cervical lym phadenopathy. Neck is supple. Thyroid is not enlarged. Lungs: Clear to auscultation bilaterally. No rhonchi, rales, or crackles. No accessory muscle use. Heart: Regular rate and rhythm. No extra sounds. Abdomen: Soft, nontender. Bowel sounds positive. No organomegaly. No masses or hernia. No rigidi ty or rebound. Extremities: No edema, clubbing, cyanosis. Intact pulses. Skin: No rash. Neurologic: Alert, awake, oriented x3. No acute focal deficits appreciated. Investigations: BUN is 22, creatinine 0.86. Assessment And Recommendation: 1.Acute on chronic diastolic congestive heart failure exacerbation. The patient is known to have a low ejection fraction by history. She appears to be hemodynamically, clinically stable. She could p otentially be released and to follow up with a reconstructive dentist as an outpatient to get an echocardiogram and also ischemia workup if it was not done recently. She has already a cardiology followup establi shed. I will sign off on the case and the patient may be switched to oral Lasix and released later and with instructions to follow up Cardiology early next we ek. /BEBETO Voice ID: [id number] Report ID: [id number]
--- NOTE | 2021-08-21 18:25 | CON ---
Date of Consultation: 08/20/2021 Reason For Consultation: Heart failure. History Of Present Illness: This is a 45-year-old female who presented to the emergency room with wo rsening shortness of breath and lower extremity edema along with orthopnea. 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 She presented with worsening symptoms, shortness of breath and orthopnea and rebecca ma. She follows up with [facility] and she does not have information about her cardiac status. Past Medical History: CHF, COPD, hypertension, PE, and congestive heart failure. Medications: Refer reconciliation sheet for detailed list. Allergies: METRONIDAZOLE. Family History: Mother with coronary artery disease at age 47. Social History: She is an ex-smoker. Does not drink, use any drugs. Review of Systems: All systems reviewed, they are negative except that mentioned in HPI. Physical Examination: Vital Signs: Reviewed. HEENT: Pupils are equal, reactive to light. Intact eye movements. Mild JVD elevation. Lungs: Faint crackles in the bases. No accessory muscle use or muscle retraction. Heart: Regular rate and rhythm. No extra sounds. Abdomen: Soft, nontender. Bowel sounds positive. No organomegaly. No masses or hernia. No rigidi ty or rebound. Extremities: Have trace edema bilaterally. No clubbing, cyanosis. Intact pulses. Skin: No rash. Neurologic: Alert, oriented x3. No acute focal deficits appreciated. Investigations: White blood count 5.8, hemoglobin 14.3. Sodium 138, BUN is 18, creatinine 1.03. Tr oponin initially 0.09, then 0.08. NT proBNP was 3374. Assessment And Plan: Acute on chronic systolic heart failure exacerbation. EF is not known. Echoca rdiogram was not done recently and I agree with IV Lasix and we will monitor BUN, creatinine, electro lytes. This patient will follow up with her ground wirer at [facility] post discharge. Encouraged to foll ow low-salt diet. Continue beta kellen and valsartan. Guideline-directed medical therapy for heart failure needs to be adjusted as an outpatient basis when the patient follows up with [facility] Cardiology [facility]. Thank you for the consult. /BEBETO Voice ID: [id number] Report ID: [id number]
[2021-08-21] MEDS: LORAZEPAM 0.5 MG TABLET PO PRN (21:16)
[2021-08-22 06:20] LABS: Magnesium 1.8 mg/dL (1.8-2.4); Potassium 3.6 mmol/L (3.5-5.1)
[2021-08-22] MEDS: POTASSIUM 25 MEQ EFFERV TAB PO SCH (08:02)
[2021-08-22] MEDS: VALSARTAN 80 MG TAB PO SCH (08:02)
[2021-08-22] MEDS: FUROSEMIDE 40 MG/4 ML VIAL IV SCH (08:03)
[2021-08-22] MEDS: ASPIRIN EC 81 MG TAB PO SCH (08:03)
[2021-08-22] MEDS: RIVAROXABAN 15 MG TABLET PO SCH (08:03)
[2021-08-22] MEDS: carvediloL 6.25 MG TAB PO SCH (08:03)
[2021-08-22 08:27] VITALS: O2SAT 100
[2021-08-22] MEDS ORDERED: MAGNESIUM SULFATE 1 gm IVPB 1 GM/100 ML BAG IV ONE (09:00)
[2021-08-22] MEDS ORDERED: POTASSIUM 25 MEQ EFFERV TAB PO ONE (09:00)
[2021-08-22 17:05] VITALS: BP 100/70; TEMP 97.4
--- NOTE | 2021-08-24 00:21 | P.PN ---
Subjective Date of Service: 08/20/21 Patient's respiratory status is improving. Still with lower extremity edema and basilar crackles. Cardiology consultation pending. Review of Systems 10-point ROS is otherwise unremarkable Physical Examination - Vital Signs Temperature: 97.4 F Blood Pressure: 100/70 Pulse: 74 Respirations: 18 Pulse Ox (%): 97 - Physical Exam General: Alert, In no apparent distress, Oriented x3 Respiratory: Diminished, Crackles/rales Cardiovascular: Regular rate/rhythm, Normal S1 S2, No murmurs Gastrointestinal: Normal bowel sounds, Soft and benign, Non-distended, No tenderness Musculoskeletal: No clubbing, Swelling Integumentary: No rashes Neurological: Normal strength at 5/5 x4 extr, Sensation intact, Cranial nerves 3-12 intact Lymphatics: No axilla or inguinal lymphadenopathy - Studies Medications List Reviewed: Yes Assessment & Plan - Problems (Diagnosis) (1) Acute exacerbation of CHF (congestive heart failure) Status: Acute Qualifiers: (2) HTN (hypertension) Status: Acute Qualifiers: (3) COPD (chronic obstructive pulmonary disease) Status: Chronic (4) Right-sided heart failure Status: Acute (5) Severe pulmonary hypertension Status: Acute - Plan Continue with plan of care as mentioned below: 1. Continue with diuretics 2. Cardiology consultation pending 3. Low-dose beta-kellen and angiotensin receptor kellen 4. Review echocardiogram; recent echocardiogram from less than a year ago shows a ejection fraction of less than 30% 5. We may need to do pulmonary consultation for pulmonary hypertension 6. Strict I's and O's 7. Repeat CXR 8. Daily weights 9. Education regarding diet and treatment of congestive heart failure Discharge Plan: Home Plan to discharge in: Greater than 2 days - Advance Directives Does patient have a Living Will: No Does patient have a Durable POA for Healthcare: No - Code Status/Comfort Care Code Status: Full Code Critical Care: No Time Spent Managing PTS Care (In Minutes): 35
--- NOTE | 2021-08-24 00:23 | P.PN ---
Date of Service: 08/21/21 Subjective Patient clinically doing much better. Patient's respiratory status has improved. Review of Systems 10-point ROS is otherwise unremarkable Physical Examination - Vital Signs Reviewed - Physical Exam General: Alert, In no apparent distress, Oriented x3 Respiratory: Diminished, Crackles/rales Cardiovascular: Regular rate/rhythm, Normal S1 S2, No murmurs Gastrointestinal: Normal bowel sounds, Soft and benign, Non-distended, No tenderness Neurological: Normal strength at 5/5 x4 extr, Sensation intact, Cranial nerves 3-12 intact Assessment & Plan - Problems (Diagnosis) (1) Acute exacerbation of CHF (congestive heart failure) Status: Acute Qualifiers: (2) HTN (hypertension) Status: Acute Qualifiers: (3) COPD (chronic obstructive pulmonary disease) Status: Chronic (4) Right-sided heart failure Status: Acute (5) Severe pulmonary hypertension Status: Acute - Plan Continue with plan of care as mentioned below: 1. Continue with intravenous diuretics 2. Cardiology consultation pending 3. Continue additional cardiac meds 4. Review echocardiogram; recent echocardiogram from less than a year ago shows a ejection fraction of less than 30% 5. We may need to do pulmonary consultation for pulmonary hypertension 6. Strict I's and O's 7. Repeat CXR 8. Daily weights 9. Education regarding diet and treatment of congestive heart failure
--- NOTE | 2021-08-24 00:24 | P.DS ---
Discharge Date: 08/22/21 Disposition: ROUTINE DISCHARGE Discharge Condition: FAIR Reason for Admission: CHF exacerbation Consultations: Cardiology pulmonary - Problems (1) Acute exacerbation of CHF (congestive heart failure) Status: Acute Qualifiers: (2) HTN (hypertension) Status: Acute Qualifiers: (3) COPD (chronic obstructive pulmonary disease) Status: Chronic (4) Right-sided heart failure Status: Acute (5) Severe pulmonary hypertension Status: Acute Brief History of Present Illness: Patient is a 45-year-old female who came to the hospital with difficulty breathing. Patient has a history of congestive heart failure with any ejection fraction of less than 30%. Patient also with severe pulmonary hypertension with right-sided heart pressures of 55 mm of mercury. Patient will be admitted for diuresis. Will also get a dedicated CT scan. Patient may need right-sided heart catheterization. Patient be admitted for further evaluation. Will continue with diuresing patient. Continue with cardiac meds. Hospital Course: Patient is clinically doing well. Patient was diuresed extensively. Patient's recent echo showed an ejection fraction less than 30%. Cardiology recommended patient follow up with biomedical equipment technician in [place]. Patient may need pacemaker as well as additional cardiac medications. At this time, patient is stable for di scharge home. Vital Signs/Physical Exam: Temp Pulse Resp BP Pulse Ox 97.4 F 74 18 100/70 97 08/24/21 00:21 08/24/21 00:21 08/24/21 00:21 08/24/21 00:21 08/24/21 00:21 General: Alert, In no apparent distress, Oriented x3 Laboratory Data at Discharge: WBC 5.80 K/uL (4.3-10.9) 08/20/21 04:03 Hgb 14.3 g/dL (12.0-15.0) 08/20/21 04:03 Hct 44.3 % (36.0-45.0) 08/20/21 04:03 Plt Count 257 K/uL (152-406) 08/20/21 04:03 PT 21.1 SECONDS (9.5-12.5) H 08/19/21 17:05 INR 1.82 08/19/21 17:05 Sodium 138 mmol/L (136-145) 08/22/21 05:48 Potassium 3.6 mmol/L (3.5-5.1) 08/22/21 05:48 BUN 22 mg/dL (7-18) H 08/22/21 05:48 Creatinine 0.90 mg/dL (0.55-1.3) 08/22/21 05:48 Glucose 120 mg/dL (74-106) H 08/22/21 05:48 Phosphorus 3.0 mg/dL (2.5-4.9) 08/20/21 04:03 Magnesium 1.8 mg/dL (1.8-2.4) 08/22/21 05:48 Total Bilirubin 1.6 mg/dL (0.2-1.0) H 08/20/21 04:03 AST 48 U/L (15-37) H 08/20/21 04:03 ALT 53 U/L (12-78) 08/20/21 04:03 Alkaline Phosphatase 172 U/L (45-117) H 08/20/21 04:03 Troponin I 0.08 ng/mL (0.0-0.045) H 08/19/21 17:05 Home Medications: Aspirin [Aspirin EC 81 MG] 81 mg PO DAILY 01/23/21 Furosemide [Lasix] 40 mg PO BID 30 Days #60 tablet 04/13/21 Rivaroxaban [Xarelto*] 15 mg PO BID 08/19/21 carvediloL [Carvedilol] 6.25 mg PO BID 08/19/21 Aspirin [Aspirin EC] 81 mg PO DAILY #30 tablet. 08/22/21 Losartan Potassium [Cozaar*] 50 mg PO BID #60 tablet 08/22/21 Spironolactone 25 mg PO BID #60 08/22/21 New Medications: Aspirin [Aspirin EC] 81 mg PO DAILY #30 tablet. Losartan Potassium [Cozaar*] 50 mg PO BID #60 tablet Spironolactone 25 mg PO BID #60 Physician Discharge Instructions: OK TO DC IV AND DC HOME FOLLOW-UP WITH PRIMARY CARE PROVIDER IN 1-2 WEEKS FOLLOW-UP WITH CARDIOLOGY IN 1-2 WEEKS RETURN TO THE ER IF symptoms worsen CALL or TEXT DR. ANDREWS AT [phone] IF ANY QUESTIONS REGARDING HOSPITAL STAY. PLEASE CALL THE FLOOR AT [phone] IF ANY MEDICATION OR NURSING QUESTIONS. Diet: Low sodium (Low sodium diet; fluid restrict to 1.5 L) Activity: Fall precautions Followup: [facility] [Provider Group] - 1-2 Weeks (call to schedule an appointment ) [facility] [Outside] NONE,NONE [Primary Care Provider] - Time spent managing pt's care (in minutes): 35
== END 2021-08-22 13:10 | disposition home or self-care (01) | DRG 291 ==
LOC: ER 14:28 → ERHOLD 17:37 → 2ND 21:25
PROVIDERS: ADMIT Hospitalist; ATTEND Hospitalist
DX: I11.0 Hypertensive heart disease with heart failure (principal); I50.23 Acute on chronic systolic (congestive) heart failure; I27.20 Pulmonary hypertension, unspecified; I50.811 Acute right heart failure; J44.9 Chronic obstructive pulmonary disease, unspecified; Z88.8 Allergy status to other drugs, medicaments and biological substances; Z79.82 Long term (current) use of aspirin; Z79.01 Long term (current) use of anticoagulants; Z79.899 Other long term (current) drug therapy; Z86.711 Personal history of pulmonary embolism; Z60.2 Problems related to living alone; Z87.891 Personal history of nicotine dependence; Z20.822 Contact with and (suspected) exposure to COVID-19
CPT/HCPCS: 36415; 71045; 80048; 80053; 80076; 81003; 81015; 83735; 83880; 84100; 84484; 85025; 85610; 87086; 87088; 93005; 96374; 99285; J1940; J3475; U0003

== ENCOUNTER 2021-08-25 12:52 | Emergency (ER) | payer SELFPAY ==
--- OUTSIDE RECORDS SUMMARY | 2021-08-25 12:56 | XMS REPORT | Continuity of Care Document ---
:1975 Author Organization [facility] t Address [address] [place] [address] Care Team Providers Name Role Phone Pcp, Does Not Have A Primary Care Physician Attending Clinician Unavailable Singer CORONADO Attending Clinician Jagdeep RN, B Attending Clinician Unavailable VISHNU Attending Clinician Unavailable Cory Reese Attending Clinician Albaro VOGT, E Attending Clinician Jasmin CANCINO Attending Clinician Deejay CORONADO Attending Clinician Juan GONZALEZ Attending Clinician Roman MOLINA Attending Clinician Vishnu MOLINA Attending Clinician Kristin MOLINA, Elizabeth Attending Clinician Da Duval MD Attending Clinician Priscilla MOLINA Attending Clinician Provider Attending Clinician Unavailable OMAR Attending Clinician Unavailable CHIQUI Attending Clinician Unavailable Marybeth MOLINA, Nas Attending Clinician Jimenez MOLINA, H Attending Clinician Jesus Thomason MD Attending Clinician Aries Randall Admitting Clinician Unavailable VISHNU Admitting Clinician Unavailable Deejay CORONADO Admitting Clinician Vishnu MOLINA Admitting Clinician PRISCILLA Admitting Clinician Unavailable OMAR Admitting Clinician Unavailable CHIQUI Admitting Clinician Unavailable SONYA Admitting Clinician Unavailable Payers Payer Name Policy Type Policy Number Effective Date Expiration Date [place] PENDING 2021 PENDING 00:00:00 Problems Condition Condition Condition Status Onset Resolution [...] chronic 2-05 ity of combined combined 00:00: [place] systolic systolic 00 Medica l and and Branch diastolic diastolic heart heart failure failure Acute on Acute on Disease Active 2020-08 Unive rs chronic chronic 1-18 ity of heart heart 00:00: [place] failure, failure, 00 Medica l unspecifie unspecifie Br anch d heart d heart failure failure type type Hypotensio Hypotensio Disease Active U nivers n due to n due to 05-09 ity of hypovolemi [place]olemi [place] Other Other Disease Active Univers pulmonary pulmonary 9 ity of embolism embolism 00:00: [place] without without 00 Medical acute cor acute cor Bran ch pulmonale pulmonale Recurrent Recurrent Disease Active Uni vers pulmonary pulmonary 9-01 ity of embolism embolism 00:00: [place] [facility] Troponin I Troponin I Disease Active U nivers above above 9-01 [place] of reference [place] 00:[place] 00 [place] Pleural Pleural Disease Active Univers effusion effusion 8-31 ity of 00:00: [place] [facility] History of History of Disease Active U nivers pulmonary pulmonary 8-31 ity of embolism embolism 00:00: [place] [facility] Chest pain Chest pain Disease Active U nivers in adult in adult 8-30 ity of 00:00: [place] [facility] Acute Acute Disease Active Univers left-sided left-sided 7-27 it y of CHF CHF 00:00: [place] (congestiv (congestiv 00 Me dical e heart [...] 7-17 it y of on on 00:00: [place] [facility] Obesity Obesity Disease Active Univers (BMI (BMI 7-17 ity of 30-39.9) 30-39.9) 00:00: [place] [facility] Acute on Acute on Disease [...] 5-24 it y of on on 00:00: [place] [facility] Admitted Admitted Disease Active Unive [...] Added automatic ally from request for surgery [id number] Dyspnea on Dyspnea on Disease Active M ethodi exertion exertion 2-22 st 00:00: Hospita 00 l Allergies, Adverse Reactions, Alerts Allergy Allergy Status Severity Reaction(s) Onset Inactive Treating Comm ents Source Name Type Date Date Clinician METRONID DRUG Active Rash Univers AZOLE INGREDI 01-11 ity of 00:00: [place] 00 Medical Branch Metronid Propensi Active Rash Univer s azole ty to 01-11 ity of adverse 00:00: [place] reaction 00 Medical s Branch Metronid Propensi Active Rash Method i azole ty to [address] adverse 00:00: Hospita reaction 00 l s to drug metronid DA Active [facility] azole 1-16 [place] [facility]: d [facility] metronid DA Active SV [facility], [facility] azole RASH -16 [place] 00:00: d 00 [facility] Social History Social Habit Start Date Stop Date Quantity Comments Source Exposure to Not sure [facility] SARS-CoV-2 [facility] (event) Branch History SDOH [facility] Alcohol Std Drinks History SDOH [facility] Alcohol Binge Alcohol intake 2021-07-27 2021-07-27 Ex-drinker [facility] 00:00:00 00:00:00 (finding) [facility] [place] [facility] Branch Education 2021-05-03 2021-05-[address] [place] [address] 00:00:00 00:00:00 [facility] Tobacco Comment 2021-03-17 2021-03-17 Quit smoking Univers ity of 00:00:00 00:00:00 10/2020 [facility] Tobacco use and 2021-01-11 2021-01-11 Never used Universit y of exposure 00:00:00 00:00:00 [facility] History of 2020-11-05 Smoker [facility] tobacco use 00:00:00 History SDOH 2020-10-14 2020-10-14 1 [facility] Alcohol Frequency 00:00:00 00:00:00 History SDOH 2020-10-14 2020-10-14 3 [facility] Financial 00:00:00 00:00:00 History [facility] Food 2020-10-14 2020-10-14 2 [facility] Worry 00:00:00 00:00:00 History [facility] Food 2020-10-14 2020-10-14 2 [facility] Scarcity 00:00:00 00:00:00 Sex [birth year] Universit y of 00:00:00 00:00:00 [facility] Smoking Status Start Date Stop Date Source Former smoker 2021-01-11 00:00:00 2021-01-11 00:00:[facility] Medications Ordered Filled Start Stop Current Ordering Indication Dosage Frequency Signature Comments Components Source Medication Medication Date Date Medication? Clinician (SIG) Name Name diphenhydrA 2021- No 50mg 50 mg, Uni vers MINE 08-25 Oral, ity of (BENADRYL) 15:30: 14:28 ONCE, 1 Hoang as tablet 50 00 :00 dose, On Medica l mg 08/25/21 Branch at 0930, ELI rivaroxaban 2020-08- Yes [id number] 20mg Take 1 Uni vers 20 mg 2-10 01-10 tablet by ity of tablet 00:00: 05:59 mouth [place] 00 :00 daily for Medical 30 days. Branch Indication s: a clot in the lung lisinopriL 2020-08- Yes [id number] 2.5mg Take 1 Univers 2.5 mg 2-10 01-10 tablet by ity of tablet 00:00: 05:59 mouth [place] 00 :00 daily for Medical 30 days. Branch rivaroxaban 2020-08- Yes [id number] 20mg Take 1 Uni vers 20 mg 2-10 - tablet by ity of tablet 00:00: 05:59 mouth [place] 00 :00 daily for Medical 30 days. Branch Indication s: a clot in the lung lisinopriL 2020-08- Yes [id number] 2.5mg Take 1 Univers 2.5 mg 2-08-31 tablet by ity of tablet 00:00: 05:59 mouth [place] 00 :00 daily for Medical 30 days. Branch budesonide- 2020-08 Yes [id number] 2{puff} Inhale 2 Univers formoteroL 2-09 Puffs 2 ity of 160-4.5 00:00: (two) [place] mcg/actuati 00 times Medical on inhaler daily. Branch meclizine 2020-08 Yes [id number] 12.5mg Take 1 Univers 12.5 mg 2-09 tablet by ity of tablet 00:00: mouth 3 [place] 00 (three) Medical times Branch daily as needed for Dizziness. budesonide- 2020-08 Yes [id number] 2{puff} Inhale 2 Univers formoteroL 2-09 Puffs 2 ity of 160-4.5 00:00: (two) [place] mcg/actuati 00 times Medical on inhaler daily. Branch meclizine 2020-08 Yes [id number] 12.5mg Take 1 Univers 12.5 mg 2-09 tablet by ity of tablet 00:00: mouth 3 [place] 00 (three) Medical times Branch daily as needed for Dizziness. furosemide 2020-08- Yes [id number] 40mg Take 2 Univers 20 mg 2-04 22- tablets by ity of tablet 00:00: 05:59 mouth 3 [place] 00 :00 (three) Medical times Branch daily for 30 days. atorvastati 2020-08- Yes [id number] 20mg Take 1 Univers n 20 mg 2-08-30 tablet by ity of tablet 00:00: 05:59 mouth at [place] 00 :00 bedtime Medical for 30 Branch days. carvediloL 2020-08- Yes [id number] 6.25mg Take 1 Univers 6.25 mg 09-30 tablet by ity of tablet 00:00: 05:59 mouth 2 [place] 00 :00 (two) Medical times Branch daily with meals for 30 days. furosemide 2020-08- Yes [id number] 40mg Take 2 Univers 20 mg 09-30 tablets by ity of tablet 00:00: 05:59 mouth 3 [place] 00 :00 (three) Medical times Branch daily for 30 days. atorvastati 2020-08- Yes [id number] 20mg Take 1 Univers n 20 mg 09-30 tablet by ity of tablet 00:00: 05:59 mouth at [place] 00 :00 bedtime Medical for 30 Branch days. carvediloL 2020-08- Yes [id number] 6.25mg Take 1 Univers 6.25 mg 09-30 tablet by ity of tablet 00:00: 05:59 mouth 2 [place] 00 :00 (two) Medical times Branch daily with meals for 30 days. amoxicillin 2020-08- Yes [id number] 1{tbl} Take 1 Univers -clavulanat 09-30 [id number] tablet by ity of e 875-125 00:00: 05:59 [place] 2 [place] mg per 00 :00 (two) Medical tablet times Branch daily for 4 days. doxycycline 2020-08- Yes [id number] 100mg Take 1 Univers hyclate 100 09-30 [id number] capsule by ity of mg capsule 00:00: 05:59 mouth [place] 00 :00 every 12 Medical (twelve) Branch hours for 4 days. KCL 20 mEq 2020-08 Yes [id number] 20meq Take 1 Univers tablet 1-19 tablet by ity of 00:00: mouth [place] 00 daily. Medical Branch spironolact 2020-08 Yes [id number] 25mg Take 1 Univers one 25 mg 1-19 tablet by ity o f tablet 00:00: mouth 2 [place] 00 (two) Medical times Branch daily. KCL 20 mEq 2020-08 Yes [id number] 20meq Take 1 Univers tablet 1-19 tablet by ity of 00:00: mouth [place] 00 daily. Medical Branch spironolact 2020-08 Yes [id number] 25mg Take 1 Univers one 25 mg 1-19 tablet by ity o f tablet 00:00: mouth 2 [place] 00 (two) Medical times Branch daily. lisinopriL Yes 10mg QD Take 1 Metho di (PRINIVIL) 4-14 tablet (10 st 10 mg 00:00: mg total) Hospita tablet 00 by mouth l daily for 30 days. albuterol 2020-0 Yes Q6H Inhale Method i (PROAIR 4-13 [...] QD Take 1 Meth preeti (Lasix) 40 - 05-14 tablet (40 st mg tablet 00:00: [...] l tablet daily for 30 days. aspirin No 81mg [...] No 2{puff} Q.5D Inhale 2 Methodi formoteroL 10-24 04-[address] (Symbicort) 00:00: 00:00 (two) Hosp eladio 80-4.5 00 :00 times a l mcg/actuati day. on inhaler albuterol 2020- No 2{puff} Q4H Inhale 2 Methodi (PROAIR 305 04-[address] HFA) 90 00:00: 04:59 [...] Time Observation Value Comments Source Systolic blood 2021-08-25 13:31:00 140 mm[Hg] Univer sity [facility] Diastolic blood 2021-08-25 13:31:00 86 [facility]Hg[facility] 2021-08-25 13:31:00 109 /min [facility] Body temperature 2021-08-25 13:31:00 37.22 Chandrika [facility] Respiratory rate 2021-08-25 13:31:00 18 /min [facility] Body weight 2021-08-25 13:31:00 74.844 kg [facility] BMI 2021-08-25 13:31:00 27.46 kg/m2 [facility] Oxygen saturation in 2021-08-25 13:31:00 99 /min [facility] Arterial blood by [facility] [place] Pulse oximetry Branch Systolic blood 2020-12-02 18:30:00 130 mm[Hg] Method ist Hospital pressure Diastolic blood 2020-12-02 18:30:00 62 mm[Hg] [facility] pressure Heart rate 2020-12-02 18:30:00 90 /min [facility] Respiratory rate 2020-12-02 18:30:00 18 /min [facility] Oxygen saturation in 2020-12-02 18:30:00 98 /min [facility] Arterial blood by Pulse oximetry Body temperature 2020-12-02 14:22:00 36.56 Chandrika [facility] Body height 2020-12-02 09:22:00 165.1 cm [facility] Body weight 2020-12-02 09:22:00 86.183 kg [facility] BMI 2020-12-02 09:22:00 31.62 kg/m2 [facility] Procedures Procedure Date / Time Performing Clinician Source Performed TROPONIN 2020-12-02 17:37:00 [facility] URINE DRUGS OF ABUSE 2020-12-02 14:49:00 [facility] SCREEN TROPONIN 2020-12-02 14:30:00 [facility] ECG ED PRELIMINARY 2020-12-02 10:02:38 Mukund [facility] INTERPRETATION Da XR CHEST 1 VW PORTABLE 2020-12-02 09:58:58 Calvin Duval [facility] Da B NATRIURETIC PEPTIDE 2020-12-02 09:52:00 Calvin Duval [facility] Da HC COMPLETE BLD COUNT 2020-12-02 09:52:00 Mukund [facility] W/AUTO DIFF [facility] METABOLIC 2020-12-02 09:52:00 Mukund [facility] PANEL Da TROPONIN 2020-12-02 09:52:00 [facility] ESTIMATED GFR 2020-12-02 09:52:00 [facility] 2020-12-02 09:52:00 Calvin Duval [facility] ECG 12-LEAD 2020-12-02 09:43:07 Calvin Duval [facility] HC COMPLETE BLD COUNT 2020-11-20 10:30:00 Derick Rock [facility] W/AUTO DIFF [facility] METABOLIC 2020-11-20 10:30:00 Derick Rock [facility] PANEL B NATRIURETIC PEPTIDE 2020-11-20 10:30:00 Salomon, Mathew [facility] ESTIMATED GFR 2020-11-20 10:30:00 Tequila Rocklani Mendez spital LACTIC ACID LEVEL, SEPSIS 2020-11-20 06:33:00 Tequila Rockur [facility] - NOW AND REPEAT 2X EVERY 3 HOURS LACTIC ACID LEVEL, SEPSIS 2020-11-20 03:36:00 [facility] NOW AND REPEAT 2X EVERY 3 HOURS COVID-19 QUALITATIVE 2020-11-20 00:39:00 [facility] RT-PCR BLOOD CULTURE, AEROBIC & 2020-11-20 00:11:00 [facility] ANAEROBIC LACTIC ACID LEVEL, SEPSIS 2020-11-20 00:11:00 Derick Rock [facility] - NOW AND REPEAT 2X EVERY 3 HOURS BLOOD CULTURE, AEROBIC & 2020-11-19 23:52:[address] [facility] ABDOMEN PELVIS W 2020-11-19 21:43:28 [facility] Derick [facility] CONTRAST CT ANGIOGRAM PE CHEST 2020-11-19 21:42:26 [facility] XR CHEST 1 VW PORTABLE 2020-11-19 21:25:00 [facility] URINE CULTURE 2020-11-19 19:08:00 Derick Rock spital ECG 12-LEAD 2020-11-19 18:58:50 [facility] HC COMPLETE BLD COUNT 2020-11-19 18:57:00 [facility] W/AUTO DIFF COMPREHENSIVE METABOLIC 2020-11-19 18:57:[address] [facility] PANEL URINALYSIS SCREEN AND 2020-11-19 18:57:00 [facility] MICROSCOPY, WITH REFLEX TO CULTURE ALCOHOL LEVEL, BLOOD 2020-11-19 18:57:00 [facility] D-DIMER 2020-11-19 18:57:00 Derick Rock spital ESTIMATED GFR 2020-11-19 18:57:00 [facility] spital HCG QUALITATIVE, URINE 2020-11-19 18:57:00 [facility] SCREEN URINE DRUGS OF ABUSE 2020-11-19 18:48:00 Mathew Latif [facility] SCREEN ECG ED PRELIMINARY 2020-11-19 18:42:01 Derick Rock [facility] INTERPRETATION HC COMPLETE BLD COUNT 2020-10-28 11:44:00 [facility] W/AUTO DIFF BASIC METABOLIC PANEL 2020-10-28 11:44:00 [facility] MAGNESIUM LEVEL 2020-10-28 11:44:00 [facility] ESTIMATED GFR 2020-10-28 11:44:00 [facility] CV RIGHT AND LEFT HEART 2020-10-27 22:46:00 [facility] CATH SELECTIVE CORONARY LV GRAM POC BLOOD GAS, VENOUS AND 2020-10-27 22:37:00 [facility] LYTES POC BLOOD GAS, VENOUS AND 2020-10-27 22:32:00 [facility] POC BLOOD GAS, ARTERIAL 2020-10-27 22:27:00 [facility] AND LYTES TYPE AND SCREEN 2020-10-27 12:57:00 [facility] ospital PARTIAL THROMBOPLASTIN 2020-10-27 12:57:00 [facility] TIME (PTT) PROTHROMBIN TIME WITH INR 2020-10-27 12:57:00 RoberDavid watts [facility] HCG QUANTITATIVE, SERUM 2020-10-27 12:57:00 [facility] CBC WITH PLATELET AND 2020-10-27 10:42:00 [facility] DIFFERENTIAL Kiya COMPREHENSIVE METABOLIC 2020-10-27 10:42:00 [facility] PANEL Kiya MAGNESIUM LEVEL 2020-10-27 10:42:00 [facility] ESTIMATED GFR 2020-10-27 10:42:00 [facility] Kiya MANUAL DIFFERENTIAL 2020-10-27 10:42:00 [facility] Kiya ECG 12-LEAD 2020-10-27 05:07:15 [facility]INE C[facility] 2020-10-27 00:22:00 [facility] URINALYSIS SCREEN AND 2020-10-27 00:15:00 [facility] MICROSCOPY, WITH REFLEX TO CULTURE XR CHEST 1 VW PORTABLE 2020-10-26 16:32:17 [facility] HC COMPLETE BLD COUNT 2020-10-26 11:40:00 [facility] W/AUTO DIFF Kiya COMPREHENSIVE METABOLIC 2020-10-26 11:40:00 [facility] PANEL Kiya ESTIMATED GFR 2020-10-26 11:40:00 [facility] Kiya TTE COMPLETE, W CONTRAST, 2020-10-25 19:55:00 [facility] ([id number][facility] TROPONIN 2020-10-25 11:37:00 Luis Amaro Ho spital HC COMPLETE BLD COUNT 2020-10-25 11:37:00 [facility] W/AUTO DIFF Kiya COMPREHENSIVE METABOLIC 2020-10-25 11:37:00 [facility] PANEL Kiya ESTIMATED GFR 2020-10-25 11:37:00 [facility] Kiya TROPONIN 2020-10-25 07:30:00 Luis Amaro Ho spital COVID-19 QUALITATIVE 2020-10-25 04:57:00 Luis Amaro [facility] RT-PCR HCG QUALITATIVE, URINE 2020-10-25 04:14:00 [facility] CHEST 1 VW 2020-10-25 04:13:30 Luis Amaro Ho spital HC COMPLETE BLD COUNT 2020-10-25 02:11:00 Luis Amaro [facility] W/AUTO DIFF COMPREHENSIVE METABOLIC 2020-10-25 02:11:00 Prem [facility] PANEL PARTIAL THROMBOPLASTIN 2020-10-25 02:11:00 Prem [facility] TIME (PTT) PROTHROMBIN TIME WITH INR 2020-10-25 02:11:00 Prem [facility] CREATINE KINASE, TOTAL 2020-10-25 02:11:00 Prem [facility] (CPK) B NATRIURETIC PEPTIDE 2020-10-25 02:11:00 Prem [facility] [place] ESTIMATED GFR 2020-10-25 02:11:00 Prem Luis [facility] TROPONIN 2020-10-25 02:11:00 Moreno Amaroory [facility] ECG 12-LEAD 2020-10-25 01:45:52 Luis Amaro spital ECG ED PRELIMINARY 2020-10-25 01:34:02 Prem [facility] INTERPRETATION US HEPATIC 2020-10-14 21:52:47 [facility] Mary TROPONIN 2020-10-14 10:25:00 [facility] sp[facility] Mary HC COMPLETE BLD COUNT 2020-10-14 10:25:00 [facility] W/AUTO DIFF Mary PROTHROMBIN TIME WITH INR 2020-10-14 10:25:00 [facility] Mary LIPASE LEVEL 2020-10-14 10:25:00 [facility] spital Mary COMPREHENSIVE METABOLIC 2020-10-14 10:25:00 [facility] PANEL Mary THYROID STIMULATING 2020-10-14 10:25:00 Dawson Belloiet [facility] HORM[facility] Mary ESTIMATED GFR 2020-10-14 10:25:00 Karen Bello spital Mary LIPID PANEL 2020-10-14 10:25:00 [facility] sp[facility] Mary RESPIRATORY PATHOGEN 2020-10-14 08:41:00 [facility] WITH COVID-19 RT-PCR TROPONIN 2020-10-14 06:23:00 Karen Bello spital Mary CT ANGIOGRAM PE CHEST 2020-10-14 05:18:26 [facility] PRE[facility]IN[facility] 2020-10-14 03:27:29 [facility] INTERPRETATION ECG 12-LEAD 2020-10-14 03:18:29 Karen Bello [facility] spital Mary HC COMPLETE BLD COUNT 2020-10-14 03:04:00 [facility] W/AUTO DIFF COMPREHENSIVE METABOLIC 2020-10-14 03:04:00 [facility] CREATINE KINASE, TOTAL 2020-10-14 03:04:00 [facility] (CPK) TROPONIN 2020-10-14 03:04:00 [facility] Mary B NATRIURETIC PEPTIDE 2020-10-14 03:04:00 [facility] D-DIMER 2020-10-14 03:04:00 Mack [facility] [place] [facility] spital HCG QUALITATIVE, SERUM 2020-10-14 03:04:00 [facility] S[facility] ESTIMATED GFR 2020-10-14 03:04:00 [facility] CHEST 1 VW PORTABLE 2020-10-14 02:39:45 [facility] Plan of Care Planned Activity Planned Date Details Comments Source Future Scheduled Test COVID-19 VACCINE (1) [facility] [code = COVID-19 VACCINE (1)] Future Scheduled Test Hepatitis C screening [facility] (procedure) [code = 053203818] Future Scheduled Test Screening for [facility] malignant neoplasm of cervix (procedure) [code = 006122873] Future Scheduled Test INFLUENZA VACCINE [facility] [code = INFLUENZA VACCINE] Encounters Start End Encounter Admission Attending Care Care Encounter Source Date/Time Date/Time Type Type Clinicians Facility Department ID 2020-12-05 Inpatient HCAMN PABLO [id number] [facility] 03:20:00 [id number] [facility] 2021-08-25 2021-08-25 Emergency X DAVE MAYS ERT [id number] Univers 07:32:00 09:45:00 THEO srivastava [facility] [place] 2021-08-25 2021-08-25 [facility] [id number] Univers 07:32:00 09:45:00 Theo REAL [id number] i ty of ZACHARIAHVLADIMIR 4.2.7.2.686 [facility] [id number] [facility] 084 Branch 2021-07-31 2021-07-31 Transition JENI Gannon [id number] Univers 00:00:00 00:00:00 of Care Farhana B RAI [id number] it y of [place] 4.2.7.2.686 [facility] [id number] [facility] 403 Branch 2021-07-26 2021-07-30 [facility] ADIEL [id number] Univers 15:34:00 13:25:00 FAUSTINA drewluis [facility] [place] 2021-04-06 2021-04-06 [facility] [id number] 12:13:00 14:26:00 Theo Real [id number] [place] 4.2.7.2.686 [place] [id number] 2021-04-06 2021-04-06 Patient Jeni Reese [id number] 00:00:00 00:00:00 Outreach Elyssa E Rai [id number] [place] 4.2.7.2.686 [id number] 2021-04-02 2021-04-02 Patient Rosetta Irvin [id number] 00:00:00 00:00:00 Outreach E Rai [id number] [place] 4.2.7.2.686 [id number] 2021-03-30 2021-03-30 Patient Rosetta Irvin [id number] 00:00:00 00:00:00 Outreach E Rai [id number] [place] 4.2.7.2.686 [id number] 2021-03-25 2021-03-25 Patient Rosetta Irvin [id number] 00:00:00 00:00:00 Outreach E Rai [id number] [place] 4.2.7.2.686 [id number] 2021-03-16 2021-03-18 Emergency Apolinar Castellanos [facility] 1.2.840. 114 [id number] 19:40:00 14:45:00 Yony Villalba 350.1.13.10 [place] 4.2.7.2.686 [place] [id number] 2021-03-10 2021-03-10 Transition Jeni Martinez [id number] 00:00:00 00:00:00 of Care Yasmeen Rai [id number] [place] 4.2.7.2.686 [id number] 2021-03-07 2021-03-09 [facility] Edinson Owens [facility] 1.2.840.1 [id number] 08:22:00 12:00:00 Encounter SelvinvalerySheritaan Gin 350.1.13.10 [place] 4.2.7.2.686 [place] [id number] 2021-03-09 2021-03-09 Patient Rosetta Irvin [id number] 00:00:00 00:00:00 Outreach E Rai 350.1.13.10 [place] 4.2.7.2.686 [id number] [facility] 2021-03-04 2021-03-04 Patient Roestta Irvin Jeni 1.2.840.114 [id number] 00:00:00 00:00:00 Outreach E Rai 350.1.13.10 [place] 4.2.7.2.686 [id number] 2021-02-25 2021-02-25 Patient Rosetta Irvin Jeni [id number] 00:00:00 00:00:00 Outreach E Rai 350.1.13.10 [place] 4.2.7.2.686 [id number] 2021-02-09 2021-02-09 Transition Jeni Martinez 1.2.840.114 [id number] 00:00:00 00:00:00 of Care Yasmeen Rai [id number] [place] 4.2.7.2.686 [id number] 2021-01-26 2021-01-26 Telephone CHRISTIANO Foster 1.2.840.114 [id number] 00:00:00 00:00:00 [facility] 350.1.13.[address] [facility] [facility] 4.2.7.2.686 [id number] 2020-12-02 2020-12-02 Emergency Mukund Mike 1.2.840.1 [id number] Methodi 04:27:00 14:00:[address] 3.430.2.7 Hospit a .3.619234 l .8 2020-12-02 2020-12-02 Travel 1.2.840.1 1.2.552.142 [id number] [id number] Methodi 00:00:00 00:00:[address] 3.430.2.7 0.2.7.3.698 Ho spita .3.479603 084.8 l .8 2020-11-20 2020-11-20 Documentat Provider, 1.2.840.1 [id number] 2 [id number] Methodi 00:00:00 00:00:00 ion Unknown 14477.1.[address] 3.430.2.7 Hospit a .3.678209 l .8 2020-11-19 2020-11-20 [facility] RADHAMES NELSON 1.2.840.1 [id number] [place] 00:00:00 00:00:00 Encounter 29839.1.1 [address] .3.695683 .8 2020-11-19 2020-11-19 Travel 1.2.840.1 1.2.021.515 0477 [id number] Methodi 00:00:00 00:00:[address] 3.430.2.7 0.2.7.3.698 Ho spita .3.373490 084.8 l .8 2020-10-24 2020-10-28 [facility], 1.2.840.1 [id number] [place] 00:00:00 00:00:00 Encounter SEGUNDO 14945.1.1 [address] .3.071092 .8 2020-10-27 2020-10-27 [facility], 1.2.840.1 [id number] Methodi 14:30:00 15:30:[address] 3.430.2.7 Hospit a .3.330966 l .8 2020-10-24 2020-10-24 Travel 1.2.840.1 1.2.778.267 8897 [id number] Methodi 00:00:00 00:00:[address] 3.430.2.7 0.2.7.3.698 Ho spita .3.164993 084.8 l .8 2020-10-13 2020-10-14 [facility] JimenezTariq 1.2.840.1 852120 004 [id number] Methodi 19:58:00 19:56:00 Encounter Surjit Thomason [address]8612.[address] 3.430.2.7 Hospit a .3.330151 l .8 2020-10-13 2020-10-13 Travel 1.2.840.1 1.2.391.706 3628 [id number] Methodi 00:00:00 00:00:[address] 3.430.2.7 0.2.7.3.698 Ho spita .3.453170 084.8 l .8 Results Test Description Test Time Test Comments Results Result [facility] e Comments - XR SHOULDER 2 + 2020-12-05 V RT 04:14:00 [facility] : 1975 Sex: F FAX: Carmita Truong [phone] [place]: St: REG FAX: Jose Herrmann MD Name: ANAHI HAYWOOD [facility] : 1975 Age/S: 45/F [address] [facility] Unit #: [id number] Loc: [address] Phys: [place] [id number] Acct: [id number] Dis Date: Status: REG ER PHONE #: [phone] Exam Date: 12/05/2020 0401 FAX #: [phone] Reason: pain EXAMS: CPT CODE: [id number] XR SHOULDER 2 + V RT [id number] EXAM: - XR SHOULDER 2 + V [...] PAGE 1 Signed Report FAX: Carmita Truong [phone] [place]: St: REG FAX: Jose Herrmann MD Name: ANAHI HAYWOOD [facility] : 1975 Age/S: 45/F [address] [facility] Unit #: [id number] Loc: [address] Phys: [place] [id number] Acct: [id number] Dis Date: Status: REG ER PHONE #: [phone] Exam Date: 12/05/2020 0401 FAX #: [phone] Reason: pain EXAMS: CPT CODE: [id number] XR SHOULDER 2 + [place] [id number] <Continued> Orig Print D/T: S: 12/05/2020 (0418) PAGE 2 Signed Report ECG 12 lead 2020-12-03 03:49:04 Test Item Value Reference Range Interpretation Comme nts Ventricular rate (test code = 253) Atrial rate (test code = 255) MT interval (test code = 266) QRSD interval [...] 19-NOV-2020 13:58,-No significant change was found-- [facility] Vw [id number] 10:11:23Examination: XR CHEST 1 PORTABLEClinical history: "SOB" Comparison: Prior imaging, including achest radiograph obtained on 11/19/2020.One radiographic view of the chest was evaluated. Impression: There are no apparent infiltrates, pleural effusions, or pneumothoraces. The cardiomediastinalsilhouette, the imaged bones, and the remainder of the chest are stable in appearance. [facility] Interface, Radiology Results 12/02/2020 5:14 AM CDT Examination: XR CHEST 1 PORTABLEClinical history: "SOB" Comparison: Prior imaging, including a chest radiograph obtained on 11/19/2020.One radiographic view of the chest was evaluated.Impression: There are no apparent infiltrates, pleural effusions, or pneumothoraces. The cardiomediastinal silhouette, the imaged bones, and the remainder of the chest are stable in appearance.[facility] ED Preliminary Interpretation - Not an [id number] 10:02:38Calvin Duval MD 12/02/2020 5:48 AMECG ED Preliminary Interpretation - Not an OrderPerformed by: Calvin Duval MDAuthorized by: Calvin Duval MD Interpretation: Interpretation: non-specific Quality: Tracing quality: Limited by artifactRate: ECG rate: 110 ECG rate assessment: tachycardic Rhythm: Rhythm: sinus tachycardia Ectopy: Ectopy: none ST segments: ST segments: Non-specificT waves: T waves: non-specific [facility] HospitalUrine [id number] 19:17:27 Test Item Value Reference Range Interpretation Comments Urine culture Mixed lawrence Specimen isolate (test <=10-3 col/cc Information ecimen code = [id number]) Source: Urin eSpecimen [facility] Pe [id number] 21:55:30EXAMINATION:CT ANGIOGRAM PE CHEST CLINICAL HISTORY: dyspnea [...] CT abdomen pelvis [id number] Interface, Radiology Results Incoming - 11/19/2020 4:57 PM CDT EXAMINATION: CT [...] as on previousOtherwise unremarkable CT abdomen [id number] [id number] 16:57:33Anahi Haywood09/03/384239845892673/08/21 Indications:New onset systolic CHF Procedures:Coronary angiogramLHC with LVgramRHC with cardiac output Closure:TR band Access site:Right radial artery and Right internal jugular vein Procedure details: Risks and benefits were discussed with the patient, informed consent was obtained.Patient was brought to the laboratory equipment installer in a fasting state and prepped in [...] radial artery without difficulty. A 5 Fr [place] catheter was then advance over the wireinto the ascending aorta. Angiogram of the left and right coronary was performed. The [place] catheter was then position in the LV. [...] used: 35 mlFlouro-time: 1.5 minutesAir Kerma:505 mGy 10/27/20Vincathi Rueda [facility] Transthoracic Echocardiogram Complete, (w Contrast, Strain and 3D if needed) 2020-10-26 17:20:16 Test Item Value Reference Range Interpretation Comments Velocity Ratio (V1/V2) 0.70 m/s (test code = 4689) IVS,d (test code = 1.05 cm 8655366837) EF (test code = 27.14 % 3447835574) LVPWD,d (test code = 0.97 cm 9739051853) AoV Mean PG (test code mmHg = 7648207819) AV LVOT peak gradient mmHg (test code = 5171749150) MV valve area p 1/2 5.59 cm2 method (test code = 4980323063) E wave decelartion time msec (test code = 2335688682) LVOT Diam,S (test code 2.23 cm = 4520478792) LVOT area (test code = 3.90 cm2 9737316983) LVOT Vmax (test code = 0.99 m/s 4231267252) LVOT VTI (test code = 0.17 m 7590122029) LVOT stroke volume 0.66 cm3 (test code = 7999533362) AoV Peak PG (test code mmHg = 5213660893) MV Peak E [place] (test 1.32 m/s code = 0248180938) MV stenosis pressure 39.33 ms 1/2 time (test code = 8336184273) MV Peak A [place] (test 0.00 m/s code = 4727522325) LV Vol,s A2C (test code 126.84 mL = 6504036659) LV Vol,d A2C (test code 186.07 mL = 6631804117) AoV Area, Vmax (test 2.73 cm2 code = 4096891339) AoV Area, VTI (test 3.37 cm2 code = 7940478072) AoV Vmax (test code = 1.42 m/s 0625371466) LV,d (test code = 5.39 cm 9335281046) LV,s (test code = 4.70 cm 0880140946) LV Vol,d A4C (test code 164.06 ml = 6592226460) LV Vol,s A4C (test code 106.99 ml = 2271436474) TR Vpeak (test code = 2.66 mm/s 7585653012) MV E A ratio (test code = 0087482133) RA pressure (test code mmHg = 1986737523) TR pk grad (test code = mmHg 4881387383) MR peak grad (test code mmHg = 8002110565) LA Vol 4C (test code = 97.00 ml 5992563826) RVSP (test code = mmHg 3599632756) LV SYS VOL (test code = 102.44 ml 6664920014) LV HEDRICK VOL (test code 140.60 ml = 3969668799) LA diam s (test code = 4.10 cm 9346867249) LA area s A4C (test 28.10 cm2 code = 2854079051) LA Vol MOD A4C (test 97.27 ml code = 6736854004) LV SV Teich 2D (test 38.16 ml code = 0838325667) LVOT SI (test code = 33.69 ml/m2 6803870119) AoV Cusp sep (test code = 2257466287) Aortic Root (test code 2.53 cm = 5066203471) AoV Vmn (test code = 8148324015) IVS s 2D (test code = 7613010981) LA Ao Ratio Mmode (test code = 1267451895) MT End Hedrick Grad (test code = 2044013373) MT End Diat [place] (test code = 4352322370) D E excurs (test code = 6487428468) E f slope (test code = 4157245119) E prime lat (test code = 2680013468) E favio sept (test code = 4551398730) PV acc T slope (test code = 4222244442) PV AT (test code = msec 0915046838) NGUYEN BP EF (test 32.00 % code = 2513717711) LA VOL 2C (test code = 74.00 ml 3739334540) AoV VTI (test code = 0.20 m 4612506586) LV EF,A2C (test code = 31.83 % 6330387168) LV EF,A4C (test code = 34.78 % 7925649039) LV EF,BP (test code = 32.29 % 3875129895) [place],d A2C (test 9.24 cm code = 8334164955) [place],d A4C (test 9.11 cm code = 8777773122) [place],s A2C (test 8.07 cm code = 0807461359) [place],s A4C (test 7.70 cm code = 8637090090) LV SV,A2C (test code = 59.23 % 2402927908) LV SV,A4C (test code = 57.06 % 4040183677) LV Vol,d BP (test code 175.67 ml = 6028425068) LV Vol,s BP (test code 118.95 nl = 5733734112) MR Vmax (test code = 5.55 m/s 8830135235) LVOT Vmn (test code = 7364844938) Pt Size (test code = 5231361331) Pt Wt (test code = 7463248586) LVOT mean grad (test mmHg code = 1906299236) LVPW s PLAX (test code 1.17 cm = 2636564904) MV Decel slope (test 10.79 m/s2 code = 9155997159) LVOT VTI (CM) (test 17.00 cm code = 8394490651) LINDA (test code = LINDA) The left [...] ventricular diastolic filling. Elevated LV filling pressure. [facility] 1 [id number] 04:16:24 CLINICAL HISTORY: 45 years Female Cough persistent COMPARISON: AP view of the chest from 10/13/2020. IMPRESSION: Lines/Tubes: None. Lungs/Pleura: No significant pleural effusion is identified. Thereis mild bibasilar atelectasis. No consolidation or pneumothorax identified. Heart/Mediastinum: The cardiac silhouette is enlarged. Mediastinal contours are normal. Bones: No acute osseous abnormality. [id number] Interface, Radiology Results 10/24/2020 10:19 PM CST CLINICAL HISTORY: 45 years Female Cough persistentCOMPARISON: AP view of the chest from 10/13/2020.IMPRESSION:Lines/Tubes: None.Lungs/Pleura: No significant pleural effusion is identified. There is mild bibasilar atelectasis. No consolidation or pneumothorax identified.Heart/Mediastinum: The cardiac silhouette is enlarged. Mediastinal contours are normal.Bones:No acute osseous abnormality.[id number] Andrea Sanchez [id number] 21:58:42EXAMINATION: US HEPATIC CLINICAL HISTORY: abnormal hepatic function tests COMPARISON: None. IMPRESSION: Liver: The liver is normal in size and echogenicity. There is no evidence of focal mass or intrahepatic biliary ductal dilatation. Portal vein: The portal vein is normal in size and demonstrates normal hepatopetal flow. Gallbladder: Contracted. No stones. Common bile duct: Normal caliber. [facility]-[id number] [facility], Radiology Results 10/14/2020 4:01 PM CSTFormatting of this notemight be different from the original.EXAMINATION: US HEPATICCLINICAL HISTORY: abnormal hepatic function testsCOMPARISON: None.IMPRESSION:Liver: The liver is normal in size and echogenicity. There isno evidence of focal mass or intrahepatic biliary ductal dilatation.Portal vein: The portal vein is normal in size and demonstrates normal hepatopetal flow.Gallbladder: Contracted. No stones.Common bile duct: Normal caliber.[facility]-[id number] Hospital
[2021-08-25] MEDS ORDERED: DIPHENHYDRAMINE 50 MG/ML VIAL ONE (13:51)
[2021-08-25] MEDS ORDERED: dexAMETHasone 10 MG/ML VIAL ONE (13:51)
[2021-08-25] MEDS ORDERED: FAMOTIDINE 20 MG/2 ML VIAL IV ONE (13:51)
[2021-08-25 14:04] LABS: Urine Blood Negative (Negative); Urine Glucose Negative (Negative); Urine Protein 2+ (Negative); Urine Specific Gravity 1.025 (1.005-1.030)
[2021-08-25 14:23] LABS: Barbiturates NEGATIVE (NEGATIVE); Benzodiazepines NEGATIVE (NEGATIVE); Cocaine NEGATIVE (NEGATIVE); METHAMPHETAM POSITIVE (NEGATIVE); Methadone NEGATIVE (NEGATIVE); Opiates NEGATIVE (NEGATIVE); Phencyclidine NEGATIVE (NEGATIVE); THC Cannibis NEGATIVE (NEGATIVE)
--- NOTE | 2021-08-25 15:00 | ER ---
Nurse's Notes [facility] Name: Anahi Downing Age: 45 yrs Sex: Female : 1975 Arrival Date: 08/25/2021 Time: 12:56 Bed 20 Private MD: Diagnosis: Allergic urticaria;Other stimulant abuse-methamphetamine abuse Presentation: 08/25 13:13 Chief complaint: Patient states: SOB continues since visit here 08/19. Believes she is ll1 having a reaction to her meds we gave her (spironolactone, aspirin, losartan). Cant sleep, jittery, anxious. Rash on L arm that itches. Skin around eyes red. Coronavirus screen: Vaccine status: Patient reports being unvaccinated. Client denies travel out of the [place] in the last 14 days. difficulty breathing, shortness of breath, Client presents with at least one sign or symptom that may indicate coronavirus-19. Standard/surgical mask placed on the client. Ebola Screen: Patient denies travel to an Ebola-affected area in the 21 days before illness onset. Initial Sepsis Screen: Does the patient meet any 2 criteria? HR > 90 bpm. No. Patient's initial sepsis screen is negative. Does the patient have a suspected source of infection? No. Patient's initial sepsis screen is negative. Risk Assessment: Do you want to hurt yourself or someone else? Patient reports no desire to harm self or others. Onset of symptoms was August 19, 2021. 13:13 Method Of Arrival: Ambulatory ll1 13:13 Acuity: RALPH 3 ll1 Historical: - Allergies: 13:15 Flagyl; ll1 - PMHx: 13:15 CHF; pulmonary embolisim; Pneumonia; Hypertension; Pulmonary emphysema; EMBOLISM; COPD; ll1 - PSHx: 13:15 Appendectomy; Ligation of fallopian tube; right ankle sx; ll1 - Immunization history:: Client reports having NOT received the Covid vaccine. Flu vaccine status is unknown. - Social history:: Smoking status: Patient/guardian denies using tobacco, Stopped _ months ago 9. Screenin:49 Abuse screen: Denies threats or abuse. Denies injuries from another. Nutritional ld1 screening: No deficits noted. Tuberculosis screening: No symptoms or risk factors identified. Fall Risk None identified. Assessment: 14:12 General: Appears in no apparent distress. comfortable, Behavior is cooperative, ld1 anxious. Pain: Denies pain. Neuro: Level of Consciousness is awake, alert, obeys commands, Oriented to person, place, time, situation. Cardiovascular: Capillary refill < 3 seconds Patient's skin is warm and dry. Rhythm is regular. Respiratory: Airway is patent Respiratory effort is even, unlabored, Breath sounds are clear bilaterally. GI: Abdomen is round non-distended. : No signs and/or symptoms were reported regarding the genitourinary system. EENT: No signs and/or symptoms were reported regarding the EENT system. Derm: Bruising that is dark purple, on right antecubital area and left antecubital area. Musculoskeletal: No signs and/or symptoms reported regarding the musculoskeletal system. Vital Signs: 13:13 BP 117 / 92; Pulse 114; Resp 18; Temp 98.2; Pulse Ox 99% ; Weight 74.84 kg; Height 5 ll1 ft. 5 in. (165.10 cm); Pain 9/10; 14:12 BP 124 / 89; Pulse 110; Resp 22; Pulse Ox 98% on R/A; ld1 15:22 BP 122 / 93; Pulse 106; Resp 19; Pulse Ox 99% on R/A; ld1 13:13 Body Mass Index 27.46 (74.84 kg, 165.10 cm) ll1 ED Course: 12:56 Patient arrived in ED. am2 13:12 Arm band placed on. ll1 13:15 Triage completed. ll1 13:18 Panfilo Bales NP is PHCP. pm1 13:18 Richmond Espinoza MD is Attending Physician. pm1 13:48 Ness Oro RN is Primary Nurse. ld1 14:05 Urine Drug Screen Sent. ld1 14:06 UDS Sent. ld1 14:06 No provider procedures requiring assistance completed. Inserted saline lock: 20 gauge ld1 in right antecubital area, using aseptic technique. 15:49 Patient has correct armband on for positive identification. Placed in gown. Bed in low ld1 position. Call light in reach. Side rails up X2. circle saw operator on. Pulse ox on. NIBP on. Door closed. Noise minimized. Warm blanket given. 15:49 IV discontinued, intact, bleeding controlled, No redness/swelling at site. ld1 Administered Medications: 14:05 Drug: Decadron - Dexamethasone 10 mg Route: IVP; Site: right antecubital; ld1 14:05 Drug: Pepcid (famotidine) 20 mg Route: IVP; Site: right antecubital; ld1 14:06 Drug: Benadryl (diphenhydrAMINE) 25 mg Route: IVP; Site: right antecubital; ld1 Outcome: 14:59 Discharge ordered by MD. pm1 15:50 Patient left the ED. ld1 Signatures: Panfilo Bales NP ASSESSMENT MANAGER pm1 Sandra Maria amTracey Carbone RN RN ll1 Ness Oro RN RN ld1
--- NOTE | 2021-08-25 15:00 | EDPHYS ---
Physician Documentation [facility] Name: Anahi Downing Age: 45 yrs Sex: Female : 1975 Arrival Date: 08/25/2021 Time: 12:56 Bed 20 Private MD: ED Physician Richmond Espinoza HPI: 08/25 13:35 This 45 yrs old Female presents to ER via Ambulatory with complaints of Shortness Of pm1 Breath, medication reaction. 13:35 The patient has shortness of breath at rest. Onset: The symptoms/episode began/occurred pm1 today. Duration: The symptoms are continuous. The patient's shortness of breath is aggravated by taking a new medication this AM . Associated signs and symptoms: Pertinent positives: rash to face and neck, itching, Pertinent negatives: chest pain, non-productive cough, productive cough, fever, nausea, vomiting. Severity of symptoms: in the emergency department the symptoms are unchanged. The patient has not experienced similar symptoms in the past. The patient has been recently been admitted at [facility], was discharged yesterday, for apparently unrelated complaints. Historical: - Allergies: 13:15 Flagyl; ll1 - PMHx: 13:15 CHF; pulmonary embolisim; Pneumonia; Hypertension; Pulmonary emphysema; EMBOLISM; COPD; ll1 - PSHx: 13:15 Appendectomy; Ligation of fallopian tube; right ankle sx; ll1 - Immunization history:: Client reports having NOT received the Covid vaccine. Flu vaccine status is unknown. - Social history:: Smoking status: Patient/guardian denies using tobacco, Stopped _ months ago 9. ROS: 13:35 Constitutional: Negative for fever, chills, and weight loss, Cardiovascular: Negative pm1 for chest pain, palpitations, and edema. 13:35 Abdomen/GI: Negative for abdominal pain, nausea, vomiting, diarrhea, and constipation, Back: Negative for injury and pain. 13:35 Neuro: Negative for headache, weakness, numbness, tingling, and seizure. 13:35 Respiratory: Positive for shortness of breath, Negative for cough. 13:35 Skin: Positive for rash, itching. 13:35 All other systems are negative. Exam: 13:35 Constitutional: This is a well developed, well nourished patient who is awake, alert, pm1 and in no acute distress. Head/Face: Normocephalic, atraumatic. 13:35 Back: No spinal tenderness. No costovertebral tenderness. Full range of motion. MS/ Extremity: Pulses equal, no cyanosis. Neurovascular intact. Full, normal range of motion. 13:35 Eyes: Exam is negative for acute changes, Extraocular movements: no acute changes, Conjunctiva: no acute changes, no injection. 13:35 ENT: Exam is negative for acute changes, Mouth: Lips: normal, moist, Oral mucosa: normal, pink and intact, moist. 13:35 Cardiovascular: Exam negative for acute changes, Rate: tachycardic, Rhythm: regular, Pulses: no pulse deficits are appreciated. 13:35 Respiratory: Exam negative for acute changes, respiratory distress, shortness of breath, Breath sounds: are clear throughout. 13:35 Abdomen/GI: Exam negative for acute changes, Inspection: abdomen appears normal, Palpation: abdomen is soft and non-tender, in all quadrants. 13:35 Skin: consistent with urticaria, on the face. 13:35 Neuro: Exam negative for acute changes, Orientation: is normal, Mentation: is normal, Motor: is normal, moves all fours. Vital Signs: 13:13 BP 117 / 92; Pulse 114; Resp 18; Temp 98.2; Pulse Ox 99% ; Weight 74.84 kg; Height 5 ll1 ft. 5 in. (165.10 cm); Pain 9/10; 14:12 BP 124 / 89; Pulse 110; Resp 22; Pulse Ox 98% on R/A; ld1 15:22 BP 122 / 93; Pulse 106; Resp 19; Pulse Ox 99% on R/A; ld1 13:13 Body Mass Index 27.46 (74.84 kg, 165.10 cm) ll1 MDM: 13:22 Patient medically screened. pm1 14:57 Data reviewed: vital signs. Data interpreted: Pulse oximetry: on room air is 98 %. pm1 Interpretation: normal. Counseling: I had a detailed discussion with the patient and/or guardian regarding: the historical points, exam findings, and any diagnostic results supporting the discharge/admit diagnosis, the need for outpatient follow up, an allergy/retail pos specialist, a family practitioner, to return to the emergency department if symptoms worsen or persist or if there are any questions or concerns that arise at home. 08/25 13:34 Order name: UDS pm1 08/25 13:35 Order name: Urine Drug Screen; Complete Time: 14:49 EDMS 08/25 14:04 Order name: Urine Dipstick-Ancillary; Complete Time: 14:49 EDMS 08/25 14:06 Order name: Urine --Ancillary (enter results); Complete Time: 19:31 dh3 08/25 13:34 Order name: Urine Dipstick-Ancillary (obtain specimen); Complete Time: 14:06 pm1 08/25 13:34 Order name: IV Saline Lock; Complete Time: 14:05 pm1 Administered Medications: 14:05 Drug: Decadron - Dexamethasone 10 mg Route: IVP; Site: right antecubital; ld1 14:05 Drug: Pepcid (famotidine) 20 mg Route: IVP; Site: right antecubital; ld1 14:06 Drug: Benadryl (diphenhydrAMINE) 25 mg Route: IVP; Site: right antecubital; ld1 Disposition: 18:23 Co-signature as Attending Physician, Richmond Espinoza MD. rn Disposition Summary: 08/25/21 14:59 Discharge Ordered Location: Home pm1 Problem: new pm1 Symptoms: have improved pm1 Condition: Stable pm1 Diagnosis - Allergic urticaria pm1 - Other stimulant abuse - methamphetamine abuse pm1 Followup: pm1 - With: Emergency Department - When: As needed - Reason: Worsening of condition Followup: pm1 - With: Private Physician - When: 2 - 3 days - Reason: Recheck today's complaints, Continuance of care, Re-evaluation by your physician Discharge Instructions: - Discharge Summary Sheet pm1 - Hives pm1 - Methamphetamines Use Disorder pm1 Forms: - Medication Reconciliation Form pm1 - Thank You Letter pm1 - Antibiotic Education pm1 - Prescription Opioid Use pm1 Prescriptions: - Benadryl 25 mg Oral Capsule - take 1 capsule by ORAL route every 6 hours As needed; 30 tablet; Refills: 0, pm1 Product Selection Permitted - Pepcid 20 mg Oral Tablet - take 1 tablet by ORAL route every 12 hours for 10 days; 20 tablet; Refills: 0, pm1 Product Selection Permitted - Medrol (Prabhakar) 4 mg Oral Tablets, Dose Pack - take 1 tablet by ORAL route as directed - follow package instructions; 1 pm1 packet; Refills: 0, Product Selection Permitted Signatures: Dispatcher [employer] EDRichmond Whitney MD MD rn Panfilo Bales, PLATINUMSMITH PLATINUMSMITH pm1 Tracey Palafox RN RN ll1 Ness Oro RN RN ld1
[2021-08-25 16:08] VITALS: TEMP 98.2
[2021-08-25 16:12] VITALS: BP 122/93; O2SAT 99
[2021-08-25 16:32] LABS: Urine Specific Gravity/Preg 1.025 (1.005-1.030)
== END 2021-08-25 15:50 | disposition home or self-care (01) ==
LOC: ER 12:52
DX: F15.10 Other stimulant abuse, uncomplicated (principal); L50.0 Allergic urticaria; I10 Essential (primary) hypertension; Z88.8 Allergy status to other drugs, medicaments and biological substances
CPT/HCPCS: 80307; 81003; 81025; 96374; 96375; 99284; J1100; J1200

== ENCOUNTER 2021-08-28 17:47 | Inpatient (IN) | payer SELFPAY ==
--- OUTSIDE RECORDS SUMMARY | 2021-08-28 17:51 | XMS REPORT | Continuity of Care Document ---
:1975 Author Organization [facility] t Address 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 00:00: [place] [facility] Chest pain Chest pain Disease Active U nivers in adult in adult 8-30 ity of 00:00: [place] [facility] Acute Acute Disease Active Univers left-sided left-sided 7-27 it y of CHF CHF 00:00: [place] (congestiv (congestiv 00 Me dical e heart [...] 7-17 it y of on on 00:00: [place] [facility] Obesity Obesity Disease Active Univers (BMI (BMI 7-17 ity of 30-39.9) 30-39.9) 00:00: [place] [facility] Acute on Acute on Disease [...] 5-24 it y of on on 00:00: [place] [facility] Admitted Admitted Disease Active Unive [...] Added automatic ally from request for surgery [id number] Dyspnea on Dyspnea on Disease Active M [...] Quantity Comments Source Exposure to Not sure [facility] SARS-CoV-2 [facility] (event) Branch History SDOH [facility] Alcohol Std Drinks History SDOH [facility] Alcohol Binge Alcohol intake 2021-07-27 2021-07-27 Ex-drinker [facility] 00:00:00 00:00:00 (finding) [facility] Branch Education 2021-05-03 2021-05-[address] [place] [address] 00:00:00 00:00:00 [facility] Tobacco Comment 2021-03-17 2021-03-17 Quit smoking Univers ity of 00:00:00 00:00:00 10/2020 [facility] Tobacco use and 2021-01-11 2021-01-11 Never used Universit y of exposure 00:00:00 00:00:00 [facility] History of 2020-11-05 Smoker [facility] tobacco use 00:00:00 History SDOH 2020-10-14 2020-10-14 1 [facility] Alcohol Frequency 00:00:00 00:00:00 History SDOH 2020-10-14 2020-10-14 3 [facility] Financial 00:00:00 00:00:00 History [facility] Food 2020-10-14 2020-10-14 2 [facility] Worry 00:00:00 00:00:00 History [facility] Food 2020-10-14 2020-10-14 2 [facility] [place] [facility] Scarcity 00:00:00 00:00:00 [birth year] Universit y of 00:00:00 00:00:00 [facility] Smoking Status Start Date Stop Date Source Former smoker 2021-01-11 00:00:00 2021-01-11 00:00:00 [facility] Medications Ordered Filled Start Stop Current Ordering [...] clot in the lung lisinopriL 2020-08- Yes [id number] 2.5mg Take 1 Univers 2.5 mg 2-10 01-10 tablet by ity of tablet 00:00: 05:59 mouth [place] 00 :00 daily for Medical 30 days. Branch rivaroxaban 2020-08- Yes [id number] 20mg Take 1 Uni vers 20 mg 2-05 22- tablet by ity of tablet 00:00: 05:59 mouth [place] 00 :00 daily for Medical 30 days. Branch Indication s: a clot in the lung lisinopriL 2020-08- Yes [id number] 2.5mg Take 1 Univers 2.5 mg -08-31 tablet by ity of tablet 00:00: 05:59 mouth [place] 00 :00 daily for Medical 30 days. Branch budesonide- 2020-08 Yes [id number] 2{puff} Inhale 2 Univers formoteroL 2-09 Puffs 2 ity of 160-4.5 00:00: (two) [place] mcg/actuati 00 times Medical on inhaler daily. Branch meclizine 2020-08 Yes [id number] 12.5mg Take 1 Univers 12.5 mg 2-09 tablet by ity of tablet 00:00: mouth 3 [place] 00 (three) Medical times Branch daily as needed for Dizziness. budesonide- 2020-08 Yes [id number] 2{puff} Inhale 2 Univers formoteroL 2-09 Puffs 2 ity of 160-4.5 00:00: (two) [place] mcg/actuati 00 times Medical on inhaler daily. Branch meclizine 2020-08 Yes [id number] 12.5mg Take 1 Univers 12.5 mg 2-09 tablet by ity of tablet 00:00: mouth 3 [place] 00 (three) Medical times Branch daily as needed for Dizziness. atorvastati 2020-08- Yes [id number] 20mg Take 1 Univers n 20 mg 09-30 tablet by ity of tablet 00:00: 05:59 mouth at [place] 00 :00 bedtime Medical for 30 Branch days. carvediloL 2020-08- Yes [id number] 6.25mg Take 1 Univers 6.25 mg 09-30 tablet by ity of tablet 00:00: 05:59 mouth 2 [place] 00 :00 (two) Medical times Branch daily with meals for 30 days. furosemide 2020-08- Yes [id number] 40mg Take 2 Univers 20 mg 09-30 tablets by ity of tablet 00:00: 05:59 mouth 3 [place] 00 :00 (three) Medical times Branch daily for 30 days. atorvastati 2020-08- Yes [id number] 20mg Take 1 Univers n 20 mg 09-30 tablet by ity of tablet 00:00: 05:59 mouth at [place] 00 :00 bedtime Medical for 30 Branch days. carvediloL 2020-08- Yes [id number] 6.25mg Take 1 Univers 6.25 mg 09-30 tablet by ity of tablet 00:00: 05:59 mouth 2 [place] 00 :00 (two) Medical times Branch daily with meals for 30 days. furosemide 2020-08- Yes [id number] 40mg Take 2 Univers 20 mg 09-30 tablets by ity of tablet 00:00: 05:59 mouth 3 [place] 00 :00 (three) Medical times Branch daily for 30 days. amoxicillin 2020-08- Yes [id number] 1{tbl} Take 1 Univers -clavulanat 09-30 [id number] tablet by ity of e 875-125 00:00: 05:59 [place] mg per 00 :00 (two) Medical tablet times Branch daily for 4 days. doxycycline 2020-08- Yes [id number] 100mg Take 1 Univers hyclate 100 09-30 [id number] capsule by ity of mg capsule 00:00: 05:59 mouth [place] 00 :00 every 12 Medical (twelve) Branch hours for 4 days. KCL 20 mEq 2020-08 Yes [id number] 20meq Take 1 Univers tablet 1-19 tablet by ity of 00:00: mouth [place] 00 daily. Medical Branch spironolact 2020-08 Yes [id number] 25mg Take 1 Univers one 25 mg 1-19 tablet by ity o f tablet 00:00: mouth 2 [place] 00 (two) Medical times Branch daily. KCL 20 mEq 2020-08 Yes [id number] 20meq Take 1 Univers tablet 1-19 tablet by ity of 00:00: mouth [place] 00 daily. Medical Branch spironolact 2020-08 Yes [id number] 25mg Take 1 Univers one 25 mg [...] blood 2021-08-25 13:31:00 140 mm[Hg] Univer sity [facility] Diastolic blood 2021-08-25 13:31:00 86 mm[Hg] [facility] 2021-08-25 13:31:00 109 /min [facility] Body temperature 2021-08-25 13:31:00 37.22 Chandrika [facility] Respiratory rate 2021-08-25 13:31:00 18 /min [facility] Body weight 2021-08-25 13:31:00 74.844 kg [facility] BMI 2021-08-25 13:31:00 27.46 kg/m2 [facility] Oxygen saturation in 2021-08-25 13:31:00 99 /min [facility] Arterial blood by [facility] Pulse oximetry Branch Systolic blood 2020-12-02 18:30:00 130 mm[Hg] [facility] pressure Diastolic blood 2020-12-02 18:30:00 62 mm[Hg] [facility] pressure Heart rate 2020-12-02 18:30:00 90 /min [facility] Respiratory rate 2020-12-02 18:30:00 18 /min [facility] Oxygen saturation in 2020-12-02 18:30:00 98 /min [facility] Arterial blood by Pulse oximetry Body temperature 2020-12-02 14:22:00 36.56 Chandrika [facility] Body height 2020-12-02 09:22:00 165.1 cm [facility] Body weight 2020-12-02 09:22:00 86.183 kg [facility] BMI 2020-12-02 09:22:00 31.62 kg/m2 [facility] Procedures Procedure Date / Time Performing Clinician Source Performed TROPONIN 2020-12-02 17:37:00 [facility] URINE DRUGS OF ABUSE 2020-12-02 14:49:00 [facility] SCREEN TROPONIN 2020-12-02 14:30:00 [facility] ECG ED PRELIMINARY 2020-12-02 10:02:38 Mukund [facility] INTERPRETATION Da XR CHEST 1 VW PORTABLE 2020-12-02 09:58:58 Calvin Duval [facility] Da B NATRIURETIC PEPTIDE 2020-12-02 09:52:00 Calvin Duval [facility] Da HC COMPLETE BLD COUNT 2020-12-02 09:52:00 Mukund [facility] W/AUTO DIFF [facility] METABOLIC 2020-12-02 09:52:00 Mukund [facility] PANEL Da TROPONIN 2020-12-02 09:52:00 [facility] ESTIMATED GFR 2020-12-02 09:52:00 [facility] SMEAR REVIEW 2020-12-02 09:52:00 Calvin Duval [facility] ECG 12-LEAD 2020-12-02 09:43:07 Calvin Duval [facility] HC COMPLETE BLD COUNT 2020-11-20 10:30:00 Derick Rock [facility] W/AUTO DIFF [facility] METABOLIC 2020-11-20 10:30:00 Derick Rock [facility] PANEL B NATRIURETIC PEPTIDE 2020-11-20 10:30:00 Salomon, Mathew [facility] ESTIMATED GFR 2020-11-20 10:30:00 Tequila Rocklani Mendez spital LACTIC ACID LEVEL, SEPSIS 2020-11-20 06:33:00 Tequila Rockur [facility] - NOW AND REPEAT 2X EVERY 3 HOURS LACTIC ACID LEVEL, SEPSIS 2020-11-20 03:36:00 [facility] NOW AND REPEAT 2X EVERY 3 HOURS COVID-19 QUALITATIVE 2020-11-20 00:39:00 [facility] RT-PCR BLOOD CULTURE, AEROBIC & 2020-11-20 00:11:00 [facility] ANAEROBIC LACTIC ACID LEVEL, SEPSIS 2020-11-20 00:11:00 Derick Rock [facility] - NOW AND REPEAT 2X EVERY 3 HOURS BLOOD CULTURE, AEROBIC & 2020-11-19 23:52:[address] [facility] ABDOMEN PELVIS W 2020-11-19 21:43:28 [facility] Derick [facility] CONTRAST CT ANGIOGRAM PE CHEST 2020-11-19 21:42:26 [facility] XR CHEST 1 VW PORTABLE 2020-11-19 21:25:00 [facility] URINE CULTURE 2020-11-19 19:08:00 Derick Rock spital ECG 12-LEAD 2020-11-19 18:58:50 [facility] HC COMPLETE BLD COUNT 2020-11-19 18:57:00 [facility] W/AUTO DIFF COMPREHENSIVE METABOLIC 2020-11-19 18:57:00 [facility] PANEL URINALYSIS SCREEN AND 2020-11-19 18:57:00 [facility] MICROSCOPY, WITH REFLEX TO CULTURE ALCOHOL LEVEL, BLOOD 2020-11-19 18:57:00 [facility] D-DIMER 2020-11-19 18:57:00 Derick Rock spital ESTIMATED GFR 2020-11-19 18:57:00 [facility] sp[facility] HCG QUALITATIVE, URINE 2020-11-19 18:57:00 [facility] SCREEN URINE DRUGS OF ABUSE 2020-11-19 18:48:00 Mathew Latif [facility] SCREEN ECG ED PRELIMINARY 2020-11-19 18:42:01 Derick Rock [facility] INTERPRETATION HC COMPLETE BLD COUNT 2020-10-28 11:44:00 [facility] W/AUTO DIFF BASIC METABOLIC PANEL 2020-10-28 11:44:00 [facility] MAGNESIUM LEVEL 2020-10-28 11:44:00 [facility] ESTIMATED GFR 2020-10-28 11:44:00 [facility] CV RIGHT AND LEFT HEART 2020-10-27 22:46:00 David Richter [facility] CATH SELECTIVE CORONARY LV GRAM POC BLOOD GAS, VENOUS AND 2020-10-27 22:37:00 [facility] LYTES POC BLOOD GAS, VENOUS AND 2020-10-27 22:32:00 [facility] POC BLOOD GAS, ARTERIAL 2020-10-27 22:27:00 [facility] AND LYTES TYPE AND SCREEN 2020-10-27 12:57:00 David Richter [facility] ospital PARTIAL THROMBOPLASTIN 2020-10-27 12:57:00 [facility] TIME (PTT) PROTHROMBIN TIME WITH INR 2020-10-27 12:57:00 RoberDavid watts [facility] HCG QUANTITATIVE, SERUM 2020-10-27 12:57:00 David Richter [facility] CBC WITH PLATELET AND 2020-10-27 10:42:00 [facility] DIFFERENTIAL Kiya COMPREHENSIVE METABOLIC 2020-10-27 10:42:00 [facility] PANEL Kiya MAGNESIUM LEVEL 2020-10-27 10:42:00 [facility] ESTIMATED GFR 2020-10-27 10:42:00 [facility] Kiya MANUAL DIFFERENTIAL 2020-10-27 10:42:00 [facility] Kiya ECG 12-LEAD 2020-10-27 05:07:[address] ospital URINE CULTURE 2020-10-27 00:22:00 [facility] URINALYSIS SCREEN AND 2020-10-27 00:15:00 [facility] MICROSCOPY, WITH REFLEX TO CULTURE XR CHEST 1 VW PORTABLE 2020-10-26 16:32:17 [facility] HC COMPLETE BLD COUNT 2020-10-26 11:40:00 [facility] W/AUTO DIFF Kiya COMPREHENSIVE METABOLIC 2020-10-26 11:40:00 [facility] PANEL Kiya ESTIMATED GFR 2020-10-26 11:40:00 [facility] Kiya TTE COMPLETE, W CONTRAST, 2020-10-25 19:55:00 [facility] W DOPPLER ([id number]) TROPONIN 2020-10-25 11:37:00 Luis Amaro Ho spital HC COMPLETE BLD COUNT 2020-10-25 11:37:00 [facility] W/AUTO DIFF Kiya COMPREHENSIVE METABOLIC 2020-10-25 11:37:00 [facility] PANEL Kiya ESTIMATED GFR 2020-10-25 11:37:00 [facility] Kiya TROPONIN 2020-10-25 07:30:00 Luis Amaro Ho spital COVID-19 QUALITATIVE 2020-10-25 04:57:00 Luis Amaro [facility] RT-PCR HCG QUALITATIVE, URINE 2020-10-25 04:14:00 [facility] S[facility] XR CHEST 1 VW 2020-10-25 04:13:30 Luis Amaro Ho spital HC COMPLETE BLD COUNT 2020-10-25 02:11:00 Luis Amaro [facility] W/AUTO DIFF COMPREHENSIVE METABOLIC 2020-10-25 02:11:00 Prem [facility] [place] [facility] PANEL PARTIAL THROMBOPLASTIN 2020-10-25 02:11:00 Prem [facility] TIME (PTT) PROTHROMBIN TIME WITH INR 2020-10-25 02:11:00 Prem [facility] CREATINE KINASE, TOTAL 2020-10-25 02:11:00 Prem [facility] ([facility]) B NATRIURETIC PEPTIDE 2020-10-25 02:11:00 Prem [facility] ESTIMATED GFR 2020-10-25 02:11:00 Prem Luis [facility] spital TROPONIN 2020-10-25 02:11:00 Moreno Amaroory Y[facility]ism Ho spital ECG 12-LEAD 2020-10-25 01:45:52 Luis Amaro spital ECG ED PRELIMINARY 2020-10-25 01:34:02 Prem [facility] INTERPRETATION US HEPATIC 2020-10-14 21:52:47 [facility] Mary TROPONIN 2020-10-14 10:25:00 [facility] sp[facility] Mary HC COMPLETE BLD COUNT 2020-10-14 10:25:00 [facility] DIFF Mary PROTHROMBIN TIME WITH INR 2020-10-14 10:25:00 [facility] Mary LIPASE LEVEL 2020-10-14 10:25:00 [facility] sp[facility] Mary COMPREHENSIVE METABOLIC 2020-10-14 10:25:00 [facility] PANEL Mary THYROID STIMULATING 2020-10-14 10:25:00 Dawson [facility]elloiet [facility] Mary ESTIMATED GFR 2020-10-14 10:25:00 Karen Bello spital Mary LIPID PANEL 2020-10-14 10:25:00 [facility] sp[facility] Mary RESPIRATORY PATHOGEN 2020-10-14 08:41:00 [facility] PANEL WITH COVID-19 RT-PCR TROPONIN 2020-10-14 06:23:00 Karen Bello spital Mary CT ANGIOGRAM PE CHEST 2020-10-14 05:18:26 [facility]INARY 2020-10-14 03:27:29 [facility] [place] INTERPRETATION ECG 12-LEAD 2020-10-14 03:18:29 Karen Bello Yarsanism Dieter spital Mary HC COMPLETE BLD COUNT 2020-10-14 03:04:00 [facility] W/AUTO DIFF COMPREHENSIVE METABOLIC 2020-10-14 03:04:00 [facility] PANEL CREATINE KINASE, TOTAL 2020-10-14 03:04:00 [facility] ([facility]) TROPONIN 2020-10-14 03:04:00 [facility] Dieter spital Mary B NATRIURETIC PEPTIDE 2020-10-14 03:04:00 [facility] D-DIMER 2020-10-14 03:04:[address] [facility] spital HCG QUALITATIVE, SERUM 2020-10-14 03:04:00 [facility]IM[facility] GFR 2020-10-14 03:04:[facility]ST 1 VW PORTABLE 2020-10-14 02:39:45 [facility] Plan of Care Planned Activity Planned Date Details Comments Source Future Scheduled Test COVID-19 VACCINE (1) [facility] [code = COVID-19 VACCINE (1)] Future Scheduled Test Hepatitis C screening [facility] (procedure) [code = 159760603] Future Scheduled Test Screening for [facility] malignant neoplasm of cervix (procedure) [code = 422730902] Future Scheduled Test INFLUENZA VACCINE [facility] [code = INFLUENZA VACCINE] Encounters Start End Encounter Admission Attending Care Care Encounter Source Date/Time Date/Time Type Type Clinicians Facility Department ID 2020-12-05 Inpatient HCAMN PABLO [id number] [facility] 03:20:00 [id number] [facility] 2021-08-25 2021-08-25 Emergency X DAVE MAYS ERT [id number] Univers 07:32:00 09:45:00 THEO srivastava [facility] 2021-08-25 2021-08-25 [facility] [id number] Univers 07:32:00 09:45:00 Theo REAL 350.1.13.10 i ty of ZACHARIAHVLADIMIR 4.2.7.2.686 [facility] [id number] [facility] 084 Branch 2021-07-31 2021-07-31 Transition JENI Gannon 1.2.840.114 [id number] Univers 00:00:00 00:00:00 of Care Farhana B RAI 350.1.13.10 it y of PLA[place] 4.2.7.2.686 [facility] [id number] [facility] 403 Branch 2021-07-26 2021-07-30 Inpatient [facility] ADIEL [id number] Univers 15:34:00 13:25:00 FAUSTINA drewluis [facility] 2021-04-06 2021-04-06 [facility] 1.2.428.823 [id number] 12:13:00 14:26:00 Theo Real 350.1.13.10 Ophel[place] 4.2.7.2.686 [place] [id number] 2021-04-06 2021-04-06 Patient Jeni Reese 1.2.840.114 [id number] 00:00:00 00:00:00 Outreach Elyssa E Rai 350.1.13.10 [place] 4.2.7.2.686 [id number] 2021-04-02 2021-04-02 Patient Rosetta Irvin 1.2.840.114 [id number] 00:00:00 00:00:00 Outreach E Rai 350.1.13.10 [place] 4.2.7.2.686 [id number] 403 2021-03-30 2021-03-30 Patient Rosetta Irvin 1.2.840.114 [id number] 00:00:00 00:00:00 Outreach E Rai 350.1.13.10 [place] 4.2.7.2.686 [id number] 403 2021-03-25 2021-03-25 Patient Rosetta Irvin 1.2.840.114 [id number] 00:00:00 00:00:00 Outreach E Rai 350.1.13.10 [place] 4.2.7.2.686 [id number] 2021-03-16 2021-03-18 Emergency Apolinar Castellanos [facility] 1.2.840. 114 [id number] 19:40:00 14:45:00 Yony Villalba 350.1.13.10 [place] 4.2.7.2.686 [place] [id number] 2021-03-10 2021-03-10 Transition Jeni Martinez 1.2.840.114 [id number] 00:00:00 00:00:00 of Care Yasmeen Rai 350.1.13.10 [place] 4.2.7.2.686 [id number] 2021-03-07 2021-03-09 [facility] Edinson Owens [facility] 1.2.840.1 14 [id number] 08:22:00 12:00:00 Encounter SelvinvalerySheritaan Gin 350.1.13.10 [place] 4.2.7.2.686 [place] [id number] 2021-03-09 2021-03-09 Patient Rosetta Irvin 1.2.840.114 [id number] 00:00:00 00:00:00 Outreach E Rai 350.1.13.10 [place] 4.2.7.2.686 [id number] [facility] 2021-03-04 2021-03-04 Patient Rosetta Irvin Jeni 1.2.840.114 [id number] 00:00:00 00:00:00 Outreach E Rai 350.1.13.10 [place] 4.2.7.2.686 [id number] 2021-02-25 2021-02-25 Patient Rosetta Irvin Jeni 1.2.840.114 [id number] 00:00:00 00:00:00 Outreach E Rai 350.1.13.10 [place] 4.2.7.2.686 [id number] 403 2021-02-09 2021-02-09 Transition Jeni Martinez 1.2.840.114 [id number] 00:00:00 00:00:00 of Care Yasmeen Rai 350.1.13.10 [place] 4.2.7.2.686 [id number] 403 2021-01-26 2021-01-26 Telephone CHRISTIANO oFster 1.2.840.114 [id number] 00:00:00 00:00:00 [facility] 350.1.13.10 [facility] 4.2.7.2.686 [id number] 2020-12-02 2020-12-02 Emergency Mukund Mike 1.2.840.1 [id number] Methodi 04:27:00 14:00:[address] 3.430.2.7 Hospit a .3.643978 l .8 2020-12-02 2020-12-02 Travel 1.2.840.1 1.2.507.934 [id number] Methodi 00:00:00 00:00:[address] 3.430.2.7 0.2.7.3.698 Ho spita .3.792764 084.8 l .8 2020-11-20 2020-11-20 Documentat Provider, 1.2.840.1 [id number] Methodi 00:00:00 00:00:00 ion Unknown 86140.1.[address] 3.430.2.7 Hospit a .3.950945 l .8 2020-11-19 2020-11-20 [facility] RADHAMES NELSON 1.2.840.[id number] 00:00:00 00:00:00 Encounter 48865.1.1 [address] .3.371300 .8 2020-11-19 2020-11-19 Travel 1.2.840.1 1.2.785.739 [id number] Methodi 00:00:00 00:00:[address] 3.430.2.7 0.2.7.3.698 Ho spita .3.338699 084.8 l .8 2020-10-24 2020-10-28 [facility], 1.2.840.[id number] 00:00:00 00:00:00 Encounter SEGUNDO 33122.1.1 [address] .3.954038 .8 2020-10-27 2020-10-27 Surgery [facility], 1.2.840.1 [id number] Methodi 14:30:00 15:30:[address]408[address]1.[address] 3.430.2.7 Hospit a .3.240256 l .8 2020-10-24 2020-10-24 Travel 1.2.840.1 1.2.229.965 [id number] Methodi 00:00:00 00:00:[address] 3.430.2.7 0.2.7.3.698 Ho spita .3.312808 084.8 l .8 2020-10-13 2020-10-14 [facility] JimenezTariq 1.2.840.1 [id number] Methodi 19:58:00 19:56:00 Encounter Surjit Thomason 15687.[address] 3.430.2.7 Hospit a .3.890973 l .8 2020-10-13 2020-10-13 Travel 1.2.840.1 1.2.620.404 [id number] Methodi 00:00:00 00:00:[address] 3.430.2.7 0.2.7.3.698 Ho spita .3.705063 084.8 l .8 Results Test Description Test Time Test Comments Results Result [facility] e Comments - XR SHOULDER 2 + 2020-12-05 V RT 04:14:00 [facility] : 1975 Sex: F FAX: Carmita Truong [phone] [place]: St: REG FAX: Jose Herrmann MD Name: ANAHI HAYWOOD [facility] : 1975 Age/S: 45/F [address] [facility] Unit #: [id number] Loc: [address] Phys: [place] [id number] Acct: [id number] Dis Date: Status: REG ER PHONE #: [phone] Exam Date: 12/05/2020 0401 FAX #: [phone] Reason: pain EXAMS: CPT CODE: [id number] XR SHOULDER 2 + V RT [id number] EXAM: - XR SHOULDER 2 + V [...] PAGE 1 Signed Report FAX: Carmita Truong [phone] [place]: St: REG FAX: Jose Herrmann MD Name: ANAHI HAYWOOD [facility] : 1975 Age/S: 45/F [address] [facility] Unit #: [id number] Loc: [address] Phys: [place] [id number] Acct: [id number] Dis Date: Status: REG ER PHONE #: [phone] Exam Date: 12/05/2020 0401 FAX #: [phone] Reason: pain EXAMS: CPT CODE: [id number] XR SHOULDER 2 + V RT [id number] <Continued> Orig Print D/T: S: 12/05/2020 (0418) [...] of 19-NOV-2020 13:58,-No significant change was found-- [facility] Vw [id number] 10:11:23Examination: XR CHEST 1 PORTABLEClinical history: "SOB" Comparison: Prior imaging, including achest radiograph obtained on 11/19/2020.One radiographic view of the chest was evaluated. Impression: There are no apparent infiltrates, pleural effusions, or pneumothoraces. The cardiomediastinalsilhouette, the imaged bones, and the remainder of the chest are stable in appearance. [facility] Results 12/02/2020 5:14 AM CDT Examination: XR CHEST 1 PORTABLEClinical history: "SOB" Comparison: Prior imaging, including a chest radiograph obtained on 11/19/2020.One radiographic view of the chest was evaluated.Impression: There are no apparent infiltrates, pleural effusions, or pneumothoraces. The cardiomediastinal silhouette, the imaged bones, and the remainder of the chest are stable in appearance.[facility] Preliminary Interpretation - Not an [id number] 10:02:38Calvin Duval MD 12/02/2020 5:48 AMECG ED Preliminary Interpretation - Not an OrderPerformed by: Calvin Duval MDAuthorized by: Calvin Duval MD Interpretation: Interpretation: non-specific Quality: Tracing quality: Limited by artifactRate: ECG rate: 110 ECG rate assessment: tachycardic Rhythm: Rhythm: sinus tachycardia Ectopy: Ectopy: none ST segments: ST segments: Non-specificT waves: T waves: non-specific [facility] [id number] 19:17:27 Test Item Value Reference Range Interpretation Comments Urine culture Mixed lawrence Specimen isolate (test <=10-3 col/cc Information ecimen code = 10083-1) Source: Urin eSpecimen Site: [facility] Pe [id number] 21:55:30EXAMINATION:CT ANGIOGRAM PE CHEST CLINICAL HISTORY: dyspnea [...] as on previousOtherwise unremarkable CT abdomen [id number] [id number] 16:57:33Anahi Haywood09/03/[id number]/08/21 Indications:New onset systolic CHF Procedures:Coronary angiogramLHC with LVgramRHC with cardiac output Closure:TR band Access site:Right radial artery and Right internal jugular vein Procedure details: Risks and benefits were discussed with the patient, informed consent was obtained.Patient was brought to the parking lot 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 A 5 Fr Arlington catheter was then advance over the wireinto the ascending aorta. Angiogram of the left and right coronary was performed. The Arlington catheter was then position in the LV. [...] mlFlouro-time: 1.5 minutesAir Kerma:505 mGy 10/27/20[facility] Transthoracic Echocardiogram Complete, (w Contrast, Strain and 3D if needed) 2020-10-26 17:20:16 Test Item Value Reference Range Interpretation Comments Velocity Ratio (V1/V2) 0.70 m/s (test code = 4689) IVS,d (test code = 1.05 cm 8744255850) EF (test code = 27.14 % 7837625599) LVPWD,d (test code = 0.97 cm 9244126250) AoV Mean PG (test code mmHg = 8211603859) AV LVOT peak gradient mmHg (test code = 3380560532) MV valve area p 1/2 5.59 cm2 method (test code = 5155347182) E wave decelartion time msec (test code = 3771728551) LVOT Diam,S (test code 2.23 cm = 9794856802) LVOT area (test code = 3.90 cm2 6487705707) LVOT Vmax (test code = 0.99 m/s 4113904300) LVOT VTI (test code = 0.17 m 6067351993) LVOT stroke volume 0.66 cm3 (test code = 3304949772) AoV Peak PG (test code mmHg = 3073508612) MV Peak E Rome (test 1.32 m/s code = 9875017290) MV stenosis pressure 39.33 ms 1/2 time (test code = 8666681850) MV Peak A Rome (test 0.00 m/s code = 5909944932) LV Vol,s A2C (test code 126.84 mL = 5439557673) LV Vol,d A2C (test code 186.07 mL = 2548138647) AoV Area, Vmax (test 2.73 cm2 code = 1055191954) AoV Area, VTI (test 3.37 cm2 code = 7835200057) AoV Vmax (test code = 1.42 m/s 1670991715) LV,d (test code = 5.39 cm 5662199699) LV,s (test code = 4.70 cm 1725423120) LV Vol,d A4C (test code 164.06 ml = 5718740437) LV Vol,s A4C (test code 106.99 ml = 1766708249) TR Vpeak (test code = 2.66 mm/s 9751658884) MV E A ratio (test code = 0648706945) RA pressure (test code mmHg = 1779750582) TR pk grad (test code = mmHg 2037184386) MR peak grad (test code mmHg = 3028232197) LA Vol 4C (test code = 97.00 ml 2847144290) RVSP (test code = mmHg 6770557392) LV SYS VOL (test code = 102.44 ml 7020230826) LV HEDRICK VOL (test code 140.60 ml = 5569875985) LA diam s (test code = 4.10 cm 6608209799) LA area s A4C (test 28.10 cm2 code = 6308454457) LA Vol MOD A4C (test 97.27 ml code = 0884127882) LV SV Teich 2D (test 38.16 ml code = 4058915717) LVOT SI (test code = 33.69 ml/m2 4109968437) AoV Cusp sep (test code = 4238301595) Aortic Root (test code 2.53 cm = 2295674748) AoV Vmn (test code = 4519112228) IVS s 2D (test code = 3025734571) LA Ao Ratio Mmode (test code = 4845292026) MA End Hedrick Grad (test code = 2122735516) MA End Diat Rome (test code = 6948789864) D E excurs (test code = 6949866242) E f slope (test code = 1283657707) E prime lat (test code = 1847992973) E favio sept (test code = 2079186302) PV acc T slope (test code = 7907310572) PV AT (test code = msec 0705103751) NGUYEN BP EF (test 32.00 % code = 2588138542) LA VOL 2C (test code = 74.00 ml 7993645292) AoV VTI (test code = 0.20 m 8001673604) LV EF,A2C (test code = 31.83 % 9577445299) LV EF,A4C (test code = 34.78 % 5232458535) LV EF,BP (test code = 32.29 % 7696587320) Diego Yale,d A2C (test 9.24 cm code = 9982569332) Diego Yale,d A4C (test 9.11 cm code = 3812128176) Diego Yale,s A2C (test 8.07 cm code = 0553231870) Diego Yale,s A4C (test 7.70 cm code = 6087020479) LV SV,A2C (test code = 59.23 % 3333848630) LV SV,A4C (test code = 57.06 % 5992730925) LV Vol,d BP (test code 175.67 ml = 5344712164) LV Vol,s BP (test code 118.95 nl = 3658896436) MR Vmax (test code = 5.55 m/s 8730092504) LVOT Vmn (test code = 6053789487) Pt Size (test code = 7550500876) Pt Wt (test code = 0046725320) LVOT mean grad (test mmHg code = 5106116043) LVPW s PLAX (test code 1.17 cm = 1525011180) MV Decel slope (test 10.79 m/s2 code = 4011367998) LVOT VTI (CM) (test 17.00 cm code = 8189427012) LINDA (test code = LINDA) The left [...] ventricular diastolic filling. Elevated LV filling pressure. [facility] 1 [id number] 04:16:24 CLINICAL HISTORY: 45 years Female Cough [...] are normal.Bones:No acute osseous abnormality.[id number] Andrea Sanchez [id number] 21:58:42EXAMINATION: US HEPATIC CLINICAL HISTORY: abnormal hepatic function tests COMPARISON: None. IMPRESSION: Liver: The liver is normal in size and echogenicity. There is no evidence of focal mass or intrahepatic biliary ductal dilatation. Portal vein: The portal vein is normal in size and demonstrates normal hepatopetal flow. Gallbladder: Contracted. No stones. Common bile duct: Normal caliber. [facility]-[id number] [facility], Radiology Results 10/14/2020 4:01 PM CSTFormatting of this notemight be different from the original.EXAMINATION: US HEPATICCLINICAL HISTORY: abnormal hepatic function testsCOMPARISON: None.IMPRESSION:Liver: The liver is normal in size and echogenicity. There isno evidence of focal mass or intrahepatic biliary ductal dilatation.Portal vein: The portal vein is normal in size and demonstrates normal hepatopetal flow.Gallbladder: Contracted. No stones.Common bile duct: Normal caliber.[id number]
--- NOTE | 2021-08-28 18:34 | RAD REPORT ---
EXAM DESCRIPTION: RAD - Chest Single View - 08/28/2021 6:26 pm CLINICAL HISTORY: Cough;Chest pain;SOB COMPARISON: No comparisonsChest Single View dated 08/19/2021; Chest Single View dated 04/25/2021; Ches t Single View dated 04/13/2021; Chest Single View dated 04/11/2021 FINDINGS: Lines: None. Lungs: No evidence of edema or pneumonia. Pleural: No significant pleural effusions or pneumothorax. Cardiac: Cardiomegaly. Bones: No acute fractures. Other: IMPRESSION: No acute cardiopulmonary disease.
[2021-08-28 19:21] LABS: Absolute Lymphocytes (CBC) 1.2 K/uL (0.7-4.9); Hematocrit 42.9 % (36.0-45.0); Lymphocytes % 25.4 % (15.3-44.8); RBC Red Blood Cell Count 4.49 M/uL (3.86-4.86)
[2021-08-28 19:22] LABS: Protime INR 1.82
[2021-08-28] MEDS ORDERED: FAMOTIDINE 20 MG/2 ML VIAL IV ONE (19:33)
[2021-08-28] MEDS ORDERED: MORPHINE 4 MG/ML SYR ONE (19:33)
[2021-08-28] MEDS ORDERED: ONDANSETRON 4 MG/2 ML VIAL ONE (19:33)
[2021-08-28] MEDS ORDERED: BENZONATATE 100 MG CAP PO ONE (19:36)
[2021-08-28 20:01] LABS: Potassium 3.7 mmol/L (3.5-5.1)
[2021-08-28 20:14] LABS: C-Reactive Protein 35.2 mg/L (<3.00); Ferritin 50.9 ng/mL (8-388)
[2021-08-28] MEDS ORDERED: FUROSEMIDE 40 MG/4 ML VIAL ONE (20:15)
[2021-08-28 20:25] LABS: Albumin 3.1 g/dL (3.4-5.0); Bilirubin Direct 0.7 mg/dL (0-0.2); Bilirubin Total 1.7 mg/dL (0.2-1.0); Magnesium 1.7 mg/dL (1.8-2.4); Protein, Total 7.3 g/dL (6.4-8.2); Troponin (Emerg Dept Use Only) 0.11 ng/mL (0.0-0.045)
[2021-08-28 20:39] LABS: SARS-COV-2 RT PCR POSITIVE (NEGATIVE)
--- NOTE | 2021-08-28 20:50 | RAD REPORT ---
EXAM DESCRIPTION: CT - Chest For Pe Angio - 08/28/2021 8:40 pm CLINICAL HISTORY: Pain;SOB COMPARISON: No comparisons FINDINGS: Chest Wall: No suspicious thyroid nodules or pathologic lymphadenopathy. Lungs: No acute abnormality. Pleura: Small right pleural effusion. Mediastinum/antonieta: No pathologic lymphadenopathy. Pulmonary arteries/Aorta: No filling defect identified. No aortic aneurysm. Heart: No significant pericardial effusion. Cardiomegaly. Reflux of contrast into the hepatic veins. Contrast is concentrated in the right side of the heart. Coronary artery calcifications. Upper abdomen: Ascites is present. Body wall edema. Bones: No acute abnormality. Remote rib fractures. All CT scans are performed using dose optimization technique as appropriate and may include automated exposure control or mA/KV adjustment according to patient size. IMPRESSION: Negative for pulmonary embolism. Four-chamber cardiomegaly with small right pleural effu tiffany and ascites concerning for right heart failure.
--- NOTE | 2021-08-28 20:52 | RAD REPORT ---
EXAM DESCRIPTION: CTAbdomen Pelvis W Contrast - 08/28/2021 8:40 pm CLINICAL HISTORY: ABD PAIN COMPARISON: No comparisons TECHNIQUE: CT of the abdomen and pelvis was performed. All CT scans are performed using dose optimization technique as appropriate and may include automated exposure control or mA/KV adjustment according to patient size. FINDINGS: Lower chest: Cardiomegaly. Small right pleural effusion. Liver: Hepatic steatosis. Biliary: No biliary ductal dilatation. Stomach: No significant focal abnormality. Duodenum: No significant focal abnormality. Pancreas: No significant abnormality. Spleen: No significant abnormality. Adrenal: No suspicious lesions. Kidney/ureter: No hydronephrosis. No renal calculi. Left renal scarring. Retroperitoneum: No retroperitoneal adenopathy. Vascular: No aneurysm. Atherosclerosis. Bowel: No significant focal abnormality. Appendectomy. Peritoneum: Small volume of ascites. Body wall edema. Bladder: Grossly unremarkable. Reproductive: No adnexal masses. Bones: No acute fracture. Other: n/a IMPRESSION: Ascites and body wall edema favored to be secondary to congestive heart failure. No othe r acute findings identified in the abdomen.
--- NOTE | 2021-08-28 21:04 | EDPHYS ---
Physician Documentation [facility] Name: Anahi Downing Age: 45 yrs Sex: Female : 1975 Arrival Date: 08/28/2021 Time: 17:50 Bed 13 Private MD: ED Physician Apolinar Angeles HPI: 08/28 18:10 This 45 yrs old Female presents to ER via EMS with complaints of Shortness of Breath, cp Chest Pain. 18:10 The patient has shortness of breath with light activity. Onset: The symptoms/episode cp began/occurred today. Duration: The symptoms are continuous, and are steadily getting worse. Associated signs and symptoms: Pertinent positives: chest pain, non-productive cough, nausea, vomiting, abdominal pain, Pertinent negatives: diaphoresis, fever. Severity of symptoms: in the emergency department the symptoms are unchanged despite home interventions. The patient has experienced similar episodes in the past, multiple times. 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 mr2 Historical: - Allergies: 17:54 Flagyl; ss - Home Meds: 19:28 aspirin 81 mg Oral TbEC 1 tab once daily [Active]; carvedilol 12.5 mg Oral tab 1 tab 2 eo2 times per day [Active]; Eliquis 5 mg Oral tab 2 tabs 2 times per day [Active]; Lasix 40 mg Oral tab 1 tab 2 times per day [Active]; lisinopril 5 mg Oral tab 1 tab once daily [Active]; potassium chloride 20 mEq Oral TbER 2 tab once daily [Active]; Xarelto Oral [Active]; - PMHx: 17:54 CHF; COPD; EMBOLISM; Hypertension; Pneumonia; pulmonary embolisim; Pulmonary emphysema; ss - PSHx: 17:54 Appendectomy; Ligation of fallopian tube; right ankle sx; ss - Immunization history:: Client reports having NOT received the Covid vaccine. - Social history:: Smoking status: Patient/guardian denies using tobacco, Stopped _ months ago 9 Smoking status: Patient uses street drugs, Methamphetamine (Meth). ROS: 18:15 Constitutional: Negative for body aches, chills, fever, poor PO intake. cp 18:15 Eyes: Negative for injury, pain, redness, and discharge. cp 18:15 ENT: Negative for drainage from ear(s), ear pain, sore throat, difficulty swallowing, difficulty handling secretions. 18:15 Cardiovascular: Positive for chest pain. 18:15 Respiratory: Positive for cough, "sounds productive", shortness of breath, on exertion. 18:15 Abdomen/GI: Positive for abdominal pain, nausea, vomiting, Negative for diarrhea, constipation, hematemesis, rectal bleeding. 18:15 Skin: Negative for rash. 18:15 Neuro: Negative for altered mental status, dizziness, headache, syncope, weakness. 18:15 All other systems are negative. Exam: 18:20 Constitutional: The patient appears in no acute distress, alert, awake, cp non-diaphoretic, non-toxic, well developed, well nourished. 18:20 Head/Face: Normocephalic, atraumatic. cp 18:20 Eyes: Periorbital structures: appear normal, Conjunctiva: normal, no exudate, no injection, Sclera: no appreciated abnormality, Lids and lashes: appear normal, bilaterally. 18:20 ENT: External ear(s): are unremarkable, Nose: is normal, Mouth: Lips: moist, Oral mucosa: pink and intact, moist, Posterior pharynx: Airway: no evidence of obstruction, patent. 18:20 Neck: ROM/movement: is normal, is supple, without pain, no range of motions limitations, no meningismus. 18:20 Chest/axilla: Inspection: normal. 18:20 Cardiovascular: Rate: tachycardic, Rhythm: regular, Edema: ankle edema, that is mild, JVD: is not appreciated. 18:20 Respiratory: the patient does not display signs of respiratory distress, Respirations: labored breathing, that is mild, Breath sounds: bronchial sounds, that are mild, are heard diffusely, decreased breath sounds, that are mild, diffuse, stridor, is not appreciated, wheezing: is not appreciated. 18:20 Abdomen/GI: Inspection: distension, that is mild, in the right lower quadrant and left lower quadrant, Bowel sounds: active, all quadrants, Palpation: soft, in all quadrants, moderate abdominal tenderness, in the left lower quadrant, rebound tenderness, is not appreciated, voluntary guarding, is elicited in the left lower quadrant. 18:20 Back: CVA tenderness, is absent. 18:20 Skin: cellulitis, is not appreciated, no rash present. 18:20 Neuro: Orientation: to person, place \\T\\ time. Mentation: is normal, Motor: moves all fours, strength is normal, Sensation: no obvious gross deficits. 19:20 ECG was reviewed by the Attending Physician. cp Vital Signs: 17:51 BP 132 / 100; Pulse 126; Resp 20; Temp 99.2(TE); Pulse Ox 100% on R/A; Weight 76.66 kg; ss Height 5 ft. 5 in. (165.10 cm); Pain 8/10; 18:45 BP 134 / 109; Pulse 124; Resp 22; Pulse Ox 100% on R/A; Pain 8/10; eo2 22:00 BP 138 / 98; Pulse 111; Resp 19; Temp 98.8; Pulse Ox 98% on R/A; mr2 17:51 Body Mass Index 28.12 (76.66 kg, 165.10 cm) ss MDM: 18:06 Patient medically screened. cp 19:00 Differential diagnosis: CHF exacerbation, Myocardial Infarction pneumonia, Pneumothorax cp pulmonary edema, Pulmonary Embolism Sepsis Unstable Angina sepsis. 21:05 Data reviewed: vital signs, nurses notes, lab test result(s), EKG, radiologic studies, cp CT scan, plain films. 21:05 Test interpretation: by ED physician or midlevel provider: ECG. Response to treatment: cp the patient's symptoms have mildly improved after treatment. Physician consultation: Eugene Caicedo was contacted at 21:00, regarding admission, to the telemetry unit. patient's condition, and will see patient in ED, shortly. 08/28 17:57 Order name: COVID-19/FLU A+B (Document "Date of Onset" if Symptomatic); Complete Time: ss 20:43 08/28 18:14 Order name: Basic Metabolic Panel; Complete Time: 20:27 cp 08/28 20:30 Interpretation: Normal except: GFR 75. cp 08/28 18:14 Order name: CBC with Diff; Complete Time: 19:34 cp 08/28 19:34 Interpretation: Normal except: WBC 4.60; RDW 15.6. cp 08/28 18:14 Order name: LFT's; Complete Time: 20:29 cp 08/28 20:29 Interpretation: Normal except: AST 41; ALK 144; BILIT 1.7; BILID 0.7; ALB 3.1; GLOB cp 4.2; A/G 0.7. 08/28 18:14 Order name: Magnesium; Complete Time: 20:29 cp 08/28 20:30 Interpretation: Abnormal: MG 1.7. cp 08/28 18:14 Order name: NT PRO-BNP; Complete Time: 20:27 cp 08/28 20:30 Interpretation: Abnormal: NT PRO-BNP 17835. cp 08/28 18:14 Order name: PT-INR; Complete Time: 19:34 cp 08/28 18:14 Order name: Troponin (emerg Dept Use Only); Complete Time: 20:27 cp 08/28 20:30 Interpretation: Abnormal: TROPED 0.11. cp 08/28 18:15 Order name: Lipase; Complete Time: 20:29 cp 08/28 20:30 Interpretation: Reviewed. cp 08/28 18:26 Order name: CRP; Complete Time: 20:27 cp 08/28 18:26 Order name: Ferritin; Complete Time: 20:29 cp 08/28 18:26 Order name: Blood Culture Adult (2) cp 08/28 18:26 Order name: Lactate; Complete Time: 20:08 cp 08/28 20:31 Interpretation: Abnormal: LAC 2.4. cp 08/28 18:26 Order name: Procalcitonin; Complete Time: 20:29 cp 08/28 18:14 Order name: XRAY Chest (1 view); Complete Time: 18:50 cp 08/28 18:47 Order name: CT Abd/Pelvis - IV Contrast Only; Complete Time: 20:54 cp 08/28 20:54 Interpretation: Report reviewed. cp 08/28 18:57 Order name: CT Chest For PE Angio; Complete Time: 20:54 cp 08/28 20:55 Interpretation: Report reviewed. cp 08/28 19:37 Order name: UDS cp 08/28 19:38 Order name: Urine Drug Screen EDNC 08/28 20:32 Order name: Urine Microscopic Only cp 08/28 22:11 Order name: Urine Dipstick-Ancillary EDMS 08/28 22:13 Order name: Urine --Ancillary (enter results) cs9 08/28 22:26 Order name: Urine --Ancillary EDNC 08/28 23:20 Order name: Lactate Sepsis 2 HR Follow-up EDNC 08/28 18:14 Order name: EKG; Complete Time: 18:15 cp 08/28 18:14 Order name: Cardiac monitoring cp 08/28 18:14 Order name: EKG - Nurse/Tech 08/28 18:14 Order name: IV Saline Lock 08/28 18:14 Order name: Labs collected and sent 08/28 18:14 Order name: O2 Per Protocol 08/28 18:14 Order name: O2 Sat Monitoring 08/28 20:32 Order name: Urine Dipstick-Ancillary (obtain specimen) cp EC:20 Rate is 123 beats/min. Rhythm is regular. PA interval is normal. QRS interval is cp normal. QT interval is normal. T waves are Inverted in lead aVL. Interpreted by me. Reviewed by me. Administered Medications: 19:36 CANCELLED (Physician Discretion): Metoprolol 5 mg IVP once; Hold for SBP <100 or HR <60.cp 19:40 Drug: Tessalon Perle (benzonatate) 200 mg Route: PO; mr2 19:40 Drug: Zofran (Ondansetron) 4 mg Route: IVP; Site: left antecubital; mr2 19:40 Drug: Pepcid (famotidine) 20 mg Route: IVP; Site: left antecubital; mr2 19:40 Drug: morphine 2 mg Route: IVP; Site: left antecubital; mr2 20:15 Drug: Lasix (furosemide) 40 mg Route: IVP; Site: left antecubital; mr2 20:50 Drug: Aspirin Chewable Tablet 324 mg Route: PO; mr2 22:35 Drug: Decadron - Dexamethasone 6 mg Route: IVP; Site: left antecubital; mr2 22:35 Drug: Lasix (furosemide) 20 mg Route: IVP; Site: left antecubital; mr2 Disposition: 23:40 Co-signature as Attending Physician, Apolinar Angeles MD I agree with the assessment and kdr plan of care. Disposition Summary: 08/28/21 21:04 Hospitalization Ordered Hospitalization Status: Inpatient Admission cp Provider: Srinivas Vasquez cp Location: Telemetry/MedSurg (Inpatient) cp Condition: Stable cp Problem: new cp Symptoms: have improved cp Bed/Room Type: Standard Room Assignment: 416(08/28/21 22:08) cg Diagnosis - SARS-associated coronavirus as the cause of diseases classified elsewhere cp - Unspecified combined systolic (congestive) and diastolic (congestive) heart failure cp - Dyspnea cp Forms: - Medication Reconciliation Form cp - SBAR form cp Signatures: Dispatcher [employer] EDMS Apolinar Angeles MD MD [facility] Angelita Bustamante RN RN ss Eugene Caicedo, SPIN INSTRUCTOR-C SPIN INSTRUCTOR-Cla1 Stefan Hoang PA PA cp Sapna Em RN RN cg Jeremi Phipps RN RN mr2 Hoa Soni RN RN eo2 Corrections: (The following items were deleted from the chart) 19:36 19:35 Metoprolol 5 mg IVP once; Hold for SBP <100 or HR <60. ordered. cp cp 20:29 20:29 Normal except: AST 41; ALK 144; BILIT 1.7; BILID 0.7; ALB 3.1; GLOB 4.2. cp cp 22:08 21:04 cp cg 08/29 02:03 02:01 This 45 yrs old Female presents to ER via EMS with complaints of Shortness of cp Breath, Chest Pain. cp 02:05 08/28 18:10 Associated signs and symptoms: Pertinent positives: chest pain, cp non-productive cough, nausea, abdominal pain, Pertinent negatives: diaphoresis, fever, vomiting, cp
--- NOTE | 2021-08-28 21:04 | ER ---
Nurse's Notes [facility] Name: Anahi Downing Age: 45 yrs Sex: Female : 1975 Arrival Date: 08/28/2021 Time: 17:50 Bed 13 Private MD: Diagnosis: SARS-associated coronavirus as the cause of diseases classified elsewhere;Unspecified combined systolic (congestive) and diastolic (congestive) heart failure;Dyspnea Presentation: 08/28 17:51 Chief complaint: EMS states: SOB and chest pain that began today. HX of CHF and COPD. ss PT reports that recently she was taken off her BP meds and home O2. Cough that began today. Pt reports she was seen recently in ER and had a negative covid test. Coronavirus screen: Client presents with at least one sign or symptom that may indicate coronavirus-19. Ebola Screen: Patient denies exposure to infectious person. Patient denies travel to an Ebola-affected area in the 21 days before illness onset. Initial Sepsis Screen: Does the patient meet any 2 criteria? No. Patient's initial sepsis screen is negative. Does the patient have a suspected source of infection? No. Patient's initial sepsis screen is negative. Risk Assessment: Do you want to hurt yourself or someone else? Patient reports no desire to harm self or others. Onset of symptoms was August 28, 2021. 17:51 Method Of Arrival: EMS: [facility] 17:51 Acuity: RALPH 3 Triage Assessment: 21:00 General: Appears in no apparent distress. Behavior is calm, cooperative, Reports chills mr2 for fever for feeling ill for 12-24 hours. 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 08/22/2021 mr2 Historical: - Allergies: 17:54 Flagyl; ss - Home Meds: 19:28 aspirin 81 mg Oral TbEC 1 tab once daily [Active]; carvedilol 12.5 mg Oral tab 1 tab 2 eo2 times per day [Active]; Eliquis 5 mg Oral tab 2 tabs 2 times per day [Active]; Lasix 40 mg Oral tab 1 tab 2 times per day [Active]; lisinopril 5 mg Oral tab 1 tab once daily [Active]; potassium chloride 20 mEq Oral TbER 2 tab once daily [Active]; Xarelto Oral [Active]; - PMHx: 17:54 CHF; COPD; EMBOLISM; Hypertension; Pneumonia; pulmonary embolisim; Pulmonary emphysema; ss - PSHx: 17:54 Appendectomy; Ligation of fallopian tube; right ankle sx; ss - Immunization history:: Client reports having NOT received the Covid vaccine. - Social history:: Smoking status: Patient/guardian denies using tobacco, Stopped _ months ago 9 Smoking status: Patient uses street drugs, Methamphetamine (Meth). Screenin:45 Abuse screen: Denies threats or abuse. Denies injuries from another. Nutritional eo2 screening: No deficits noted. Tuberculosis screening: No symptoms or risk factors identified. Fall Risk None identified. Assessment: 18:45 General: Appears uncomfortable, Behavior is cooperative, anxious. Pain: Complains of eo2 pain in chest and abdomen. Neuro: Level of Consciousness is awake, alert, obeys commands, Oriented to person, place, time, situation, Reports headache. Cardiovascular: Reports chest pain, shortness of breath, Capillary refill < 3 seconds Rhythm is sinus tachycardia Chest pain. Respiratory: Reports shortness of breath cough that is CP, SOB, COUGH onset yesterday Airway is patent Breath sounds are diminished bilaterally. GI: Reports lower abdominal pain, nausea, vomiting. Vital Signs: 17:51 BP 132 / 100; Pulse 126; Resp 20; Temp 99.2(TE); Pulse Ox 100% on R/A; Weight 76.66 kg; ss Height 5 ft. 5 in. (165.10 cm); Pain 8/10; 18:45 BP 134 / 109; Pulse 124; Resp 22; Pulse Ox 100% on R/A; Pain 8/10; eo2 22:00 BP 138 / 98; Pulse 111; Resp 19; Temp 98.8; Pulse Ox 98% on R/A; mr2 17:51 Body Mass Index 28.12 (76.66 kg, 165.10 cm) ss Vitals: 18:45 Cardiac Rhythm Assessment Sinus tach. eo2 ED Course: 17:50 Patient arrived in ED. eb 17:54 Triage completed. ss 17:54 Arm band placed on right wrist. ss 18:02 Stefan Hoang PA is PHCP. cp 18:02 Shelby Alvarez MD is Attending Physician. cp 18:03 Hoa Soni, SIN is Primary Nurse. eo2 18:25 XRAY Chest (1 view) In Process Unspecified. EDMS 18:45 Patient has correct armband on for positive identification. site monitor on. Pulse eo2 ox on. NIBP on. Door closed. Noise minimized. Warm blanket given. 18:45 No provider procedures requiring assistance completed. Inserted saline lock: 20 gauge eo2 in right upper arm, using aseptic technique. Blood collected. 19:08 Primary Nurse role handed off by Hoa Soni RN eb 19:22 Jeremi Phipps, SIN is Primary Nurse. mr2 19:30 Report given to Jeremi VOGT. eo2 20:40 CT Abd/Pelvis - IV Contrast Only In Process Unspecified. EDMS 20:40 CT Chest For PE Angio In Process Unspecified. EDMS 20:46 Apolinar Angeles MD is Attending Physician. cp 21:03 Srinivas Vasquez DO is Hospitalizing Provider. cp 23:31 Patient admitted, IV remains in place. mr2 Administered Medications: 19:36 CANCELLED (Physician Discretion): Metoprolol 5 mg IVP once; Hold for SBP <100 or HR <60.cp 19:40 Drug: Tessalon Perle (benzonatate) 200 mg Route: PO; mr2 19:40 Drug: Zofran (Ondansetron) 4 mg Route: IVP; Site: left antecubital; mr2 19:40 Drug: Pepcid (famotidine) 20 mg Route: IVP; Site: left antecubital; mr2 19:40 Drug: morphine 2 mg Route: IVP; Site: left antecubital; mr2 20:15 Drug: Lasix (furosemide) 40 mg Route: IVP; Site: left antecubital; mr2 20:50 Drug: Aspirin Chewable Tablet 324 mg Route: PO; mr2 22:35 Drug: Decadron - Dexamethasone 6 mg Route: IVP; Site: left antecubital; mr2 22:35 Drug: Lasix (furosemide) 20 mg Route: IVP; Site: left antecubital; mr2 Outcome: 21:04 Decision to Hospitalize by Provider. cp 23:29 Admitted to Med/surg accompanied by nurse. mr2 23:29 Condition: stable 23:29 Instructed on the need for admit. 23:32 Patient left the ED. mr2 Signatures: Dispatcher [employer] EDMS Smirch, Angelita, RN RN ss Stefan Hoang PA PA cp Botello, Elizabeth eb Reynard, Mike RN RN mr2 Hoa Soni RN RN eo2
--- NOTE | 2021-08-28 21:26 | P.HP ---
Certification for Inpatient Patient admitted to: Inpatient With expected LOS: >2 Midnights Patient will require the following post-hospital care: None Practitioner: I am a practitioner with admitting privileges, knowledge of patient current condition, hospital course, and medical plan of care. Services: Services provided to patient in accordance with Admission requirements found in Title 42 Section 412.3 of the Code of Federal Regulations Patient History Date of Service: 08/28/21 Reason for admission: CHF exacerbation History of Present Illness: 45-year-old female with history of chronic systolic congestive heart failure, pulmonary embolism, hypertension, hyperlipidemia presented to the emergency department for chest pain and shortness of breath. Patient ports ongoing symptoms over the course of the last 2 to 3 days, patient was recently admitted for similar and had her medications adjusted, it appears that patient is confused about her medications and stopped taking her Lasix at home. Patient evaluated in the emergency department labs were significant for troponin 0.11 BNP 10,458 C-reactive protein 35.2 CT chest abdomen pelvis demonstrate anasarca, small right pleural effusion suggestive of right-sided heart failure. Patient on room air at this time symptoms had improved although given moderate elevation in troponin level and significant volume overload status emergency department provider wishes to admit for further evaluation and management of acute on chronic systolic congestive heart failure. Allergies metronidazole [From Flagyl] Allergy (Verified 01/23/21 09:51) Itching/Hives/Rash Home Medications: Aspirin [Aspirin EC 81 MG] 81 mg PO DAILY 01/23/21 Furosemide [Lasix] 40 mg PO BID 30 Days #60 tablet 04/13/21 Rivaroxaban [Xarelto*] 15 mg PO BID 08/19/21 carvediloL [Carvedilol] 6.25 mg PO BID 08/19/21 Aspirin [Aspirin EC] 81 mg PO DAILY #30 tablet. 08/22/21 Losartan Potassium [Cozaar*] 50 mg PO BID #60 tablet 08/22/21 Spironolactone 25 mg PO BID #60 08/22/21 - Past Medical/Surgical History Diabetic: No -: Systolic CHF -: COPD -: HTN -: PE -: Pulmonary hypertension -: Hyperlipidemia -: Appendectomy Psychosocial/ Personal History: lives by self - Family History Mother Notes: from [place] at 47 - Social History Smoking Status: Former smoker Alcohol use: No CD- Drugs: Yes Caffeine use: Yes Place of Residence: Home Review of Systems 10-point ROS is otherwise unremarkable Respiratory: Shortness of Breath, SOB with Excertion Physical Examination - Physical Exam General: Alert, In no apparent distress, Oriented x3 HEENT: Atraumatic, PERRLA, Mucous membr. moist/pink, EOMI, Sclerae nonicteric Neck: Supple, 2+ carotid pulse no bruit, No LAD, Without JVD or thyroid abnormality Respiratory: Diminished, Crackles/rales Cardiovascular: Regular rate/rhythm, Systolic murmur Gastrointestinal: Normal bowel sounds, No tenderness Musculoskeletal: No tenderness Integumentary: No rashes Neurological: Normal gait, Normal speech, Normal strength at 5/5 x4 extr, Normal tone, Normal affect Lymphatics: No axilla or inguinal lymphadenopathy - Studies Laboratory Data (last 24 hrs) 08/28/21 18:57: PT 21.0 H, INR 1.82 08/28/21 18:57: WBC 4.60 D, Hgb 13.9, Hct 42.9, Plt Count 251 08/28/21 18:57: Sodium 136, Potassium 3.7, BUN 13, Creatinine 0.82, Glucose 103, Magnesium 1.7 L, Total Bilirubin 1.7 H, AST 41 H, ALT 39, Alkaline Phosphatase 144 H, Lipase 21 L Assessment and Plan - Plan Assessment: Dyspnea/chest pain, elevated troponin, anasarca, small right pleural effusion secondary to acute on chronic systolic congestive heart failure with previous EF of 27% History of pulmonary embolism on chronic anticoagulation therapy Hypertension Hyperlipidemia COVID-positive Plan: Dyspnea/chest pain, elevated troponin, anasarca, small right pleural effusion secondary to acute on chronic systolic congestive heart failure with previous EF of 27%: 1500 cc/day fluid restriction, daily weights. Cardiology consulted last echocardiogram approximately 6 months ago if patient remains in hospital on Tuesday will obtain repeat echocardiogram. Patient reports that she was not t aking her Lasix, thought she was supposed to stop it after being prescribed losartan spironolactone during last admission. Clarified with patient that she would need to continue her Lasix. We will diurese patient overnight and trend troponin levels. History of pulmonary embolism on chronic anticoagulation therapy: Continue Xarelto 15 mg p.o. twice daily Hypertension: Continue carvedilol 6.25 mg p.o. twice daily, losartan 50 mg p.o. twice daily and spironolactone 25 mg p.o. twice daily Hyperlipidemia: Continue atorvastatin 40 mg p.o. daily COVID-positive: Checks x-ray unremarkable for COVID findings, had a percent on room air, CRP mildly elevated will trend. No steroids at this time. Symptoms more likely related to CHF exacerbation. Daily room air saturations. DVT PPX: Xarelto continued Code status: Full Discharge Plan: Home Plan to discharge in: 48 Hours - Advance Directives Does patient have a Living Will: No Does patient have a Durable POA for Healthcare: No - Code Status/Comfort Care Code Status Assessed: Yes (Full code) Critical Care: No Time Spent Managing Pts Care (In Minutes): 55
[2021-08-28 22:11] LABS: Urine Blood Negative (Negative); Urine Glucose Negative (Negative); Urine Protein Trace (Negative); Urine Specific Gravity 1.015 (1.005-1.030)
[2021-08-28 22:25] LABS: Urine Specific Gravity/Preg 1.015 (1.005-1.030)
[2021-08-28 22:28] LABS: Urine Bacteria 20-50 /HPF (<20); Urine Mucus 1+ /HPF (NONE SEEN); Urine RBC <5 /HPF (NONE SEEN)
[2021-08-28 22:37] LABS: Barbiturates NEGATIVE (NEGATIVE); Benzodiazepines NEGATIVE (NEGATIVE); Cocaine NEGATIVE (NEGATIVE); METHAMPHETAM POSITIVE (NEGATIVE); Methadone NEGATIVE (NEGATIVE); Opiates NEGATIVE (NEGATIVE); Phencyclidine NEGATIVE (NEGATIVE); THC Cannibis NEGATIVE (NEGATIVE)
[2021-08-28] MEDS ORDERED: FUROSEMIDE 20 MG/ 2ML VIAL ONE (22:40)
[2021-08-28] MEDS ORDERED: dexAMETHasone 4 MG/ML VIAL ONE (22:40)
[2021-08-29] MEDS ORDERED: ONDANSETRON 4 MG/2 ML VIAL IV PRN (00:20)
[2021-08-29] MEDS ORDERED: FUROSEMIDE 40 MG/4 ML VIAL IV SCH (01:00)
--- NOTE | 2021-08-29 05:50 | P.PN ---
Subjective Date of Service: 08/29/21 Primary Care Provider: none Chief Complaint: CHF exacerbation Subjective: Improving Physical Examination - Vital Signs Temperature: 98.1 F Blood Pressure: 143/75 Pulse: 99 Respirations: 16 - Studies Laboratory Data (last 24 hrs) 08/28/21 18:57: PT 21.0 H, INR 1.82 08/28/21 18:57: WBC 4.60 D, Hgb 13.9, Hct 42.9, Plt Count 251 08/28/21 18:57: Sodium 136, Potassium 3.7, BUN 13, Creatinine 0.82, Glucose 103, Magnesium 1.7 L, Total Bilirubin 1.7 H, AST 41 H, ALT 39, Alkaline Phosphatase 144 H, Lipase 21 L Assessment & Plan Discharge Plan: Home Plan to discharge in: 24 Hours Physician Review Additional Text: COVID: Positive CXR: COMPARISON: No comparisonsChest Single View dated 08/19/2021; Chest Single View dated 04/25/2021; Chest Single View dated 04/13/2021; Chest Single View dated 04/11/2021 FINDINGS: Lines: None. Lungs: No evidence of edema or pneumonia. Pleural: No significant pleural effusions or pneumothorax. Cardiac: Cardiomegaly. Bones: No acute fractures. IMPRESSION: No acute cardiopulmonary disease. CT chest: COMPARISON: No comparisons FINDINGS: Chest Wall: No suspicious thyroid nodules or pathologic lymphadenopathy. Lungs: No acute abnormality. Pleura: Small right pleural effusion. Mediastinum/antonieta: No pathologic lymphadenopathy. Pulmonary arteries/Aorta: No filling defect identified. No aortic aneurysm. Heart: No significant pericardial effusion. Cardiomegaly. Reflux of contrast into the hepatic veins. Contrast is concentrated in the right side of the heart. Coronary artery calcifications. Upper abdomen: Ascites is present. Body wall edema. Bones: No acute abnormality. Remote rib fractures. All CT scans are performed using dose optimization technique as appropriate and may include automated exposure control or mA/KV adjustment according to patient size. IMPRESSION: Negative for pulmonary embolism. Four-chamber cardiomegaly with small right pleural effusion and ascites concerning for right heart failure. CT Ab: COMPARISON: No comparisons TECHNIQUE: CT of the abdomen and pelvis was performed. All CT scans are performed using dose optimization technique as appropriate and may include automated exposure control or mA/KV adjustment according to patient size. FINDINGS: Lower chest: Cardiomegaly. Small right pleural effusion. Liver: Hepatic steatosis. Biliary: No biliary ductal dilatation. Stomach: No significant focal abnormality. Duodenum: No significant focal abnormality. Pancreas: No significant abnormality. Spleen: No significant abnormality. Adrenal: No suspicious lesions. Kidney/ureter: No hydronephrosis. No renal calculi. Left renal scarring. Retroperitoneum: No retroperitoneal adenopathy. Vascular: No aneurysm. Atherosclerosis. Bowel: No significant focal abnormality. Appendectomy. Peritoneum: Small volume of ascites. Body wall edema. Bladder: Grossly unremarkable. Reproductive: No adnexal masses. Bones: No acute fracture. IMPRESSION: Ascites and body wall edema favored to be secondary to congestive heart failure. No other acute findings identified in the abdomen. Physical Exam: General: Alert, In no apparent distress, Oriented x3 HEENT: Atraumatic, PERRLA, Mucous membr. moist/pink, EOMI, Sclerae nonicteric Neck: Supple, 2+ carotid pulse no bruit, No LAD, Without JVD or thyroid abnormality Respiratory: Better air movement bilateral. Currently on room air. Cardiovascular: Regular rate/rhythm, Systolic murmur Gastrointestinal: Normal bowel sounds, No tenderness. No significant ascites noted. Musculoskeletal: No tenderness Integumentary: No rashes. No edema to the lower extremity. Neurological: Normal gait, Normal speech, Normal strength at 5/5 x4 extr, Normal tone, Normal affect Lymphatics: No axilla or inguinal lymphadenopathy Impression: Dyspnea/chest pain, elevated troponin, anasarca, small right pleural effusion secondary to acute on chronic systolic congestive heart failure with previous EF of 27% History of pulmonary embolism on chronic anticoagulation therapy Hypertension Hyperlipidemia COVID-positive Urine drug screen positive for amphetamines Plan: Dyspnea/chest pain, elevated troponin, anasarca, small right pleural effusion secondary to acute on chronic systolic congestive heart failure with previous EF of 27%: Patient improved. Currently on room air. Continue to diurese. Will change Lasix to twice daily. Continue Aldactone. Elevated troponin likely ischemic demand due to noncompliance. Patient without significant shortness of breath this morning. No significant edema to the lower extremities noted. Patient had not been compliant with her Lasix. Education on the importance of taking her medications addressed in detail. Electrolyte protocol in place. Recheck chest x-ray today. Will discuss with cardiology. Patient appears significantly improved. Consider discharge as early as today or tomorrow. Will reassess this afternoon. History of pulmonary embolism on chronic anticoagulation therapy: Will adjust Xarelto to 20 mg daily. Hypertension: Continue carvedilol 6.25 mg p.o. twice daily, losartan 50 mg p.o. twice daily and spironolactone 25 mg p.o. twice daily Hyperlipidemia: Continue atorvastatin 40 mg p.o. daily COVID-positive: Patient positive for Covid but appears asymptomatic. Currently on room air. We will continue to monitor closely. Urine drug screen positive for amphetamines: We will address cessation education. DVT PPX: Xarelto Code status: Full code Discharge Plan: Home at discharge. Will need to arrange for follow-up with a PCP and cardiology. Time Spent Managing Pts Care (In Minutes): 55
[2021-08-29 06:10] VITALS: BMI 28.1
[2021-08-29 08:32] LABS: Absolute Lymphocytes (CBC) 0.5 K/uL (0.7-4.9); Hematocrit 41.8 % (36.0-45.0); Lymphocytes % 16.7 % (15.3-44.8); MPV 8.1 fL (7.6-11.3)
[2021-08-29 08:51] LABS: Albumin 2.7 g/dL (3.4-5.0); Bilirubin Total 1.3 mg/dL (0.2-1.0); C-Reactive Protein 28.6 mg/L (<3.00); Protein, Total 6.5 g/dL (6.4-8.2); Thyroid Stimulating Hormone 0.378 uIU/mL (0.360-3.740)
[2021-08-29] MEDS ORDERED: RIVAROXABAN 15 MG TABLET PO SCH ×2 (09:00→17:00)
[2021-08-29 09:44] LABS: Anisocytosis 1+; Blood Morphology Comment NOTED (NOT SEEN); Platelet Estimate ADEQ; White Blood Cell Scan OK (OK)
[2021-08-29] MEDS: carvediloL 6.25 MG TAB PO SCH ×2 (09:44→20:20)
[2021-08-29] MEDS: FUROSEMIDE 40 MG/4 ML VIAL IV SCH ×2 (09:44→20:20)
[2021-08-29] MEDS: SPIRONOLACTONE 25 MG TABLET PO SCH ×2 (09:44→20:21)
[2021-08-29] MEDS: LOSARTAN POTASSIUM 50 MG TABLET PO SCH ×2 (09:45→20:20)
--- NOTE | 2021-08-29 11:48 | RAD REPORT ---
EXAM DESCRIPTION: RAD - Chest Single View - 08/29/2021 7:06 am CLINICAL HISTORY: follow up CHF Chest pain. COMPARISON: Chest Single View dated 08/28/2021; Chest Single View dated 08/19/2021; Chest Single View dated 04/25/2021; Chest Single View dated 04/13/2021 FINDINGS: Portable technique limits examination quality. Mild pulmonary edema. The heart is moderately enlarged in size. No displaced fractures. IMPRESSION: Mild CHF.
--- NOTE | 2021-08-29 13:48 | EKG ---
Test Date: 2021-08-28 Test Time: 19:14:59 Nurse Transitional: EO MEASUREMENT RESULTS: Intervals: Rate: 123 RI: 160 QRSD: 86 QT: 308 QTc: 440 [place]: P: 78 RI: 160 QRS: -44 T: 87 INTERPRETIVE STATEMENTS: Sinus tachycardia Left atrial enlargement Left axis deviation Possible Anterior infarct, age undetermined Abnormal ECG Compared to ECG 08/19/2021 17:22:35 Left-axis deviation now present Left anterior fascicular block no longer present Myocardial infarct finding still present Electronically Signed On 08-29-21 13:47:31 [facility] by Xavier Jacobs
[2021-08-29 16:17] LABS: Urine Appearance CLEAR (Clear); Urine Bilirubin NEGATIVE (Negative); Urine Blood NEGATIVE (Negative); Urine Color DK YELLOW (Yellow); Urine Glucose NEGATIVE (Negative); Urine Protein NEGATIVE (Negative)
[2021-08-29 16:32] LABS: Urine Microscopic Reflex NO UMIC
--- NOTE | 2021-08-29 18:15 | CON ---
Date of Consultation: 08/29/2021 Reason For Consultation: Elevated troponin. History Of Present Illness: Ms. Downing is a 45, has a history of congestive heart failure that is ch ronic systolic ejection fraction of 27% in the January of 2021 with severe pulmonary hypertension more t umana 55 mmHg for her right ventricular systolic pressure. Her right atrial pressure was more than 20 mmHg. She has severe COPD. Has a history of pulmonary embolus and hypertension, came in with COVID pneumonia, shortness of breath, elevated troponin. No chest pain. No nausea, vomiting, diaphoresis, PND, orthopnea, pedal edema, palpitation, or syncope. Denied any fevers or chills. Past Medical History: As stated above. Allergies: TO FLAGYL. Review of Systems: Negative. Social History: Positive for use of amphetamine. Medications: At home include aspirin, Coreg, Aldactone Lasix, losartan, and Xarelto. Physical Examination: Vital Signs: Stable, afebrile, oxygenating well. General: No complaint. HEENT: Negative. Neck: Supple with no bruit. Chest: Reveals rales both bases. Cardiac: Revealed a regular rhythm and rate with an S3 gallop. No murmurs or rubs. Abdomen: Benign. Extremities: Revealed no clubbing, cyanosis, or edema. Diagnostic Data: Showed a troponin of 0.17. BNP was 10,458. Impression And Plan: 1.Acute on chronic systolic congestive heart failure. 2.COVID pneumonia. 3.Elevated troponin and BNP secondary to demand ischemia. 4.Hypertension, well controlled. 5.Pulmonary embolus history, on Xarelto. Ms. Downing is on very appropriate therapy from a cardiovascular standpoint. She really needs closer followup and I recommended that she see me in the office in the next 2 weeks. No need for any prater ry intervention at this point. She really should be a candidate for defibrillator and pacemaker if s he follows us closely. EMELY/BEBETO Voice ID: [id number] Report ID: [id number]
[2021-08-29] MEDS ORDERED: ATORVASTATIN 40 MG TAB PO SCH (21:00)
[2021-08-29] MEDS ORDERED: ESZOPICLONE 1 MG TAB PO PRN (21:33)
[2021-08-29] MEDS ORDERED: LORAZEPAM 0.5 MG TABLET PO ONE (21:46)
[2021-08-30 05:24] LABS: Absolute Lymphocytes (CBC) 1.1 K/uL (0.7-4.9); Hematocrit 40.4 % (36.0-45.0); Lymphocytes % 15.6 % (15.3-44.8); MPV 8.3 fL (7.6-11.3); RBC Red Blood Cell Count 4.21 M/uL (3.86-4.86)
[2021-08-30 05:52] LABS: Albumin 2.5 g/dL (3.4-5.0); Bilirubin Total 0.7 mg/dL (0.2-1.0); C-Reactive Protein 15.8 mg/L (<3.00); Potassium 3.2 mmol/L (3.5-5.1); Protein, Total 6.1 g/dL (6.4-8.2)
[2021-08-30] MEDS ORDERED: carvediloL 6.25 MG TAB PO SCH ×2 (06:04→09:00)
[2021-08-30] MEDS ORDERED: SPIRONOLACTONE 25 MG TABLET PO SCH (06:04)
--- NOTE | 2021-08-30 06:06 | P.DS ---
Admission Date: 08/28/21 Discharge Date: 08/30/21 Primary Care Provider: none; Card[facility] Disposition: ROUTINE DISCHARGE Discharge Condition: GOOD Reason for Admission: CHF exacerbation Consultations: Cardiology-Dr. Jacobs Pulmonary-Dr. Thorne Procedures: COVID: Positive CXR: COMPARISON: No comparisonsChest Single View dated 08/19/2021; Chest Single View dated 04/25/2021; Chest Single View dated 04/13/2021; Chest Single View dated 04/11/2021 FINDINGS: Lines: None. Lungs: No evidence of edema or pneumonia. Pleural: No significant pleural effusions or pneumothorax. Cardiac: Cardiomegaly. Bones: No acute fractures. IMPRESSION: No acute cardiopulmonary disease. CT chest: COMPARISON: No comparisons FINDINGS: Chest Wall: No suspicious thyroid nodules or pathologic lymphadenopathy. Lungs: No acute abnormality. Pleura: Small right pleural effusion. Mediastinum/antonieta: No pathologic lymphadenopathy. Pulmonary arteries/Aorta: No filling defect identified. No aortic aneurysm. Heart: No significant pericardial effusion. Cardiomegaly. Reflux of contrast into the hepatic veins. Contrast is concentrated in the right side of the heart. Coronary artery calcifications. Upper abdomen: Ascites is present. Body wall edema. Bones: No acute abnormality. Remote rib fractures. All CT scans are performed using dose optimization technique as appropriate and may include automated exposure control or mA/KV adjustment according to patient size. IMPRESSION: Negative for pulmonary embolism. Four-chamber cardiomegaly with small right pleural effusion and ascites concerning for right heart failure. CT Ab: COMPARISON: No comparisons TECHNIQUE: CT of the abdomen and pelvis was performed. All CT scans are performed using dose optimization technique as appropriate and may include automated exposure control or mA/KV adjustment according to patient size. FINDINGS: Lower chest: Cardiomegaly. Small right pleural effusion. Liver: Hepatic steatosis. Biliary: No biliary ductal dilatation. Stomach: No significant focal abnormality. Duodenum: No significant focal abnormality. Pancreas: No significant abnormality. Spleen: No significant abnormality. Adrenal: No suspicious lesions. Kidney/ureter: No hydronephrosis. No renal calculi. Left renal scarring. Retroperitoneum: No retroperitoneal adenopathy. Vascular: No aneurysm. Atherosclerosis. Bowel: No significant focal abnormality. Appendectomy. Peritoneum: Small volume of ascites. Body wall edema. Bladder: Grossly unremarkable. Reproductive: No adnexal masses. Bones: No acute fracture. IMPRESSION: Ascites and body wall edema favored to be secondary to congestive heart failure. No other acute findings identified in the abdomen. Follow up CXR: COMPARISON: Chest Single View dated 08/28/2021; Chest Single View dated 08/19/2021; Chest Single View dated 04/25/2021; Chest Single View dated 04/13/2021 FINDINGS: Portable technique limits examination quality. Mild pulmonary edema. The heart is moderately enlarged in size. No displaced fractures. IMPRESSION: Mild CHF. Medical Problem List: Dyspnea/chest pain, elevated troponin, anasarca, small right pleural effusion secondary to acute on chronic systolic congestive heart failure with previous EF of 27% History of pulmonary embolism on chronic anticoagulation therapy Hypertension Hyperlipidemia Hypomagnesia COVID-positive Urine drug screen positive for amphetamines Brief History of Present Illness: 45-year-old female with history of chronic systolic congestive heart failure, pulmonary embolism, hypertension, hyperlipidemia presented to the emergency department for chest pain and shortness of breath. Patient reported symptoms over the past 2 to 3 days. Patient has been hospitalized in the past. She apparently stopped taking her Lasix at home. Patient was admitted for further evaluation and treatment. Hospital Course: Patient presented with dyspnea, chest pain. Patient found to have elevated troponin, anasarca and edema. This was secondary to acute on chronic systolic heart failure with ischemic demand. Previous echo shows ejection fraction 27%. Patient had been noncompliant with her medication. She had not been taking her Lasix. Patient also positive for amphetamines. Patient received IV diuresis with improvement. At discharge, patient without significant shortness of breath. No significant anasarca, edema or ascites noted. Patient currently on room air. Compliance with medication addressed in detail. Patient admits to using amphetamines. She understands the risk of continued use. She plans to quit. Education on CHF provided. At discharge she will continue with the 1500 cc/day fluid restriction and low-salt diet. Recommend to monitor her weight daily. If her weight increases by more than 5 pounds, increase in edema noted to the lower extremity or ascites, further adjustment in medication may be required. This can be done with the help of her PCP or scouring train operator. Patient has seen cardiology at [facility]. At discharge she will continue with Lasix 40 mg 1 pill twice daily and Aldactone 25 mg 1 pill twice daily. Recommend follow-up with cardiology in 1 to 2 weeks to follow-up his hospitalization. Recommend to establish care with a PCP to further address and monitor. Education on the importance of compliance with her medication provided along with education CHF. Patient with history of pulmonary embolism currently on anticoagulation therapy. Overall stable. Currently on room air. Patient seen by pulmonology. No need for intervention at this time. At discharge she will continue with Xarelto 20 mg daily. Patient will likely require treatment for 3 to 6 months. Recommend follow-up with pulmonology to further monitor and address. Patient with hypertension. Overall stable. Carvedilol and losartan were decreased during the course of her stay. Blood pressure stable at discharge. At discharge she will continue with carvedilol 3.125 mg 1 pill twice daily and losartan 25 mg 1 pill twice daily. Recommend to monitor blood pressure at least once daily. Recommend to maintain blood pressure less 130/80. Hold medication if blood pressure systolic less than 110. If blood pressure remains above 140/90 further adjustment in her medication may be required. Recommend follow- up with her PCP or scouring train operator to further adjust medication. Patient with hyperlipidemia. At discharge she will continue with Lipitor 40 mg daily. Patient with hypomagnesia. At discharge she will continue with magnesium 400 mg daily. Recommend to recheck labBMP and magnesium level in 1 week to monitor progress. This can be done with the help of her PCP. Patient was Covid positive. Patient appears asymptomatic. Patient required no intervention. Pulmonology was consulted. No need for steroids or other treatment. No need for treatment at this time. Patient will continue with CDC guidelines on COVID-19 including handwashing, face mask use and social distancing. Urine drug screen was positive for amphetamines. Patient admits to use. Cessation education provided. Patient understands the risk of use of amphetamines including heart attack, worsening CHF and even . Patient plans to quit. Vital Signs/Physical Exam: Temp Pulse Resp BP Pulse Ox 97.3 F 86 17 93/68 95 08/29/21 20:00 08/29/21 20:21 08/29/21 20:00 08/30/21 01:48 08/29/21 20:00 General: Alert, In no apparent distress, Oriented x3, Cooperative HEENT: Atraumatic Neck: Supple Respiratory: Clear to auscultation bilaterally, Normal air movement, Other (On room air) Cardiovascular: Normal pulses, Regular rate/rhythm Gastrointestinal: Normal bowel sounds, No ascites, No tenderness, No masses, No rebound, No guarding Musculoskeletal: No erythema, No tenderness, No warmth Integumentary: No tenderness/swelling, No erythema, No warmth, No cyanosis Neurological: Normal speech, Normal strength at 5/5 x4 extr, Normal tone, Normal affect Laboratory Data at Discharge: WBC 7.00 K/uL (4.3-10.9) D 08/30/21 05:07 Hgb 12.9 g/dL (12.0-15.0) 08/30/21 05:07 Hct 40.4 % (36.0-45.0) 08/30/21 05:07 Plt Count 225 K/uL (152-406) 08/30/21 05:07 PT 21.0 SECONDS (9.5-12.5) H 08/28/21 18:57 INR 1.82 08/28/21 18:57 Sodium 138 mmol/L (136-145) 08/30/21 05:07 Potassium 3.2 mmol/L (3.5-5.1) L 08/30/21 05:07 BUN 22 mg/dL (7-18) H 08/30/21 05:07 Creatinine 0.83 mg/dL (0.55-1.3) 08/30/21 05:07 Glucose 158 mg/dL (74-106) H 08/30/21 05:07 Magnesium 1.7 mg/dL (1.8-2.4) L 08/28/21 18:57 Total Bilirubin 0.7 mg/dL (0.2-1.0) 08/30/21 05:07 AST 27 U/L (15-37) 08/30/21 05:07 ALT 33 U/L (12-78) 08/30/21 05:07 Alkaline Phosphatase 121 U/L (45-117) H 08/30/21 05:07 Troponin I 0.08 ng/mL (0.0-0.045) H 08/29/21 08:17 Lipase 21 U/L (73-393) L 08/28/21 18:57 Home Medications: Aspirin [Aspirin EC 81 MG] 81 mg PO DAILY 01/23/21 Furosemide [Lasix*] 40 mg PO BIDL #60 tab 08/30/21 Losartan Potassium [Cozaar*] 25 mg PO BID #30 tablet 08/30/21 Magnesium Oxide [Mag 0X Tab] 400 mg PO DAILY #30 tab 08/30/21 Rivaroxaban [Xarelto] 20 mg PO DAILY #30 tablet 08/30/21 Spironolactone 25 mg PO BID #60 08/30/21 carvediloL [Coreg*] 3.125 mg PO BID #60 tab 08/30/21 New Medications: carvediloL [Coreg*] 3.125 mg PO BID #60 tab Losartan Potassium [Cozaar*] 25 mg PO BID #30 tablet Furosemide [Lasix*] 40 mg PO BIDL #60 tab Magnesium Oxide [Mag 0X Tab] 400 mg PO DAILY #30 tab Spironolactone 25 mg PO BID #60 Rivaroxaban [Xarelto] 20 mg PO DAILY #30 tablet Physician Discharge Instructions: Patient presented with dyspnea, chest pain. Patient found to have elevated troponin, anasarca and edema. This was secondary to acute on chronic systolic heart failure with ischemic demand. Previous echo shows ejection fraction 27%. Patient had been noncompliant with her medication. She had not been taking her Lasix. Patient also positive for amphetamines. Patient received IV diuresis with improvement. At discharge, patient without significant shortness of breath. No significant anasarca, edema or ascites noted. Patient currently on room air. Compliance with medication addressed in detail. Patient admits to using amphetamines. She understands the risk of continued use. She plans to quit. Education on CHF provided. At discharge she will continue with the 1500 cc/day fluid restriction and low-salt diet. Recommend to monitor her weight daily. If her weight increases by more than 5 pounds, increase in edema noted to the lower extremity or ascites, further adjustment in medication may be required. This can be done with the help of her PCP or scouring train operator. Patient has seen cardiology at [facility]. At discharge she will continue with Lasix 40 mg 1 pill twice daily and Aldactone 25 mg 1 pill twice daily. Recommend follow-up with cardiology in 1 to 2 weeks to follow-up his hospitalization. Recommend to establish care with a PCP to further address and monitor. Education on the importance of compliance with her medication provided along with education CHF. Patient with history of pulmonary embolism currently on anticoagulation therapy. Overall stable. Currently on room air. Patient seen by pulmonology. No need for intervention at this time. At discharge she will continue with Xarelto 20 mg daily. Patient will likely require treatment for 3 to 6 months. Recommend follow-up with pulmonology to further monitor and address. Patient with hypertension. Overall stable. Carvedilol and losartan were decre ased during the course of her stay. Blood pressure stable at discharge. At discharge she will continue with carvedilol 3.125 mg 1 pill twice daily and losartan 25 mg 1 pill twice daily. Recommend to monitor blood pressure at least once daily. Recommend to maintain blood pressure less 130/80. Hold medication if blood pressure systolic less than 110. If blood pressure remains above 140/90 further adjustment in her medication may be required. Recommend follow- up with her PCP or scouring train operator to further adjust medication. Patient with hyperlipidemia. At discharge she will continue with Lipitor 40 mg daily. Patient with hypomagnesia. At discharge she will continue with magnesium 400 mg daily. Recommend to recheck labBMP and magnesium level in 1 week to monitor progress. This can be done with the help of her PCP. Patient was Covid positive. Patient appears asymptomatic. Patient required no intervention. Pulmonology was consulted. No need for steroids or other treatment. No need for treatment at this time. Patient will continue with CDC guidelines on COVID-19 including handwashing, face mask use and social distancing. Urine drug screen was positive for amphetamines. Patient admits to use. Cessation education provided. Patient understands the risk of use of amphetamines including heart attack, worsening CHF and even . Patient plans to quit. Diet: AHA Activity: Ad lida Followup: NONE,NONE [Primary Care Provider] - Time spent managing pt's care (in minutes): 55
[2021-08-30 08:44] VITALS: BP 107/75
[2021-08-30] MEDS ORDERED: POTASSIUM CL SA 10 MEQ TAB PO ONE (09:00)
[2021-08-30] MEDS ORDERED: FUROSEMIDE 40 MG TABLET PO SCH (09:00)
[2021-08-30] MEDS ORDERED: LOSARTAN POTASSIUM 50 MG TABLET PO SCH (09:00)
[2021-08-30 09:18] VITALS: O2SAT 96
[2021-08-30 09:55] VITALS: TEMP 97.4
[2021-08-30] MEDS ORDERED: RIVAROXABAN 20 MG TABLET PO SCH (17:00)
[2021-08-30] MEDS ORDERED: carvediloL 3.125 MG TAB PO SCH (21:00)
== END 2021-08-30 10:05 | disposition home or self-care (01) | DRG 291 ==
LOC: ER 17:47 → ERHOLD 21:16 → 4TH 23:52
PROVIDERS: ADMIT Family Medicine; ATTEND Family Medicine
DX: I11.0 Hypertensive heart disease with heart failure (principal); I50.23 Acute on chronic systolic (congestive) heart failure; U07.1 COVID-19; I24.8 Other forms of acute ischemic heart disease; E78.5 Hyperlipidemia, unspecified; E83.42 Hypomagnesemia; F15.90 Other stimulant use, unspecified, uncomplicated; Z91.14 Patient's other noncompliance with medication regimen; Z79.01 Long term (current) use of anticoagulants; Z86.711 Personal history of pulmonary embolism
CPT/HCPCS: 0240U; 36415; 71045; 71275; 74177; 80048; 80053; 80076; 80307; 81003; 81015; 81025; 82728; 82947; 83605; 83690; 83735; 83880; 84145; 84439; 84443; 84484; 85025; 85610; 86140; 87040; 87086; 87088; 93005; 96374; 96375; 99285; J1100; J1940; J2405; Q9967

== ENCOUNTER 2021-10-03 18:20 | Observation (INO) | payer SELFPAY ==
--- OUTSIDE RECORDS SUMMARY | 2021-10-03 18:25 | XMS REPORT | Continuity of Care Document ---
:1975 Author Organization [facility] t Address [address] [place] [address] Support Name Relationship Address Phone ...... Child [address] [phone] [place] [address] YOBANY SO [address] [phone] [address] [place] [address] [place] [address] BONIFACIO HAYWOOD [address] Un[place] [address] Bonifacio Haywood Child [address] [phone] [place] [address] Care Team Providers Name Role Phone Asked, Pcp Primary Care Physician Unavailable Physician, Primary or Family Attending Clinician Unavailsusan Galo RN Attending Clinician Unavailable HOA IZAGUIRRE Attending Clinician Unavailable Hoa Gonzalez Attending Clinician Doctor Unassigned, Name Attending Clinician Unavailable Carolin Bahena Attending Clinician Unavailable Attending Clinician Unavailable Singer CORONADO Attending Clinician Jagdeep VOGT, B Attending Clinician Unavailable VISHNU Attending Clinician Unavailable Cory Reese Attending Clinician Albaro VOGT E Attending Clinician Jasmin CANCINO Attending Clinician Deejay CORONADO Attending Clinician Juan GONZALEZ Attending Clinician Roman MOLINA Attending Clinician Vishnu MOLINA Attending Clinician Kristin MOLINA, Elizabeth Attending Clinician Da Duval MD Attending Clinician Priscilla MOLINA Attending Clinician Pranav MOLINA Attending Clinician Karey Lawrence MD Attending Clinician Provider Attending Clinician Unavailable Prem MOLINA Attending Clinician Edwin MOLINA Attending Clinician Nas Rueda MD Attending Clinician Kia Gaona MD Attending Clinician Jesus Thomason MD Attending Clinician Physician, Primary or Family Admitting Clinician UnavailAries Lizarraga Admitting Clinician Unavailable Carolin Bahena Admitting Clinician Unavailable VISHNU Admitting Clinician Unavailable [...] chronic 2-05 ity of combined combined 00:00: [place] systolic systolic 00 Medica l and and Branch diastolic diastolic heart heart failure failure Acute on Acute on Disease Active 2020-08 Unive rs chronic chronic 1-18 ity of heart heart 00:00: [place] failure, failure, 00 Medica l unspecifie unspecifie Br anch d heart d heart failure failure type type Hypotensio Hypotensio Disease Active U nivers n due to n due to 9-18 ity of hypovolemi hypovolemi [place] 00 [place] Acute on Acute on Disease Active Unive rs chronic chronic 9-13 ity of clinical clinical 00:00: [place] systolic systolic 00 Medica l heart heart Branch failure failure Acute on Acute on Disease Active Unive rs chronic chronic 9-12 ity of diastolic diastolic 00:00: [place] s (congestiv (congestiv 00 Me dical e) heart e) heart Branch failure failure Other Other Disease Active Univers pulmonary pulmonary 9- ity of embolism embolism 00:00: [place] without without 00 Medical acute cor acute cor Bran ch pulmonale pulmonale Recurrent Recurrent Disease Active Uni vers pulmonary pulmonary 9 ity of embolism embolism 00:00: [place] 00 Medical Branch Troponin I Troponin I Disease Active U nivers above above 9- ity of reference reference 00:00: [place] range range 00 Medical Branch Pleural Pleural Disease Active Univers effusion effusion 8-31 ity of 00:00: [place] 00 Medical Branch History of History of Disease Active U nivers pulmonary pulmonary 8-31 ity of embolism embolism 00:00: [place] Medical [facility] Chest pain Chest pain Disease Active U nivers in adult in adult 8-30 ity of 00:00: [place] 00 Medical Branch Acute Acute Disease Active Univers left-sided left-sided 7-27 it y of CHF CHF 00:00: [place] (congestiv (congestiv 00 Me dical e heart e heart Branch failure) failure) SOB SOB Disease Active Univers (shortness (shortness 7-18 it y of of breath) of breath) [place] Nonobstruc Nonobstruc Disease Active U nivers tive tive 7-18 ity of atheroscle atheroscle 00:[place] rosis of rosis of 00 Medica 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 COPD Disease Active Univers exacerbati exacerbati 7-17 it y of on on 00:00: [place] 00 Medical Branch Obesity Obesity Disease Active Univers (BMI (BMI 7-17 ity of 30-39.9) 30-39.9) 00:00: 00 Medical Branch Acute on Acute on [...] 5-24 it y of on on 00:00: Medical Branch Admitted Admitted Disease Active Unive rs for acute for acute 523 ity of congestive congestive 00:00[place] [...] Added automatic ally from request for surgery [id number] Dyspnea on Dyspnea on Disease Active M ethodi exertion exertion 2-22 st 00:00: Hospita 00 l Allergies, Adverse Reactions, Alerts Allergy Allergy Status Severity Reaction(s) Onset Inactive Treating Comm ents Source Name Type Date Date Clinician METRONID DRUG Active Rash Univers AZOLE INGREDI - ity of 00:00: [place] 00 Medical Branch Metronid Propensi Active Rash Univer s azole ty to 5-23 ity of adverse 00:00: [place] reaction 00 Medical s Branch Metronid Propensi Active Rash Method i azole ty to 2-22 st adverse 00:00: Hospita reaction 00 l s to drug metronid DA Active [facility] ITCHING, 2017-0 [facility] azole RASH 1-16 Clear 00:00: [place] 00 [facility] metronid DA Active SV 2016-0 [facility]ole 1-16 [place] [facility] Social History Social Habit Start Date Stop Date Quantity Comments Source History SDOH [facility] Alcohol Std Drinks History SDOH [facility] Alcohol Binge History SDOH [facility] Alcohol Comment Exposure to Yes University of SARS-CoV-2 [facility] (event) [place] Alcohol intake 2021-09-08 2021-09-08 Ex-drinker [facility] 00:00:00 00:00:00 (finding) [facility] [place] [facility] Education 2021-05-03 2021-05-03 10 [place] of 00:00:00 00:00:00 [facility] [place] [facility] Tobacco Comment 2021-03-17 2021-03-17 Quit smoking Univers ity of 00:00:00 00:00:00 10/2020 [facility] [place] [facility] Tobacco use and 2021-01-11 2021-01-11 Never used Universit y of exposure 00:00:00 00:00:00 [facility] [place] [facility] History of 2020-11-05 [facility]oker [facility] tobacco use 00:00:00 History SDOH 2020-10-14 2020-10-14 1 [facility] Alcohol Frequency 00:00:00 00:00:00 History SDOH 2020-10-14 2020-10-14 3 [facility] Financial 00:00:00 00:00:00 History SDDC Food 2020-10-14 2020-10-14 2 [facility] Worry 00:00:00 00:00:00 History SDDC Food 2020-10-14 2020-10-14 2 [facility] Scarcity 00:00:00 00:00:00 Sex [birth year] Universit y of 00:00:00 00:00:00 [facility] [place] [facility] Smoking Status Start Date Stop Date Source Former smoker 2021-01-11 00:00:00 2021-01-11 00:00:00 Universi ty of [facility] [place] [facility] Medications Ordered Filled Start Stop Current Ordering Indication Dosage Frequency Signature Comments Components Source Medication Medication Date Date Medication? Clinician (SIG) Name Name ondansetron 2021- No 4mg 4 mg, Univ ers (ZOFRAN-ODT 09-20 Oral, ity of ) 01:45: 00:32 ONCE, 1 [place] disintegrat 00 :00 dose, On Medi darek ing tablet Sat Branch 4 mg 09/19/21 at 1945, Routine ibuprofen 0 Yes [id number] 600mg Take 1 Univers 600 mg 1-29 tablet by ity of tablet 00:00: mouth [place] 00 every 6 Medical (six) Branch hours as needed for Pain (scale 4-6). benzonatate Yes [id number] 100mg Take 1 Univers 100 mg 1-29 capsule by ity of capsule 00:00: mouth 3 [place] 00 (three) Medical times Branch daily as needed for Cough. ondansetron Yes [id number] 4mg Take 1 Univers (ZOFRAN) 4 1-29 tablet by ity of mg tablet 00:00: mouth [place] 00 every 8 Medical (eight) Branch hours as needed for Nausea and Vomiting (N/V). ibuprofen Yes [id number] 600mg Take 1 Univers 600 mg 1-29 tablet by ity of tablet 00:00: mouth [place] 00 every 6 Medical (six) Branch hours as needed for Pain (scale 4-6). benzonatate Yes [id number] 100mg Take 1 Univers 100 mg 1-29 capsule by ity of capsule 00:00: mouth 3 [place] 00 (three) Medical times Branch daily as needed for Cough. ondansetron 0 Yes [id number] 4mg Take 1 Univers (ZOFRAN) 4 1-29 tablet by ity of mg tablet 00:00: mouth [place] 00 every 8 Medical (eight) Branch hours as needed for Nausea and Vomiting (N/V). diphenhydrA 2021- No 50mg 50 mg, Uni vers MINE 104 -04 Oral, ity of (BENADRYL) 15:30: 14:28 ONCE, 1 [place] as tablet 50 00 :00 dose, On Medica l mg 08/25/21 Branch at 0930, ELI rivaroxaban 2020-08- Yes [id number] 20mg Take 1 Uni vers 20 mg 2-10 -10 tablet by ity of tablet 00:00: 05:59 mouth [place] 00 :00 daily for Medical 30 days. Branch Indication s: a clot in the lung lisinopriL 2020-08- Yes [id number] 2.5mg Take 1 Univers 2.5 mg 2-10 -10 tablet by ity of tablet 00:00: 05:59 mouth [place] 00 :00 daily for Medical 30 days. Branch rivaroxaban 2020-08- Yes [id number] 20mg Take 1 Uni vers 20 mg 2-10 -10 tablet by ity of tablet 00:00: 05:59 mouth [place] 00 :00 daily for Medical 30 days. Branch Indication s: a clot in the lung lisinopriL 2020-08- Yes [id number] 2.5mg Take 1 Univers 2.5 mg 2-10 -10 tablet by ity of tablet 00:00: 05:59 mouth [place] 00 :00 daily for Medical 30 days. Branch budesonide- 2020-08 Yes [id number] 2{puff} Inhale 2 Univers formoteroL 2-09 Puffs 2 ity of 160-4.5 00:00: (two) [place] mcg/actuati 00 times Medical on inhaler daily. Branch meclizine 2020-08 Yes [id number] 12.5mg Take 1 Univers 12.5 mg 2-09 tablet by ity of tablet 00:00: mouth 3 [place] 00 (three) Medical times [place] daily as needed for Dizziness. budesonide- 2020-08 Yes [id number] 2{puff} Inhale 2 Univers formoteroL 2-09 Puffs 2 ity of 160-4.5 00:00: (two) [place] mcg/actuati 00 times Medical on inhaler daily. Branch meclizine 2020-08 Yes [id number] 12.5mg Take 1 Univers 12.5 mg 2-09 tablet by ity of tablet 00:00: mouth 3 [place] 00 (three) Medical times [place] daily as needed for Dizziness. budesonide- 2020-08 Yes [id number] 2{puff} Inhale 2 Univers formoteroL 2-09 Puffs 2 ity of 160-4.5 00:00: (two) [place] mcg/actuati 00 times Medical on inhaler daily. Branch meclizine 2020-08 Yes [id number] 12.5mg Take 1 Univers 12.5 mg 2-09 tablet by ity of tablet 00:00: mouth 3 [place] 00 (three) Medical times Branch daily as needed for Dizziness. budesonide- 2020-08 Yes [id number] 2{puff} Inhale 2 Univers formoteroL 2-09 Puffs 2 ity of 160-4.5 00:00: (two) [place] mcg/actuati 00 times Medical on inhaler daily. Branch meclizine 2020-08 Yes [id number] 12.5mg Take 1 Univers 12.5 mg 2-09 tablet by ity of tablet 00:00: mouth 3 [place] 00 (three) Medical times Branch daily as needed for Dizziness. budesonide- 2020-08 Yes [id number] 2{puff} Inhale 2 Univers formoteroL 2-09 Puffs 2 ity of 160-4.5 00:00: (two) [place] mcg/actuati 00 times Medical on inhaler daily. Branch meclizine 2020-08 Yes [id number] 12.5mg Take 1 Univers 12.5 mg 2-09 tablet by ity of tablet 00:00: mouth 3 [place] 00 (three) Medical times Branch daily as needed for Dizziness. furosemide 2020-08- Yes [id number] 40mg Take 2 Univers 20 mg 09-30- tablets by ity of tablet 00:00: 05:59 mouth 3 [place] 00 :00 (three) Medical times Branch daily for 30 days. atorvastati 2020-08- Yes [id number] 20mg Take 1 Univers n 20 mg 09-30 tablet by ity of tablet 00:00: 05:59 mouth at [place] 00 :00 bedtime Medical for 30 Branch days. carvediloL 2020-08- Yes [id number] 6.25mg Take 1 Univers 6.25 mg 09-30- tablet by ity of tablet 00:00: 05:59 mouth 2 [place] 00 :00 (two) Medical times Branch daily with meals for 30 days. furosemide 2020-08- Yes [id number] 40mg Take 2 Univers 20 mg 09-30- tablets by ity of tablet 00:00: 05:59 mouth 3 [place] 00 :00 (three) Medical times Branch daily for 30 days. atorvastati 2020-08- Yes [id number] 20mg Take 1 Univers n 20 mg 09-30 tablet by ity of tablet 00:00: 05:59 mouth at [place] 00 :00 bedtime Medical for 30 Branch days. carvediloL 2020-08- Yes [id number] 6.25mg Take 1 Univers 6.25 mg 09-30 tablet by ity of tablet 00:00: 05:59 mouth 2 [place] 00 :00 (two) Medical times Branch daily with meals for 30 days. amoxicillin 2020-08- Yes [id number] 1{tbl} Take 1 Univers -clavulanat 09-30 [id number] tablet by ity of e 875-125 00:00: 05:59 mouth 2 [place] mg per 00 :00 (two) Medical tablet times Branch daily for 4 days. doxycycline 2020-08- Yes [id number] 100mg Take 1 Univers hyclate 100 09-30 [id number] capsule by ity of mg capsule 00:00: 05:59 mouth [place] 00 :00 every 12 Medical (twelve) Branch hours for 4 days. KCL 20 mEq 2020-08 Yes [id number] 20meq Take 1 Univers tablet 1-19 tablet by ity of 00:00: mouth [place] 00 daily. Medical Branch spironolact 2020-08 Yes [id number] 25mg Take 1 Univers one 25 mg 1-19 tablet by ity o f tablet 00:00: mouth 2 [place] 00 (two) Medical times Branch daily. KCL 20 mEq 2020-08 Yes [id number] 20meq Take 1 Univers tablet 1-19 tablet by ity of 00:00: mouth [place] 00 daily. Medical Branch spironolact 2020-08 Yes [id number] 25mg Take 1 Univers one 25 mg 1-19 tablet by ity o f tablet 00:00: mouth 2 [place] 00 (two) Medical times Branch daily. KCL 20 mEq 2020-08 Yes [id number] 20meq Take 1 Univers tablet 1-19 tablet by ity of 00:00: mouth [place] 00 daily. Medical Branch spironolact 2020-08 Yes [id number] 25mg Take 1 Univers one 25 mg 1-19 tablet by ity o f tablet 00:00: mouth 2 [place] 00 (two) Medical times Branch daily. KCL 20 mEq 2020-08 Yes [id number] 20meq Take 1 Univers tablet 1-19 tablet by ity of 00:00: mouth 00 daily. Medical Branch spironolact 2020-08 Yes [id number] 25mg Take 1 Univers one 25 mg 1-19 tablet by ity o f tablet 00:00: mouth 2 00 (two) Medical times Branch daily. KCL 20 mEq 2020-08 Yes [id number] 20meq Take 1 Univers tablet 1-19 tablet by ity of 00:00: mouth 00 daily. Medical Branch spironolact 2020-08 Yes [id number] 25mg Take 1 Univers one 25 mg 1-19 tablet by ity o f tablet 00:00: mouth 2 (two) Medical times Branch daily. lisinopriL Yes 10mg QD Take 1 Metho di (PRINIVIL) 4-14 tablet (10 st 10 mg 00:00: mg total) Hospita tablet 00 by mouth l daily for 30 days. albuterol Yes Q6H Inhale Method i (PROAIR 4-[address] HFA) 90 13:04: (six) Hospita mcg/actuati 21 hours as l on inhaler needed for wheezing or shortness of breath. carvediloL 2020- No 6.25mg Q.5D Take 1 Me thodi (COREG) 12-02-[address] 6.25 MG 00:00: 04:59 (6.25 mg Hospi ta tablet 00 :00 total) by l mouth 2 (two) times a day for 30 days. furosemide 2020- No 40mg QD Take 1 Meth preeti (Lasix) 40 12-02 05-14 tablet (40 st mg tablet 00:00: 04:59 mg total) Ho spita 00 :00 by mouth l daily for 30 days. doxycycline 2020- No 100mg Q.5D Take 1 Me thodi (DORYX) 100 11-20-[address] MG EC 00:00: 04:59 (100 [...] 25mg QD Take 1 Met hodi one 10-29-10 tablet (25 st (ALDACTONE) 00:00: 04:59 mg [...] Q4H Take 5 mL Methodi (ROBITUSSIN 10-28 03-24 ([address] ) 100 mg/5 00:00: 04:59 total) by H ospita mL syrup 00 :00 mouth l every 4 (four) hours as needed for cough or congestion for up to 14 days. budesonide/ 2020- No Inhale. Me thodi formoterol -05 03-05 st fumarate 21:54: 00:00 Hospita (SYMBICORT 20 :00 l INHL) budesonide- 2020- No 2{puff} Q.5D Inhale 2 Methodi formoteroL -05 04-[address] (Symbicort) 00:00: 00:00 (two) Hosp eladio 80-4.5 00 :00 times a l mcg/actuati day. on inhaler albuterol No 2{puff} Q4H Inhale 2 Methodi (PROAIR - 04-[address] HFA) 90 00:00: 04:59 [...] Time Observation Value Comments Source Systolic blood 2021-09-20 01:00:00 134 mm[Hg] Univer sity of pressure [facility] [place] [facility] Diastolic blood 2021-09-20 01:00:00 82 mm[Hg] Unive [facility] Heart rate 2021-09-20 01:00:00 102 /min [facility] Body temperature 2021-09-20 01:00:00 37.39 Chandrika [facility] Respiratory rate 2021-09-20 01:00:00 18 /min [facility] Oxygen saturation in 2021-09-20 01:00:00 98 /min University of Arterial blood by [facility] Pulse oximetry Branch Body height 2021-09-20 00:17:00 165.1 cm Universi [facility] Body weight 2021-09-20 00:17:00 [facility] 2021-09-20 00:17:00 27.46 kg/m2 Universi [facility] Systolic blood 2021-08-25 13:31:00 140 mm[Hg] Univer sity of pressure [facility] [place] [facility] Diastolic blood 2021-08-25 13:31:00 86 mm[Hg] Unive rsity of [facility] Heart rate 2021-08-25 13:31:00 109 /min Universi [facility] Body temperature 2021-08-25 13:31:00 37.22 [facility]rika [facility] 2021-08-25 13:31:00 18 /min [facility] Body weight 2021-08-25 13:31:00 74.844 kg [facility] BMI 2021-08-25 13:31:00 27.46 kg/m2 [facility] Oxygen saturation in 2021-08-25 13:31:00 99 /min University of Arterial blood by [facility] Pulse oximetry Branch Systolic blood 2020-12-02 18:30:00 130 mm[Hg] [facility] pressure Diastolic blood 2020-12-02 18:30:00 62 mm[Hg] [facility] pressure Heart rate 2020-12-02 18:30:00 90 /min [facility] Respiratory rate 2020-12-02 18:30:00 18 /min [facility] Oxygen saturation in 2020-12-02 18:30:00 98 /min [facility] Arterial blood by Pulse oximetry Body temperature 2020-12-02 14:22:00 36.56 Chandrika [facility] Body height 2020-12-02 09:22:[address] [facility] Body weight 2020-12-02 09:22:[address] [facility] BMI 2020-12-02 09:22:00 31.62 kg/m2 [facility] Procedures Procedure Date / Time Performing Clinician Source Performed URINALYSIS 2021-09-20 00:34:00 Shahnaz Izaguirre [facility] o f [place] [facility] CONSENT/REFUSAL FOR 2021-09-20 00:11:13 Doctor Unassigned, [facility] DIAGNOSIS AND TREATMENT [facility] TROPONIN 2020-12-02 17:37:[address] [facility] URINE DRUGS OF ABUSE 2020-12-02 14:49:00 Matt Wells [facility] SCREEN TROPONIN 2020-12-02 14:30:[address] [facility] ECG ED PRELIMINARY 2020-12-02 10:02:38 Mukund [facility] INTERPRETATION Da XR CHEST 1 VW PORTABLE 2020-12-02 09:58:58 Calvin Duval [facility] Da B NATRIURETIC PEPTIDE 2020-12-02 09:52:00 Calvin Duval [facility] HC COMPLETE BLD COUNT 2020-12-02 09:52:00 Calvin Duval [facility] W/AUTO DIFF Da COMPREHENSIVE METABOLIC 2020-12-02 09:52:00 Mukund [facility] PANEL Da TROPONIN 2020-12-02 09:52:00 [facility] GFR 2020-12-02 09:52:00 Calvin Duval Ho spital Da SMEAR REVIEW 2020-12-02 09:52:00 Calvin Duval spital Da ECG 12-LEAD 2020-12-02 09:43:07 Calvin Duval spital Da HC COMPLETE BLD COUNT 2020-11-20 10:30:00 Derick Rock [facility] W/AUTO DIFF COMPREHENSIVE METABOLIC 2020-11-20 10:30:00 Derick Rock [facility] PANEL B NATRIURETIC PEPTIDE 2020-11-20 10:30:00 Mathew Latif [facility] ESTIMATED GFR 2020-11-20 10:30:00 [place]ick [place] [facility]ital LACTIC ACID LEVEL, SEPSIS 2020-11-20 06:33:00 Derick Rock [facility] - NOW AND REPEAT 2X EVERY 3 HOURS LACTIC ACID LEVEL, SEPSIS 2020-11-20 03:36:00 Derick Rock [facility] - NOW AND REPEAT 2X EVERY 3 HOURS COVID-19 QUALITATIVE 2020-11-20 00:39:00 [facility] RT-PCR BLOOD CULTURE, AEROBIC & 2020-11-20 00:11:00 [facility] [place] [facility] ANAEROBIC LACTIC ACID LEVEL, SEPSIS 2020-11-20 00:11:00 Derick Rock [facility] - NOW AND REPEAT 2X EVERY 3 HOURS BLOOD CULTURE, AEROBIC & 2020-11-19 23:52:00 Rock [facility] ANAEROBIC CT ABDOMEN PELVIS W 2020-11-19 21:43:28 [facility] CONTRAST CT ANGIOGRAM PE CHEST 2020-11-19 21:42:26 [facility] XR CHEST 1 VW PORTABLE 2020-11-19 21:25:00 [facility] URINE CULTURE 2020-11-19 19:08:00 Pranav Dericklani Mendez spital ECG 12-LEAD 2020-11-19 18:58:50 [facility] spital HC COMPLETE BLD COUNT 2020-11-19 18:57:00 [facility] W/AUTO DIFF COMPREHENSIVE METABOLIC 2020-11-19 18:57:00 [facility] PANEL URINALYSIS SCREEN AND 2020-11-19 18:57:00 [facility] MICROSCOPY, WITH REFLEX TO CULTURE ALCOHOL LEVEL, BLOOD 2020-11-19 18:57:00 [facility] D-DIMER 2020-11-19 18:57:00 [facility] spital ESTIMATED GFR 2020-11-19 18:57:00 [facility] spital HCG QUALITATIVE, URINE 2020-11-19 18:57:00 [facility] SCREEN URINE DRUGS OF ABUSE 2020-11-19 18:48:00 Mathew Latif [facility] SCREEN ECG ED PRELIMINARY 2020-11-19 18:42:01 [facility] INTERPRETATION HC COMPLETE BLD COUNT 2020-10-28 11:44:00 [facility] W/AUTO DIFF BASIC METABOLIC PANEL 2020-10-28 11:44:00 [facility] MAGNESIUM LEVEL 2020-10-28 11:44:00 [facility] ESTIMATED GFR 2020-10-28 11:44:00 [facility] CV RIGHT AND LEFT HEART 2020-10-27 22:46:00 David Richter [facility] CATH SELECTIVE CORONARY LV GRAM POC BLOOD GAS, VENOUS AND 2020-10-27 22:37:00 [facility] LYTES POC BLOOD GAS, VENOUS AND 2020-10-27 22:32:00 [facility] POC BLOOD GAS, ARTERIAL 2020-10-27 22:27:00 [facility] AND LYTES TYPE AND SCREEN 2020-10-27 12:57:00 David Richter [facility] ospital PARTIAL THROMBOPLASTIN 2020-10-27 12:57:00 [facility] TIME (PTT) PROTHROMBIN TIME WITH INR 2020-10-27 12:57:00 Rober, [facility] HCG QUANTITATIVE, SERUM 2020-10-27 12:57:00 [facility] WITH PLATELET AND 2020-10-27 10:42:00 [facility] DIFFERENTIAL Kiya COMPREHENSIVE METABOLIC 2020-10-27 10:42:00 [facility] PANEL Kiya MAGNESIUM LEVEL 2020-10-27 10:42:00 [facility] ESTIMATED GFR 2020-10-27 10:42:00 [facility] Kiya MANUAL DIFFERENTIAL 2020-10-27 10:42:00 [facility] Kiya ECG 12-LEAD 2020-10-27 05:07:15 [facility]INE CULTURE 2020-10-27 00:22:00 [facility] URINALYSIS SCREEN AND 2020-10-27 00:15:00 [facility] MICROSCOPY, WITH REFLEX TO CULTURE XR CHEST 1 VW PORTABLE 2020-10-26 16:32:17 [facility] HC COMPLETE BLD COUNT 2020-10-26 11:40:00 [facility] W/AUTO DIFF Kiya COMPREHENSIVE METABOLIC 2020-10-26 11:40:00 [facility] PANEL Kiya ESTIMATED GFR 2020-10-26 11:40:00 [facility] Kiya TTE COMPLETE, W CONTRAST, 2020-10-25 19:55:00 David Richter [facility] W DOPPLER ([id number]) TROPONIN 2020-10-25 11:37:00 Luis Amaro spital HC COMPLETE BLD COUNT 2020-10-25 11:37:00 [facility] W/AUTO DIFF Kiya COMPREHENSIVE METABOLIC 2020-10-25 11:37:00 [facility] PANEL Kiya ESTIMATED GFR 2020-10-25 11:37:00 [facility] Kiya TROPONIN 2020-10-25 07:30:00 Luis Amaro spital COVID-19 QUALITATIVE 2020-10-25 04:57:00 [facility] HCG QUALITATIVE, URINE 2020-10-25 04:14:00 Luis Amaro [facility] SCREEN XR CHEST 1 VW 2020-10-25 04:13:30 Luis Amaro Ho spital HC COMPLETE BLD COUNT 2020-10-25 02:11:00 Luis Amaro [facility] W/AUTO DIFF COMPREHENSIVE METABOLIC 2020-10-25 02:11:00 Luis Amaro [facility] PANEL PARTIAL THROMBOPLASTIN 2020-10-25 02:11:00 Luis Amaro [facility] TIME (PTT) PROTHROMBIN TIME WITH INR 2020-10-25 02:11:00 Prem [facility] CREATINE KINASE, TOTAL 2020-10-25 02:11:00 [facility] ([facility]) B NATRIURETIC PEPTIDE 2020-10-25 02:11:00 Prem [facility] ESTIMATED GFR 2020-10-25 02:11:00 Luis Amaro spital TROPONIN 2020-10-25 02:11:00 Luis Amaro spital ECG 12-LEAD 2020-10-25 01:45:52 [facility] PRELIMINARY 2020-10-25 01:34:02 Tiagomaria t [facility] INTERPRETATION US HEPATIC 2020-10-14 21:52:47 NwKaren gore spital Mary TROPONIN 2020-10-14 10:25:00 NwKaren gore [facility] Mary HC COMPLETE BLD COUNT 2020-10-14 10:25:00 [facility] DIFF Mary PROTHROMBIN TIME WITH INR 2020-10-14 10:25:00 itara [facility] Mary LIPASE LEVEL 2020-10-14 10:25:00 Karen Bello spital Mary COMPREHENSIVE METABOLIC 2020-10-14 10:25:00 [facility] PANEL Mary THYROID STIMULATING 2020-10-14 10:25:00 [facility] Mary ESTIMATED GFR 2020-10-14 10:25:00 Karen Bello spital Mary LIPID PANEL 2020-10-14 10:25:00 [facility] Mary RESPIRATORY PATHOGEN 2020-10-14 08:41:00 [facility] WITH COVID-19 RT-PCR TROPONIN 2020-10-14 06:23:00 Karen Bello spital Mary CT ANGIOGRAM PE CHEST 2020-10-14 05:18:26 Sidra Giron [facility] ECG ED PRELIMINARY 2020-10-14 03:27:29 [facility] INTERPRETATION ECG 12-LEAD 2020-10-14 03:18:29 Karen Belloist Dieter spital Mary HC COMPLETE BLD COUNT 2020-10-14 03:04:00 [facility] W/AUTO DIFF COMPREHENSIVE METABOLIC 2020-10-14 03:04:00 [facility] CREATINE KINASE, TOTAL 2020-10-14 03:04:00 [facility] ([facility]) TROPONIN 2020-10-14 03:04:00 Karen Bello spital Mary B NATRIURETIC PEPTIDE 2020-10-14 03:04:00 [facility] D-DIMER 2020-10-14 03:04:00 Mack [facility] Dieter fontana HCG QUALITATIVE, SERUM 2020-10-14 03:04:00 [facility] SCREEN ESTIMATED GFR 2020-10-14 03:04:00 Mack [facility] Dieter spital XR CHEST 1 VW PORTABLE 2020-10-14 02:39:45 [facility] Plan of Care Planned Activity Planned Date Details Comments Source Future Scheduled 2021-09-22 COVID-19 VACCINE [facility] Test 23:37:30 (1) [code = COVID-19 VACCINE (1)] Future Scheduled 2021-09-22 Hepatitis C [facility] ospital Test 23:37:30 screening (procedure) [code = 815101268] Future Scheduled 2021-09-22 Screening for [facility] Test 23:37:30 malignant neoplasm of cervix (procedure) [code = 602740531] Future Scheduled 2021-09-22 INFLUENZA VACCINE Method [facility] Test 23:37:30 [code = INFLUENZA VACCINE] Encounters Start End Encounter Admission Attending Care Care Encounter Source Date/Time Date/Time Type Type Clinicians Facility Department ID 2021-09-09 Inpatient EL Physician, TILA HFC [id number] [facility] 15:10:00 No [id number] [facility] 2020-12-05 Inpatient HCAMN PABLO [id number] [facility] 03:20:00 [id number] [facility] 2021-09-20 2021-09-20 Telephone Allyson Galo [id number] Univers 00:00:00 00:00:00 ROSALIO 350.1.13.10 it y of [facility] 4.2.7.2.686 Hoang as [phone] [facility] 019 Branch 2021-09-19 2021-09-19 Emergency X Shahnaz IZAGUIRRE [facility] ERT [id number] Univers 18:26:00 19:16:00 ity of [facility] 2021-09-19 2021-09-19 Emergency Shahnaz Izaguirre [facility] 1.2.840.114 [id number] Univers 18:26:00 19:16:00 Hoa FARHAN 350.1.13.10 i ty of [place] 4.2.7.2.686 [facility] [phone] [place] [id number] Branch 2021-09-19 2021-09-19 Orders Doctor GASTON 1.2.840.114 [id number] Univers 00:00:00 00:00:00 Only Unassigned, ROSALIO 350.1.13.10 [facility] 4.2.7.2.686 Hoang as [phone] [facility] 009 Branch 2021-09-02 2021-09-07 Inpatient EM Bonifacio Bahena [facility].01 AE20 [id number] [facility] 05:35:00 12:54:00 [id number] [facility] 2021-09-02 2021-09-07 Inpatient EM Bonifacio Bahena [facility].01 G001 [id number] [facility] 05:35:00 12:54:00 89 [facility] 2021-08-25 2021-08-25 [facility] [id number] Univers 07:32:00 09:45:00 THEO srivastava of [facility] 2021-08-25 2021-08-25 [facility] 1.2.127.673 [id number] Univers 07:32:00 09:45:00 Theo REAL 350.1.13.10 i ty of [place] 4.2.7.2.686 [facility] [phone] [place] [id number] Branch 2021-07-31 2021-07-31 Transition JENI Gannon 1.2.840.114 [id number] Univers 00:00:00 00:00:00 of Care Farhana B ALMENDAREZ 350.1.13.10 it y of [place] 4.2.7.2.686 Carolyn s [phone] [address] 2021-07-26 2021-07-30 Inpatient X VISHNU [facility] [id number] Univers 15:34:00 13:25:00 FAUSTINA srivastava [facility] 2021-04-06 2021-04-06 [facility] 1.2.668.376 [id number] 12:13:00 14:26:00 Theo Real 350.1.13.10 [place] 4.2.7.2.686 [place] [phone] [id number] 2021-04-06 2021-04-06 Patient Jeni Reese 1.2.840.114 [id number] 00:00:00 00:00:00 Outreach Elyssa E Almendarez 350.1.13.10 [place] 4.2.7.2.686 [id number] 403 2021-04-02 2021-04-02 Patient Rosetta Irvin Jeni 1.2.840.114 [id number] 00:00:00 00:00:00 Outreach E Almendarez 350.1.13.10 [place] 4.2.7.2.686 [id number] 403 2021-03-30 2021-03-30 Patient Rosetta Irvin Jeni 1.2.840.114 [id number] 00:00:00 00:00:00 Outreach E Almendarez 350.1.13.10 [place] 4.2.7.2.686 [id number] 403 2021-03-25 2021-03-25 Patient Rosetta Irvin Jeni 1.2.840.114 [id number] 00:00:00 00:00:00 Outreach E Almendarez 350.1.13.10 [place] 4.2.7.2.686 [id number] 403 2021-03-16 2021-03-18 Emergency Apolinar Castellanos [facility] 1.2.840. 114 [id number] 19:40:00 14:45:00 Yony Villalba 350.1.13.10 [place] 4.2.7.2.686 [place] [phone] 081 2021-03-10 2021-03-10 Transition Jeni Martinez 1.2.840.114 [id number] 00:00:00 00:00:00 of Care Yasmeen Almendarez 350.1.13.10 [place] 4.2.7.2.686 [id number] 403 2021-03-07 2021-03-09 [facility] Edinson Owens [facility] 1.2.840.1 14 [id number] 08:22:00 12:00:00 Encounter Faustina Mares 350.1.13.10 [place] 4.2.7.2.686 [place] [phone] 1 2021-03-09 2021-03-09 Patient Rosetta Irvin 1.2.840.114 [id number] 00:00:00 00:00:00 Outreach E Almendarez 350.1.13.10 [place] 4.2.7.2.686 [id number] 403 2021-03-04 2021-03-04 Patient Rosetta Irvin 1.2.840.114 [id number] 00:00:00 00:00:00 Outreach E Almendarez 350.1.13.10 [place] 4.2.7.2.686 [id number] 403 2021-02-25 2021-02-25 Patient Rosetta Irvin 1.2.840.114 [id number] 00:00:00 00:00:00 Outreach E Almendarez 350.1.13.10 [place] 4.2.7.2.686 [id number] 403 2021-02-09 2021-02-09 Transition Jeni Martinez 1.2.840.114 [id number] 00:00:00 00:00:00 of Care Yasmeen Almendarez 350.1.13.10 [place] 4.2.7.2.686 [id number] 403 2021-01-26 2021-01-26 Telephone CHRISTIANO Foster 1.2.840.114 [id number] 00:00:00 00:00:00 [facility] 350.1.13.10 [facility] 4.2.7.2.686 [id number] 059 2020-12-02 2020-12-02 Emergency Calvin Duval 1.2.840.1 [id number] Methodi 04:27:00 14:00:00 Matt Wells 43444.1.[address] 3.430.2.7 Hospit a .3.519102 l .8 2020-12-02 2020-12-02 Travel 1.2.840.1 1.2.516.602 [id number] Methodi 00:00:00 00:00:[address] 3.430.2.7 0.2.7.3.698 Ho spita .3.500440 084.8 l .8 2020-11-19 2020-11-20 [facility] Derick Rock 1.2.840.1 [id number] 2 [id number] Methodi 13:36:00 16:25:00 Encounter Wil Lawrence 79672.1.[address] 3.430.2.7 Hospit a .3.076811 l .8 2020-11-20 2020-11-20 Documentat Provider, 1.2.840.1 [id number] Methodi 00:00:00 00:00:00 ion Unknown 37490.1.[address] 3.430.2.7 Hospit a .3.635629 l .8 2020-11-19 2020-11-19 Travel 1.2.840.1 1.2.148.156 [id number] Methodi 00:00:00 00:00:[address] 3.430.2.7 0.2.7.3.698 Ho spita .3.450908 084.8 l .8 2020-10-24 2020-10-28 [facility] Luis Amaro 1.2.840.1 [id number] Methodi 19:16:00 12:58:00 Encounter Hong Pineda 50711.1.[address] 3.430.2.7 Hospit a .3.081060 l .8 2020-10-27 2020-10-27 Surgery Marybeth, 1.2.840.1 [id number] Methodi 14:30:00 15:30:00 [address]ell [address]01.1.[address] 3.430.2.7 Hospit a .3.687517 l .8 2020-10-24 2020-10-24 Travel 1.2.840.1 1.2.714.347 [id number] Methodi 00:00:00 00:00:[address] 3.430.2.7 0.2.7.3.698 Ho spita .3.844437 084.8 l .8 2020-10-13 2020-10-14 [facility] 1.2.840.1 [id number] Methodi 19:58:00 19:56:00 Encounter Surjit Thomason 94382.[address] 3.430.2.7 Hospit a .3.846171 l .8 2020-10-13 2020-10-13 Travel 1.2.840.1 1.2.045.185 [id number] Methodi 00:00:00 00:00:[address] 3.430.2.7 0.2.7.3.698 Ho spita .3.089333 084.8 l .8 Results Test Description Test Time Test Comments Results Result Comments Source BASIC METABOLIC PANEL 2021-09-07 08:24:00 Test Item Value Reference Range Interpretation Comme nts SODIUM (test code = NA) 137 mEq/L 134-147 N POTASSIUM (test code = K) 4.0 mEq/L 3.4-5.0 N CHLORIDE (test code = CL) 102 mEq/L 100-108 N CARBON DIOXIDE (test code = CO2) 25 mEq/l 21-33 N ANION GAP (test code = GAP) 14 0-20 N GLUCOSE (test code = GLU) 98 mg/dL 70-110 N BLOOD UREA NITROGEN (test code = 19 mg/dL 7-18 H BUN) GLOMERULAR FILTRATION RATE (test 76.9 95-105 L Units of measure = ml/min/1.73 code = GFR) m2 CREATININE (test code = CREAT) 0.8 mg/dL 0.6-1.3 N CALCIUM (test code = CA) 10.2 mg/dL 8.0-10.5 N CBC W/AUTO [id number] 07:11:00 Test Item Value Reference Range Interpretation Comments WHITE BLOOD CELL (test code = 6.8 x10 3/uL 4.5-11.0 N WBC) RED BLOOD CELL (test code = 6.11 x10 6/uL 3.54-5.02 H RBC) HEMOGLOBIN (test code = HGB) 18.5 g/dL 11.0-15.0 H HEMATOCRIT (test code = HCT) 57.7 % 33.0-45.0 H MEAN CELL VOLUME (test code = 94.4 fL 81.0-99.0 N MCV) MEAN CELL HGB (test code = MCH) 30.3 pg 27.0-33.0 N MEAN CELL HGB CONCETRATION 32.1 g/dL 33.0-37.0 L (test code = MCHC) RED CELL DISTRIBUTION WIDTH CV 14.9 % 11.5-14.5 H (test code = RDW) RED CELL DISTRIBUTION WIDTH SD 51.4 fL 37.0-54.0 N (test code = RDW-SD) PLATELET COUNT (test code = 309 x10 3/uL 150-400 N PLT) MEAN PLATELET VOLUME (test code 10.5 fL 7.0-9.0 H = MPV) NEUTROPHIL % (test code = NT%) 47.1 % 56.0-77.0 L IMMATURE GRANULOCYTE % (test 0.3 % 0.0-2.0 N code = IG%) LYMPHOCYTE % (test code = LY%) 39.6 % 14.0-32.0 H MONOCYTE % (test code = MO%) 10.5 % 4.8-9.0 H EOSINOPHIL % (test code = EO%) 2.1 % 0.3-3.7 N BASOPHIL % (test code = BA%) 0.4 % 0.0-2.0 N NUCLEATED RBC % (test code = 0.0 % 0-0 N NRBC%) NEUTROPHIL # (test code = NT#) 3.18 x10 3/uL 2.0-7.6 N IMMATURE GRANULOCYTE # (test 0.02 x10 3/uL 0.00-0.03 N code = IG#) LYMPHOCYTE # (test code = LY#) 2.67 x10 3/uL 1.0-3.8 N MONOCYTE # (test code = MO#) 0.71 x10 3/uL 0.1-0.8 N EOSINOPHIL # (test code = EO#) 0.14 x10 3/uL 0.0-0.2 N BASOPHIL # (test code = BA#) 0.03 x10 3/uL 0.0-0.2 N NUCLEATED RBC # (test code = 0.00 x10 3/uL 0.0-0.1 N NRBC#) MANUAL DIFF REQUIRED (test code NO = MDIFF) CBC W/AUTO [id number] 08:15:00 Test Item Value Reference Range Interpretation Comments WHITE BLOOD CELL (test code = 6.9 x10 3/uL 4.5-11.0 N WBC) RED BLOOD CELL (test code = 6.14 x10 6/uL 3.54-5.02 H RBC) HEMOGLOBIN (test code = HGB) 18.9 g/dL 11.0-15.0 H HEMATOCRIT (test code = HCT) 57.7 % 33.0-45.0 H MEAN CELL VOLUME (test code = 94.0 fL 81.0-99.0 N MCV) MEAN CELL HGB (test code = MCH) 30.8 pg 27.0-33.0 N MEAN CELL HGB CONCETRATION 32.8 g/dL 33.0-37.0 L (test code = MCHC) RED CELL DISTRIBUTION WIDTH CV 15.4 % 11.5-14.5 H (test code = RDW) RED CELL DISTRIBUTION WIDTH SD 51.2 fL 37.0-54.0 N (test code = RDW-SD) PLATELET COUNT (test code = 322 x10 3/uL 150-400 N PLT) MEAN PLATELET VOLUME (test code 10.3 fL 7.0-9.0 H = MPV) NEUTROPHIL % (test code = NT%) 55.7 % 56.0-77.0 L IMMATURE GRANULOCYTE % (test 0.1 % 0.0-2.0 N code = IG%) LYMPHOCYTE % (test code = LY%) 32.1 % 14.0-32.0 H MONOCYTE % (test code = MO%) 10.3 % 4.8-9.0 H EOSINOPHIL % (test code = EO%) 1.2 % 0.3-3.7 N BASOPHIL % (test code = BA%) 0.6 % 0.0-2.0 N NUCLEATED RBC % (test code = 0.0 % 0-0 N NRBC%) NEUTROPHIL # (test code = NT#) 3.86 x10 3/uL 2.0-7.6 N IMMATURE GRANULOCYTE # (test 0.01 x10 3/uL 0.00-0.03 N code = IG#) LYMPHOCYTE # (test code = LY#) 2.22 x10 3/uL 1.0-3.8 N MONOCYTE # (test code = MO#) 0.71 x10 3/uL 0.1-0.8 N EOSINOPHIL # (test code = EO#) 0.08 x10 3/uL 0.0-0.2 N BASOPHIL # (test code = BA#) 0.04 x10 3/uL 0.0-0.2 N NUCLEATED RBC # (test code = 0.00 x10 3/uL 0.0-0.1 N NRBC#) MANUAL DIFF REQUIRED (test code NO = MDIFF) BASIC METABOLIC [id number] 07:57:00 Test Item Value Reference Range Interpretation Comments SODIUM (test code = NA) 136 mEq/L 134-147 N POTASSIUM (test code = 4.4 mEq/L 3.4-5.0 N K) CHLORIDE (test code = 103 mEq/L 100-108 N CL) CARBON DIOXIDE (test 23 mEq/l 21-33 N code = CO2) ANION GAP (test code = 14 0-20 N GAP) GLUCOSE (test code = 120 mg/dL 70-110 H GLU) BLOOD UREA NITROGEN 19 mg/dL 7-18 H (test code = BUN) GLOMERULAR FILTRATION 76.9 95-105 L Units of measure = RATE (test code = GFR) ml/mi n/1.73 m2 CREATININE (test code = 0.8 mg/dL 0.6-1.3 N CREAT) CALCIUM (test code = 9.6 mg/dL 8.0-10.5 N CA) CBC W/AUTO [id number] 08:50:00 Test Item Value Reference Range Interpretation Comments WHITE BLOOD CELL (test code = 7.5 x10 3/uL 4.5-11.0 WBC) RED BLOOD CELL (test code = 6.24 x10 6/uL 3.54-5.02 H RBC) HEMOGLOBIN (test code = HGB) 18.8 g/dL 11.0-15.0 H HEMATOCRIT (test code = HCT) 59.5 % 33.0-45.0 H MEAN CELL VOLUME (test code = 95.4 fL 81.0-99.0 N MCV) MEAN CELL HGB (test code = MCH) 30.1 pg 27.0-33.0 N MEAN CELL HGB CONCETRATION 31.6 g/dL 33.0-37.0 L (test code = MCHC) RED CELL DISTRIBUTION WIDTH CV 15.0 % 11.5-14.5 H (test code = RDW) RED CELL DISTRIBUTION WIDTH SD 51.8 fL 37.0-54.0 N (test code = RDW-SD) PLATELET COUNT (test code = 291 x10 3/uL 150-400 N PLT) MEAN PLATELET VOLUME (test code 10.4 fL 7.0-9.0 H = MPV) NEUTROPHIL % (test code = NT%) 54.1 % 56.0-77.0 L IMMATURE GRANULOCYTE % (test 0.3 % 0.0-2.0 N code = IG%) LYMPHOCYTE % (test code = LY%) 33.6 % 14.0-32.0 H MONOCYTE % (test code = MO%) 9.7 % 4.8-9.0 H EOSINOPHIL % (test code = EO%) 1.9 % 0.3-3.7 N BASOPHIL % (test code = BA%) 0.4 % 0.0-2.0 N NUCLEATED RBC % (test code = 0.0 % 0-0 N NRBC%) NEUTROPHIL # (test code = NT#) 4.05 x10 3/uL 2.0-7.6 N IMMATURE GRANULOCYTE # (test 0.02 x10 3/uL 0.00-0.03 N code = IG#) LYMPHOCYTE # (test code = LY#) 2.52 x10 3/uL 1.0-3.8 N MONOCYTE # (test code = MO#) 0.73 x10 3/uL 0.1-0.8 N EOSINOPHIL # (test code = EO#) 0.14 x10 3/uL 0.0-0.2 N BASOPHIL # (test code = BA#) 0.03 x10 3/uL 0.0-0.2 N NUCLEATED RBC # (test code = 0.00 x10 3/uL 0.0-0.1 N NRBC#) MANUAL DIFF REQUIRED (test code NO = MDIFF) BASIC METABOLIC [id number] 07:23:00 Test Item Value Reference Range Interpretation Comments SODIUM (test code = NA) 134 mEq/L 134-147 N POTASSIUM (test code = 4.5 mEq/L 3.4-5.0 K) CHLORIDE (test code = 103 mEq/L 100-108 N CL) CARBON DIOXIDE (test 21 mEq/l 21-33 N code = CO2) ANION GAP (test code = 15 0-20 N GAP) GLUCOSE (test code = 110 mg/dL 70-110 GLU) BLOOD UREA NITROGEN 16 mg/dL 7-18 N (test code = BUN) GLOMERULAR FILTRATION 76.9 95-105 L Units of measure = RATE (test code = GFR) ml/mi n/1.73 m2 CREATININE (test code = 0.8 mg/dL 0.6-1.3 N CREAT) CALCIUM (test code = 9.3 mg/dL 8.0-10.5 N CA) [id number] 10:30:00 Test Item Value Reference Range Interpretation Comments MAGNESIUM (test code = MAG) 2.12 mg/dL 1.80-2.40 COMMENTS: may use this AM specimen in labBASIC METABOLIC [id number] 07:45:00 Test Item Value Reference Range Interpretation Comments SODIUM (test code = NA) 136 mEq/L 134-147 N POTASSIUM (test code = 3.7 mEq/L 3.4-5.0 N K) CHLORIDE (test code = 101 mEq/L 100-108 N CL) CARBON DIOXIDE (test 27 mEq/l 21-33 N code = CO2) ANION GAP (test code = 12 0-20 N GAP) GLUCOSE (test code = 87 mg/dL 70-110 GLU) BLOOD UREA NITROGEN 17 mg/dL 7-18 N (test code = BUN) GLOMERULAR FILTRATION 76.9 95-105 L Units of measure = RATE (test code = GFR) ml/mi n/1.73 m2 CREATININE (test code = 0.8 mg/dL 0.6-1.3 CREAT) CALCIUM (test code = 8.5 mg/dL 8.0-10.5 N CA) CBC W/AUTO [id number] 07:41:00 Test Item Value Reference Range Interpretation Comments WHITE BLOOD CELL (test code = 5.0 x10 3/uL 4.5-11.0 N WBC) RED BLOOD CELL (test code = 5.44 x10 6/uL 3.54-5.02 H RBC) HEMOGLOBIN (test code = HGB) 16.7 g/dL 11.0-15.0 H HEMATOCRIT (test code = HCT) 51.9 % 33.0-45.0 H MEAN CELL VOLUME (test code = 95.4 fL 81.0-99.0 N MCV) MEAN CELL HGB (test code = MCH) 30.7 pg 27.0-33.0 N MEAN CELL HGB CONCETRATION 32.2 g/dL 33.0-37.0 L (test code = MCHC) RED CELL DISTRIBUTION WIDTH CV 15.1 % 11.5-14.5 H (test code = RDW) RED CELL DISTRIBUTION WIDTH SD 52.1 fL 37.0-54.0 N (test code = RDW-SD) PLATELET COUNT (test code = 275 x10 3/uL 150-400 N PLT) MEAN PLATELET VOLUME (test code 10.6 fL 7.0-9.0 H = MPV) NEUTROPHIL % (test code = NT%) 48.5 % 56.0-77.0 L IMMATURE GRANULOCYTE % (test 0.2 % 0.0-2.0 N code = IG%) LYMPHOCYTE % (test code = LY%) 34.2 % 14.0-32.0 H MONOCYTE % (test code = MO%) 13.7 % 4.8-9.0 H EOSINOPHIL % (test code = EO%) 2.8 % 0.3-3.7 N BASOPHIL % (test code = BA%) 0.6 % 0.0-2.0 N NUCLEATED RBC % (test code = 0.0 % 0-0 N NRBC%) NEUTROPHIL # (test code = NT#) 2.44 x10 3/uL 2.0-7.6 N IMMATURE GRANULOCYTE # (test 0.01 x10 3/uL 0.00-0.03 N code = IG#) LYMPHOCYTE # (test code = LY#) 1.72 x10 3/uL 1.0-3.8 N MONOCYTE # (test code = MO#) 0.69 x10 3/uL 0.1-0.8 N EOSINOPHIL # (test code = EO#) 0.14 x10 3/uL 0.0-0.2 N BASOPHIL # (test code = BA#) 0.03 x10 3/uL 0.0-0.2 N NUCLEATED RBC # (test code = 0.00 x10 3/uL 0.0-0.1 N NRBC#) MANUAL DIFF REQUIRED (test code NO = MDIFF) BASIC METABOLIC [id number] 06:17:00 Test Item Value Reference Range Interpretation Comments SODIUM (test code = NA) 134 mEq/L 134-147 N POTASSIUM (test code = 3.1 mEq/L 3.4-5.0 L K) CHLORIDE (test code = 99 mEq/L 100-108 L CL) CARBON DIOXIDE (test 29 mEq/l 21-33 N code = CO2) ANION GAP (test code = 9 0-20 N GAP) GLUCOSE (test code = 147 mg/dL 70-110 H GLU) BLOOD UREA NITROGEN 22 mg/dL 7-18 H (test code = BUN) GLOMERULAR FILTRATION 53.2 95-105 L Units of measure = RATE (test code = GFR) ml/mi n/1.73 m2 CREATININE (test code = 1.1 mg/dL 0.6-1.3 N CREAT) CALCIUM (test code = 8.5 mg/dL 8.0-10.5 N CA) LIPID PROFILE (CORONARY RISK)2021 06:17:00 Test Item Value Reference Range Interpretation Comments TRIGLYCERIDES (test 79 mg/dL 40-150 N code = TRIG) CHOLESTEROL (test 90 mg/dL <200 code = CHOL) CHOLESTEROL/HDL 4.00 RATIO 3.27-4.44 N RISK ASSOCIA RAMAN WITH RATIO (test code = CHOL/HDL RATIOS: CHOLHDL) RISK MALE FEMALE1/2 A VERAGE 3.43 3.27AVERAGE 4.97 4.4 42X AVERAGE 9[address] RAGE 23.39 11.04 NOTE THAT THE REFERENCE VALUE IS RELATEDTO RISK LEVELS RECOMMENDED BY THE NATL.HEART, KATINA G, AND BLOOD INST. HDL CHOLESTEROL < 20.0 mg/dL 39-96 L (test code = HDL) LIPOPROTEIN LDL 73.4 mg/dL 0-100 N <100 (test code = LDL) [id number] -129 NEAR OPTIMAL/ABOVE [id number] 89 HIGH>MZ=614 VE RY HIGH*Guidelines provided by the National Choles terol Education[employer]gra m Adult Treatment Panel III [id number] 06:17:00 Test Item Value Reference Range Interpretation Comments PHOSPHOROUS (test code = PHOS) 3.7 MG/DL 2.5-4.9 N [id number] 06:17:00 Test Item Value Reference Range Interpretation Comments MAGNESIUM (test code = MAG) 1.45 mg/dL 1.80-2.40 L CBC W/AUTO [id number] 05:59:00 Test Item Value Reference Range Interpretation Comments WHITE BLOOD CELL (test code = 6.5 x10 3/uL 4.5-11.0 N WBC) RED BLOOD CELL (test code = 4.67 x10 6/uL 3.54-5.02 N RBC) HEMOGLOBIN (test code = HGB) 14.3 g/dL 11.0-15.0 N HEMATOCRIT (test code = HCT) 44.3 % 33.0-45.0 N MEAN CELL VOLUME (test code = 94.9 fL 81.0-99.0 N MCV) MEAN CELL HGB (test code = MCH) 30.6 pg 27.0-33.0 N MEAN CELL HGB CONCETRATION 32.3 g/dL 33.0-37.0 L (test code = MCHC) RED CELL DISTRIBUTION WIDTH CV 14.8 % 11.5-14.5 H (test code = RDW) RED CELL DISTRIBUTION WIDTH SD 50.9 fL 37.0-54.0 N (test code = RDW-SD) PLATELET COUNT (test code = 242 x10 3/uL 150-400 N PLT) MEAN PLATELET VOLUME (test code 10.5 fL 7.0-9.0 H = MPV) NEUTROPHIL % (test code = NT%) 51.0 % 56.0-77.0 L IMMATURE GRANULOCYTE % (test 0.3 % 0.0-2.0 N code = IG%) LYMPHOCYTE % (test code = LY%) 34.5 % 14.0-32.0 H MONOCYTE % (test code = MO%) 11.9 % 4.8-9.0 H EOSINOPHIL % (test code = EO%) 2.0 % 0.3-3.7 N BASOPHIL % (test code = BA%) 0.3 % 0.0-2.0 N NUCLEATED RBC % (test code = 0.0 % 0-0 N NRBC%) NEUTROPHIL # (test code = NT#) 3.31 x10 3/uL 2.0-7.6 N IMMATURE GRANULOCYTE # (test 0.02 x10 3/uL 0.00-0.03 N code = IG#) LYMPHOCYTE # (test code = LY#) 2.24 x10 3/uL 1.0-3.8 N MONOCYTE # (test code = MO#) 0.77 x10 3/uL 0.1-0.8 N EOSINOPHIL # (test code = EO#) 0.13 x10 3/uL 0.0-0.2 N BASOPHIL # (test code = BA#) 0.02 x10 3/uL 0.0-0.2 N NUCLEATED RBC # (test code = 0.00 x10 3/uL 0.0-0.1 N NRBC#) MANUAL DIFF REQUIRED (test code NO = MDIFF) TSH REFLEX TO [id number] 11:40:00 Test Item Value Reference Range Interpretation Comments TSH REFLEX TO FT4 (test code = 3.13 IU/mL 0.42-5.47 N TSHREFLEX) HGBA1C%2021-09-02 11:32:00 Test Item Value Reference Range Interpretation Comments HGBA1C% (test code = HGBA1C%) 6.2 %A1C 4.8-6.0 H TROP-I HIGH [id number] 05:15:00 Test Item Value Reference Range Interpretation Comments TROP-I HIGH 149 ng/L 0-34 HH CAUTION: Units of the SENSITIVITY (test current te st methodology code = TROPIHS) (ng/L) diffe rfrom the prior test meth odology (ng/mL) by a fa ctor of 1000. 99t h Percentile Uppe r Reference Limit (URL): Fe males: 34 ng/LMales: 54 ng/L In order to distin guish acute elevations of h igh sensitivitytrop onin from other clinical conditions, the FourthUnive rsal Definition of M yocardial Infarction stressesclinica l assessment and the demonstration o f a rise and/orfall in s erial troponin result s above the URL. These resu lts were obtained using [employer] ([employer]) IM TnI Hreagent. Results from di fferent methodologies s hould not becompared to o ne another as quantitative results and URLs mayvar y by method. UA RFLX MICR CULT IF [id number] 04:09:00 Test Item Value Reference Range Interpretation Comments UA COLOR (test code = COLU) YELLOW YEL/STRAW UA APPEARANCE (test code = SL CLOUDY CLEAR APPU) UA GLUCOSE DIPSTICK (test code NEGATIVE NEGATIVE = DGLUU) UA BILIRUBIN DIPSTICK (test NEGATIVE NEGATIVE code = BILU) UA KETONE DIPSTICK (test code NEGATIVE NEGATIVE = KETU) UA SPECIFIC GRAVITY (test code 1.006 1.005-1.030 N = SGU) UA BLOOD DIPSTICK (test code = NEGATIVE NEGATIVE LULU) UA PH DIPSTICK (test code = 6.0 5.0-7.0 N YARI) UA PROTEIN DIPSTICK (test code NEGATIVE NEGATIVE = PROU) UA UROBILINIOGEN DIPSTICK 0.2 mg/dL 0.2-1.0 (test code = URO) UA NITRITE DIPSTICK (test code NEGATIVE NEGATIVE = ZAIDA) UA LEUKOCYTE ESTERASE DIPSTICK 3+ NEGATIVE A (test code = LEUU) UA WBC (test code = WBCU) 4-9 WBC/HPF 0-3 A UA RBC (test code = RBCU) 0-3 RBC/HPF 0-3 UA WBC NO REFLEX (test code = 4-9 WBC/HPF 0-3 A WBCUCL) UA BACTERIA (test code = BACU) NONE SEEN /HPF NONE SEEN UA SQUAMOUS CELLS (test code = 0-5 /HPF NONE SEEN SQU) Indication for culture: RiskForSepsis-no oth srcSpecimen Description: CLEAN CATCHLIPOPROTEIN [id number] 03:52:00 Test Item Value Reference Range Interpretation Comments LIPOPROTEIN LDL 67.7 mg/dL 0-100 N <100 OPT [id number] (test code = LDL) NEAR OPTIM AL/ABOVE [id number] 89 HIGH>BS=190 VE RY HIGH*Guidelines provided by the National Cholesterol EducationProgra m Adult Treatment Panel III B-TYPE NATRIURETIC [id number] 03:38:00 Test Item Value Reference Range Interpretation Comments B-TYPE NATRIURETIC PEPTIDE (test 1360.0 PG/ML 0-100 H code = BNP) [id number] 03:33:00 Test Item Value Reference Range Interpretation Comments LIPASE (test code = LIP) 27 U/L 13-57 N TROP-I HIGH [id number] 03:33:00 Test Item Value Reference Range Interpretation Comments TROP-I HIGH 148 ng/L 0-34 HH Critical result called to SENSITIVITY (test TEN [employer]NA[employer] STONE [facility] code = TROPIHS) G.LAB.WC1 at 0331 09/02/21Ncolette r ead back result and tech confirmed it's correct? Y ESCAUTION: Units of the cu rrent test methodology (ng /L) differfrom the prior test methodology (ng /mL) by a factor of 1000. 99t h Percentile Uppe r Reference Limit (URL): Fe males: 34 ng/LMales: 54 ng/L In order to distin guish acute elevations of h igh sensitivitytrop onin from other clinical conditions, the FourthUnive rsal Definition of M yocardial Infarction stressesclinica l assessment and the demonstration o f a rise and/orfall in s erial troponin result s above the URL. These resu lts were obtained using [employer] IM TnI Hreagent. Results from di braydon methodologies s hould not becompared to o ne another as quantitative results and URLs mayvar y by method. BASIC METABOLIC [id number] 03:33:00 Test Item Value Reference Range Interpretation Comments SODIUM (test code = NA) 135 mEq/L 134-147 N POTASSIUM (test code = 3.8 mEq/L 3.4-5.0 N K) CHLORIDE (test code = 103 mEq/L 100-108 N CL) CARBON DIOXIDE (test 27 mEq/l 21-33 N code = CO2) ANION GAP (test code = 9 0-20 N GAP) GLUCOSE (test code = 163 mg/dL 70-110 H GLU) BLOOD UREA NITROGEN 17 mg/dL 7-18 N (test code = BUN) GLOMERULAR FILTRATION 67.4 95-105 L Units of measure = RATE (test code = GFR) ml/mi n/1.73 m2 CREATININE (test code = 0.9 mg/dL 0.6-1.3 N CREAT) CALCIUM (test code = 9.2 mg/dL 8.0-10.5 N CA) HEPATIC FUNCTION [id number] 03:33:00 Test Item Value Reference Range Interpretation Comments TOTAL PROTEIN (test code = PROT) 6.7 g/dL 6.4-8.2 N ALBUMIN (test code = ALB) 3.40 g/dL 3.4-5.0 N BILIRUBIN TOTAL (test code = 1.00 mg/dL 0.0-1.0 N BILT) BILIRUBIN DIRECT (test code = 0.50 MG/DL 0.0-0.30 H BILD) BILIRUBIN INDIRECT (test code = 0.50 MG/DL BILIND) SGOT/AST (test code = AST) 34 IUnit/L 15-37 N SGPT/ALT (test code = ALT) 26 IUnit/L 30-65 L ALKALINE PHOSPHATASE TOTAL (test 152 IUnit/L 20-125 H code = ALKP) LACTIC [id number] 03:29:00 Test Item Value Reference Range Interpretation Comments LACTIC ACID (test code = LACT) 1.4 mmol/L 0.4-1.9 N CBC W/AUTO [id number] 03:21:00 Test Item Value Reference Range Interpretation Comments WHITE BLOOD CELL (test code = 5.7 x10 3/uL 4.5-11.0 N WBC) RED BLOOD CELL (test code = 4.41 x10 6/uL 3.54-5.02 N RBC) HEMOGLOBIN (test code = HGB) 13.4 g/dL 11.0-15.0 N HEMATOCRIT (test code = HCT) 42.3 % 33.0-45.0 N MEAN CELL VOLUME (test code = 95.9 fL 81.0-99.0 N MCV) MEAN CELL HGB (test code = MCH) 30.4 pg 27.0-33.0 N MEAN CELL HGB CONCETRATION 31.7 g/dL 33.0-37.0 L (test code = MCHC) RED CELL DISTRIBUTION WIDTH CV 14.7 % 11.5-14.5 H (test code = RDW) PLATELET COUNT (test code = 231 x10 3/uL 150-400 N PLT) NEUTROPHIL % (test code = NT%) 57.5 % 56.0-77.0 N LYMPHOCYTE % (test code = LY%) 29.9 % 14.0-32.0 N NEUTROPHIL # (test code = NT#) 3.28 x10 3/uL 2.0-7.6 N LYMPHOCYTE # (test code = LY#) 1.70 x10 3/uL 1.0-3.8 N MANUAL DIFF REQUIRED (test code NO = MDIFF) RED CELL DISTRIBUTION WIDTH SD 51.8 fL 37.0-54.0 N (test code = RDW-SD) MEAN PLATELET VOLUME (test code 10.2 fL 7.0-9.0 H = MPV) IMMATURE GRANULOCYTE % (test 0.4 % 0.0-2.0 N code = IG%) MONOCYTE % (test code = MO%) 11.4 % 4.8-9.0 H EOSINOPHIL % (test code = EO%) 0.4 % 0.3-3.7 N BASOPHIL % (test code = BA%) 0.4 % 0.0-2.0 N NUCLEATED RBC % (test code = 0.0 % 0-0 N NRBC%) IMMATURE GRANULOCYTE # (test 0.02 x10 3/uL 0.00-0.03 N code = IG#) MONOCYTE # (test code = MO#) 0.65 x10 3/uL 0.1-0.8 N EOSINOPHIL # (test code = EO#) 0.02 x10 3/uL 0.0-0.2 N BASOPHIL # (test code = BA#) 0.02 x10 3/uL 0.0-0.2 N NUCLEATED RBC # (test code = 0.00 x10 3/uL 0.0-0.1 N NRBC#) COVID 19 INHOUSE [id number] 03:03:00 Test Item Value Reference Range Interpretation Comments COVID 19 INHOUSE POSITIVE Negative A AG (test code = --A negative [id number]) result is presu mptive and should be confi rmedwith an FDA authorized molecular assay, if neces mata forpatient jessica singh.A positive result does not rule out co-inf ections withother patho gens.This test detects ronen th viable (live) and non-viable,SARS -CoV, and SARS-CoV-2. Sam t performance dep ends on theamount of vi jj (antigen) in th e sample.This sam t has not been FDA cleare d or approved; the t est hasbeen authorized by Meg SCHAEFER under an Emergency Use Authorization(E UA) for use by laboratories certified under the CLIA thatmeet the requirements to perform moderate, high or waivedcomplexit y tests. - XR CHEST 1 [id number] 00:00:00 [facility] 1975 Sex: F FAX: Stone Gamino NP [phone] [place]: St: REG Name: ASHLY HAYWOOD [facility] [place] : 1975 Age/S: 45/F [address] [place] [address] Unit #: [id number] Loc: [place] [address] Phys: Stone Gamino NP Acct: [id number] Dis Date: Status: REG ER PHONE #: [phone] Exam Date: 09/02/2021339 FAX #: [phone] Reason: SOB EXAMS: CPT CODE: [id number] XR CHEST 1 V 00244 PROCEDURE INFORMATION: Exam: XR Chest Exam date and time: 09/02/2021 3:34 AM Age: 45 years old Clinical indication: Cough and fever and shortness of breath; Additional info: SOB TECHNIQUE: Imaging protocol: XR of the chest. Views: 1 view. COMPARISON: CR XR CHEST 1V 09/19/2016 9:49 PM FINDINGS: Lungs: Lung volumes are maintained. There are no infiltrates. Pleural spaces: Unremarkable. No pleural effusion. No pneumothorax. Heart/Mediastinum: The cardiac silhouette is enlarged. Bones/joints: Unremarkable. IMPRESSION: No acute findings. at 0347 Reported and signed by: Nohemi Porter M.D CC: Stone Gamino NP Technologist: RT Lani(Honey) Trnscrd Date/Time/By: 09/02/2021 (034) : By: [email or web address] Orig Print D/T: S: 09/02/2021 (034) PAGE 1 Signed Report- XR SHOULDER 2 + V [id number] 04:14:00 [facility] : 1975 Sex: F FAX: Carmita Truong [phone] [place]: St: REG FAX: Jose Herrmann MD Name: ASHLY HAYWOOD [facility] : 1975 Age/S: 45/F [address] [facility] Unit #: [id number] Loc: [address] Phys: [place] [id number] Acct: [id number] Dis Date: Status: REG ER PHONE #: [phone] Exam Date: 12/05/2020400 FAX #: [phone] Reason: pain EXAMS: CPT CODE: [id number] XR SHOULDER 2 + V RT [id number] EXAM:- XR SHOULDER 2 + V RT HISTORY: Pain. COMPARISON: None available time ofinterpretation. FINDINGS: Internal and external rotated AP views of the right shoulder with scapular Y view is provided. There is no acute fracture or dislocation. The osseous structures are intact. IMPRESSION: No acute osseous abnormality. at 0414 Reported and signed by: Gearld Light M.D. CC: Carmita Randall MD; Jose Herrmann MD Technologist: NGUYEN RÍOS Trnorrd Date/Time/By: 12/05/2020 (0414) : By: [email or web address] PAGE1 Signed Report FAX: Carolin PrakashCarmita [phone] [place]: St: REG FAX: Jose Herrmann MD Name: ASHLY HAYWOOD [facility] : 1975 Age/S: 45/F [address] [facility] Unit #: [id number] Loc: [address] Phys: [place] [id number] Acct: [id number] Dis Date: Status: REG ER PHONE #: [phone] Exam Date: 12/05/2020 0401 FAX #: [phone] Reason: pain EXAMS: CPT CODE: [id number] XR SHOULDER2 + V RT [id number] <Continued> Orig Print D/T: S: 12/05/2020 (1625) PAGE 2 Signed ReportECG 12 [id number] 03:49:04 Test Item Value Reference Range Interpretation [...] of 19-NOV-2020 13:58,-No significant change was found-- [facility]2021-04-05 19:17:27 Test Item Value Reference Range Interpretation Comments Urine culture Mixed lawrence Specimen isolate (test <=10-3 col/cc InformationSp ecimen code = 41464-4) Source: Soumya eSpecimen Site: Clean cat [facility], (w Contrast, Strain and 3D if needed)2020-10-26 17:20:16 Test Item Value Reference Range Interpretation Comments Velocity Ratio 0.70 m/s (V1/V2) (test code = 4689) IVS,d (test code = 1.05 cm 1678357227) EF (test code = 27.14 % 7815215381) LVPWD,d (test code = 0.97 cm 6413468220) AoV Mean PG (test mmHg code = 6996554973) AV LVOT peak gradient mmHg (test code = 1613100299) MV valve area p 1/2 5.59 cm2 method (test code = 2772960498) E wave decelartion msec time (test code = 1334317854) LVOT Diam,S (test 2.23 cm code = 4532176065) LVOT area (test code 3.90 cm2 = 2669189010) LVOT Vmax (test code 0.99 m/s = 1679553630) LVOT VTI (test code = 0.17 m 3086718951) LVOT stroke volume 0.66 cm3 (test code = 4667902323) AoV Peak PG (test mmHg code = 5545151578) MV Peak E Rome (test 1.32 m/s code = 3418350070) MV stenosis pressure 39.33 ms 1/2 time (test code = 8162768928) MV Peak A Rome (test 0.00 m/s code = 1197962116) LV Vol,s A2C (test 126.84 mL code = 5421512000) LV Vol,d A2C (test 186.07 mL code = 0127715894) AoV Area, Vmax (test 2.73 cm2 code = 2349125188) AoV Area, VTI (test 3.37 cm2 code = 7136937831) AoV Vmax (test code = 1.42 m/s 9135208145) LV,d (test code = 5.39 cm 6128231052) LV,s (test code = 4.70 cm 1138030921) LV Vol,d A4C (test 164.06 ml code = 1172828122) LV Vol,s A4C (test 106.99 ml code = 1911481529) TR Vpeak (test code = 2.66 mm/s 0457350162) MV E A ratio (test code = 8089015915) RA pressure (test mmHg code = 9269789761) TR pk grad (test code mmHg = 3426870496) MR peak grad (test mmHg code = 8969139047) LA Vol 4C (test code 97.00 ml = 9856287249) RVSP (test code = mmHg 8335673259) LV SYS VOL (test code 102.44 ml = 2541398313) LV HEDRICK VOL (test 140.60 ml code = 3151189186) LA diam s (test code 4.10 cm = 4359981878) LA area s A4C (test 28.10 cm2 code = 5725251534) LA Vol MOD A4C (test 97.27 ml code = 9654639136) LV SV Teich 2D (test 38.16 ml code = 6175289097) LVOT SI (test code = 33.69 ml/m2 7907713353) AoV Cusp sep (test code = 4199421431) Aortic Root (test 2.53 cm code = 4837595593) AoV Vmn (test code = 2962093392) IVS s 2D (test code = 8835062898) LA Ao Ratio Mmode (test code = 5027781448) GA End Hedrick Grad (test code = 7929009969) GA End Diat Rome (test code = 4689904744) D E excurs (test code = 1194340861) E f slope (test code = 0823256248) E prime lat (test code = 7889569666) E favio sept (test code = 0776650393) PV acc T slope (test code = 0493764087) PV AT (test code = msec 4143797422) NGUYEN BP EF (test 32.00 % code = 3635459195) LA VOL 2C (test code 74.00 ml = 3062904320) AoV VTI (test code = 0.20 m 0373189302) LV EF,A2C (test code 31.83 % = 3109944517) LV EF,A4C (test code 34.78 % = 4529147581) LV EF,BP (test code = 32.29 % 2754692296) Diego Haywood,d A2C (test 9.24 cm code = 1319662124) Diego Haywood,d A4C (test 9.11 cm code = 5319223445) Diego Haywood,s A2C (test 8.07 cm code = 4806540231) Diego Haywood,s A4C (test 7.70 cm code = 9632148388) LV SV,A2C (test code 59.23 % = 7108926005) LV SV,A4C (test code 57.06 % = 2400399528) LV Vol,d BP (test 175.67 ml code = 5800272054) LV Vol,s BP (test 118.95 nl code = 7440461494) MR Vmax (test code = 5.55 m/s 7800998981) LVOT Vmn (test code = 7159304808) Pt Size (test code = 5104324285) Pt Wt (test code = 8208772844) LVOT mean grad (test mmHg code = 5038202624) LVPW s PLAX (test 1.17 cm code = 1255946328) MV Decel slope (test 10.79 m/s2 code = 3942614669) LVOT VTI (CM) (test 17.00 cm code = 4765490639) LINDA (test code = LINDA) The left [...] ventricular diastolic filling. Elevated LV filling pressure. Left VentricleThe left ventricular chamber size is mildly enlarged. Left ventricular systolic function is severely impaired. Left Ventricular ejection fraction is 30 - 35%.Right VentricleNormal right ventricular size and global function.Left AtriumLA size is mildly dilated.Right AtriumThe right atrium is mildly dilated.IVC/SVCThe inferior vena cava and hepatic vein were abnormal in this study.Mitral ValveThe mitral valve appears normal. Moderate mitral valve regurgitation. No evidence of mitral valve stenosis.Tricuspid ValveThe tricuspid valve appears normal. Moderate tricuspid valve regurgitation. No evidence of tricuspid valve stenosis. Eccentric regurgitation.Aortic ValveThe aortic valve appears normal and trileaflet. Trace aortic regurgitation. No evidence of aortic valve stenosis.Pulmonic ValveThe pulmonic valve appears normal. Mild pulmonary valve regurgitation. No evidence of pulmonary valve stenosis.PericardiumTher e is pericardial effusion. There is small pericardial effusion.US Enhancing AgentDefinity administered intravenously. Flush volume: 7 mL.DiastologySpectral Doppler shows abnormal LV diastolic filling. Elevated LV filling pressure.AortaAortic root is normal.Study Quality Study quality is adequate.Wall Scoring BaselineScore Index: 2.00The left ventricular wall motion is globally hypokinetic. [facility]
--- NOTE | 2021-10-03 19:14 | RAD REPORT ---
EXAM DESCRIPTION: RAD - Chest Single View - 10/03/2021 7:05 pm CLINICAL HISTORY: SOB COMPARISON: Chest Single View dated 08/29/2021; Chest Single View dated 08/28/2021; Chest Single View da willam 08/19/2021; Chest Single View dated 04/25/2021 FINDINGS: Lines: None. Lungs: Pulmonary vascular congestion. Pleural: No significant pleural effusions or pneumothorax. Cardiac: Cardiomegaly. Bones: No acute fractures. Other: IMPRESSION: Pulmonary vascular congestion.
[2021-10-03 19:17] LABS: Absolute Lymphocytes (CBC) 2.4 K/uL (0.7-4.9); Hematocrit 48.1 % (36.0-45.0); Lymphocytes % 38.4 % (15.3-44.8); MPV 8.5 fL (7.6-11.3); RBC Red Blood Cell Count 5.17 M/uL (3.86-4.86)
[2021-10-03 20:15] LABS: Protime INR 1.58
[2021-10-03] MEDS ORDERED: FUROSEMIDE 40 MG/4 ML VIAL ONE (20:26)
[2021-10-03 20:38] LABS: Albumin 3.1 g/dL (3.4-5.0); Bilirubin Direct 0.4 mg/dL (0-0.2); Bilirubin Total 1.1 mg/dL (0.2-1.0)
[2021-10-03 20:40] LABS: Protein, Total 7.3 g/dL (6.4-8.2)
[2021-10-03 21:02] LABS: Magnesium 1.8 mg/dL (1.8-2.4); Potassium 3.9 mmol/L (3.5-5.1)
[2021-10-03 21:06] LABS: Troponin High Sensitivity 136.5 pg/mL (<58.9)
[2021-10-03 22:26] LABS: Urine Blood Negative (Negative); Urine Glucose Negative (Negative); Urine Protein Negative (Negative); Urine Specific Gravity 1.015 (1.005-1.030)
[2021-10-03 23:23] LABS: Barbiturates NEGATIVE (NEGATIVE); Benzodiazepines NEGATIVE (NEGATIVE); Cocaine NEGATIVE (NEGATIVE); METHAMPHETAM NEGATIVE (NEGATIVE); Methadone NEGATIVE (NEGATIVE); Opiates NEGATIVE (NEGATIVE); Phencyclidine NEGATIVE (NEGATIVE); THC Cannibis NEGATIVE (NEGATIVE)
--- NOTE | 2021-10-03 23:58 | ER ---
Nurse's Notes [facility] Name: Anahi Downing Age: 46 yrs Sex: Female : 1975 Arrival Date: 10/03/2021 Time: 18:22 Bed 6 Private MD: Diagnosis: COPD/ Chronic obstructive pulmonary disease, unspecified;Acute on chronic combined systolic (congestive) and diastolic (congestive) heart failure Presentation: 10/03 18:31 Chief complaint: Patient states: Pt reports SOB w/ exertion for 2-3 days, hx of COPD ph and CHF, reports that she has to sleep sitting up, no fever. Coronavirus screen: Vaccine status: Patient reports having had a previously documented Covid positive illness. difficulty breathing, shortness of breath. Ebola Screen: No symptoms or risks identified at this time. Initial Sepsis Screen: Does the patient meet any 2 criteria? No. Patient's initial sepsis screen is negative. Does the patient have a suspected source of infection? No. Patient's initial sepsis screen is negative. Risk Assessment: Do you want to hurt yourself or someone else? Patient reports no desire to harm self or others. 18:31 Method Of Arrival: Wheelchair ph 18:31 Acuity: RALPH 3 ph 19:04 Onset of symptoms was September 29, 2021. [facility] Triage Assessment: 19:05 Respiratory: Reports shortness of breath at rest on exertion since 3-4 days ago the [facility] patient has moderate shortness of breath. 20:00 Respiratory: Onset: The symptoms/episode began/occurred gradually. 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 - Social history:: Smoking status: Patient/guardian denies using tobacco, the patient reports quitting approximately 1 years ago. Screenin:04 Abuse screen: Denies threats or abuse. Nutritional screening: No deficits noted. [facility] Tuberculosis screening: No symptoms or risk factors identified. Fall Risk IV access (20 points). Assessment: 19:01 General: Appears in no apparent distress. comfortable, Behavior is calm, cooperative. jh6 Pain: Denies pain. Cardiovascular: No deficits noted. Reports fatigue, Rhythm is regular. Respiratory: Airway is patent Trachea midline Respiratory effort is unlabored, Breath sounds are clear. 20:43 General: Appears in no apparent distress. uncomfortable, Behavior is calm, cooperative, al4 patient reports sob that started at the beginning of the week that have gotten worse. patient states she cannot sleep laying flat because it is too hard to breathe. Pain: Denies pain. Neuro: Level of Consciousness is awake, alert, obeys commands, Oriented to person, place, time, situation, Denies blurred vision headache. Cardiovascular: Denies chest pain, Capillary refill < 3 seconds Patient's skin is warm and dry. Rhythm is regular. Respiratory: Airway is patent Respiratory effort is even, unlabored. GI: Reports nausea. : No signs and/or symptoms were reported regarding the genitourinary system. EENT: No signs and/or symptoms were reported regarding the EENT system. Derm: No signs and/or symptoms reported regarding the dermatologic system. Musculoskeletal: No signs and/or symptoms reported regarding the musculoskeletal system. 21:00 Reassessment: Patient is alert, oriented x 3, equal unlabored respirations, skin al4 warm/dry/pink. 21:05 Reassessment: Provider aware of critical trop value. al4 22:00 Reassessment: Patient is alert, oriented x 3, equal unlabored respirations, skin al4 warm/dry/pink. 22:00 Reassessment: patient is able to use bsc independently. al4 23:00 Reassessment: Patient is alert, oriented x 3, equal unlabored respirations, skin al4 warm/dry/pink. 10/04 00:00 Reassessment: Patient is alert, oriented x 3, equal unlabored respirations, skin al4 warm/dry/pink. 00:40 Reassessment: ERNP gave permission for patient to have a sandwich and water. both given.al4 01:30 Reassessment: Patient is alert, oriented x 3, equal unlabored respirations, skin al4 warm/dry/pink. Vital Signs: 10/03 18:31 BP 152 / 114; Pulse 101; Resp 22; Temp 97.0; Pulse Ox 100% on R/A; Weight 74.84 kg; ph Height 5 ft. 5 in. (165.10 cm); 19:02 BP 135 / 119; Pulse 95; Resp 98; Pulse Ox 100% ; jh6 20:00 BP 135 / 109; Pulse 98; Resp 18; Pulse Ox 99% on R/A; al4 21:00 BP 121 / 83; Pulse 93; Resp 18; Pulse Ox 98% on R/A; al4 21:45 BP 116 / 99; Pulse 83; Resp 18; Pulse Ox 96% on R/A; al4 10/04 01:57 BP 139 / 92; Pulse 100; Resp 18 S; Pulse Ox 100% on R/A; al4 10/03 18:31 Body Mass Index 27.46 (74.84 kg, 165.10 cm) ph Vitals: 10/03 19:02 Cardiac Rhythm Assessment Regular. jh6 Maryann Coma Score: 20:00 Eye Response: spontaneous(4). Verbal Response: oriented(5). Motor Response: obeys al4 commands(6). Total: 15. 21:00 Eye Response: spontaneous(4). Verbal Response: oriented(5). Motor Response: obeys al4 commands(6). Total: 15. ED Course: 18:22 Patient arrived in ED. rg4 18:33 Triage completed. ph 18:33 Arm band placed on Patient placed in an exam room. ph 18:39 Panfilo Bales NP is PHCP. pm1 18:39 Apolinar Angeles MD is Attending Physician. pm1 19:01 Radha Caraballo, SIN is Primary Nurse. jh6 19:03 No provider procedures requiring assistance completed. Inserted saline lock: 22 gauge 6 in right antecubital area, using aseptic technique. Blood collected. 19:05 XRAY Chest (1 view) In Process Unspecified. EDMS 19:27 Primary Nurse role handed off by Radha Caraballo RN 19:27 Marquita Moreno, SIN is Primary Nurse. mk 22:52 CT Chest For PE Angio In Process Unspecified. EDMS 23:56 Hunter Gee PA is Hospitalizing Provider. pm1 10/04 01:04 Patient has correct armband on for positive identification. Bed in low position. Call al4 light in reach. 01:58 Patient admitted, IV remains in place. al4 Administered Medications: 10/03 20:43 Drug: Lasix (furosemide) 40 mg Route: IVP; Site: right antecubital; al4 21:00 Follow up: Response: No adverse reaction al4 10/04 00:40 Drug: SOLU-Medrol (methylPrednisoLONE) 125 mg Route: IVP; Site: right antecubital; al4 02:01 Follow up: Response: No adverse reaction al4 00:48 Drug: Albuterol - atroVENT (ipratropium) (3:1) (2.5 mg - 0.5 mg) 3 ml Route: Nebulizer; al4 02:01 Follow up: Response: No adverse reaction al4 Outcome: 10/03 23:57 Decision to Hospitalize by Provider. pm1 10/04 01:58 Admitted to Med/surg accompanied by tech, room 204, Report called to SIN Owens al4 Condition: stable Instructed on the need for admit. 02:08 Patient left the ED. al4 Signatures: Dispatcher [employer] EDCarmen Don RN RN Panfilo Escudero, JAY CASING SOAKER pm1 Mary Em4 Radha Caraballo RN RN 6 Aquilino Arrington al4 Marquita Moreno RN RN Corrections: (The following items were deleted from the chart) 02:00 02 20:43 General: Appears in no apparent distress. uncomfortable, Behavior is calm, al4 cooperative, al4
--- NOTE | 2021-10-03 23:58 | EDPHYS ---
Physician Documentation [facility] Name: Anahi Downing Age: 46 yrs Sex: Female : 1975 Arrival Date: 10/03/2021 Time: 18:22 Bed 6 Private MD: ED Physician Apolinar Angeles HPI: 10/03 18:49 This 46 yrs old Female presents to ER via Wheelchair with complaints of Shortness Of pm1 Breath. 18:49 The patient has shortness of breath at rest, with light activity. Onset: The pm1 symptoms/episode began/occurred 1 week(s) ago, and became worse 3 day(s) ago. Duration: The symptoms are continuous, and are steadily getting worse. The patient's shortness of breath is aggravated by lying down, patient needs to sit up sleeping in order to breath, is alleviated by nothing. Associated signs and symptoms: Pertinent negatives: chest pain, fever. Severity of symptoms: in the emergency department the symptoms are worse. The patient has experienced similar episodes in the past, a few times. The patient has not recently seen a physician. Patient reports running out of carvedilol and her blood thinners between 3 to 7 days ago. 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 - Social history:: Smoking status: Patient/guardian denies using tobacco, the patient reports quitting approximately 1 years ago. ROS: 18:49 Constitutional: Negative for fever, chills, and weight loss. pm1 18:49 Abdomen/GI: Negative for abdominal pain, nausea, vomiting, diarrhea, and constipation, Back: Negative for injury and pain, MS/Extremity: Negative for injury and deformity, Skin: Negative for injury, rash, and discoloration, Neuro: Negative for headache, weakness, numbness, tingling, and seizure. 18:49 Cardiovascular: Positive for orthopnea, Negative for chest pain, edema. 18:49 Respiratory: Positive for shortness of breath, Negative for cough. 18:49 All other systems are negative. Exam: 18:49 Constitutional: This is a well developed, well nourished patient who is awake, alert, pm1 and in no acute distress. Head/Face: Normocephalic, atraumatic. 18:49 Back: No spinal tenderness. No costovertebral tenderness. Full range of motion. Skin: Warm, dry with normal turgor. Normal color with no rashes, no lesions, and no evidence of cellulitis. MS/ Extremity: Pulses equal, no cyanosis. Neurovascular intact. Full, normal range of motion. 18:49 Eyes: Exam is negative for acute changes, Extraocular movements: no acute changes, Conjunctiva: no acute changes, no injection. 18:49 ENT: Exam is negative for acute changes, Mouth: Lips: normal, moist, Oral mucosa: normal, pink and intact, moist. 18:49 Cardiovascular: Exam negative for acute changes, Rate: normal, Rhythm: regular, Pulses: no pulse deficits are appreciated, Heart sounds: normal, normal S1and S2, Edema: is not appreciated. 18:49 Respiratory: Exam negative for acute changes, respiratory distress, shortness of breath, Breath sounds: decreased breath sounds, that are mild, are located in both bases. 18:49 Abdomen/GI: Exam negative for acute changes, Inspection: abdomen appears normal, Palpation: abdomen is soft and non-tender. 18:49 Neuro: Exam negative for acute changes, Orientation: is normal, Motor: is normal, moves all fours. Vital Signs: 18:31 BP 152 / 114; Pulse 101; Resp 22; Temp 97.0; Pulse Ox 100% on R/A; Weight 74.84 kg; ph Height 5 ft. 5 in. (165.10 cm); 19:02 BP 135 / 119; Pulse 95; Resp 98; Pulse Ox 100% ; jh6 20:00 BP 135 / 109; Pulse 98; Resp 18; Pulse Ox 99% on R/A; al4 21:00 BP 121 / 83; Pulse 93; Resp 18; Pulse Ox 98% on R/A; al4 21:45 BP 116 / 99; Pulse 83; Resp 18; Pulse Ox 96% on R/A; al4 10/04 01:57 BP 139 / 92; Pulse 100; Resp 18 S; Pulse Ox 100% on R/A; al4 02/12 18:31 Body Mass Index 27.46 (74.84 kg, 165.10 cm) ph [place] Coma Score: 10/03 20:00 Eye Response: spontaneous(4). Verbal Response: oriented(5). Motor Response: obeys al4 commands(6). Total: 15. 21:00 Eye Response: spontaneous(4). Verbal Response: oriented(5). Motor Response: obeys al4 commands(6). Total: 15. MDM: 18:45 Patient medically screened. pm1 23:55 Data reviewed: vital signs. pm1 23:55 Counseling: I had a detailed discussion with the patient and/or guardian regarding: the pm1 historical points, exam findings, and any diagnostic results supporting the discharge/admit diagnosis, lab results, radiology results, the need for further work-up and treatment in the hospital. 10/03 18:46 Order name: Basic Metabolic Panel; Complete Time: 21:19 pm1 10/03 18:46 Order name: CBC with Diff; Complete Time: 19:26 pm1 10/03 18:46 Order name: LFT's; Complete Time: 21:19 pm1 10/03 18:46 Order name: Magnesium; Complete Time: 21:19 pm1 10/03 18:46 Order name: NT PRO-BNP; Complete Time: 21:19 pm1 10/03 18:46 Order name: PT-INR; Complete Time: 20:18 pm1 10/03 18:46 Order name: Troponin HS; Complete Time: 21:19 pm1 10/03 18:46 Order name: XRAY Chest (1 view); Complete Time: 19:26 pm1 10/03 18:46 Order name: COVID-19 SARS RT PCR (Document "Date of Onset" if Symptomatic); Complete pm1 Time: 20:18 10/03 21:05 Order name: UDS; Complete Time: 23:41 pm1 10/03 21:19 Order name: CT Chest For PE Angio pm1 10/03 22:26 Order name: Urine Dipstick-Ancillary; Complete Time: 22:28 EDMS 10/03 18:46 Order name: EKG; Complete Time: 18:47 pm1 10/03 18:46 Order name: Cardiac monitoring; Complete Time: 19:06 pm1 10/03 18:46 Order name: EKG - Nurse/Tech; Complete Time: 19:06 pm1 10/03 18:46 Order name: IV Saline Lock; Complete Time: 19:06 pm1 10/03 18:46 Order name: Labs collected and sent; Complete Time: 19:06 pm1 10/03 18:46 Order name: O2 Per Protocol; Complete Time: 19:06 pm1 10/03 18:46 Order name: O2 Sat Monitoring; Complete Time: 19:06 pm1 10/03 21:05 Order name: Urine Dipstick-Ancillary (obtain specimen); Complete Time: 22:27 pm1 Administered Medications: 20:43 Drug: Lasix (furosemide) 40 mg Route: IVP; Site: right antecubital; al4 21:00 Follow up: Response: No adverse reaction al4 10/04 00:40 Drug: SOLU-Medrol (methylPrednisoLONE) 125 mg Route: IVP; Site: right antecubital; al4 02:01 Follow up: Response: No adverse reaction al4 00:48 Drug: Albuterol - atroVENT (ipratropium) (3:1) (2.5 mg - 0.5 mg) 3 ml Route: Nebulizer; al4 02:01 Follow up: Response: No adverse reaction al4 Disposition: 19:26 Co-signature as Attending Physician, Apolinar Angeles MD I agree with the assessment and kdr plan of care. Disposition Summary: 10/03/21 23:57 Hospitalization Ordered Hospitalization Status: Observation pm1 Provider: Hunter Gee pm1 Location: Telemetry/MedSurg (observation) pm1 Condition: Stable pm1 Problem: new pm1 Symptoms: have improved pm1 Bed/Room Type: Standard pm1 Room Assignment: 204(10/04/21 01:14) Diagnosis - COPD/ Chronic obstructive pulmonary disease, unspecified pm1 - Acute on chronic combined systolic (congestive) and diastolic (congestive) heart pm1 failure Forms: - Medication Reconciliation Form pm1 - SBAR form pm1 Signatures: Dispatcher [employer] Eulalia Johnson RN RN mw Rittger, Kevin, MD MD kdr Hall, Patricia, RN RN ph Marinas, Patrick, JAY STATISTICAL TYPIST pm1 Aquilino Arrington al4 Corrections: (The following items were deleted from the chart) 01:14 02/12 23:57 pm1 mw
[2021-10-04] MEDS ORDERED: METHYLPREDNISOLONE 125 MG INJ ONE (00:35)
[2021-10-04] MEDS ORDERED: ALBUTEROL 2.5 MG/3 ML NEB SOL ONE (00:35)
[2021-10-04] MEDS ORDERED: IPRATROPIUM BROM 0.5MG/2.5ML ONE (00:38)
--- NOTE | 2021-10-04 02:11 | P.HP ---
Certification for Inpatient Patient admitted to: Inpatient With expected LOS: <2 Midnights Patient will require the following post-hospital care: None Practitioner: I am a practitioner with admitting privileges, knowledge of patient current condition, hospital course, and medical plan of care. Services: Services provided to patient in accordance with Admission requirements found in Title 42 Section 412.3 of the Code of Federal Regulations Patient History Date of Service: 10/04/21 Reason for admission: CHF exacerbation History of Present Illness: Ms. Downing is a 46 yo F with COPD, CHF, HTN who presents with one week of increasing cough, SOB, BERMUDEZ. She also reports orthopnea and PND. Denies wheezing, chest pain, and lower leg edema. She says she has been taking her lasix. She says she ran out of her xarelto and carvedilol.Troponin 136.50 BNP 5198. She received IV Lasix in the ED. CXR IMPRESSION: Pulmonary vascular congestion. CTPE show no pulmonary embolism. Allergies metronidazole [From Flagyl] Allergy (Verified 01/23/21 09:51) Itching/Hives/Rash Home Medications: Aspirin [Aspirin EC 81 MG] 81 mg PO DAILY 01/23/21 Furosemide [Lasix*] 40 mg PO BIDL #60 tab 08/30/21 Losartan Potassium [Cozaar*] 25 mg PO BID #30 tablet 08/30/21 Magnesium Oxide [Mag 0X Tab] 400 mg PO DAILY #30 tab 08/30/21 Rivaroxaban [Xarelto] 20 mg PO DAILY #30 tablet 08/30/21 Spironolactone [Aldactone*] 25 mg PO BID 30 Days #60 tab 08/30/21 carvediloL [Coreg*] 3.125 mg PO BID #60 tab 08/30/21 Hydrocodone 7.5/APAP 325 [[place] 7.5/325 mg] 1 tab PO Q6H PRN #30 tab 08/31/21 predniSONE [Prednisone] 20 mg PO BID #10 tablet 08/31/21 - Past Medical/Surgical History Diabetic: No -: Systolic CHF -: COPD -: HTN -: PE -: Pulmonary hypertension -: Hyperlipidemia -: Appendectomy Psychosocial/ Personal History: lives by self - Family History Mother Notes: from NH at 46 - Social History Smoking Status: Unknown if ever smoked Alcohol use: No CD- Drugs: Yes Caffeine use: Yes Place of Residence: Home Review of Systems 10-point ROS is otherwise unremarkable General: Unremarkable Eyes: Unremarkable ENT: Unremarkable Respiratory: Cough, Shortness of Breath, SOB with Excertion Cardiovascular: Orthopnea, Paroxysmal Noc. Dyspnea Gastrointestinal: Unremarkable Genitourinary: Unremarkable Musculoskeletal: Unremarkable Integumentary: Unremarkable Neurological: Unremarkable Lymphatics: Unremarkable Physical Examination - Physical Exam General: Alert, In no apparent distress HEENT: Atraumatic, PERRLA, Mucous membr. moist/pink, EOMI, Sclerae nonicteric Neck: Supple, 2+ carotid pulse no bruit, No LAD, Without JVD or thyroid abnormality Respiratory: Normal air movement, Crackles/rales Cardiovascular: No edema, Regular rate/rhythm, Normal S1 S2 Gastrointestinal: Normal bowel sounds, No tenderness Musculoskeletal: No tenderness Integumentary: No rashes Neurological: Normal speech, Normal strength at 5/5 x4 extr, Normal tone, Normal affect Lymphatics: No axilla or inguinal lymphadenopathy - Studies Laboratory Data (last 24 hrs) 10/03/21 19:40: PT 18.2 H, INR 1.58 10/03/21 19:40: Sodium 139, Potassium 3.9, BUN 13, Creatinine 0.88, Glucose 97, Magnesium 1.8, Total Bilirubin 1.1 H, AST 25, ALT 20, Alkaline Phosphatase 132 H 10/03/21 18:55: WBC 6.40, Hgb 15.4 H, Hct 48.1 H, Plt Count 281 Assessment and Plan - Problems (Diagnosis) (1) Acute exacerbation of CHF (congestive heart failure) Current Visit: No Status: Acute Qualifiers: (2) Elevated troponin Current Visit: No Status: Acute (3) HTN (hypertension) Current Visit: No Status: Chronic Qualifiers: (4) Right-sided heart failure Current Visit: No Status: Chronic Qualifiers: Heart failure chronicity: chronic Qualified Code(s): I50.812 - Chronic right heart failure (5) Severe pulmonary hypertension Current Visit: No Status: Chronic (6) COPD (chronic obstructive pulmonary disease) Current Visit: No Status: Chronic Qualifiers: COPD type: unspecified COPD Qualified Code(s): J44.9 - Chronic obstructive pulmonary disease, unspecified - Plan trend troponins, repeat EKG continue IV lasix O2 as needed daily weights, fluid restriction, low sodium breathing treatments PRN reconcile and continue home medications Iv hydralazine PRN for BP spikes DVT ppx Discharge Plan: Home Plan to discharge in: 48 Hours - Advance Directives Does patient have a Living Will: No Does patient have a Durable POA for Healthcare: No - Code Status/Comfort Care Code Status Assessed: Yes (full code ) Critical Care: No Time Spent Managing Pts Care (In Minutes): 70
[2021-10-04] MEDS ORDERED: ONDANSETRON 4 MG/2 ML VIAL IV PRN (02:22)
[2021-10-04] MEDS ORDERED: ACETAMINOPHEN 500 MG TAB PO PRN (02:22)
[2021-10-04] MEDS ORDERED: HYDRALAZINE HCL 20 MG/ML VIAL IV PRN (02:22)
[2021-10-04 03:21] VITALS: BMI 25.9
[2021-10-04] MEDS ORDERED: MAGNESIUM SULFATE 1 gm IVPB 1 GM/100 ML BAG IV ONE (05:33)
[2021-10-04] MEDS ORDERED: POTASSIUM 25 MEQ EFFERV TAB PO ONE (05:40)
[2021-10-04 05:44] LABS: Thyroid Stimulating Hormone 0.775 uIU/mL (0.360-3.740)
[2021-10-04] MEDS ORDERED: ALBUTEROL 2.5 MG/3 ML NEB SOL NEB PRN (06:00)
[2021-10-04] MEDS ORDERED: IPRATROPIUM BROM 0.5MG/2.5ML NEB PRN (06:00)
[2021-10-04] MEDS ORDERED: ASPIRIN EC 81 MG TAB PO SCH (09:00)
[2021-10-04] MEDS ORDERED: FUROSEMIDE 40 MG/4 ML VIAL IV SCH (09:00)
[2021-10-04] MEDS ORDERED: RIVAROXABAN 20 MG TABLET PO SCH (09:00)
[2021-10-04 09:23] VITALS: O2SAT 96
[2021-10-04 10:40] VITALS: BP 141/89; TEMP 97.9
--- NOTE | 2021-10-04 12:46 | P.DS ---
Admission Date: 10/04/21 Discharge Date: 10/04/21 Disposition: ROUTINE DISCHARGE Discharge Condition: FAIR Reason for Admission: CHF exacerbation - Problems (1) Acute on chronic systolic CHF (congestive heart failure) Current Visit: No Status: Acute (2) Elevated troponin Current Visit: No Status: Acute (3) COPD (chronic obstructive pulmonary disease) Current Visit: No Status: Chronic Qualifiers: COPD type: unspecified COPD Qualified Code(s): J44.9 - Chronic obstructive pulmonary disease, unspecified (4) HTN (hypertension) Current Visit: No Status: Chronic Qualifiers: (5) Severe pulmonary hypertension Current Visit: No Status: Chronic Brief History of Present Illness: Ms. Downing is a 46 yo F with COPD, CHF, HTN who presented with one week of increasing cough, SOB, BERMUDEZ. She also reported orthopnea and PND. She denied wheezing, chest pain, and lower leg edema. She reported compliance with her Lasix. She stated she ran out of her xarelto and carvedilol. Troponin 136.50 BNP 5198. She received IV Lasix in the ED. Chest x-ray showed pulmonary vascular congestion. CTPE show no pulmonary embolism. Patient hospitalized for further management. Hospital Course: Patient placed on observation on the medical floor and treated with IV Lasix. She diuresed well with the Lasix and his symptoms resolved. Patient respiratory condition has improved to baseline. Troponin was mildly elevated but trended downward suggesting demand ischemia. Patient is currently at baseline and deemed stable for discharge. Vitals have been stable. Vital Signs/Physical Exam: Temp Pulse Resp BP Pulse Ox 97.9 F 96 H 18 141/89 H 97 10/04/21 08:00 10/04/21 08:00 10/04/21 08:00 10/04/21 08:00 10/04/21 08:00 General: Alert, In no apparent distress, Oriented x3 HEENT: Mucous membr. moist/pink Neck: JVD not distended Respiratory: Clear to auscultation bilaterally, Normal air movement Cardiovascular: No edema, Regular rate/rhythm, Normal S1 S2, No murmurs Capillary refill: <2 Seconds Gastrointestinal: Normal bowel sounds, Soft and benign, Non-distended, No tenderness Musculoskeletal: No swelling, No tenderness Integumentary: No rashes Neurological: Normal strength at 5/5 x4 extr Laboratory Data at Discharge: WBC 6.40 K/uL (4.3-10.9) 10/03/21 18:55 Hgb 15.4 g/dL (12.0-15.0) H 10/03/21 18:55 Hct 48.1 % (36.0-45.0) H 10/03/21 18:55 Plt Count 281 K/uL (152-406) 10/03/21 18:55 PT 18.2 SECONDS (9.5-12.5) H 10/03/21 19:40 INR 1.58 10/03/21 19:40 Sodium 139 mmol/L (136-145) 10/03/21 19:40 Potassium 4.0 mmol/L (3.5-5.1) 10/04/21 08:34 BUN 13 mg/dL (7-18) 10/03/21 19:40 Creatinine 0.88 mg/dL (0.55-1.3) 10/03/21 19:40 Glucose 97 mg/dL (74-106) 10/03/21 19:40 Magnesium Cancelled 10/04/21 Unknown Total Bilirubin 1.1 mg/dL (0.2-1.0) H 10/03/21 19:40 AST 25 U/L (15-37) 10/03/21 19:40 ALT 20 U/L (12-78) 10/03/21 19:40 Alkaline Phosphatase 132 U/L (45-117) H 10/03/21 19:40 Home Medications: Aspirin [Aspirin EC 81 MG] 81 mg PO DAILY 01/23/21 Rivaroxaban [Xarelto] 20 mg PO DAILY #30 tablet 08/30/21 Spironolactone [Aldactone*] 25 mg PO BID 30 Days #60 tab 08/30/21 Hydrocodone 7.5/APAP 325 [[place] 7.5/325 mg*] 1 tab PO Q6H PRN #30 tab 08/31/21 Atorvastatin Calcium 40 mg PO BS 10/04/21 Furosemide [Lasix*] 40 mg PO BIDL #60 tab 10/04/21 Losartan Potassium [Cozaar*] 50 mg PO BID 10/04/21 Potassium Chloride [Klor-Con M20] 20 meq PO DAILY 10/04/21 carvediloL [Coreg*] 6.25 mg PO BID 10/04/21 New Medications: Furosemide [Lasix*] 40 mg PO BIDL #60 tab Diet: AHA Activity: Ad lida Followup: NONE,NONE [Primary Care Provider] -
--- NOTE | 2021-10-05 17:23 | RAD REPORT ---
EXAM DESCRIPTION: CT - Chest For Pe Angio - 10/04/2021 8:33 am CLINICAL HISTORY: Shortness of breath. COMPARISON: CTA chest 08/28/2021 TECHNIQUE: Axial CT imaging of the thorax utilizing intravenous contrast. Reformatted multiplanar im ages obtained including reconstructed maximum intensity projection images. This exam was performed according to our departmental dose-optimization program which includes automa willam exposure control, adjustment of the mA and/or kV according to patient size and/or use of iterativ e reconstruction technique FINDINGS: PULMONARY ARTERIES: Normal caliber main pulmonary artery. No filling defect seen in the ri ght atrium, right ventricle, central or peripheral pulmonary arteries. HEART/GREAT VESSELS: Heart is enlarged. Normal caliber thoracic aorta with minimal atherosclerosis. MEDIASTINUM/SHAVONNE: There are mildly enlarged mediastinal and left hilar lymph nodes. Normal trachea an d main bronchi. Unremarkable esophagus. LUNGS/PLEURA: Small layering right pleural effusion. No edema or consolidation. No pneumothorax. CHEST WALL/SOFT TISSUES: No supraclavicular or axillary lymphadenopathy. Sternum is intact. Mild gene ralized thoracic degenerative change. Unremarkable remaining bony thorax. UPPER ABDOMEN: Included liver, spleen and bowel loops appear normal. IMPRESSION: 1. No pulmonary embolism. 2. Small layering right pleural effusion. 3. Mild mediastinal and left hilar lymphadenopathy. 4. Cardiomegaly. Electronically signed by: Dorene Alfred DO 10/03/2021 11:15 PM OUT PATIENT THERAPIST Due to temporary technical issues with the PACS/Fluency reporting system, reports are being signed by the in house radiologists without review as a courtesy to insure prompt reporting. The interpreting radiologist is fully responsible for the content of the report.
== END 2021-10-04 13:16 | disposition home or self-care (01) ==
LOC: ER 18:20 → ERHOLD 10-04 01:13 → INTOOBSV 10-04 01:13 → 2ND 10-04 01:43
PROVIDERS: ADMIT Internal Medicine; ATTEND Internal Medicine
DX: I11.0 Hypertensive heart disease with heart failure (principal); I50.23 Acute on chronic systolic (congestive) heart failure; I27.20 Pulmonary hypertension, unspecified; J44.9 Chronic obstructive pulmonary disease, unspecified; R77.8 Other specified abnormalities of plasma proteins; Z86.711 Personal history of pulmonary embolism; Z79.01 Long term (current) use of anticoagulants; Z79.82 Long term (current) use of aspirin; Z79.899 Other long term (current) drug therapy; Z88.3 Allergy status to other anti-infective agents; Z20.822 Contact with and (suspected) exposure to COVID-19; Z82.49 Family history of ischemic heart disease and other diseases of the circulatory system
CPT/HCPCS: 36415; 71045; 71275; 80048; 80076; 80307; 81003; 83735; 83880; 84132; 84439; 84443; 84484; 85025; 85610; 93005; 94640; 94760; 96374; 96375; 99285; G0378; J1940; J2930; J3475; Q9967; U0003

== ENCOUNTER 2022-11-02 12:42 | Emergency (ER) | payer OTHER ==
--- OUTSIDE RECORDS SUMMARY | 2022-11-02 13:00 | XMS REPORT | Continuity of Care Document ---
:1975 Author Organization [facility] t Address [address] [facility] [address] [place] [address] Support Name Relationship Address Phone ......, ........ [address] [phone] [place] [address] YOLA HAYWOOD [address] [phone] [address] [place] [address] Shady Haywoodclaude Child UNKNOWN [phone] [place] [address] HAYWOOD[place] BONIFACIO [address] [place] [address] [place] Redmond Child [address] [phone]- [phone] [place] [address] Care Team Providers Name Role [facility] \\T\\ [facility] Primary Care Physici an Unavailable Physician, No Primary or Family Attending Clinician UnavailStone Choe Attending Clinician Unavailable Stone Red Attending Clinician [phone] Rosales MD, [place] Muñoz Attending Clinician [phone] Vinayak Ruth DO Attending Clinician Provider, Unknown Attending Clinician Unavailable Adrianne Britt Attending Clinician Unavailable Lynette VOGT, Sylvester Attending Clinician Unavailable Mary Davies Attending Clinician Unavailable Albino MOLINA, Jesus Copeland Attending Clinician Hong Pineda MD Attending Clinician Yeyo Wells MD Attending Clinician Karen MOLINA, Eugene Mart Attending Clinician Doctor Unassigned, [place] Attending Clinician Unavailable Allyson Galo RN Attending Clinician Unavailable Shahnaz ZAMUDIO Attending Clinician Unavailable Shahnaz Gonzalez Attending Clinician Bonifacio Bahena Attending Clinician Unavailable THEO AGUILAR Attending Clinician Unavailable Theo Aguilar DO Attending Clinician Jagdeep VOGT, Farhana Piña Attending Clinician Unavailable FAUSTINA MARES Attending Clinician Unavailable Nikunj THOMPSON, Love Davies Attending Clinician Faustina Mares MD Attending Clinician Albaro VOGT, Rosetta Ray Attending Clinician TI MERRILL Attending Clinician Unavailable Ti Merrill MD Attending Clinician Serene Albert MD Attending Clinician Elyssa Reese Attending Clinician Molly Hooks RN Attending Clinician Jagjit Braxton Attending Clinician JAGJIT ASHBY Attending Clinician Unavailable MICHAEL BRITT Attending Clinician Unavailable Isai Schaeffer Attending Clinician Carlos Buck DO Attending Clinician Michael Britt MD Attending Clinician ISAI GARZA Attending Clinician Unavailable Apolinar Yan Attending Clinician CARLOS BUCK Attending Clinician Unavailable APOLINAR PAL Attending Clinician Unavailable Yasmeen Martinez LVN Attending Clinician Chauncey Owens MD Attending Clinician CHAUNCEY OWENS Attending Clinician Unavailable Kristin MOLINA, Shiloh Johnson Attending Clinician [phone] Tatianna Sosa MD Attending Clinician Pia Maurice Attending Clinician Unavailable Calvin Duval MD Attending Clinician [phone] RADHAMES NELSON Attending Clinician Unavailable MD RADHAMES NELSON Attending Clinician Unavailable Prem MOLINA, Luis Attending Clinician Marbyeth MOLINA, Ernesto Lovell Attending Clinician MD HONG PINEDA Attending Clinician Lisa Gaona MD, Tariq Adam Attending Clinician Surjit Thomason MD Attending Clinician [phone] Ron Orourke Attending Clinician Unavailable Stacey Renee Attending Clinician Unavailable Malika Fernandez Attending Clinician [phone] Physician, No Primary or Family Admitting Clinician UnavailVINAYAK Salinas Admitting Clinician Unavailable YEYO WELLS Admitting Clinician Unavailable Bonifacio Bahena Admitting Clinician Unavailable FAUSTINA MARES Admitting Clinician Unavailable Faustina Mares MD Admitting Clinician SERENE ALBERT Admitting Clinician Unavailable Serene Albert MD Admitting Clinician MICHAEL BRITT Admitting Clinician Unavailable Michael Britt MD Admitting Clinician THEO AGUILAR Admitting Clinician Unavailable Carlos Buck DO Admitting Clinician CARLOS BUCK Admitting Clinician Unavailable Carmita Randall Admitting Clinician Unavailable RADHAMES NELSON Admitting Clinician Unavailable MD RADHAMES NELSON Admitting Clinician Unavailable HONG PINEDA Admitting Clinician Unavailable MD HONG PINEDA Admitting Clinician UnaSURJIT Sidhu Admitting Clinician Unavailable Payers Payer Name Policy Type Policy Number Effective Date Expiration Date S ource MEDICAID OF [place] [id number] 2020 00:00:00 Problems Condition Condition Condition Status Onset Resolution Last Treating Co mments Source Name Details Category Date Date Treatment Clinician Date Acute on Acute on Disease Active Metho di chronic chronic 4-23 st congestive congestive 00:00: [facility] heart heart 00 l failure, failure, unspecifie unspecifie d heart d heart failure failure type type NSVT NSVT Disease Active 2020-08 [facility] (nonsustai [...] chronic 9-13 ity of clinical clinical 00:00: [place] systolic systolic 00 Medica l heart heart [...] 9- ity of embolism embolism 00:00: [place] 00 [facility] Troponin I Troponin I Disease Active U nivers above above 9- [place] [facility] [place] Pleural Pleural Disease Active [facility] effusion effusion 8-31 ity of 00:00: [place] 00 [facility] History of History of Disease Active U nivers pulmonary pulmonary 8-31 ity of embolism embolism 00:00: [place] 00 [facility] Chest pain Chest pain Disease Active U nivers in adult in adult 8-30 ity of 00:00: [place] 00 [facility] Acute Acute Disease Active Univers left-sided left-sided 7-27 it y of CHF CHF 00:00: [place] (congestiv (congestiv 00 Me dical e heart [...] exacerbati 7-17 it y of on on 00:: [place] [facility] Obesity Obesity Disease Active Univers (BMI (BMI 7-17 ity of 30-39.9) 30-39.9) 00:00: [place] [facility] Acute on Acute on Disease Active Unive rs chronic chronic 5-24 ity of systolic systolic 00:00: [place] and and Medical diastolic diastolic Bran ch heart heart failure, failure, NYHA class NYHA class 3 3 Nonischemi Nonischemi Disease Active U nivers c c 5-24 [place] cardiomyop cardiomyop [place] [facility] Essential Essential Disease Active Uni vers hypertensi hypertensi 5-24 it y of on on 00:00: [place] [facility] Admitted Admitted Disease Active Unive [...] Added automatic ally from request for surgery [id number] Dyspnea on Dyspnea on Disease Active M ethodi exertion exertion 2 st 00:00: Hospita 00 l Allergies, Adverse [...] reaction 00 l s to drug metronid drug Active Rash [facility] azole allergy 204 Health 00:00: and 00 [facility] metronid DA Active [facility] azole 1-16 [place] 00:00: d 00 [facility] metronid DA Active SV [facility], [facility] azole RASH 1-16 [place] 00:00: [place] 00 [facility] Family History Family Member Diagnosis Comments Start Date Stop Date Source Mother Family history of 2016-09-25 2016-09-25 [facility] congestive heart 00:00:00 00:00:00 and Well ness failure Mother Myocardial infarction 2016-09-25 2016-09-25 [facility] (Cause Of ) 00:00:00 00:00:00 and Well ness Mother Heart disease 2016-09-25 2016-09-25 [facility] Hea lth 00:00:00 00:00:00 and Wellness Mother Diabetes mellitus 2016-09-25 2016-09-25 [facility] 00:00:00 00:00:00 and Wellness Mother Family history of 2016-09-25 2016-09-25 [facility] chronic obstructive 00:00:00 00:00:00 and W ellness lung disease Sister Family history of 2016-09-25 2016-09-25 [facility] hypertension 00:00:00 00:00:00 and Wellness Sister Family history of 2016-09-25 2016-09-25 [facility] raised blood lipids 00:00:00 00:00:00 and Andrew navas Father Leukemia (Cause Of 2016-09-25 2016-09-25 [facility] ) 00:00:00 00:00:00 and Wellness Social History Social Habit Start Date Stop Date Quantity Comments Source History SDMA Caodaism Alcohol Comment Hospital History SDMA [facility]odaism Alcohol Std Drinks Hospit al History SDMA [facility]odaism Alcohol Binge Hospital Exposure to Yes University of SARS-CoV-2 (event) [facility] Cigarettes smoked 2022-06-13 2022-06-[address] current (pack per 00:00:00 00:00:00 Hospita l day) - Reported Tobacco use and 2022-06-13 2022-06-13 Former smokeless [facility] exposure 00:00:00 00:00:00 tobacco user Hospital Alcohol intake 2022-06-13 2022-06-13 Lifetime Caodaism 00:00:00 00:00:00 non-drinker Hospital (finding) Education 2021-05-03 2021-05-03 10 University of 00:00:00 00:00:00 [facility] Tobacco Comment 2021-03-17 2021-03-17 Quit smoking Univers ity of 00:00:00 00:00:00 10/2020 [facility] History of tobacco 2020-11-05 Passive smoker [facility] use 00:00:00 Hospital History [facility] 2020-10-14 2020-10-14 1 [facility]odaism Alcohol Frequency 00:00:00 00:00:00 Hospita l History [facility] 2020-10-14 2020-10-14 3 [facility]oda[facility] Financial 00:00:00 00:00:00 Hospital History [facility] Food 2020-10-14 2020-10-[address] Worry 00:00:00 00:00:00 Hospital History [facility] Food 2020-10-14 2020-10-[address] Scarcity 00:00:00 00:00:00 Hospital Sex Ass[birth year] At [birth year] Caodaism 00:00:00 00:00:00 Hospital Smoking Status Start Date Stop Date Source Unknown if ever smoked [facility] Ex-smoker 2022-06-13 00:00:00 2022-06-13 00:00:[facility] Medications Ordered Filled Start Stop Current Ordering Indication Dosage Frequency Signature Comments Components Source Medication Medication Date Date Medication? Clinician (SIG) Name Name METFORMIN No TAKE ONE [[facility] HCL XR 500 1-01 TABLET BY = 0 pct;] Health MG TABLET 00:00: MOUTH WITH [facility] and 00 EVENING [facility] MEAL s carvediloL 2021-08 Yes 12.5mg Q.5D Take 1 [facility] (COREG) 0-[address] 12.5 MG 20:12: (12.5 mg Hospit a tablet 02 total) by l mouth 2 (two) times a day with meals. carvediloL 2021-08 Yes 12.5mg Q.5D Take 1 [facility] (COREG) 0-[address] 12.5 MG 20:12: (12.5 mg Hospit a tablet 02 total) by l mouth 2 (two) times a day with meals. carvediloL 2021-08 Yes 12.5mg Q.5D Take 1 [facility] (COREG) 0-[address] 12.5 MG 20:12: (12.5 mg Hospit a tablet 02 total) by l mouth 2 (two) times a day with meals. carvediloL 2021-08 Yes 12.5mg Q.5D Take 1 [facility] (COREG) 0-[address] 12.5 MG 20:12: (12.5 mg Hospit a tablet 02 total) by l mouth 2 (two) times a day with meals. famotidine 2021-08 Yes 20mg Q.5D Take 20 mg M ethodi (PEPCID) 20 0-[address] MG tablet 20:13: (two) Hospita 03 times a l day. aspirin 2021-08 Yes 81mg QD Take 81 mg Meth preeti (ECOTRIN) 0-[address] 81 MG 20:13: daily. Hospita enteric 03 l coated tablet spironolact 2021-08 Yes 25mg Q.5D Take 1 Meth preeti one 0-25 tablet (25 st (ALDACTONE) 20:13: mg total) H ospita 25 MG 03 by mouth 2 l tablet (two) times a day. HOLD IF SYSTOLIC BLOOD PRESSURE IS LESS THAN 100 losartan 2021-08 Yes 25mg Q.5D Take 25 mg Met [facility] (COZAAR) 50 0-[address] MG tablet 20:13: (two) Hospita 03 times a l day. HOLD IF SYSTOLIC BLOOD PRESSURE IS LESS THAN 110 famotidine 2021-08 Yes 20mg Q.5D Take 20 mg M ethodi (PEPCID) 20 0-[address] MG tablet 20:13: (two) Hospita 03 times a l day. aspirin 2021-08 Yes 81mg QD Take 81 mg Meth preeti (ECOTRIN) 0-[address] 81 MG 20:13: daily. Hospita enteric 03 l coated tablet spironolact 2021-08 Yes 25mg Q.5D Take 1 Meth preeti one 0-25 tablet (25 st (ALDACTONE) 20:13: mg total) H ospita 25 MG 03 by mouth 2 l tablet (two) times a day. HOLD IF SYSTOLIC BLOOD PRESSURE IS LESS THAN 100 losartan 2021-08 Yes 25mg Q.5D Take 25 mg Met [facility]odi (COZAAR) 50 0-[address] MG tablet 20:13: (two) Hospita 03 times a l day. HOLD IF SYSTOLIC BLOOD PRESSURE IS LESS THAN 110 famotidine 2021-08 Yes 20mg Q.5D Take 20 mg M ethodi (PEPCID) 20 0-[address] MG tablet 20:13: (two) Hospita 03 times a l day. aspirin 2021-08 Yes 81mg QD Take 81 mg Meth preeti (ECOTRIN) 0-[address] 81 MG 20:13: daily. Hospita enteric 03 l coated tablet spironolact 2021-08 Yes 25mg Q.5D Take 1 Meth preeti one 0-25 tablet (25 st (ALDACTONE) 20:13: mg total) H ospita 25 MG 03 by mouth 2 l tablet (two) times a day. HOLD IF SYSTOLIC BLOOD PRESSURE IS LESS THAN 100 losartan 2021-08 Yes 25mg Q.5D Take 25 mg [facility] (COZAAR) 50 0-[address] MG tablet 20:13: (two) Hospita 03 times a l day. HOLD IF SYSTOLIC BLOOD PRESSURE IS LESS THAN 110 famotidine 2021-08 Yes 20mg Q.5D Take 20 mg M ethodi (PEPCID) 20 0-[address] MG tablet 20:13: (two) Hospita 03 times a l day. aspirin 2021-08 Yes 81mg QD Take 81 mg Meth preeti (ECOTRIN) 0-[address] 81 MG 20:13: daily. Hospita enteric 03 l coated tablet spironolact 2021-08 Yes 25mg Q.5D Take 1 Meth preeti one 0-25 tablet (25 st (ALDACTONE) 20:13: mg total) H ospita 25 MG 03 by mouth 2 l tablet (two) times a day. HOLD IF SYSTOLIC BLOOD PRESSURE IS LESS THAN 100 losartan 2021-08 Yes 25mg Q.5D Take 25 mg [facility] (COZAAR) 50 0-[address] MG tablet 20:13: (two) Hospita 03 times a l day. HOLD IF SYSTOLIC BLOOD PRESSURE IS LESS THAN 110 albuterol 2021-08- No Q6H Inhale Metho di (PROAIR 0-25 10-[address] HFA) 90 18:01: 00:00 (six) Hospita mcg/actuati 17 :00 hours as l on inhaler needed for wheezing or shortness of breath. albuterol 2021-08- No Q6H Inhale Metho di (PROAIR 0-25 10-[address] HFA) 90 18:01: 00:00 (six) Hospita mcg/actuati 17 :00 hours as l on inhaler needed for wheezing or shortness of breath. albuterol 2021-08- No Q6H Inhale Metho di (PROAIR 0-25 10-[address] HFA) 90 18:01: 00:00 (six) Hospita mcg/actuati 17 :00 hours as l on inhaler needed for wheezing or shortness of breath. albuterol 2021-08- No Q6H Inhale Metho di (PROAIR 0-25 10-[address] HFA) 90 18:01: 00:00 (six) Hospita mcg/actuati 17 :00 hours as l on inhaler needed for wheezing or shortness of breath. ipratropium 2021-08 Yes [id number] 3mL Q4H Take 3 mL Methodi -albuteroL 0-[address] (DUO-NEB) 00:00: nebulizati [facility] sp[facility] 0.5-2.5 00 on every 4 l mg/3 mL (four) nebulizer hours as needed for wheezing or shortness of breath. nebulizer 2021-08 Yes Dispense 1 Me [facility] and 0-25 nebulizer/ st compressor 00:00: compressor H ospita device 00 for COPD l (J44.0), please include any additional misc supplies the patient may need for Nebulizer use with quantities sufficient for 1 month ipratropium 2021-08 Yes [id number] 3mL Q4H Take 3 mL Methodi -albuteroL 0-[address] (DUO-NEB) 00:00: nebulizati Ho spita 0.5-2.5 00 on every 4 l mg/3 mL (four) nebulizer hours as needed for wheezing or shortness of breath. nebulizer 2021-08 Yes Dispense 1 Me [facility] and 0-25 nebulizer/ st compressor 00:00: compressor H ospita device 00 for COPD l (J44.0), please include any additional misc supplies the patient may need for Nebulizer use with quantities sufficient for 1 month ipratropium 2021-08 Yes [id number] 3mL Q4H Take 3 mL Methodi -albuteroL 0-[address] (DUO-NEB) 00:00: nebulizati Ho spita 0.5-2.5 00 on every 4 l mg/3 mL (four) nebulizer hours as needed for wheezing or shortness of breath. nebulizer 2021-08 Yes Dispense 1 [facility] and 0-25 nebulizer/ st compressor 00:00: compressor H ospita device 00 for COPD l (J44.0), please include any additional misc supplies the patient may need for Nebulizer use with quantities sufficient for 1 month ipratropium 2021-08 Yes [id number] 3mL Q4H Take 3 mL Methodi -albuteroL 0-[address] (DUO-NEB) 00:00: nebulizati Ho spita 0.5-2.5 00 on every 4 l mg/3 mL (four) nebulizer hours as needed for wheezing or shortness of breath. nebulizer 2021-08 Yes Dispense 1 Me [facility] and 0-25 nebulizer/ st compressor 00:00: compressor H ospita device 00 for COPD l (J44.0), please include any additional misc supplies the patient may need for Nebulizer use with quantities sufficient for 1 month albuterol 2021-08- No 1{puff} Q6H Inhale 1 [facility] (PROAIR 0-25 11-[address] HFA) 90 00:00: 05:59 6 (six) Hospit a mcg/actuati 00 :00 hours as l on inhaler needed for wheezing or shortness of breath for up to 30 days. albuterol 2021-08- No 1{puff} Q6H Inhale 1 [facility] (PROAIR 0-25 11-[address] HFA) 90 00:00: 05:59 6 (six) Hospit a mcg/actuati 00 :00 hours as l on inhaler needed for wheezing or shortness of breath for up to 30 days. albuterol 2021-08- No 1{puff} Q6H Inhale 1 [facility] (PROAIR 0-25 11-[address] HFA) 90 00:00: 05:59 6 (six) Hospit a mcg/actuati 00 :00 hours as l on inhaler needed for wheezing or shortness of breath for up to 30 days. albuterol 2021-08- No 1{puff} Q6H Inhale 1 [facility] (PROAIR 0-25 11-[address] HFA) 90 00:00: 05:59 6 (six) Hospit a mcg/actuati 00 :00 hours as l on inhaler needed for wheezing or shortness of breath for up to 30 days. predniSONE 2021-08- No Take 3 Meth preeti (DELTASONE) 0-25 11-[address] 20 mg 00:00: 05:59 (60 mg Hospita tablet 00 :00 total) by l mouth daily for 7 days, THEN 2 tablets (40 mg total) daily for 7 days, THEN 1 tablet (20 mg total) daily for 7 days. predniSONE 2021-08- No Take 3 Meth preeti (DELTASONE) 0-25 11-[address] 20 mg 00:00: 05:59 (60 mg Hospita tablet 00 :00 total) by l mouth daily for 7 days, THEN 2 tablets (40 mg total) daily for 7 days, THEN 1 tablet (20 mg total) daily for 7 days. predniSONE 2021-08- No Take 3 Meth preeti (DELTASONE) 0-25 11-[address] 20 mg 00:00: 05:59 (60 mg Hospita tablet 00 :00 total) by l mouth daily for 7 days, THEN 2 tablets (40 mg total) daily for 7 days, THEN 1 tablet (20 mg total) daily for 7 days. predniSONE 2021-08 No Take 3 Meth preeti (DELTASONE) 0-25 11-[address] 20 mg 00:00: 05:59 (60 mg Hospita tablet 00 :00 total) by l mouth daily for 7 days, THEN 2 tablets (40 mg total) daily for 7 days, THEN 1 tablet (20 mg total) daily for 7 days. oseltamivir 2021-08 No 75mg Q.5D Take 1 [facility] (TAMIFLU) 0-25 10-[address] 75 MG 00:00: 04:59 (75 mg Hospita capsule 00 :00 total) by l mouth 2 (two) times a day for 5 doses. oseltamivir 2021-08 No 75mg Q.5D Take 1 [facility] (TAMIFLU) 0-25 10-[address] 75 MG 00:00: 04:59 (75 mg Hospita capsule 00 :00 total) by l mouth 2 (two) times a day for 5 doses. oseltamivir 2021-08 No 75mg Q.5D Take 1 [facility] (TAMIFLU) 0-25 10-[address] 75 MG 00:00: 04:59 (75 mg Hospita capsule 00 :00 total) by l mouth 2 (two) times a day for 5 doses. oseltamivir 2021-08 No 75mg Q.5D Take 1 [facility] (TAMIFLU) 0-25 10-[address] 75 MG 00:00: 04:59 (75 mg Hospita capsule 00 :00 total) by l mouth 2 (two) times a day for 5 doses. metformin No 1{table Q1D take 1 [[facility] ER 500 mg 7-05 t} Tablet by = 0 pct;] Health tablet,exte 00:00: oral route [facility] and nded 00 every day [facility] release 24 with the s hr evening meal metformin No 1{table Q1D take 1 [[facility] ER 500 mg 7-05 t} Tablet by = 0 pct;] Health tablet,exte 00:00: oral route [facility] and nded 00 every day [facility] release 24 with the s hr evening meal metformin No 1{table Q1D take 1 [[facility] ER 500 mg 7-05 t} Tablet by = 0 pct;] Health tablet,exte 00:00: oral route [facility] and nded 00 every day [facility] release 24 with the s hr evening meal metformin No 1{table Q1D take 1 [[facility] ER 500 mg 7-05 t} Tablet by = 0 pct;] Health tablet,exte 00:00: oral route [facility] and nded 00 every day [facility] release 24 with the s hr evening meal metformin No 1{table Q1D take 1 [[facility] ER 500 mg 7-05 t} Tablet by = 0 pct;] Health tablet,exte 00:00: oral route [facility] and nded 00 every day [facility] release 24 with the s hr evening meal metformin No 1{table Q1D take 1 [[facility] ER 500 mg 7-05 t} Tablet by = 0 pct;] Health tablet,exte 00:00: oral route [facility] and nded 00 every day [facility] release 24 with the s hr evening meal metformin No 1{table Q1D take 1 [[facility] ER 500 mg 7-05 t} Tablet by = 0 pct;] Health tablet,exte 00:00: oral route [facility] and nded 00 every day [facility] release 24 with the s hr evening meal metformin 0 202- No 1{table Q1D take 1 [[facility] ER 500 mg 7-05 01-01 t} Tablet by = 0 pct;] Health tablet,exte 00:00: 00:00 oral route [facility] and nded 00 :00 every day [facility] release 24 with the s hr evening meal spironolact No take 1 [[facility] one 25 mg 6-06 Tablet by = 0 pct;] Health tablet 00:00: oral route [facility] an d 00 2 times [facility] every day s hold if systolic blood pressure less than 100. furosemide No 1{table Q12H take 1 [[facility] 40 mg 6-06 t} tablet by = 0 pct;] Heal th tablet 00:00: oral route [facility] an d 00 2 times [facility] every day s Breo No 1{puff} Q1D inhale 1 [[facility] Ellipta 200 6-06 puff by = 0 pct;] Health mcg-25 00:00: inhalation [facility] an d mcg/dose 00 route [facility] powder for every day s inhalation at the same time each day carvedilol No 1{table Q12H take 1 [[facility] 12.5 mg 6-06 t} tablet by = 0 pct;] He alth tablet 00:00: oral route [facility] an d 00 2 times [facility] every day s with food losartan 50 No take 0.5 [[facility] mg tablet 6-06 tablet by = 0 pct;] Health 00:00: oral route [facility] and 00 2 times [facility] every day s hold if systolic blood pressure is less than 110. Ventolin No INHALE TWO [[facility] HFA 90 6-06 PUFFS BY = 0 pct;] Heal th mcg/actuati 00:00: MOUTH [facility] an d on aerosol 00 EVERY 4 TO [facility] inhaler 6 HOURS s NEEDED spironolact No take 1 [[facility] one 25 mg 6-06 Tablet by = 0 pct;] Health tablet 00:00: oral route [facility] an d 00 2 times [facility] every day s hold if systolic blood pressure less than 100. furosemide No 1{table Q12H take 1 [[facility] 40 mg 6-06 t} tablet by = 0 pct;] Heal th tablet 00:00: oral route [facility] an d 00 2 times [facility] every day s Breo No 1{puff} Q1D inhale 1 [[facility] Ellipta 200 6-06 puff by = 0 pct;] Health mcg-25 00:00: inhalation [facility] an d mcg/dose 00 route [facility] powder for every day s inhalation at the same time each day carvedilol No 1{table Q12H take 1 [[facility] 12.5 mg 6-06 t} tablet by = 0 pct;] He alth tablet 00:00: oral route [facility] an d 00 2 times [facility] every day s with food losartan 50 No take 0.5 [[facility] mg tablet 6-06 tablet by = 0 pct;] Health 00:00: oral route [facility] and 00 2 times [facility] every day s hold if systolic blood pressure is less than 110. Ventolin No INHALE TWO [[facility] HFA 90 6-06 PUFFS BY = 0 pct;] Heal th mcg/actuati 00:00: MOUTH [facility] an d on aerosol 00 EVERY 4 TO [facility] inhaler 6 HOURS s NEEDED spironolact No take 1 [[facility] one 25 mg 6-06 Tablet by = 0 pct;] Health tablet 00:00: oral route [facility] an d 00 2 times [facility] every day s hold if systolic blood pressure less than 100. furosemide No 1{table Q12H take 1 [[facility] 40 mg 6-06 t} tablet by = 0 pct;] Heal th tablet 00:00: oral route [facility] an d 00 2 times [facility] every day s Breo No 1{puff} Q1D inhale 1 [[facility] Ellipta 200 6-06 puff by = 0 pct;] Health mcg-25 00:00: inhalation [facility] an d mcg/dose 00 route [facility] powder for every day s inhalation at the same time each day carvedilol No 1{table Q12H take 1 [[facility] 12.5 mg 6-06 t} tablet by = 0 pct;] He alth tablet 00:00: oral route [facility] an d 00 2 times [facility] every day s with food losartan 50 No take 0.5 [[facility] mg tablet 6-06 tablet by = 0 pct;] Health 00:00: oral route [facility] and 00 2 times [facility] every day s hold if systolic blood pressure is less than 110. Ventolin No INHALE TWO [[facility] HFA 90 6-06 PUFFS BY = 0 pct;] Heal th mcg/actuati 00:00: MOUTH [facility] an d on aerosol 00 EVERY 4 TO [facility] inhaler 6 HOURS s NEEDED spironolact No take 1 [[facility] one 25 mg 6-06 Tablet by = 0 pct;] Health tablet 00:00: oral route [facility] an d 00 2 times [facility] every day s hold if systolic blood pressure less than 100. furosemide No 1{table Q12H take 1 [[facility] 40 mg 6-06 t} tablet by = 0 pct;] Heal th tablet 00:00: oral route [facility] an d 00 2 times [facility] every day s Breo No 1{puff} Q1D inhale 1 [[facility] Ellipta 200 6-06 puff by = 0 pct;] Health mcg-25 00:00: inhalation [facility] an d mcg/dose 00 route [facility] powder for every day s inhalation at the same time each day carvedilol No 1{table Q12H take 1 [[facility] 12.5 mg 6-06 t} tablet by = 0 pct;] He alth tablet 00:00: oral route [facility] an d 00 2 times [facility] every day s with food losartan 50 No take 0.5 [[facility] mg tablet 6-06 tablet by = 0 pct;] Health 00:00: oral route [facility] and 00 2 times [facility] every day s hold if systolic blood pressure is less than 110. Ventolin No INHALE TWO [[facility] HFA 90 6-06 PUFFS BY = 0 pct;] Heal th mcg/actuati 00:00: MOUTH [facility] an d on aerosol 00 EVERY 4 TO [facility] inhaler 6 HOURS s NEEDED spironolact No take 1 [[facility] one 25 mg 6-06 Tablet by = 0 pct;] Health tablet 00:00: oral route [facility] an d 00 2 times [facility] every day s hold if systolic blood pressure less than 100. furosemide No 1{table Q12H take 1 [[facility] 40 mg 6-06 t} tablet by = 0 pct;] Heal th tablet 00:00: oral route [facility] an d 00 2 times [facility] every day s Breo No 1{puff} Q1D inhale 1 [[facility] Ellipta 200 6-06 puff by = 0 pct;] Health mcg-25 00:00: inhalation [facility] an [facility] mcg/dose 00 route [facility] powder for every day s inhalation at the same time each day carvedilol No 1{table Q12H take 1 [[facility] 12.5 mg 6-06 t} tablet by = 0 pct;] He alth tablet 00:00: oral route [facility] an d 00 2 times [facility] every day s with food losartan 50 No take 0.5 [[facility] mg tablet 6-06 tablet by = 0 pct;] Health 00:00: oral route [facility] and 00 2 times [facility] every day s hold if systolic blood pressure is less than 110. Ventolin No INHALE TWO [[facility] HFA 90 6-06 PUFFS BY = 0 pct;] Heal th mcg/actuati 00:00: MOUTH [facility] an d on aerosol 00 EVERY 4 TO [facility] inhaler 6 HOURS s NEEDED spironolact No take 1 [[facility] one 25 mg 6-06 Tablet by = 0 pct;] Health tablet 00:00: oral route [facility] an d 00 2 times [facility] every day s hold if systolic blood pressure less than 100. furosemide No 1{table Q12H take 1 [[facility] 40 mg 6-06 t} tablet by = 0 pct;] Heal th tablet 00:00: oral route [facility] an d 00 2 times [facility] every day s Breo No 1{puff} Q1D inhale 1 [[facility] Ellipta 200 6-06 puff by = 0 pct;] Health mcg-25 00:00: inhalation [facility] an d mcg/dose 00 route [facility] powder for every day s inhalation at the same time each day carvedilol No 1{table Q12H take 1 [[facility] 12.5 mg 6-06 t} tablet by = 0 pct;] He alth tablet 00:00: oral route [facility] an d 00 2 times [facility] every day s with food losartan 50 No take 0.5 [[facility] mg tablet 6-06 tablet by = 0 pct;] Health 00:00: oral route [facility] and 00 2 times [facility] every day s hold if systolic blood pressure is less than 110. Ventolin No INHALE TWO [[facility] HFA 90 6-06 PUFFS BY = 0 pct;] Heal th mcg/actuati 00:00: MOUTH [facility] an d on aerosol 00 EVERY 4 TO [facility] inhaler 6 HOURS s NEEDED spironolact No take 1 [[facility] one 25 mg 6-06 Tablet by = 0 pct;] Health tablet 00:00: oral route [facility] an d 00 2 times [facility] every day s hold if systolic blood pressure less than 100. furosemide No 1{table Q12H take 1 [[facility] 40 mg 6-06 t} tablet by = 0 pct;] Heal th tablet 00:00: oral route [facility] an d 00 2 times [facility] every day s Breo No 1{puff} Q1D inhale 1 [[facility] Ellipta 200 6-06 puff by = 0 pct;] Health mcg-25 00:00: inhalation [facility] an d mcg/dose 00 route [facility] powder for every day s inhalation at the same time each day carvedilol No 1{table Q12H take 1 [[facility] 12.5 mg 6-06 t} tablet by = 0 pct;] He alth tablet 00:00: oral route [facility] an d 00 2 times [facility] every day s with food losartan 50 No take 0.5 [[facility] mg tablet 6-06 tablet by = 0 pct;] Health 00:00: oral route [facility] and 00 2 times [facility] every day s hold if systolic blood pressure is less than 110. Ventolin No INHALE TWO [[facility] HFA 90 6-06 PUFFS BY = 0 pct;] Heal th mcg/actuati 00:00: MOUTH [facility] an d on aerosol 00 EVERY 4 TO [facility] inhaler 6 HOURS s NEEDED spironolact No take 1 [[facility] one 25 mg 6-06 Tablet by = 0 pct;] Health tablet 00:00: oral route [facility] an d 00 2 times [facility] every day s hold if systolic blood pressure less than 100. furosemide 2022-0 No 1{table Q12H take 1 [[facility] 40 mg 6-06 t} tablet by = 0 pct;] Heal th tablet 00:00: oral route [facility] an d 00 2 times [facility] every day s Breo No 1{puff} Q1D inhale 1 [[facility] Ellipta 200 6-06 puff by = 0 pct;] Health mcg-25 00:00: inhalation [facility] an d mcg/dose 00 route [facility] powder for every day s inhalation at the same time each day carvedilol No 1{table Q12H take 1 [[facility] 12.5 mg 6-06 t} tablet by = 0 pct;] He alth tablet 00:00: oral route [facility] an d 00 2 times [facility] every day s with food losartan 50 No take 0.5 [[facility] mg tablet 6-06 tablet by = 0 pct;] Health 00:00: oral route [facility] and 00 2 times [facility] every day s hold if systolic blood pressure is less than 110. Ventolin No INHALE TWO [[facility] HFA 90 6-06 PUFFS BY = 0 pct;] Heal th mcg/actuati 00:00: MOUTH [facility] an d on aerosol 00 EVERY 4 TO [facility] inhaler 6 HOURS s NEEDED famotidine Yes 20mg Q.5D Take 20 mg [facility] (PEPCID) 20 4-[address] MG tablet 14:07: (two) [facility]osp[facility] 04 times a l day. aspirin Yes 81mg QD Take 81 mg [facility] (ECOTRIN) 4-[address] 81 MG 14:07: daily. [facility]osp[facility] enteric 04 l coated tablet spironolact Yes 25mg QD Take 25 mg [facility] one 4-[address] (ALDACTONE) 14:07: daily. Hosp eladio 25 MG 04 l tablet losartan Yes 50mg QD Take 50 mg [facility] (COZAAR) 50 4-[address] MG tablet 14:07: daily. Hospit a 04 l furosemide 2021- No 40mg QD Take 40 mg [facility] (LASIX) 40 4-26 04-[address] mg/4 mL 14:07: 00:00 daily. Hospita solution 04 :00 l oral solution carvediloL 2021-0 2- No 6.25mg Q.5D Take 6.25 [facility] (COREG) 4-26 04-[address] 6.25 MG 14:07: 00:00 mouth 2 Hospit a tablet 04 :00 (two) l times a day with meals. furosemide 2021- No 40mg QD Take 40 mg [facility] (LASIX) 40 4-26 04-[address] mg/4 mL 14:07: 00:00 daily. [facility]ospita solution 04 :00 l oral solution carvediloL 2021-0 2021- No 6.25mg Q.5D Take 6.25 [facility] (COREG) 4-26 04-[address] 6.25 MG 14:07: 00:00 mouth 2 Hospit a tablet 04 :00 (two) l times a day with meals. furosemide 2021- No 40mg QD Take 40 mg [facility] (LASIX) 40 4-26 04-[address] mg/4 mL 14:07: 00:00 daily. [facility]ospita solution 04 :00 l oral solution carvediloL 2021-0 2021- No 6.25mg Q.5D Take 6.25 [facility] (COREG) 4-26 04-[address] 6.25 MG 14:07: 00:00 mouth 2 Hospit a tablet 04 :00 (two) l times a day with meals. furosemide 2021- No 40mg QD Take 40 mg [facility] (LASIX) 40 4-26 04-[address] mg/4 mL 14:07: 00:00 daily. [facility]ospita solution 04 :00 l oral solution carvediloL 2021-0 2- No 6.25mg Q.5D Take 6.25 [facility] (COREG) 4-26 04-[address] 6.25 MG 14:07: 00:00 mouth 2 Hospit a tablet 04 :00 (two) l times a day with meals. furosemide 2021-0 2021- No 40mg QD Take 40 mg [facility] (LASIX) 40 4-26 04-[address] mg/4 mL 14:07: 00:00 daily. [facility]ospita solution 04 :00 l oral solution carvediloL 2021- No 6.25mg Q.5D Take 6.25 [facility] (COREG) 4-26 04-[address] 6.25 MG 14:07: 00:00 mouth 2 Hospit a tablet 04 :00 (two) l times a day with meals. albuterol 2021-0 Yes Q6H Inhale [facility] (PROAIR 4-[address] HFA) 90 14:07: (six) Hospita mcg/actuati 50 hours as l on inhaler needed for wheezing or shortness of breath. carvediloL 2021-2021- No 12.5mg Q.5D Take 1 [facility] (COREG) 4-25 05-[address] 12.5 MG 00:00: 04:59 (12.5 mg Hospi ta tablet 00 :00 total) by l mouth 2 (two) times a day with meals for 30 days. furosemide 2021-2021- No 40mg Q.5D Take 1 [facility] (Lasix) 40 4-25 05-26 tablet (40 st mg tablet 00:00: 04:59 mg total) Ho spita 00 :00 by mouth 2 l (two) times a day for 30 days. carvediloL 2021-0 2021- No 12.5mg Q.5D Take 1 [facility] (COREG) 4-25 05-[address] 12.5 MG 00:00: 04:59 (12.5 mg Hospi ta tablet 00 :00 total) by l mouth 2 (two) times a day with meals for 30 days. furosemide 2021-0 2021- No 40mg Q.5D Take 1 [facility] (Lasix) 40 4-25 05-26 tablet (40 st mg tablet 00:00: 04:59 mg total) [facility] 00 :00 by mouth 2 l (two) times a day for 30 days. carvediloL 2021-0 2021- No 12.5mg Q.5D Take 1 [facility] (COREG) 4-25 05-[address] 12.5 MG 00:00: 04:59 (12.5 mg Hospi ta tablet 00 :00 total) by l mouth 2 (two) times a day with meals for 30 days. furosemide 2021-0 2021- No 40mg Q.5D Take 1 [facility] (Lasix) 40 4-25 05-26 tablet (40 st mg tablet 00:00: 04:59 mg total) [facility] 00 :00 by mouth 2 l (two) times a day for 30 days. carvediloL 2021-2021- No 12.5mg Q.5D Take 1 [facility] (COREG) 4-25 05-[address] 12.5 MG 00:00: 04:59 (12.5 mg Hospi ta tablet 00 :00 total) by l mouth 2 (two) times a day with meals for 30 days. furosemide 2021-2021- No 40mg Q.5D Take 1 [facility] (Lasix) 40 4-25 05-26 tablet (40 st mg tablet 00:00: 04:59 mg total) [facility] 00 :00 by mouth 2 l (two) times a day for 30 days. carvediloL 2021-2021- No 12.5mg Q.5D Take 1 [facility] (COREG) 4-25 05-[address] 12.5 MG 00:00: 04:59 (12.5 mg Hospi ta tablet 00 :00 total) by l mouth 2 (two) times a day with meals for 30 days. furosemide 2021- No 40mg Q.5D Take 1 [facility] (Lasix) 40 4-25 05-26 tablet (40 st mg tablet 00:00: 04:59 mg total) [facility] 00 :00 by mouth 2 l (two) times a day for 30 days. ondansetron 2021- No 4mg 4 mg, [facility] ers (ZOFRAN-ODT 09-20 Oral, ity of ) 01:45: 00:32 ONCE, 1 [place] disintegrat 00 :00 dose, On Medi darek ing tablet Sat Branch 4 mg 09/19/21 at 1945, Routine ibuprofen Yes [id number] 600mg Take 1 [facility] 600 mg 1-29 tablet by [facility] of tablet 00:00: mouth [place] 00 every 6 Medical (six) Branch hours as needed for Pain (scale 4-6). benzonatate Yes [id number] 100mg Take 1 [facility] 100 mg 1-29 capsule by [facility] of capsule 00:00: mouth 3 [place] 00 (three) Medical times Branch daily as needed for Cough. ondansetron 2021-0 Yes [id number] 4mg Take 1 [facility] (ZOFRAN) 4 1-29 tablet by ity of mg tablet 00:00: mouth [place] 00 every 8 Medical (eight) Branch hours as needed for Nausea and Vomiting (N/V). ibuprofen 2021-0 Yes [id number] 600mg Take 1 [facility] 600 mg 1-29 tablet by ity of tablet 00:00: mouth [place] 00 every 6 Medical (six) Branch hours as needed for Pain (scale 4-6). benzonatate 2021-0 Yes [id number] 100mg Take 1 [facility] 100 mg 1-29 capsule by [facility] of capsule 00:00: mouth 3 [place] 00 (three) Medical times Branch daily as needed for Cough. ondansetron 2021-0 Yes [id number] 4mg Take 1 [facility] (ZOFRAN) 4 1-29 tablet by ity of mg tablet 00:00: mouth [place] 00 every 8 Medical (eight) Branch hours as needed for Nausea and Vomiting (N/V). ibuprofen 2021-0 Yes [id number] 600mg Take 1 [facility] 600 mg 1-29 tablet by [facility] of tablet 00:00: mouth [place] 00 every 6 Medical (six) Branch hours as needed for Pain (scale 4-6). benzonatate 2021-0 Yes [id number] 100mg Take 1 [facility] 100 mg 1-29 capsule by ity of capsule 00:00: mouth 3 [place] 00 (three) Medical times Branch daily as needed for Cough. ondansetron 2021-0 Yes [id number] 4mg Take 1 [facility] (ZOFRAN) 4 1-29 tablet by ity of mg tablet 00:00: mouth [place] 00 every 8 Medical (eight) Branch hours as needed for Nausea and Vomiting (N/V). diphenhydrA 2021- No 50mg 50 mg, [facility] vers MINE -04 01-04 Oral, ity of (BENADRYL) 15:30: 14:28 ONCE, 1 [place] as tablet 50 00 :00 dose, On Medica l mg 08/25/21 Branch at 0930, ELI rivaroxaban 2020-08- No [id number] 20mg Take 1 [facility] vers 20 mg 2-10 - tablet by ity of tablet 00:00: 05:59 mouth [place] 00 :00 daily for Medical 30 days. Branch Indication s: a clot in the lung lisinopriL 2020-08- No [id number] 2.5mg Take 1 [facility] 2.5 mg 2-10 01-10 tablet by ity of tablet 00:00: 05:59 mouth [place] 00 :00 daily for Medical 30 days. Branch rivaroxaban 2020-08- No [id number] 20mg Take 1 [facility] vers 20 mg 2-10 01-10 tablet by [facility] of tablet 00:00: 05:59 mouth [place] 00 :00 daily for Medical 30 days. Branch Indication s: a clot in the lung lisinopriL 2020-08- No [id number] 2.5mg Take 1 [facility] 2.5 mg 2-10 01-10 tablet by ity of tablet 00:00: 05:59 mouth [place] 00 :00 daily for Medical 30 days. [place] budesonide- 2020-08 Yes [id number] 2{puff} Inhale 2 [facility] formoteroL 2-09 Puffs 2 ity of 160-4.5 00:00: (two) [place] mcg/actuati 00 times Medical on inhaler daily. Branch meclizine 2020-08 Yes [id number] 12.5mg Take 1 [facility] 12.5 mg 2-09 tablet by ity of tablet 00:00: mouth 3 00 (three) Medical times [place] daily as needed for Dizziness. budesonide- 2020-08 Yes [id number] 2{puff} Inhale 2 [facility] formoteroL 2-09 Puffs 2 ity of 160-4.5 00:00: (two) [place] mcg/actuati 00 times Medical on inhaler daily. Branch meclizine 2020-08 Yes [id number] 12.5mg Take 1 [facility] 12.5 mg 2-09 tablet by ity of tablet 00:00: mouth 3 [place] 00 (three) Medical times [place] daily as needed for Dizziness. budesonide- 2020-08 Yes [id number] 2{puff} Inhale 2 [facility] formoteroL 2-09 Puffs 2 ity of 160-4.5 00:00: (two) [place] mcg/actuati 00 times Medical on inhaler daily. Branch meclizine 2020-08 Yes [id number] 12.5mg Take 1 [facility] 12.5 mg 2-09 tablet by ity of tablet 00:00: mouth 3 [place] 00 (three) Medical times Branch daily as needed for Dizziness. budesonide- 2020-08 Yes [id number] 2{puff} Inhale 2 [facility] formoteroL 2-09 Puffs 2 ity of 160-4.5 00:00: (two) [place] mcg/actuati 00 times Medical on inhaler daily. Branch meclizine 2020-08 Yes [id number] 12.5mg Take 1 [facility] 12.5 mg 2-09 tablet by ity of tablet 00:00: mouth 3 [place] 00 (three) Medical times Branch daily as needed for Dizziness. budesonide- 2020-08 Yes [id number] 2{puff} Inhale 2 [facility] formoteroL 2-09 Puffs 2 ity of 160-4.5 00:00: (two) [place] mcg/actuati 00 times Medical on inhaler daily. Branch meclizine 2020-08 Yes [id number] 12.5mg Take 1 [facility] 12.5 mg 2-09 tablet by [facility]y of tablet 00:00: mouth 3 [place] 00 (three) Medical times Branch daily as needed for Dizziness. budesonide- 2020-08 Yes [id number] 2{puff} Inhale 2 [facility] formoteroL 2-09 Puffs 2 ity of 160-4.5 00:00: (two) [place] mcg/actuati 00 times Medical on inhaler daily. Branch meclizine 2020-08 Yes [id number] 12.5mg Take 1 [facility] 12.5 mg 2-09 tablet by ity of tablet 00:00: mouth 3 [place] 00 (three) Medical times Branch daily as needed for Dizziness. furosemide 2020-08- No [id number] 40mg Take 2 [facility] 20 mg 09-30- tablets by [facility]y of tablet 00:00: 05:59 mouth 3 [place] 00 :00 (three) Medical times Branch daily for 30 days. atorvastati 2020-08- No [id number] 20mg Take 1 [facility] n 20 mg 2-04 22- tablet by [facility]y of tablet 00:00: 05:59 mouth at [place] 00 :00 bedtime Medical for 30 Branch days. carvediloL 2020-08- No [id number] 6.25mg Take 1 [facility] 6.25 mg 09-30 tablet by [facility]y of tablet 00:00: 05:59 mouth 2 [place] 00 :00 (two) Medical times Branch daily with meals for 30 days. furosemide 2020-08- No [id number] 40mg Take 2 [facility] 20 mg 09-30 tablets by [facility]y of tablet 00:00: 05:59 mouth 3 [place] 00 :00 (three) Medical times Branch daily for 30 days. atorvastati 2020-08- No [id number] 20mg Take 1 [facility] n 20 mg 09-30 tablet by ity of tablet 00:00: 05:59 mouth at [place] 00 :00 bedtime Medical for 30 Branch days. carvediloL 2020-08- No [id number] 6.25mg Take 1 [facility] 6.25 mg 09-30 tablet by ity of tablet 00:00: 05:59 mouth 2 [place] 00 :00 (two) Medical times Branch daily with meals for 30 days. amoxicillin 2020-08- No [id number] 1{tbl} Take 1 [facility] -clavulanat 09-30 [id number] tablet by ity of e 875-125 00:00: 05:59 mouth 2 [place] mg per 00 :00 (two) Medical tablet times Branch daily for 4 days. doxycycline 2020-08- No [id number] 100mg Take 1 [facility] hyclate 100 09-30 [id number] capsule by [facility]y of mg capsule 00:00: 05:59 mouth [place] 00 :00 every 12 Medical (twelve) Branch hours for 4 days. KCL 20 mEq 2020-08 Yes [id number] 20meq Take 1 [facility] tablet 1-19 tablet by ity of 00:00: mouth [place] 00 daily. Medical Branch spironolact 2020-08 Yes [id number] 25mg Take 1 [facility] one 25 mg 1-19 tablet by ity o f tablet 00:00: mouth 2 [place] 00 (two) Medical times Branch daily. KCL 20 mEq 2020-08 Yes [id number] 20meq Take 1 [facility] tablet 1-19 tablet by [facility]y of 00:00: mouth [place] 00 daily. Medical Branch spironolact 2020-08 Yes [id number] 25mg Take 1 [facility] one 25 mg 1-19 tablet by ity o f tablet 00:00: mouth 2 (two) Medical times Branch daily. KCL 20 mEq 2020-08 Yes [id number] 20meq Take 1 [facility] tablet 1-19 tablet by ity of 00:00: mouth [place] 00 daily. Medical Branch spironolact 2020-08 Yes [id number] 25mg Take 1 [facility] one 25 mg 1-19 tablet by ity o f tablet 00:00: mouth 2 (two) Medical times Branch daily. KCL 20 mEq 2020-08 Yes [id number] 20meq Take 1 [facility] tablet 1-19 tablet by [facility] of 00:00: mouth [place] 00 daily. Medical Branch spironolact 2020-08 Yes [id number] 25mg Take 1 [facility] one 25 mg 1-19 tablet by ity o f tablet 00:00: mouth 2 (two) Medical times Branch daily. KCL 20 mEq 2020-08 Yes [id number] 20meq Take 1 [facility] tablet 1-19 tablet by [facility]y of 00:00: mouth [place] 00 daily. Medical Branch spironolact 2020-08 Yes [id number] 25mg Take 1 [facility] one 25 mg 1-19 tablet by ity o f tablet 00:00: mouth 2 (two) Medical times Branch daily. KCL 20 mEq 2020-08 Yes [id number] 20meq Take 1 [facility] tablet 1-19 tablet by [facility]y of 00:00: mouth [place] 00 daily. Medical Branch spironolact 2020-08 Yes [id number] 25mg Take 1 [facility] one 25 mg 1-19 tablet by ity o f tablet 00:00: mouth 2 (two) Medical times Branch daily. lisinopriL 2021-0 Yes 10mg QD Take 1 [facility] (PRINIVIL) 4-14 tablet (10 st 10 mg 00:00: mg total) [facility]ospita tablet 00 by mouth l daily for 30 days. lisinopriL 2021-0 Yes 10mg QD Take 1 [facility] (PRINIVIL) 4-14 tablet (10 st 10 mg 00:00: mg total) [facility]ospita tablet 00 by mouth l daily for 30 days. lisinopriL 2021-0 Yes 10mg QD Take 1 [facility] (PRINIVIL) 4-14 tablet (10 st 10 mg 00:00: mg total) [facility]ospita tablet 00 by mouth l daily for 30 days. lisinopriL 2020-0 2022- No 10mg QD Take 1 [facility] (PRINIVIL) 12-03-25 tablet (10 st 10 mg 00:00: 00:00 mg total) Hospit a tablet 00 :00 by mouth l daily for 30 days. lisinopriL 2020-0 2022- No 10mg QD Take 1 [facility] (PRINIVIL) -03 12-25 tablet (10 st 10 mg 00:00: 00:00 mg total) Hospit a tablet 00 :00 by mouth l daily for 30 days. lisinopriL 2020-0 2022- No 10mg QD Take 1 [facility] (PRINIVIL) 12-03-25 tablet (10 st 10 mg 00:00: 00:00 mg total) Hospit a tablet 00 :00 by mouth l daily for 30 days. lisinopriL 2020-0 2021- No 10mg QD Take 1 [facility] (PRINIVIL) 12-03-25 tablet (10 st 10 mg 00:00: 00:00 mg total) Hospit a tablet 00 :00 by mouth l daily for 30 days. lisinopriL 2020-0 2021- No 10mg QD Take 1 [facility] (PRINIVIL) 12-03-25 tablet (10 st 10 mg 00:00: 00:00 mg total) Hospit a tablet 00 :00 by mouth l daily for 30 days. albuterol 202-0 Yes Q6H Inhale [facility] (PROAIR 4-[address] HFA) 90 18:04: (six) Hospita mcg/actuati 21 hours as l on inhaler needed for wheezing or shortness of breath. albuterol 2021-0 Yes Q6H Inhale [facility] (PROAIR 4-[address] HFA) 90 18:04: (six) [facility]ospita mcg/actuati 21 hours as l on inhaler needed for wheezing or shortness of breath. albuterol 2021-0 Yes Q6H Inhale [facility] (PROAIR 4-13 [...] mouth l daily for 30 days. carvediloL 2020- No 6.25mg Q.5D Take 1 [facility] (COREG) 4- 05-[address] 6.25 MG 00:00: 04:59 (6.25 mg Hospi ta tablet 00 :00 total) by l mouth 2 (two) times a day for 30 days. furosemide 2020-2020- No 40mg QD Take 1 [facility] (Lasix) 40 12-02-14 tablet (40 st mg tablet 00:00: 04:59 mg total) [facility] 00 :00 by mouth l daily for 30 days. carvediloL 2020- No 6.25mg Q.5D Take 1 [facility] (COREG) 4-[address] 6.25 MG 00:00: 04:59 (6.25 [...] times a day for 5 days. doxycycline 2020-2020- No 100mg Q.5D Take 1 [facility] (DORYX) 100 4- 04-[address] MG EC 00:00: 04:59 (100 mg Hospita tablet 00 :00 total) by l mouth 2 (two) times a day for 5 days. doxycycline 2020-0 2021- No 100mg Q.5D Take 1 [facility] (DORYX) 100 4 04-[address] MG EC 00:00: 04:59 (100 mg [facility]osp[facility] tablet 00 :00 total) by l mouth 2 (two) times a day for 5 days. fluticasone 2021-0 Yes QD Inhale 1 [facility] furoate-omar 3-[address] anteroL 00:00: s once [facility]osp[facility] (BREO 00 daily. l ELLIPTA) 200-25 mcg/dose blister with device powder for inhalation lisinopriL 2021-0 Yes 5mg QD Take 1 [facility] (PRINIVIL) 3-10 tablet (5 st 5 mg tablet 00:00: mg total) H [facility]spita 00 by mouth l daily for 30 days. fluticasone 2021-0 Yes QD Inhale 1 [facility] furoate-omar 3-[address] anteroL 00:00: s once [facility]osp[facility] (BREO 00 daily. l ELLIPTA) 200-25 mcg/dose blister with device powder for inhalation lisinopriL 2021-0 Yes 5mg QD Take 1 [facility] (PRINIVIL) 3-10 tablet (5 st 5 mg tablet 00:00: mg total) H [facility]spita 00 by mouth l daily for 30 days. fluticasone 2021-0 Yes QD Inhale 1 [facility] furoate-omar 3-[address] anteroL 00:00: s once [facility]osp[facility] (BREO 00 daily. l ELLIPTA) 200-25 mcg/dose blister with device powder for inhalation lisinopriL 2021-0 Yes 5mg QD Take 1 [facility] (PRINIVIL) 3-10 tablet (5 st 5 mg tablet 00:00: mg total) H [facility]spita 00 by mouth l daily for 30 days. fluticasone 2021-0 Yes QD Inhale 1 [facility] furoate-omar 3-[address] anteroL 00:00: s once [facility]osp[facility] (BREO 00 daily. l ELLIPTA) 200-25 mcg/dose blister with device powder for inhalation fluticasone 2021-0 Yes QD Inhale 1 [facility] furoate-omar 3-[address] anteroL 00:00: s once [facility] (BREO 00 daily. l ELLIPTA) 200-25 mcg/dose blister with device powder for inhalation fluticasone 2021-0 Yes QD Inhale 1 [facility] furoate-omar 3-[address] anteroL 00:00: s once [facility] (BREO 00 daily. l ELLIPTA) 200-25 mcg/dose blister with device powder for inhalation fluticasone 1-0 Yes QD Inhale 1 [facility] furoate-omar 3-[address] anteroL 00:00: s once [facility] (BREO 00 daily. l ELLIPTA) 200-25 mcg/dose blister with device powder for inhalation fluticasone 1-0 Yes QD Inhale 1 [facility] furoate-omar 3-[address] anteroL 00:00: s once [facility] (BREO 00 daily. l ELLIPTA) 200-25 mcg/dose blister with device powder for inhalation lisinopriL 2020-0 2022- No 5mg QD Take 1 [facility] (PRINIVIL) 3-10 04-25 tablet (5 st 5 mg tablet 00:00: 00:00 mg total) [facility]ospita 00 :00 by mouth l daily for 30 days. lisinopriL 2020-0 2022- No 5mg QD Take 1 [facility] (PRINIVIL) 3-10 04-25 tablet (5 st 5 mg tablet 00:00: 00:00 mg total) [facility]ospita 00 :00 by mouth l daily for 30 days. lisinopriL 2020-0 2022- No 5mg QD Take 1 [facility] (PRINIVIL) 3-10 04-25 tablet (5 st 5 mg tablet 00:00: 00:00 mg total) [facility]ospita 00 :00 by mouth l daily for 30 days. lisinopriL 2021-0 2022- No 5mg QD Take 1 [facility] (PRINIVIL) 3-10 04-25 tablet (5 st 5 mg tablet 00:00: 00:00 mg total) [facility]ospita 00 :00 by mouth l daily for 30 days. lisinopriL 2021-0 2022- No 5mg QD Take 1 [facility] (PRINIVIL) 3-10 04-25 tablet (5 st 5 mg tablet 00:00: 00:00 mg total) [facility]ospita 00 :00 by mouth l daily for 30 days. spironolact 2020- No 25mg QD Take 1 [facility] one 3-10 04-10 tablet (25 st (ALDACTONE) 00:00: 04:59 mg total) [facility]ospita 25 MG 00 :00 by mouth l tablet daily for 30 days. spironolact 2020-2020- No 25mg QD Take 1 [facility] one 3-10 tablet (25 st (ALDACTONE) 00:00: 04:59 mg [...] mouth l daily for 30 days. aspirin 2020-2020- No 81mg QD Take 1 [facility] (ECOTRIN) 10-28 tablet (81 st 81 MG 00:00: 04:59 mg total) Hospit a enteric 00 :00 by mouth l coated daily for tablet 30 days. carvediloL 2020-0 2020- No 6.25mg Q.5D Take 1 Me [...] fever for up to 30 days. furosemide 2020-2020- No 40mg QD Take 1 [facility] (LASIX) 40 10-28 tablet (40 st mg tablet 00:00: 04:59 mg total) Ho spita 00 :00 by mouth l daily for 30 days. aspirin 2020- No [...] fever for up to 30 days. furosemide 2020-2020- No 40mg QD Take 1 [facility] (LASIX) 40 10-28- tablet (40 st mg tablet 00:00: 04:59 [...] 100mg Q4H Take 5 mL [facility] (ROBITUSSIN 10-2824 ([address] ) 100 mg/5 00:00: 04:59 total) by H ospita mL syrup 00 :00 mouth l every 4 (four) hours as needed for cough or congestion for up to 14 days. guaiFENesin 2020- No 100mg Q4H Take 5 mL [facility] (ROBITUSSIN 10-2824 ([address] ) 100 mg/5 00:00: [...] budesonide/ 2020- No Inhale. [facility] formoterol 10-24-05 st fumarate 21:54: 00:00 Hospita (SYMBICORT 20 [...] then 1 every day until finished. predniSONE 2020- No 20mg QD Take 2 [facility] (DELTASONE) 3-[address] 10 mg 00:00: 05:59 (20 [...] 20mg QD Take 2 [facility] (DELTASONE) 3-[address] 10 mg 00:00: 05:59 (20 [...] together, then 1 every day until finished. Immunizations Ordered Filled Date Status Comments Source Immunization Name Immunization Name [facility] COVID-19 Moderna COVID-19 Completed Vaccine Vaccine 5 00:00:00 COVID-19 Moderna Completed Note: Monitored. Co astal (1st,2nd,3rd) 6 ; [facility] 00:[facility]00 Immunization Wellness Record COVID-19 Moderna Completed Note: Monitored. Co astal (1st,2nd,3rd) 6 ; [facility] 00:00:00 Immunization Wellness Record COVID-19 Moderna Completed Note: Monitored. Co astal (1st,2nd,3rd) 6 ; [facility] 00:00:00 Immunization Wellness Record COVID-19 Moderna Completed Note: Monitored. Co astal (1st,2nd,3rd) 6 ; [facility] 00:00:00 Immunization Wellness Record COVID-19 Moderna 2022-06-0 Completed Note: Monitored. Co astal (1st,2nd,3rd) 6 ; [facility] 00:00:00 Immunization Wellness Record COVID-19 Moderna Completed Note: Monitored. Co astal (1st,2nd,3rd) 6 ; [facility] 00:00:00 Immunization Wellness Record COVID-19 Moderna Completed Note: Monitored. Co astal (1st,2nd,3rd) 6 ; [facility] 00:00:00 Immunization Wellness Record COVID-19 Moderna Completed Note: Monitored. Co astal (1st,2nd,3rd) 6 ; [facility] 00:00:00 Immunization Wellness Record Moderna COVID-19 Moderna COVID-19 Completed Vaccine Vaccine 6 00:00:00 Vital Signs Vital Name Observation Time Observation Value Comments Source Systolic blood 2021-09-20 01:00:00 134 mm[Hg] Univer sity of pressure [facility] Diastolic blood 2021-09-20 01:00:00 82 mm[Hg] Unive rsity of [facility] Heart rate 2021-09-20 01:00:00 102 /min [facility] Body temperature 2021-09-20 01:00:00 37.39 Chandrika [facility] rate 2021-09-20 01:00:00 18 /min [facility] Oxygen saturation in 2021-09-20 01:00:00 98 /min [facility] Arterial blood by [facility] Pulse oximetry Branch Body height 2021-09-20 00:17:00 165.1 cm [facility] Body weight 2021-09-20 00:17:00 74.844 kg [facility] BMI 2021-09-20 00:17:00 27.46 kg/m2 [facility] Systolic blood 2021-08-25 13:31:00 140 mm[Hg] Univer sity of pressure [facility] Diastolic blood 2021-08-25 13:31:00 86 mm[Hg] Unive rsity of [facility] Heart rate 2021-08-25 13:31:00 109 /min [facility] Body temperature 2021-08-25 13:31:00 37.22 Chandrika Univ ersity [facility] Respiratory rate 2021-08-25 13:31:00 18 /min [facility] Body weight 2021-08-25 13:31:00 74.844 kg Universi ty [facility] BMI 2021-08-25 13:31:00 27.46 kg/m2 [facility] Oxygen saturation in 2021-08-25 13:31:00 99 /min [facility] of Arterial blood by [facility] Pulse oximetry Branch Systolic blood 2022-06-16 00:02:59 141 mm[Hg] Method [facility] pressure Diastolic blood 2022-06-16 00:02:59 75 mm[Hg] [facility] pressure Heart rate 2022-06-16 00:02:59 74 /min [facility] Body temperature 2022-06-16 00:02:59 36.56 Chandrika [facility] Respiratory rate 2022-06-16 00:02:59 16 /min [facility] Oxygen saturation in 2022-06-16 00:02:59 100 /min [facility] Arterial blood by Pulse oximetry Body height 2022-06-13 18:15:00 165.1 cm [facility] Body weight 2022-06-13 18:15:00 72.576 kg [facility] BMI 2022-06-13 18:15:00 26.63 kg/m2 [facility] Systolic blood 2021-12-14 16:17:05 114 mm[Hg] [facility] Di[facility] blood 2021-12-14 16:17:05 78 mm[Hg] [facility] pressure Heart rate 2021-12-14 16:17:05 93 /min [facility] Body temperature 2021-12-14 16:17:05 36.5 Chandrika [facility] Respiratory rate 2021-12-14 16:17:05 20 /min [facility] Oxygen saturation in 2021-12-14 16:17:05 93 /min [facility] Arterial blood by Pulse oximetry Body height 2021-12-14 14:22:00 165.1 cm [facility] Body weight 2021-12-14 10:51:00 67.1 kg [facility] BMI 2021-12-14 10:51:00 24.62 kg/m2 [facility] Systolic blood 2020-12-02 18:30:00 130 mm[Hg] [facility] pressure Diastolic blood 2020-12-02 18:30:00 62 mm[Hg] [facility] pressure Heart rate 2020-12-02 18:30:00 90 /min [facility] Respiratory rate 2020-12-02 18:30:00 18 /min [facility] Oxygen saturation in 2020-12-02 18:30:00 98 /min [facility] Arterial blood by Pulse oximetry Body temperature 2020-12-02 14:22:00 36.56 Chandrika [facility] Body height 2020-12-02 09:22:00 165.1 cm [facility] Body weight 2020-12-02 09:22:00 86.183 kg [facility] BMI 2020-12-02 09:22:00 31.62 kg/m2 [facility] Procedures Procedure Date / Time Performing Clinician Source Performed POC GLUCOSE 2022-06-15 21:00:00 Vinayak Ruth [facility] POC GLUCOSE 2022-06-15 16:18:00 Vinayak Ruth [facility] POC GLUCOSE 2022-06-15 11:11:00 Vinayak Ruth [facility] CBC HEMOGRAM 2022-06-15 08:45:00 Vinayak Ruth [facility] BASIC METABOLIC PANEL 2022-06-15 08:45:00 Vinayak Ruth [facility] ESTIMATED GFR 2022-06-15 08:45:00 Vinayak Ruth [facility] POC GLUCOSE 2022-06-15 01:12:00 Vinayak Ruth [facility] POC GLUCOSE 2022-06-14 21:17:00 Vinayak Ruth [facility] POC GLUCOSE 2022-06-14 16:31:00 [facility]SE 2022-06-14 11:20:00 Vinayak Ruth [facility] CBC WITH PLATELET AND 2022-06-14 09:02:00 Vinayak Ruth [facility] DIFFERENTIAL BASIC METABOLIC PANEL 2022-06-14 09:02:00 Faraz [facility] MAGNESIUM LEVEL 2022-06-14 09:02:00 Vinayak Ruth [facility] HEMOGLOBIN A1C 2022-06-14 09:02:00 Faraz [facility] THYROID STIMULATING 2022-06-14 09:02:00 Vinayak RuthThanh [facility] HORMONE LIPID PANEL 2022-06-14 09:02:00 Vinayak Ruth [facility] ESTIMATED GFR 2022-06-14 09:02:00 Vinayak Ruth [facility] POC GLUCOSE 2022-06-14 02:04:00 Faraz [facility] RESPIRATORY PATHOGEN 2022-06-13 23:13:00 Faraz [facility] PANEL WITH COVID-19 RT-PCR POC GLUCOSE 2022-06-13 22:48:00 Faraz [facility] INFLUENZA ANTIGEN TEST, 2022-06-13 18:39:00 [facility] REFLEX NEGATIVE TO RPP Toni COVID-19 QUALITATIVE 2022-06-13 18:39:00 [facility] RT-PCR Toni CBC WITH PLATELET AND 2022-06-13 18:39:00 [facility] DIFFERENTIAL Toni COMPREHENSIVE METABOLIC 2022-06-13 18:39:00 [facility] PANEL Toni ESTIMATED GFR 2022-06-13 18:39:00 [facility] Toni INFLUENZA ANTIGEN TEST, 2022-06-13 18:39:00 [facility] REFLEX NEGATIVE TO RPP Toni ECG ED PRELIMINARY 2022-06-13 18:21:33 [facility] INTERPRETATION Toni XR CHEST 1 VW PORTABLE 2022-06-13 18:20:00 [facility] Toni ECG 12-LEAD 2022-06-13 18:15:24 [facility] Toni Hemoglobin A1C 2022-02-19 00:00:00 [facility] HIV-1 antigen(s), HIV-1 2022-02-19 00:00:00 [facility] and and HIV-2 antibodies, Wellness single result Hepatitis Panel - Acute 2022-02-19 00:00:00 [facility] and Wellness Hepatic Function Panel 2022-02-19 00:00:00 [facility] Wellness ASSAY OF GGT 2022-02-19 00:00:00 [facility] LDH (Lactate 2022-02-19 00:00:00 [facility] th and Dehydrogenase) Wellness Hepatitis C Virus (HCV) 2022-02-19 00:00:00 [facility] and Antibody With Reflex for Marsha s HCV Antibody Verification Nominal Fee 2022-01-25 00:00:00 [facility] th and Wellness Imm Admin COVID19 Moderna 2022-01-25 00:00:00 [facility] Health and 100mcg/0.5mL First Dosage Wellne ss COVID-19 Moderna 100 2022-01-25 00:00:00 [facility] and Mcg/0.5mL Dosage Wellness Established Patient 2022-01-25 00:00:00 [facility] Office Visit-Level [facility] Thyroid Stimulating 2022-01-25 00:00:00 [facility] and Hormone (TSH) Wellness Complete Blood Count 2022-01-25 00:00:00 [facility] and (CBC) Wellness Comprehensive Metabolic 2022-01-25 00:00:00 [facility] and Panel Wellness BASIC METABOLIC PANEL 2021-12-14 10:50:00 Tubat, [facility] MAGNESIUM LEVEL 2021-12-14 10:50:00 Tubat, [facility] ESTIMATED GFR 2021-12-14 10:50:00 [facility] 2021-12-13 09:10:00 [facility] BASIC METABOLIC PANEL 2021-12-13 09:10:00 Tubat, [facility] LIPID PANEL 2021-12-13 09:10:00 [facility] ESTIMATED GFR 2021-12-13 09:10:00 [facility] TTE COMPLETE, WO 2021-12-12 18:13:00 Tubat, [facility] CONTRAST, W DOPPLER ([id number]) ZZCOVID-19 ANTI-SPIKE IGG 2021-12-12 10:45:00 Mathew Latif in [facility] ANTIBODY TITER TROPONIN T 2021-12-12 10:45:00 Albino, [facility] LACTIC ACID LEVEL, SEPSIS 2021-12-12 10:45:00 Albino, [facility] - NOW AND REPEAT 2X EVERY 3 HOURS ZZCOVID-19 SEROLOGY 2021-12-12 10:45:00 Mathew Latif [facility] PATIENT SURVEILLANCE CT ANGIOGRAM PE CHEST 2021-12-12 06:55:15 Albino, [facility] URINE CULTURE 2021-12-12 06:31:00 [facility] URINALYSIS SCREEN AND 2021-12-12 06:11:00 [facility], [facility] MICROSCOPY, WITH REFLEX TO CULTURE HCG QUALITATIVE, URINE 2021-12-12 06:11:00 Albino, [facility] SCREEN XR CHEST 1 VW PORTABLE 2021-12-12 03:34:00 [facility], [facility] LACTIC ACID LEVEL, SEPSIS 2021-12-12 03:28:00 Albino, [facility] - NOW AND REPEAT 2X EVERY 3 HOURS ECG ED PRELIMINARY 2021-12-12 03:26:41 [facility], [facility] INTERPRETATION VENOUS BLOOD GAS 2021-12-12 03:25:00 Albino, [facility] RESPIRATORY PATHOGEN 2021-12-12 03:24:00 Albino, [facility] PANEL WITH COVID-19 RT-PCR COMPREHENSIVE METABOLIC 2021-12-12 03:24:00 [facility] PANEL CBC WITH PLATELET AND 2021-12-12 03:24:00 [facility] DIFFERENTIAL PROTHROMBIN TIME WITH INR 2021-12-12 03:24:00 [facility], [facility] PARTIAL THROMBOPLASTIN 2021-12-12 03:24:00 Albino, [facility] TIME (PTT) TROPONIN T 2021-12-12 03:24:00 Albino [facility] B NATRIURETIC PEPTIDE 2021-12-12 03:24:00 AlbinoJesus [facility] ESTIMATED GFR 2021-12-12 03:24:00 [facility] ECG 12-LEAD 2021-12-12 02:59:49 [facility] PE CHEST 2021-11-08 13:32:35 Karen [facility] HCG QUALITATIVE, SERUM 2021-11-08 12:02:00 [facility] PRELIMINARY 2021-11-08 11:13:20 [facility] INTERPRETATION CBC WITH PLATELET AND 2021-11-08 11:04:00 [facility] DIFFERENTIAL COMPREHENSIVE METABOLIC 2021-11-08 11:04:00 [facility] PANEL CREATINE KINASE, TOTAL 2021-11-08 11:04:00 [facility] TROPONIN T 2021-11-08 11:04:00 Anival Bahena spital B NATRIURETIC PEPTIDE 2021-11-08 11:04:00 Shruti [facility] ESTIMATED GFR 2021-11-08 11:04:00 Anival Bahena spital XR LUMBAR SPINE 2 OR 3 VW 2021-11-08 11:01:32 Anival Bahena [facility] XR CHEST 2 VW 2021-11-08 11:01:08 Anival Bahena Ho spital ECG 12-LEAD 2021-11-08 10:58:38 Anival Bahena Ho spital AUTHORIZATION FOR RELEASE 2021-09-23 06:01:00 Doctor Unassigned, No [facility] Name [facility] URINALYSIS 2021-09-20 00:34:00 Shahnaz Zamudio [facility] o f [facility] CONSENT/REFUSAL FOR 2021-09-20 00:11:13 Doctor Unassigned, [facility] TROPONIN 2020-12-02 17:37:00 Kohlnhofer, [facility] URINE DRUGS OF ABUSE 2020-12-02 14:49:00 Yeyo Wells [facility] SCREEN TROPONIN 2020-12-02 14:30:00 Priscilla [facility] ECG ED PRELIMINARY 2020-12-02 10:02:38 Mukund [facility] INTERPRETATION Da XR CHEST 1 VW PORTABLE 2020-12-02 09:58:58 Calvin Duval [facility] Da B NATRIURETIC PEPTIDE 2020-12-02 09:52:00 Calvin Duval [facility] Da HC COMPLETE BLD COUNT 2020-12-02 09:52:00 Mukund [facility] W/AUTO DIFF Da COMPREHENSIVE METABOLIC 2020-12-02 09:52:00 Mukund [facility] PANEL Da TROPONIN 2020-12-02 09:52:00 [facility]IM[facility] GFR 2020-12-02 09:52:00 Calvin Duvalist Ho spital Da SMEAR REVIEW 2020-12-02 09:52:00 [facility] Da ECG 12-LEAD 2020-12-02 09:43:07 Calvin Duval [facility] spital Da HC COMPLETE BLD COUNT 2020-11-20 10:30:00 Derick Rock [facility] W/AUTO DIFF [facility] METABOLIC 2020-11-20 10:30:00 Pranav [facility] PANEL B NATRIURETIC PEPTIDE 2020-11-20 10:30:00 Mathew Latif [facility] ESTIMATED GFR 2020-11-20 10:30:00 [facility] LACTIC ACID LEVEL, SEPSIS 2020-11-20 06:33:00 Derick Rock [facility] - NOW AND REPEAT 2X EVERY 3 HOURS LACTIC ACID LEVEL, SEPSIS 2020-11-20 03:36:00 [facility] Derick [facility] - NOW AND REPEAT 2X EVERY 3 HOURS COVID-19 QUALITATIVE 2020-11-20 00:39:00 [facility] RT-PCR BLOOD CULTURE, AEROBIC & 2020-11-20 00:11:00 RockTequilaur [facility] ANAEROBIC LACTIC ACID LEVEL, SEPSIS 2020-11-20 00:11:00 RockDerick [facility] - NOW AND REPEAT 2X EVERY 3 HOURS BLOOD CULTURE, AEROBIC & 2020-11-19 23:52:00 Tequila Rockur [facility] ANAEROBIC CT ABDOMEN PELVIS W 2020-11-19 21:43:28 [facility] ANGIOGRAM PE CHEST 2020-11-19 21:42:26 [facility] XR CHEST 1 VW PORTABLE 2020-11-19 21:25:00 [facility] URINE CULTURE 2020-11-19 19:08:00 Pranav Dericklani Mendez spital ECG 12-LEAD 2020-11-19 18:58:50 Pranav [facility] spital HC COMPLETE BLD COUNT 2020-11-19 18:57:00 [facility] W/AUTO DIFF COMPREHENSIVE METABOLIC 2020-11-19 18:57:00 [facility] PANEL URINALYSIS SCREEN AND 2020-11-19 18:57:00 [facility] MICROSCOPY, WITH REFLEX TO CULTURE ALCOHOL LEVEL, BLOOD 2020-11-19 18:57:00 [facility] D-DIMER 2020-11-19 18:57:00 Rock Dericklani Mendez spital ESTIMATED GFR 2020-11-19 18:57:00 [facility] spital HCG QUALITATIVE, URINE 2020-11-19 18:57:00 [facility] SCREEN URINE DRUGS OF ABUSE 2020-11-19 18:48:00 Mathew Latif [facility] SCREEN ECG ED PRELIMINARY 2020-11-19 18:42:01 [facility] INTERPRETATION HC COMPLETE BLD COUNT 2020-10-28 11:44:00 [facility] Amaya [facility] W/AUTO DIFF BASIC METABOLIC PANEL 2020-10-28 11:44:00 [facility] MAGNESIUM LEVEL 2020-10-28 11:44:00 [facility] ESTIMATED GFR 2020-10-28 11:44:00 [facility] CV RIGHT AND LEFT HEART 2020-10-27 22:46:00 David Richter [facility] CATH SELECTIVE CORONARY LV GRAM POC BLOOD GAS, VENOUS AND 2020-10-27 22:37:00 [facility] LYTES POC BLOOD GAS, VENOUS AND 2020-10-27 22:32:00 [facility] POC BLOOD GAS, ARTERIAL 2020-10-27 22:27:00 [facility] AND LYTES TYPE AND SCREEN 2020-10-27 12:57:00 David Richter [facility] ospital PARTIAL THROMBOPLASTIN 2020-10-27 12:57:00 David Richter [facility] TIME (PTT) PROTHROMBIN TIME WITH INR 2020-10-27 12:57:00 David Richter [facility] HCG QUANTITATIVE, SERUM 2020-10-27 12:57:00 David Richter [facility] CBC WITH PLATELET AND 2020-10-27 10:42:00 [facility] DIFFERENTIAL Kiya COMPREHENSIVE METABOLIC 2020-10-27 10:42:00 [facility] PANEL Kiya MAGNESIUM LEVEL 2020-10-27 10:42:00 [facility] ESTIMATED GFR 2020-10-27 10:42:00 [facility] Kiya MANUAL DIFFERENTIAL 2020-10-27 10:42:00 [facility] Kiya ECG 12-LEAD 2020-10-27 05:07:15 David Richter [facility] ospital URINE CULTURE 2020-10-27 00:22:00 [facility] URINALYSIS SCREEN AND 2020-10-27 00:15:00 [facility] MICROSCOPY, WITH REFLEX TO CULTURE XR CHEST 1 VW PORTABLE 2020-10-26 16:32:17 [facility] HC COMPLETE BLD COUNT 2020-10-26 11:40:00 [facility] W/AUTO DIFF Kiya COMPREHENSIVE METABOLIC 2020-10-26 11:40:00 [facility] PANEL Kiya ESTIMATED GFR 2020-10-26 11:40:00 [facility] Kiya TTE COMPLETE, W CONTRAST, 2020-10-25 19:55:00 David Richter [facility] W DOPPLER ([id number]) TROPONIN 2020-10-25 11:37:00 Luis Amaro spital HC COMPLETE BLD COUNT 2020-10-25 11:37:00 [facility] W/AUTO DIFF Kiya COMPREHENSIVE METABOLIC 2020-10-25 11:37:00 [facility] PANEL Kiya ESTIMATED GFR 2020-10-25 11:37:00 [facility] Kiya TROPONIN 2020-10-25 07:30:00 Luis Amaro spital COVID-19 QUALITATIVE 2020-10-25 04:57:00 [facility] QUALITATIVE, URINE 2020-10-25 04:14:00 Luis Amaro [facility] SCREEN XR CHEST 1 VW 2020-10-25 04:13:30 Luis Amaro spital HC COMPLETE BLD COUNT 2020-10-25 02:11:00 Luis Amaro [facility] W/AUTO DIFF COMPREHENSIVE METABOLIC 2020-10-25 02:11:00 Luis Amaro [facility] PANEL PARTIAL THROMBOPLASTIN 2020-10-25 02:11:00 Luis Amaro [facility] TIME (PTT) PROTHROMBIN TIME WITH INR 2020-10-25 02:11:00 Luis Amaro [facility] CREATINE KINASE, TOTAL 2020-10-25 02:11:00 [facility] B NATRIURETIC PEPTIDE 2020-10-25 02:11:00 Luis Amaro [facility] ESTIMATED GFR 2020-10-25 02:11:00 Luis Amaro spital TROPONIN 2020-10-25 02:11:00 Luis Amaro spital ECG 12-LEAD 2020-10-25 01:45:52 [facility] 2020-10-25 01:34:02 Luis Amaro [facility] INTERPRETATION US HEPATIC 2020-10-14 21:52:47 Karen Bello spital Mary TROPONIN 2020-10-14 10:25:00 NwKaren gore spital Mary HC COMPLETE BLD COUNT 2020-10-14 10:25:00 [facility]FF Mary PROTHROMBIN TIME WITH INR 2020-10-14 10:25:00 [facility] LIPASE LEVEL 2020-10-14 10:25:00 NwKaren gore spital Mary COMPREHENSIVE METABOLIC 2020-10-14 10:25:00 Karen Bello [facility] PANEL Mary THYROID STIMULATING 2020-10-14 10:25:00 [facility] HORMONE Mary ESTIMATED GFR 2020-10-14 10:25:00 Karen Bello spital Mary LIPID PANEL 2020-10-14 10:25:00 Karen Bello spital Mary RESPIRATORY PATHOGEN 2020-10-14 08:41:00 [facility] PANEL WITH COVID-19 RT-PCR TROPONIN 2020-10-14 06:23:00 Karen Bello spital [facility] CT ANGIOGRAM PE CHEST 2020-10-14 05:18:26 Sidra Giron [facility] ECG ED PRELIMINARY 2020-10-14 03:27:29 Sidra Giron [facility] INTERPRETATION ECG 12-LEAD 2020-10-14 03:18:29 Karen Bello spital Mary HC COMPLETE BLD COUNT 2020-10-14 03:04:00 Sidra Giron [facility] W/AUTO DIFF COMPREHENSIVE METABOLIC 2020-10-14 03:04[facility] CREATINE KINASE, TOTAL 2020-10-14 03:04:00 [facility] TROPONIN 2020-10-14 03:04:00 Karen Bello spital Mary B NATRIURETIC PEPTIDE 2020-10-14 03:04:00 [facility] 2020-10-14 03:04:00 Sidra Giron spital HCG QUALITATIVE, SERUM 2020-10-14 03:04:00 [facility] SCREEN ESTIMATED GFR 2020-10-14 03:04:00 Sidra Girontal XR CHEST 1 VW PORTABLE 2020-10-14 02:39:45 [facility] Nominal Fee 2018-08-01 00:00:00 [facility] Rapid Strep (throat swab) 2018-08-01 00:00:00 [facility] Established Patient 2018-08-01 00:00:00 [facility] Health and Office Visit-Level [facility] s Nominal Fee 2017-01-12 00:00:00 [facility] th and Wellness Established Patient 2017-01-12 00:00:00 [facility] Visit-Level [facility] Nominal Fee 2016-10-29 00:00:00 [facility] Wellness Radiologic examination, 2016-10-29 00:00:00 [facility] and chest, 3 Views ([place] And Wellness Lateral With Apical Lordotic) Established Patient 2016-10-29 00:00:00 [facility] Office Visit-Level [facility] s Nominal Fee 2016-10-05 00:00:00 [facility] th and Wellness Panoramic Film 2016-10-05 00:00:00 [facility] th and Wellness Bitewings 2016-10-05 00:00:00 [facility] Two Films Wellness Comprehensive Oral 2016-10-05 00:00:00 [facility] H ealth and Evaluation Wellness [place] Established Complete Blood Count 2016-09-25 00:00:00 [facility] Health and (CBC) Wellness Amylase 2016-09-25 00:00:00 [facility] Heal th and Wellness Lipase 2016-09-25 00:00:00 [facility] th and Wellness H. Pylori (blood test) 2016-09-25 00:00:00 [facility] Health and Wellness Nominal Fee 2016-09-25 00:00:00 [facility] Heal th and Wellness Established Patient 2016-09-25 00:00:00 [facility] Health and Office Visit-Level Three [facility] s Nominal Fee 2016-09-20 00:00:00 [facility] Heal th and Wellness Intraoral 2016-09-20 00:00:00 [facility] Periapical First Film Wellness Limited Oral Evaluation 2016-09-20 00:00:00 [facility] Problem Focused Wellness Surgical Removal Of 2016-09-20 00:00:00 [facility] Erupted Tooth Requiring Wellness Elevat Plan of Care Planned Activity Planned Date Details Comments Source Future Scheduled 2022-08-12 Pneumococcal Vaccine: [facility] Test 22:41:50 Pediatrics (0 to 5 Years) and At-Risk Patients (6 to 64 Years) (1 - PCV) [code = Pneumococcal Vaccine: Pediatrics (0 to 5 Years) and At-Risk Patients (6 to 64 Years) (1 - PCV)] Future Scheduled 2022-08-12 Hepatitis C screening [facility] Test 22:41:50 (procedure) [code = 392869035] Future Scheduled 2022-08-12 Screening for [facility] Test 22:41:50 malignant neoplasm of cervix (procedure) [code = 230690508] Future Scheduled 2022-08-12 BREAST CANCER [facility] Test 22:41:50 SCREENING [code = BREAST CANCER SCREENING] Future Scheduled 2022-08-12 COLONOSCOPY SCREENING [facility] Test 22:41:50 [code = COLONOSCOPY SCREENING] Future Scheduled 2022-08-12 INFLUENZA VACCINE [facility] Test 22:41:50 [code = INFLUENZA VACCINE] Future Scheduled 2022-08-12 COVID-19 VACCINE (3 - [facility] Test 22:41:50 Booster for Moderna series) [code = COVID-19 VACCINE (3 - Booster for Moderna series)] Future Scheduled 2022-08-12 Pneumococcal Vaccine: [facility] Test 22:41:50 Pediatrics (0 to 5 Years) and At-Risk Patients (6 to 64 Years) (1 - PCV) [code = Pneumococcal Vaccine: Pediatrics (0 to 5 Years) and At-Risk Patients (6 to 64 Years) (1 - PCV)] Future Scheduled 2022-08-12 Hepatitis C screening [facility] Test 22:41:50 (procedure) [code = 431285352] Future Scheduled 2022-08-12 Screening for [facility] Test 22:41:50 malignant neoplasm of cervix (procedure) [code = 237642371] Future Scheduled 2022-08-12 BREAST CANCER [facility] Test 22:41:50 SCREENING [code = BREAST CANCER SCREENING] Future Scheduled 2022-08-12 COLONOSCOPY SCREENING [facility] Test 22:41:50 [code = COLONOSCOPY SCREENING] Future Scheduled 2022-08-12 INFLUENZA VACCINE [facility] Test 22:41:50 [code = INFLUENZA VACCINE] Future Scheduled 2022-08-12 COVID-19 VACCINE (3 - Me [facility] Test 22:41:50 Booster for Moderna series) [code = COVID-19 VACCINE (3 - Booster for Moderna series)] Future Scheduled 2022-06-21 HEPATITIS B VACCINES Met [facility] Test 19:27:24 (1 of 3 - 3-dose series) [code = HEPATITIS B VACCINES (1 of 3 - 3-dose series)] Future Scheduled 2022-06-21 Pneumococcal Vaccine: [facility] Test 19:27:24 Pediatrics (0 to 5 Years) and At-Risk Patients (6 to 64 Years) (1 - PCV) [code = Pneumococcal Vaccine: Pediatrics (0 to 5 Years) and At-Risk Patients (6 to 64 Years) (1 - PCV)] Future Scheduled 2022-06-21 Hepatitis C screening [facility] Test 19:27:24 (procedure) [code = 118274866] Future Scheduled 2022-06-21 Screening for [facility] Test 19:27:24 malignant neoplasm of cervix (procedure) [code = 541058161] Future Scheduled 2022-06-21 BREAST CANCER [facility] Test 19:27:24 SCREENING [code = BREAST CANCER SCREENING] Future Scheduled 2022-06-21 COLONOSCOPY SCREENING [facility] Test 19:27:24 [code = COLONOSCOPY SCREENING] Future Scheduled 2022-06-21 INFLUENZA VACCINE [facility] Test 19:27:24 [code = INFLUENZA VACCINE] Future Scheduled 2022-06-21 COVID-19 VACCINE (3 - [facility] Test 19:27:24 Booster for Moderna series) [code = COVID-19 VACCINE (3 - Booster for Moderna series)] Future Scheduled 2022-06-18 HEPATITIS B VACCINES Met [facility] Test 07:50:46 (1 of 3 - 3-dose series) [code = HEPATITIS B VACCINES (1 of 3 - 3-dose series)] Future Scheduled 2022-06-18 Pneumococcal Vaccine: [facility] Test 07:50:46 Pediatrics (0 to 5 Years) and At-Risk Patients (6 to 64 Years) (1 - PCV) [code = Pneumococcal Vaccine: Pediatrics (0 to 5 Years) and At-Risk Patients (6 to 64 Years) (1 - PCV)] Future Scheduled 2022-06-18 Hepatitis C screening [facility] Test 07:50:46 (procedure) [code = 385138356] Future Scheduled 2022-06-18 Screening for [facility] Test 07:50:46 malignant neoplasm of cervix (procedure) [code = 832088595] Future Scheduled 2022-06-18 BREAST CANCER [facility] Test 07:50:46 SCREENING [code = BREAST CANCER SCREENING] Future Scheduled 2022-06-18 COLONOSCOPY SCREENING [facility] Test 07:50:46 [code = COLONOSCOPY SCREENING] Future Scheduled 2022-06-18 INFLUENZA VACCINE Method [facility] Test 07:50:46 [code = INFLUENZA VACCINE] Future Scheduled 2022-06-18 COVID-19 VACCINE (3 - [facility] Test 07:50:46 Booster for Moderna series) [code = COVID-19 VACCINE (3 - Booster for Moderna series)] Future Scheduled 2022-04-21 HEPATITIS B VACCINES Met [facility] Test 14:26:50 (1 of 3 - 3-dose series) [code = HEPATITIS B VACCINES (1 of 3 - 3-dose series)] Future Scheduled 2022-04-21 COVID-19 VACCINE (#1) [facility] Test 14:26:50 [code = COVID-19 VACCINE (#1)] Future Scheduled 2022-04-21 Pneumococcal Vaccine: [facility] Test 14:26:50 Pediatrics (0 to 5 Years) and At-Risk Patients (6 to 64 Years) (1 - PCV) [code = Pneumococcal Vaccine: Pediatrics (0 to 5 Years) and At-Risk Patients (6 to 64 Years) (1 - PCV)] Future Scheduled 2022-04-21 [facility] Test 14:26:50 (procedure) [code = 978437150] Future Scheduled 2022-04-21 Screening for [facility] Test 14:26:50 malignant neoplasm of cervix (procedure) [code = 836636227] Future Scheduled 2022-04-21 BREAST CANCER [facility] Test 14:26:50 SCREENING [code = BREAST CANCER SCREENING] Future Scheduled 2022-04-21 [facility]ING [facility] Test 14:26:50 [code = COLONOSCOPY SCREENING] Future Scheduled 2022-04-21 INFLUENZA VACCINE [facility] Test 14:26:50 [code = INFLUENZA VACCINE] Future Scheduled 2021-09-22 COVID-19 VACCINE (1) [facility] Test 23:37:30 [code = COVID-19 VACCINE (1)] Future Scheduled 2021-09-22 [facility] 23:37:30 (procedure) [code = 055344332] Future Scheduled 2021-09-22 Screening for [facility] Test 23:37:30 malignant neoplasm of cervix (procedure) [code = 276610844] Future Scheduled 2021-09-22 INFLUENZA VACCINE [facility] Test 23:37:30 [code = INFLUENZA VACCINE] Future Scheduled COVID-19 [facility]ACCINE (1) [facility] [code = COVID-19 VACCINE (1)] Future Scheduled [facility] (procedure) [code = 836097330] Future Scheduled Screening for [facility] Test malignant neoplasm of cervix (procedure) [code = 620932943] Future Scheduled INFLUENZA VACCINE [facility] Test [code = INFLUENZA VACCINE] Future Scheduled COVID-19 VACCINE (1) [facility] [code = COVID-19 VACCINE (1)] Future Scheduled [facility] (procedure) [code = 154410929] Future Scheduled Screening for [facility] Test malignant neoplasm of cervix (procedure) [code = 723708787] Future Scheduled INFLUENZA VACCINE [facility] Test [code = INFLUENZA VACCINE] Encounters Start End Encounter Admission Attending Care Care Encounter Source Date/Time Date/Time Type Type Clinicians Facility Department ID 2021-09-09 [id number] 15:10:00 No 67 [facility] 2022-08-22 2022-08-22 Outpatient RASHEED Red CHW [id number] [facility] 19:04:00 19:04:00 Stone [facility] ana Larson 2022-08-22 2022-08-22 Outpatient Neda [facility] [id number] [facility] 19:04:00 19:04:00 Stone Solis44ba-85b 7m4-0n1a-b [facility] c-4v45l2ji4 d93-71p0bg a nd 9af [id number] Marsha 2022-06-23 2022-06-23 Outpatient Neda [facility] [id number] [facility] 09:37:00 09:37:00 Stone [facility] ana Larson 2022-06-23 2022-06-23 Outpatient Neda [facility] [id number] 3d [id number] [facility] 09:37:00 09:37:00 Stone Solis44ba-85b f98-6qz9-h [facility] c-3o90x9tc5 61e-6e9df3 a nd 9af 1aa04f Marsha 2022-06-16 2022-06-16 Outpatient Neda [facility] [id number] [facility] 14:37:00 14:37:00 Stone [facility] ana Larosn 2022-06-16 2022-06-16 Outpatient Neda Andrew [id number] [facility] 14:37:00 14:37:00 Stone Romero-44ba-85b 754-44c1-b [facility] c-4x84v1vs1 97e-ae7d1a a nd 9af [id number] [facility] 2022-06-13 2022-06-15 Emergency [place] 1.2.84 0.1 [id number] Methodi 13:12:00 20:12:00 Vinayak Ruth 47823.1.[address] 3.430.2.7 Hospit a .3.272201 l .8 2022-06-15 2022-06-15 Documentat Provider, 1.2.840.1 [id number] 2 [id number] Methodi 00:00:00 00:00:00 ion Unknown 54297.1.[address] 3.430.2.7 Hospit a .3.023097 l .8 2022-06-15 2022-06-15 Documentat Provider, 1.2.840.1 [id number] 2 [id number] Methodi 00:00:00 00:00:00 ion Unknown 65984.1.[address] 3.430.2.7 Hospit a .3.998111 l .8 2022-06-13 2022-06-15 Emergency RUTH, 1.2.840.1 [id number] [id number] [place] 00:00:00 00:00:00 VINAYAK 24753.1.1 [address] .3.640945 .8 2022-06-13 2022-06-13 Travel 1.2.840.1 1.2.929.173 0566 [id number] Methodi 00:00:00 00:00:[address] 3.430.2.7 0.2.7.3.698 Ho spita .3.897315 084.8 l .8 2022-06-13 2022-06-13 Travel 1.2.840.1 1.2.299.116 1112 [id number] Methodi 00:00:00 00:00:[address] 3.430.2.7 0.2.7.3.698 Ho spita .3.517232 084.8 l .8 2022-04-27 2022-04-27 Outpatient RASHEED Red Andrew [id number] [facility] 15:33:00 15:33:00 [facility] 2022-04-27 2022-04-27 Outpatient RASHEED Red [id number] 40 [id number] [facility] 15:33:00 15:33:00 Stone 27-44ba-85b o40-93e1-j [facility] c-0t20a8rn8 46d-q5930x a nd 9af ac8fcb [facility] 2022-02-23 2022-02-23 Outpatient RASHEED Red W [id number] [facility] 16:23:00 16:23:00 [facility] 2022-02-23 2022-02-23 Outpatient RASHEED Red [id number] 43 [id number] [facility] 16:23:00 16:23:00 Stone 27-44ba-85b 31a-4fac-b Health c-7m02i2gj0 k80-848323 a nd 9af [id number] Marsha s 2022-02-23 2022-02-23 Outpatient GCCOVIDV GCCOVIDV [id number] [facility]OVID 00:00:00 00:00:00 V 2022-02-19 2022-02-19 Outpatient RASHEED Red CHW [id number] [facility] 16:17:00 16:17:00 [facility] 2022-02-19 2022-02-19 Outpatient RASHEED Red [id number] ab [id number] [facility] 16:17:00 16:17:00 Stone 27Garcia44ba-85b 9de-4d6d-a Health c-7z66v4xv0 589-53751e a nd 9af dd08a4 Marsha s 2022-02-19 2022-02-19 Outpatient RASHEED Red CHW [id number] [facility] 16:00:00 16:00:00 [facility] 2022-02-19 2022-02-19 Outpatient RASHEED Red [id number] 9d eud4x3-2 [facility] 16:00:00 16:00:00 Stone 27-44ba-85b l20-1172-a Health c-2d15x9hl9 91e-678716 a nd 9af [id number] [facility] 2022-02-11 2022-02-11 Outpatient Cheremateng CHW CHW [id number] [facility] 16:34:00 16:34:00 [facility] 2022-02-09 2022-02-09 Outpatient RASHEED Red CHW [id number] [facility] 12:38:00 12:38:00 [facility] 2022-01-29 2022-01-29 Outpatient RASHEED Red CHW [id number] [place] 16:54:00 16:54:00 [facility] Larson 2022-01-27 2022-01-27 Outpatient Neda, W CHW [id number] [place] 13:31:00 13:31:00 Stone [facility] ana Larson 2022-01-27 2022-01-27 Outpatient Neda, RASHEED [id number] 1c slzk02-r [facility] 13:31:00 13:31:00 Stone 27-44ba-85b 97d-4f49-9 Health c-2w20y3lc4 32b-c8d8e2 a nd 9af [id number] Marsha s 2022-01-26 2022-01-26 Outpatient Neda, Andrew CHW [id number] [facility] 11:45:00 11:45:00 Stone [facility] ana Larson 2022-01-25 2022-01-25 Outpatient Neda, W CHW [id number] [facility] 13:00:00 13:00:00 Stone [facility] ana Larson 2022-01-25 [facility] [id number] 2e [id number] [facility] 13:00:00 13:00:00 d Patient Stone Romero-44ba-85b 467-4a7f -a Health Office c-7z92i7wk0 t6f-l72314 a nd [facility] c58d91 [facility] 2022-01-25 2022-01-25 Outpatient GCCOVIDV GCCOVIDV [id number] [facility] 00:00:00 00:00:00 V 2022-01-12 2022-01-12 Patient Lynette, 1.2.840.1 [id number] Methodi 00:00:00 00:00:00 Outreach Sylvester 63385.1.[address] 3.430.2.7 Hospit a .3.188905 l .8 2022-01-12 2022-01-12 Patient Lynette, 1.2.840.1 [id number] Methodi 00:00:00 00:00:00 Outreach Sylvester 70840.1.[address] 3.430.2.7 Hospit a .3.606485 l .8 2021-12-29 2021-12-29 Patient Lynette, 1.2.840.1 [id number] Methodi 00:00:00 00:00:00 Outreach Sylvester 16251.1.[address] 3.430.2.7 Hospit a .3.639550 l .8 2021-12-29 2021-12-29 Patient Lynette, 1.2.840.1 [id number] Methodi 00:00:00 00:00:00 Outreach Sylvester 81475.1.[address] 3.430.2.7 Hospit a .3.522956 l .8 2021-12-24 2021-12-24 Patient Samson, 1.2.840.1 [id number] Methodi 00:00:00 00:00:00 Outreach Mary 35638.1.1 749 s t 3.430.2.7 Hospit a .3.874503 l .8 2021-12-24 2021-12-24 Patient Samson, 1.2.840.1 [id number] Methodi 00:00:00 00:00:00 Outreach Mary 08597.1.1 749 s t 3.430.2.7 Hospit a .3.549403 l .8 2021-12-11 2021[facility]-14 [facility]1 [id number] Methodi 21:53:00 14:07:00 Encounter Hong Pineda 26041.1.1 871 Yeyo Ba 3.430.2.7 Hospita .3.374541 l .8 2021-12-11 2021-12-14 [facility] Jesus Copeland 1.2.840.1 [id number] Methodi 21:53:00 14:07:00 Encounter Hong Pineda 32704.1.1 871 Yeyo Ba 3.430.2.7 Hospita .3.513089 l .8 2021-12-14 2021-12-14 Documentat Provider, 1.2.840.1 [id number] Methodi 00:00:00 00:00:00 ion Unknown 47677.1.[address] 3.430.2.7 Hospit a .3.435354 l .8 2021-12-14 2021-12-14 Documentat Provider, 1.2.840.1 [id number] 2 [id number] Methodi 00:00:00 00:00:00 ion Unknown 38998.1.[address] 3.430.2.7 Hospit a .3.815215 l .8 2021-12-11 2021-12-11 Travel 1.2.840.1 1.2.104.187 5871 [id number] Methodi 00:00:00 00:00:[address] 3.430.2.7 0.2.7.3.698 Ho spita .3.337222 084.8 l .8 2021-12-11 2021-12-11 Travel 1.2.840.1 1.2.740.662 0809 [id number] Methodi 00:00:00 00:00:[address] 3.430.2.7 0.2.7.3.698 Ho spita .3.705981 084.8 l .8 2021-11-08 2021-11-08 Emergency [facility], 1.2.840.1 [id number] 2 [id number] Methodi 05:34:00 10:08:00 Eugene Mart 71386.1.1 496 s t 3.430.2.7 Hospit a .3.518195 l .8 2021-11-08 2021-11-08 Emergency [facility], 1.2.840.1 [id number] 2 [id number] Methodi 05:34:00 10:08:00 Eugene Mart 29083.1.1 496 s t 3.430.2.7 Hospit a .3.136761 l .8 2021-11-08 2021-11-08 Travel 1.2.840.1 1.2.176.786 9828 [id number] Methodi 00:00:00 00:00:[address] 3.430.2.7 0.2.7.3.698 Ho spita .3.925067 084.8 l .8 2021-11-08 2021-11-08 Travel 1.2.840.1 1.2.913.673 9692 [id number] Methodi 00:00:00 00:00:[address] 3.430.2.7 0.2.7.3.698 Ho spita .3.744920 084.8 l .8 2021-09-23 2021-09-23 Orders Doctor GASTON 1.2.840.114 [id number] Univers 00:00:00 00:00:00 Only Unassigned, ROSALIO 350.1.13.10 ity of [place] [facility] 4.2.7.2.686 Hoang as [id number] [facility] 009 Branch 2021-09-20 2021-09-20 Telephone Allyson Galo 1.2.840.114 [id number] Univers 00:00:00 00:00:00 ROSALIO 350.1.13.10 it y of HOSPITAL 4.2.7.2.686 Hoang as [phone] [facility] 019 Branch 2021-09-19 2021-09-19 Emergency X Shahnaz ZAMUDIO [facility] ERT [id number] Univers 18:26:00 19:16:00 ity of [facility] 2021-09-19 2021-09-19 Emergency Shahnaz Zamudio [facility] 1.2.840.114 [id number] Univers 18:26:00 19:16:00 Hoa REAL 350.1.13.10 i ty of [place]7.2.686 [place] [facility] [id number] [facility] 084 Branch 2021-09-19 2021-09-19 Orders Doctor FELDMAN 1.2.840.114 [id number] Univers 00:00:00 00:00:00 Only Unassigned, ROSALIO 350.1.13.10 ity of [place] [facility] 4.2.7.2.686 Hoang as [id number] [facility] 009 Branch 2021-09-022021-09-07 Inpatient EM Bonifacio [place] [address] [id number] [id number] [facility] 05:35:00 12:54:00 89 [facility] 2021-08-25 2021-08-25 Emergency X AGUILAR [facility] ERT [id number] Univers 07:32:00 09:45:00 THEO atif [facility] 2021-08-25 2021-08-25 Emergency [facility] 1.2.322.895 [id number] Univers 07:32:00 09:45:00 Theo FARHAN 350.1.13.10 i ty [facility] 4.2.7.2.[place] [id number] [place] [address]504 Branch 2021-07-31 2021-07-31 Transition JagdeepJENI 1.2.840.114 [id number] Univers 00:00:00 00:00:00 of Care Farhana RAI 350.1.13.10 it [place]2.[place] [id number] [facility] 403 Branch 2021-07-26 2021-07-30 Inpatient X AMELIEGLORIA [facility] ADIEL [id number] Univers 15:34:00 13:25:00 FAUSTINA atif [facility] 2021-07-26 2021-07-30 [facility] Love Calvin [facility] 1.2.840. 114 [id number] Univers 15:34:00 13:25:00 Encounter Faustina Mares 350.1.13.10 ity [facility] 4.2.7.2.[place] [id number] [address] 2021-07-26 2021-07-30 Inpatient X VISHNU [facility] ADIEL [id number] Univers 15:34:00 13:25:00 FAUSTINA srivastava [facility] 2021-07-22 2021-07-22 Patient Rosetta Irvin JENI 1.2.840.114 [id number] Univers 00:00:00 00:00:00 Outreach E FREDI 350.1.13.10 [place] [id number] [facility] 403 Branch 2021-07-20 2021-07-20 Patient Rosetta Irvin 1.2.840.114 [id number] Univers 00:00:00 00:00:00 Outreach E RAI 350.1.13.10 [place] [id number] [facility] 403 Branch 2021-07-14 2021-07-14 Patient Rosetta Irvin 1.2.840.114 [id number] Univers 00:00:00 00:00:00 Outreach E RAI 350.1.13.10 [place] [id number] [facility] [address] [place] 2021-07-09 2021-07-10 Outpatient X [facility] [id number] Univers 05:23:00 13:00:00 [facility] 2021-07-09 2021-07-10 Emergency [facility] 1.2.840 .114 [id number] Univers 05:23:00 13:00:00 Serene Albert 350.1.13.10 ity [place].7.2.[place] [id number] [facility] [address] [place] 2021-07-09 2021-07-10 Outpatient X [facility] [id number] Univers 05:23:00 13:00:00 [facility] 2021-06-23 2021-06-23 Patient JENI Reese 1.2.840.114 [id number] Univers 00:00:00 00:00:00 Outreach Elyssa E RAI 350.1.13.10 [place] [id number] [address] 2021-05-13 2021-05-13 Patient Jeni Reese 1.2.840.114 [id number] Univers 00:00:00 00:00:00 Outreach Elyssa E Rai 350.1.13.10 i ty of [place].2.[place] [id number] [place] [address] Branch 2021-05-11 2021-05-11 Transition Jeni Hooks 1.2.840.114 [id number] Univers 00:00:00 00:00:00 of Care Molly Rai 350.1.13.10 it y of [place].7.2.[place] [id number] [facility] [address] [place] 2021-05-03 2021-05-09 Inpatient X AMELIEGLORIA [facility] [id number] Univers 15:09:00 11:12:00 FAUSTINA ity [facility] 2021-05-03 2021-05-09 [facility] 1.2.840. 114 [id number] Univers 15:09:00 11:12:00 Encounter Vishnu Faustina Real 350.1.13.10 ity of [place]2.[place] [id number] [place] 423501 [place] 2021-05-03 2021-05-09 [facility] 1.2.840. 114 [id number] Univers 15:09:00 11:12:00 Encounter Faustina Mares 350.1.13.10 ity of [place]2.686 [place] [id number] [address] 2021-05-03 2021-05-03 Emergency X [facility] ERT [id number] Univers 15:09:00 15:09:00 JAGJIT srivastava [facility] 2021-05-03 2021-05-03 Orders Doctor FELDMAN 1.2.840.114 [id number] Univers 00:00:00 00:00:00 Only Unassigned, ROSALIO 350.1.13.10 ity of [place] [facility] 4.2.7.2.686 Hoang as [id number] [facility] 009 Branch 2021-05-03 2021-05-03 Orders Doctor GASTON 1.2.840.114 [id number] Univers 00:00:00 00:00:00 Only Unassigned, ROSALIO 350.1.13.10 ity of [place] [facility] 4.2.7.2.686 Hoang as [id number] [facility] 009 Branch 2021-04-24 2021-04-24 Transition Jeni Hooks 1.2.840.114 [id number] Univers 00:00:00 00:00:00 of Care Molly Rai 350.1.13.10 it y of [place]2.[place] [phone] [facility] 403 Branch 2021-04-24 2021-04-24 Transition Jeni Hooks 1.2.840.114 [id number] Univers 00:00:00 00:00:00 of Care Molly Rai 350.1.13.10 it y [place]2.[place] [id number] [facility] 403 Branch 2021-04-20 2021-04-22 Inpatient X BRAD [facility] MCA [id number] Univers 19:46:00 17:22:00 [facility]-04-[facility] 2021[facility]04[facility] 1.2.840.1 14 [id number] Univers 19:46:00 17:22:00 Encounter Carlos Buck 350.1.13.10 ity [facility] [place] 4.2.7.2.686 [facility] [id number] [place] [address] [place] 2021-04-20 2021-04-22 [facility] 1.2.840.1 14 [id number] Univers 19:46:00 17:22:00 Encounter Carlos Buck 350.1.13.10 ity of [place] Brittnikhil [place] 4.2.7.2.686 [facility] [id number] [place] [address] [place] 2021-04-20 2021-04-20 Emergency X [facility] ERT [id number] Univers 19:46:00 19:46:00 ISAI srivastava [facility] 2021-04-06 2021-04-06 Emergency X [facility] ERT [id number] Univers 12:13:00 14:26:00 THEO srivastava [facility] 2021-04-06 2021-04-06 Emergency Aguilar, [facility] [id number] Univers 12:13:00 14:26:00 Theo Real 350.1.13.10 [place] [phone] [facility] [address] 2021-04-06 2021-04-06 Emergency Aguilar, [facility] [id number] 12:13:00 14:26:00 Theo Real 350.1.13.10 [place] 4.2.7.2.686 [place] [id number] [id number] 2021-04-06 2021-04-06 Emergency X [facility] ERT [id number] Univers 11:56:00 11:56:00 ity [facility] 2021-04-06 2021-04-06 Patient Jeni Reese 1.2.840.114 [id number] [facility] 00:00:00 00:00:00 Outreach Elyssa E Rai 350.1.13.10 i [place] [id number] [facility] [address] 2021-04-06 2021-04-06 Patient Hugh Jeni 1.2.840.114 [id number] 00:00:00 00:00:00 Outreach Elyssa E Rai 350.1.13.10 [place] 4.2.7.2.686 [id number] [facility] 2021-04-02 2021-04-02 Patient Rosetta Irvin 1.2.840.114 [id number] [facility] 00:00:00 00:00:00 Outreach E Rai 350.1.13.10 [place] [id number] [facility] [address] 2021-04-02 2021-04-02 Patient Rosetta Irvin 1.2.840.114 [id number] 00:00:00 00:00:00 Outreach E Rai 350.1.13.10 [place] 4.2.7.2.686 [phone] [facility] 2021-03-30 2021-03-30 Patient Rosetta Irvin 1.2.840.114 [id number] 00:00:00 00:00:00 Outreach E Rai 350.1.13.10 [place] 4.2.7.2.686 [id number] 403 2021-03-30 2021-03-30 Patient Rosetta Irvin 1.2.840.114 [id number] [facility] 00:00:00 00:00:00 Outreach E Rai 350.1.13.10 [place] [id number] [facility] [address] 2021-03-25 2021-03-25 Patient Rosetta Irvin 1.2.840.114 86 [id number] 00:00:00 00:00:00 Outreach E Rai 350.1.13.10 [place] 4.2.7.2.686 [id number] 2021-03-25 2021-03-25 Patient Rosetta Irvin 1.2.840.114 86 [id number] Univers 00:00:00 00:00:00 Outreach E Rai 350.1.13.10 i [place] [phone] [facility] [address] 2021-03-16 2021-03-18 Emergency Apolinar Pal [facility] 1.2.840. 114 [id number] 19:40:00 14:45:00 Carlos Buck 350.1.13.10 [place] 4.2.7.2.686 [place] [phone] [facility] 2021-03-16 2021-03-18 Outpatient X HEBER MIYOLANDA ADIEL [id number] Univers 19:40:00 14:45:00 CARLOS srivastava [facility] 2021-03-16 2021-03-18 Emergency Apolinar Pal [facility] 1.2.840. 114 [id number] Univers 19:40:00 14:45:00 Carlos Buck 350.1.13.10 ity [facility] [place] [id number] [place] [id number] Branch 2021-03-16 2021-03-16 Emergency X DEMARCO [facility] ERT [id number] Univers 19:40:00 19:40:00 APOLINAR drewluis of [facility] 2021-03-10 2021-03-10 Transition Jeni Martinez 1.2.840.114 [id number] 00:00:00 00:00:00 of Care Yasmeen Rai 350.1.13.10 [place] 4.2.7.2.686 [id number] 403 2021-03-10 2021-03-10 Transition Jeni Martinez 1.2.840.114 859 [id number] Univers 00:00:00 00:00:00 of Care Yasmeen Rai 350.1.13.10 ity [facility] 4.2.7.2.686 [facility] [phone] [facility] [address] 2021-03-07 2021-03-09 [facility] Chauncey Owens [facility] 1.2.840.1 14 [id number] 08:22:00 12:00:00 Encounter Faustina Mares 350.1.13.10 [place] 4.2.7.2.686 [place] [id number] 08 2021-03-07 2021-03-09 Inpatient X VISHNU [facility] [id number] Univers 08:22:00 12:00:00 FAUSTINA srivastava [facility] 2021-03-07 2021-03-09 [facility] Chauncey Owens [facility] 1.2.840.1 14 [id number] Univers 08:22:00 12:00:00 Encounter Faustina Mares 350.1.13.10 ity [place] 4.2.7.2.686 [facility] [place] [phone] [facility] 0[address] 2021-03-09 2021-03-09 Patient Rosetta Irvin Jeni 1.2.840.114 85 [id number] 00:00:00 00:00:00 Outreach E Rai 350.1.13.10 [place] 4.2.7.2.686 [id number] 403 2021-03-09 2021-03-09 Patient Rosetta Irvin Jeni 1.2.840.114 85 [id number] Univers 00:00:00 00:00:00 Outreach E Rai 350.1.13.10 i [place] [id number] [address] 2021-03-07 2021-03-07 Emergency X DANIEL, [facility] ERT [id number] Univers 08:22:00 08:22:00 CHAUNCEY srivastava of [facility] 2021-03-04 2021-03-04 Patient Roestta Irvin 1.2.840.114 85 [id number] 00:00:00 00:00:00 Outreach E Rai 350.1.13.10 [place] 4.2.7.2.686 [id number] [facility] 2021-03-04 2021-03-04 Patient Rosetta Irvin 1.2.840.114 85 [id number] [facility] 00:00:00 00:00:00 Outreach E Rai 350.1.13.10 i [place] [id number] [address] 2021-02-25 2021-02-25 Patient Rosetta Irvin 1.2.840.114 85 [id number] 00:00:00 00:00:00 Outreach E Rai 350.1.13.10 [place] 4.2.7.2.686 [id number] [facility] 2021-02-25 2021-02-25 Patient Rosetta Irvin 1.2.840.114 85 [id number] [facility] 00:00:00 00:00:00 Outreach E Rai 350.1.13.10 i [place] [id number] [address] 2021-02-09 2021-02-09 Transition Jeni Martinez 1.2.840.114 [id number] [id number] 00:00:00 00:00:00 of Care Yasmeen Rai 350.1.13.10 [place] 4.2.7.2.686 [id number] [facility] 2021-02-09 2021-02-09 Transition Jeni Martinez 1.2.840.114 [id number] [facility] 00:00:00 00:00:00 of Care Yasmeen Rai 350.1.13.10 it[place] [phone] [facility] [address] 2021-01-26 2021-01-26 [facility]phone [facility] 1.2.840.114 8 [id number] 00:00:00 00:00:00 [facility] HEALTH 350.1.13.10 [facility] 4.2.7.2.686 [id number] 059 2021-01-26 2021-01-26 Telephone [facility] 1.2.840.114 8 [id number] Univers 00:00:00 00:00:00 [facility] 350.1.13.10 i ty of [facility] [place] [phone] [facility] 0[address] 2021-01-14 2021-01-14 Transition Jeni Hooks 1.2.840.114 [id number] Univers 00:00:00 00:00:00 of Care Molly Rai 350.1.13.10 it y [place] [phone] [facility] [address] 2021-01-11 2021-01-13 Inpatient X VISHNU MIYOLANDA ADIEL [id number] Univers 17:30:00 15:20:00 FAUSTINA ity of [facility] 2021-01-11 2021-01-13 [facility] Robb Shahnaz Hoa [facility] 1.2.840.1 14 [id number] Univers 17:30:00 15:20:00 Encounter Tatianna Sosa 350.1.13.10 ity of [place] 4.2.7.2.686 [facility] [id number] [facility] [address] 2021-01-11 2021-01-11 Emergency X [facility] ERT [id number] Univers 17:24:00 17:24:00 ity of [facility] 2021-01-11 2021-01-11 Orders Doctor FELDMAN 1.2.840.114 [id number] Univers 00:00:00 00:00:00 Only Unassigned, ROSALIO 350.1.13.10 ity of [place] [facility] 4.2.7.2.686 [place] [id number] [facility] [address] 2020-12-24 2020-12-24 Outpatient RASHEED Maurice W [id number] [facility] 12:35:00 12:35:00 [facility] 2020-12-05 2020-12-05 Inpatient HCAMN HCAMN [id number] [facility] 03:52:43 03:52:43 [facility] 2020-12-02 2020-12-02 Emergency Calvin Duval 1.2.840.1 [id number] Methodi 04:27:00 14:00:[address] 3.430.2.7 Hospit a .3.091898 l .8 2020-12-02 2020-12-02 Travel 1.2.840.1 1.2.330.830 [id number] [id number] Methodi 00:00:00 00:00:[address] 3.430.2.7 0.2.7.3.698 Ho spita .3.647964 084.8 l .8 2020-11-20 2020-11-20 Documentat Provider, 1.2.840.1 [id number] Methodi 00:00:00 00:00:00 ion Unknown 69339.1.[address] 3.430.2.7 Hospit a .3.651461 l .8 2020-11-19 2020-11-20 [facility] RADHAMES NELSON 1.2.840.1 [id number] [place] 00:00:00 00:00:00 Encounter 17012.1.1 [address] .3.100148 .8 2020-11-19 2020-11-19 Travel 1.2.840.1 1.2.633.476 [id number] Methodi 00:00:00 00:00:[address] 3.430.2.7 0.2.7.3.698 Ho spita .3.357142 084.8 l .8 2020-10-24 2020-10-28 [facility] Luis Amaro 1.2.840.1 [id number] Methodi 19:16:00 12:58:00 Encounter Hong Pineda 84225.1.[address] 3.430.2.7 Hospit a .3.769075 l .8 2020-10-27 2020-10-27 Surgery [facility] 1.2.840.1 [id number] Methodi 14:30:00 15:30:00 [address] Lovell [address]754.1.[address] 3.430.2.7 Hospit a .3.592139 l .8 2020-10-24 2020-10-24 Travel 1.2.840.1 1.2.305.753 7744 [id number] Methodi 00:00:00 00:00:[address] 3.430.2.7 0.2.7.3.698 Ho spita .3.694505 084.8 l .8 2020-10-13 2020-10-14 [facility] JimenezTariq 1.2.840.1 [id number] 004 [id number] Methodi 19:58:00 19:56:00 Encounter Surjit Thomason Jesus 62924.[address] 3.430.2.7 Hospit a .3.842444 l .8 2020-10-13 2020-10-13 Travel 1.2.840.1 1.2.579.413 [id number] Methodi 00:00:00 00:00:[address] 3.430.2.7 0.2.7.3.698 Ho spita .3.568027 084.8 l .8 2019-01-29 2019-01-29 Outpatient RASHEED Red Andrew [id number] [facility] 07:42:00 07:42:00 [facility] 2018-09-12 2018-09-12 Outpatient Stephy CHW CHW [id number] [facility] 11:34:00 11:34:00 ashley [facility] NickolasHalima barnes 2018-08-24 2018-08-24 Outpatient Víctor W CHW [id number] [facility] 14:27:00 14:27:00 Stacey [facility] and Marsha barnes 2018-08-24 2018-08-24 Outpatient W [id number] 634 u7lsb-j [place] 14:27:00 14:27:00 27-44ba-85b fcf-4e00-a Health c-1z91z3hp2 [id number] a nd 9af 85a84f Marsha 2018-08-01 2018-08-01 Outpatient Leonardo-Franny CHW CHW [id number] [facility] 11:20:00 11:20:00 ashley [facility] Nickolascarmen and Marsha barnes 2018-08-01 2018-08-01 [facility] [id number] 6b [id number]-4 [facility] 11:20:00 11:20:00 d Patient Stone 27-44ba-85b z92-2u21 -8 Health Office c-5i37u6ac0 2i0-7p008c a nd Visit-Leve 9af 18p270 Kristin Bhagat s 2017-01-12 2017-01-12 [facility] 8z34pv44-63 589 wr448-p [place] 13:45:00 13:45:00 d Patient 27-44ba-85b 989-48ec -8 Health Office c-7j91h4nx7 bab-26f117 a nd Visit-Leve 9af 2t1743 Kristin Bhagat s 2016-10-29 2016-10-29 [facility] 7q09dp31-86 7d7 595r7-g [place] 11:30:00 11:30:00 d Patient 27-44ba-85b 9w1-0848 -8 Health Office c-8x42i3gb7 n04-4x6948 a nd Visit-Leve 9af 704f59 Kristin Bhagat s 2016-10-05 2016-10-05 Outpatient Jim W [id number] dc8 925t8-1 [place] 11:30:00 11:30:00 Malika 27-44ba-85b 637-4a44-9 Health c-2v07f1ie3 851-e83dea a nd 9af cb2ff0 Marsha s 2016-09-25 2016-09-25 Establishe [facility] 4f21ie59-38 959 34e82-5 [place] 11:30:00 11:30:00 d Patient 27-44ba-85b d28-7bm8 -9 Health Office c-8j91r2yj9 h9a-5tn03k a nd Visit-Leve 9af 8797df [facility] 2016-09-20 2016-09-20 Outpatient Jim, [facility] [id number] 618 n706t-j [place] 19:00:00 19:00:00 Malika 27-44ba-85b 26e-4d9c-8 Health c-8o36f9fb3 1u8-6z61rj a nd 9af 20b9d4 Marsha barnes Results Test Description Test Time Test Comments Results Result Comments Source ECG 12 lead 2022-06-17 03:24:47 Test Item Value Reference Range Interpretation Comme nts Ventricular rate (test code = 253) Atrial rate (test code = 255) CO interval (test code = 266) QRSD interval (test code = 260) QT interval (test code = 264) QTC interval (test code = 265) P axis 1 (test code = 267) QRS axis 1 (test code = 268) T wave axis (test code = 270) EKG impression (test code = 273) Normal sinus rhythm-T wave abnorma lity, consider lateral ischemia-Abnormal ECG-In automated comparison with ECG of 11-DEC-2021 21:59,-Left anterior fascicular block is no longer present[id number] 03:24:47 Test Item Value Reference Range Interpretation Comments Ventricular rate (test code = 253) Atrial rate (test code = 255) CO interval (test code = 266) QRSD interval (test code = 260) QT interval (test code = 264) QTC interval (test code = 265) P axis 1 (test code = 267) QRS axis 1 (test code = 268) T wave axis (test code = 270) EKG impression (test Normal sinus rhythm-T code = 273) wave abnormality, consider lateral ischemia-Abnormal ECG-In automated comparison with ECG of 11-DEC-2021 21:59,-Left anterior fascicular block is no longer present- [place] [address] [id number] 03:24:47 Test Item Value Reference Range Interpretation Comments Ventricular rate (test code = 253) Atrial rate (test code = 255) CO interval (test code = 266) QRSD interval (test code = 260) QT interval (test code = 264) QTC interval (test code = 265) P axis 1 (test code = 267) QRS axis 1 (test code = 268) T wave axis (test code = 270) EKG impression (test Normal sinus rhythm-T code = 273) wave abnormality, consider lateral ischemia-Abnormal ECG-In automated comparison with ECG of 11-DEC-2021 21:59,-Left anterior fascicular block is no longer present- [address]2022-10-27 03:24:47 Test Item Value Reference Range Interpretation Comments Ventricular rate (test 91 code = 253) Atrial rate (test code 91 = 255) CO interval (test code 174 = 266) QRSD interval (test 82 code = 260) QT interval (test code 360 = 264) QTC interval (test code 442 = 265) P axis 1 (test code = 77 267) QRS axis 1 (test code = 89 268) T wave axis (test code 90 = 270) EKG impression (test Normal sinus rhythm-T code = 273) wave abnormality, consider lateral ischemia-Abnormal ECG-In automated comparison with ECG of 11-DEC-2021 21:59,-Left anterior fascicular block is no longer present- [facility] [id number] 21:02:00 Test Item Value Reference Range Interpretation Comments POC glucose (test code 188 mg/dL 65-99 H Opera tor Name: Thompson = 16515-7) PamelaDevice ID : [id number] Lab Interpretation Abnormal (test code = 66910-3) [facility] [id number] 21:02:00 Test Item Value Reference Range Interpretation Comments POC glucose (test code 188 mg/dL 65-99 H Opera tor Name: Thompson = 00698-5) PamelaDevice ID : [id number] Lab Interpretation Abnormal (test code = 86192-6) [facility] [id number] 21:02:00 Test Item Value Reference Range Interpretation Comments POC glucose (test code 188 mg/dL 65-99 H Opera tor Name: Thompson = 30229-6) PamelaDevice ID : [id number] Lab Interpretation Abnormal (test code = 16254-7) [facility] [id number] 21:02:00 Test Item Value Reference Range Interpretation Comments POC glucose (test code 188 mg/dL 65-99 H Opera tor Name: Thompson = 08897-9) PamelaDevice ID : [id number] Lab Interpretation Abnormal (test code = 07945-5) [facility] RNA [Presence] in Respiratory specimen by SYD with probe [id number] 00:54:06 Test Item Value Reference Range Interpretation Comments SARS-CoV-2 (COVID-19) RNA Not detected [Presence] in Respiratory specimen by SYD with probe detection (test code = 05439-9) Whether patient is employed in a Unknown healthcare setting (test code = 77182-1) Whether the patient has symptoms Unknown related to condition of interest (test code = 56553-8) Whether the patient was Unknown hospitalized for condition of interest (test code = 16417-8) Whether the patient was admitted Unknown to intensive care unit (ICU) for condition of interest (test code = 45387-4) Whether patient resides in a Unknown congregate care setting (test code = 06662-3) status (test code = Unknown 23166-7) Date and time of symptom onset Unknown (test code = 55360-8) [facility] [place] ED Preliminary Interpretation - Not an [id number] 18:21:33 Test Item Value Reference Range Interpretation Comments LINDA (test code = LINDA) Houston Rosales MD 06/16/2022 5:14 [facility] ED Preliminary Interpretation - Not an OrderPerformed by: Houston Rosales MDAuthorized by: Houston Rosales MD ECG reviewed by ED Physician in the absence of a cafeteria counter attendant: yes Interpretation: Interpretation: abnormal Rate: ECG rate: 91 ECG rate assessment: normal Rhythm: Rhythm: sinus rhythm Ectopy: Ectopy: none QRS: QRS axis: Normal QRS intervals: NormalConduction: Conduction: normal ST segments: ST segments: Non-specific (III and aVF)T waves: T waves: normal Lab Interpretation Abnormal (test code = 55425-9) [facility] ED Preliminary Interpretation - Not an [id number] 18:21:33 Test Item Value Reference Range Interpretation Comments LINDA (test code = LINDA) Houston Rosales MD 06/16/2022 5:14 [facility] ED Preliminary Interpretation - Not an OrderPerformed by: Houston Rosales MDAuthorized by: Houston Rosales MD ECG reviewed by ED Physician in the absence of a cafeteria counter attendant: yes Interpretation: Interpretation: abnormal Rate: ECG rate: 91 ECG rate assessment: normal Rhythm: Rhythm: sinus rhythm Ectopy: Ectopy: none QRS: QRS axis: Normal QRS intervals: NormalConduction: Conduction: normal ST segments: ST segments: Non-specific (III and aVF)T waves: T waves: normal Lab Interpretation Abnormal (test code = 25332-5) [facility] ED Preliminary Interpretation - Not an [id number] 18:21:33 Test Item Value Reference Range Interpretation Comments LINDA (test code = LINDA) Houston Rosales MD 06/16/2022 5:14 [facility] ED Preliminary Interpretation - Not an OrderPerformed by: Houston Rosales MDAuthorized by: Houston Rosales MD ECG reviewed by ED Physician in the absence of a cafeteria counter attendant: yes Interpretation: Interpretation: abnormal Rate: ECG rate: 91 ECG rate assessment: normal Rhythm: Rhythm: sinus rhythm Ectopy: Ectopy: none QRS: QRS axis: Normal QRS intervals: NormalConduction: Conduction: normal ST segments: ST segments: Non-specific (III and aVF)T waves: T waves: normal Lab Interpretation Abnormal (test code = 60674-6) [facility] ED Preliminary Interpretation - Not an [id number] 18:21:33 Test Item Value Reference Range Interpretation Comments LINDA (test code = LINDA) Houston Rosales MD 06/16/2022 5:14 [facility] ED Preliminary Interpretation - Not an OrderPerformed by: Houston Rosales MDAuthorized by: Houston Rosales MD ECG reviewed by ED Physician in the absence of a cafeteria counter attendant: yes Interpretation: Interpretation: abnormal Rate: ECG rate: 91 ECG rate assessment: normal Rhythm: Rhythm: sinus rhythm Ectopy: Ectopy: none QRS: QRS axis: Normal QRS intervals: NormalConduction: Conduction: normal ST segments: ST segments: Non-specific (III and aVF)T waves: T waves: normal Lab Interpretation Abnormal (test code = 39833-3) [facility] Description: HCV Antibody RFX to Quant [id number] 06:34:00 Test Item Value Reference Range Interpretation Comments HCV Ab (test code = 24606-5) 0.1 s/coratio 0.0-0.9 [facility] Description: HCV Antibody RFX to Quant PCR 2022-02-20 06:34:00 Test Item Value Reference Range Interpretation Comments HCV Ab (test code = 78798-5) 0.1 s/coratio 0.0-0.9 [facility] Description: Interpretation:2022-02-20 06:34:00 [facility]: Interpretation: 2022-02-20 06:34:00Interpretation:[facility] Description: Interpretation:2022-02-20 06:34:00Interpretation:[facility] Panel Description: Interpretation:2022-02-20 06:34:00Interpretation:[facility] Description: HIV 1+2 Ab+HIV1 p24 Ag [Presence] in Serum or Plasma by [id number] 06:32:00 Test Item Value Reference Range Interpretation Comments HIV Ab/p24 Ag Non Reactive Non Reactive HIV Screen (test code = Negative HIV-1/HIV-2 49961-5) antibodies and HIV-1 p24 antigen wer e NOT detected.There is no laboratory evid ence of HIV infection. [facility] Description: HIV 1+2 Ab+HIV1 p24 Ag [Presence] in Serum or Plasma by [id number] 06:32:00 Test Item Value Reference Range Interpretation Comments HIV Ab/p24 Ag Non Reactive Non Reactive HIV Screen (test code = Negative HIV-1/HIV-2 02866-3) antibodies and HIV-1 p24 antigen wer e NOT detected.There is no laboratory evid ence of HIV infection. [facility] Description: Acute [id number] 06:31:00 Test Item Value Reference Range Interpretation Comments Hep A Ab, IgM (test code = Negative Negative 03648-9) HBsAg Screen (test code = Negative Negative 5196-1) Hep B Core Ab, IgM (test code = Negative Negative 74514-1) HCV Ab (test code = 52760-1) 0.1 s/coratio 0.0-0.9 [facility] Description: Acute [id number] 06:31:00 Test Item Value Reference Range Interpretation Comments Hep A Ab, IgM (test code = Negative Negative 74830-6) HBsAg Screen (test code = Negative Negative 5196-1) Hep B Core Ab, IgM (test code = Negative Negative 43604-8) HCV Ab (test code = 90372-3) 0.1 s/coratio 0.0-0.9 [facility] Description: [id number] 04:16:00 Test Item Value Reference Range Interpretation Comments Protein, Total (test code = 7.0 g/dL 6.0-8.5 2885-2) Albumin (test code = 1751-7) 4.4 g/dL 3.8-4.8 Bilirubin, Total (test code = 0.4 mg/dL 0.0-1.2 1974-2) Bilirubin, Direct (test code = 0.14 mg/dL 0.00-0.40 1967-7) Alkaline Phosphatase (test code = 169 IU/L 44-121 H 6768-6) LDH (test code = 2532-0) 178 IU/L 119-226 AST (SGOT) (test code = 1920-8) 39 IU/L 0-40 ALT (SGPT) (test code = 1742-6) 38 IU/L 0-32 H GGT (test code = 2324-2) 113 IU/L 0-60 H [facility] Description: [id number]+[id number] 04:16:00 Test Item Value Reference Range Interpretation Comments Protein, Total (test code = 7.0 g/dL 6.0-8.5 2885-2) Albumin (test code = 1751-7) 4.4 g/dL 3.8-4.8 Bilirubin, Total (test code = 0.4 mg/dL 0.0-1.2 1974-2) Bilirubin, Direct (test code = 0.14 mg/dL 0.00-0.40 1967-7) Alkaline Phosphatase (test code = 169 IU/L 44-121 H 6768-6) LDH (test code = 2532-0) 178 IU/L 119-226 AST (SGOT) (test code = 1920-8) 39 IU/L 0-40 ALT (SGPT) (test code = 1742-6) 38 IU/L 0-32 H GGT (test code = 2324-2) 113 IU/L 0-60 H [facility] Description: Hemoglobin A1c/Hemoglobin.total in [id number] 03:45:00 Test Item Value Reference Range Interpretation Comments Hemoglobin A1c (test code 7.0 % 4.8-5.6 H . Prediabetes: 5.7 - = 4548-4) 6.4 Diabetes: > 6.4 Glycemic contro l for adults with carmen betes: <7.0 [facility] Description: Hemoglobin A1c/Hemoglobin.total in [id number] 03:45:00 Test Item Value Reference Range Interpretation Comments Hemoglobin A1c (test code 7.0 % 4.8-5.6 H . Prediabetes: 5.7 - = 4548-4) 6.4 Diabetes: > 6.4 Glycemic contro l for adults with carmen betes: <7.0 [facility] 12 [id number] 16:43:37 Test Item Value Reference Range Interpretation Comments Ventricular rate (test code = 253) Atrial rate (test code = 255) CO interval (test code = 266) QRSD interval (test code = 260) QT interval (test code = 264) QTC interval (test code = 265) P axis 1 (test code = 267) QRS axis 1 (test code = 268) T wave axis (test code = 270) EKG impression (test Sinus code = 273) tachycardia-Biatrial enlargement-T wave abnormality, consider lateral ischemia-Abnormal ECG-In automated comparison with ECG of 08-NOV-2021 05:58,-No significant change was found-- [facility]2022-04-24 20:18:00 Test Item Value Reference Range Interpretation Comments Urine culture Mixed lawrence Specimen isolate (test <=10-3 col/cc InformationSp ecimen code = 77142-1) Source: [facility] Site: [facility]2022-04-24 20:18:00 Test Item Value Reference Range Interpretation Comments Urine culture Mixed lawrence Specimen isolate (test <=10-3 col/cc InformationSp ecimen code = 99432-7) Source: [facility] Site: [facility]2022-04-24 20:18:00 Test Item Value Reference Range Interpretation Comments Urine culture Mixed lawrence Specimen isolate (test <=10-3 col/cc InformationSp ecimen code = 57755-7) Source: [facility] Site: [facility]2022-04-24 20:18:00 Test Item Value Reference Range Interpretation Comments Urine culture Mixed lawrence Specimen isolate (test <=10-3 col/cc InformationSp ecimen code = 67878-5) Source: [facility] Site: [facility]2022-04-24 20:18:00 Test Item Value Reference Range Interpretation Comments Urine culture Mixed lawrence Specimen isolate (test <=10-3 col/cc InformationSp ecimen code = 45835-8) Source: [facility] Complete, (w Contrast, Strain and 3D if needed)2021-12-13 18:26:58 Test Item Value Reference Interpretation Comments Range EF (test code = 26 % 54-74 A 9462109464) LV EF,BP (test code 23.28 % = 2906790382) IVS,d (test code = 0.74 cm 0.6-0.9 9035919299) IVS s 2D (test code 0.93 cm = 0687499693) LVPWD,d (test code = 0.74 cm 0.6-0.9 0196377100) LVPW s PLAX (test 1.29 cm code = 7519157560) LV,d (test code = 4.99 cm 2318135969) LV,s (test code = 4.38 cm 5177186118) LVOT Diam,S (test 2.05 cm code = 5848269772) LV HEDRICK VOL (test 117.76 ml 46-106 A code = 9116552089) LV SYS VOL (test 86.69 ml 14-42 A code = 8985766396) LV Vol,d A2C (test 225.25 mL code = 5902075211) LV Vol,s A2C (test 163.76 mL code = 9678628852) LV Vol,d A4C (test 83.27 ml code = 5474136496) LV Vol,s A4C (test 66.67 ml code = 0496933815) MV Peak E [place] (test 1.07 m/s code = 3454696726) MV Peak A [place] (test 0.97 m/s code = 9387376123) E/A ratio (test code See_Comment A [Autom ated = 9564680444) message] The system which generated this result transmitted reference range : <=0.8. The reference range was not used to interpret this result as normal/abnormal . E wave decelartion See_Comment A [Automat ed time (test code = message] T he 9099527631) system which generated this result transmitted reference range : 200 msec. The reference range was not used to interpret this result as normal/abnormal . LV SV Teich 2D (test 31.07 ml code = 6939771208) LVOT stroke volume 0.40 cm3 (test code = 2416988391) LA Vol MOD A4C (test 72.11 ml code = 8597811296) LA Ao Ratio Mmode (test code = 9975421753) LVOT area (test code 3.30 cm2 = 6063326270) LVOT Vmax (test code 0.83 m/s = 0196203955) AoV Mean PG (test See_Comment [Automate d code = 7656022392) message] The system which generated this result transmitted reference range : 20 mmHg. The reference range was not used to interpret this result as normal/abnormal . AoV Peak PG (test mmHg code = 7629057203) AV LVOT peak mmHg gradient (test code = 1732398203) AoV Area, Vmax (test 2.61 cm2 See_Comment A [Autom ated code = 0946389032) message] The system which generated this result transmitted reference range : <=2.6. The reference range was not used to interpret this result as normal/abnormal . LVOT VTI (CM) (test 12.00 cm code = 7909310067) LVOT SI (test code = 22.68 ml/m2 1333302288) AoV Vmax (test code 1.05 m/s = 3893674376) AoV Vmn (test code = 0.78 m/s 5301368038) AoV Cusp sep (test code = 7022513707) Velocity Ratio 0.79 m/s (V1/V2) (test code = 4689) AoV Area, VTI (test 2.92 cm2 code = 9166386677) MR peak grad (test mmHg code = 5146394091) MV stenosis pressure 48.94 ms See_Comment [Autom ated 1/2 time (test code message] The = 3592475847) system which generated this result transmitted reference range : <=150. The reference range was not used to interpret this result as normal/abnormal . MV E A ratio (test code = 3462992957) MV valve area p 1/2 4.50 cm2 method (test code = 0963620301) Ao root annulus 2.62 cm (test code = 5923251764) TR pk grad (test mmHg code = 5935357509) TR Vpeak (test code 2.33 mm/s = 9454407383) PV AT (test code = msec 6141211224) MV Decel slope (test 16.07 m/s2 code = 7675258409) LVOT mean grad (test mmHg code = 7784365708) Pt Wt (test code = 6605649865) Pt Size (test code = 4339749530) LVOT Vmn (test code = 9979483112) MR Vmax (test code = 4.92 m/s 5470693930) MR Inst Flow Rt 156.66 ml/s (test code = 9232536775) LV Vol,s BP (test 108.69 nl code = 7522975590) LV Vol,d BP (test 141.67 ml code = 6580390008) LV SV,A4C (test code 16.60 % = 9816603144) LV SV,A2C (test code 61.49 % = 8679249683) Diego Bally,s A4C (test 7.16 cm code = 4226954151) Diego Bally,s A2C (test 7.81 cm code = 8566445709) Diego Bally,d A4C (test 8.06 cm code = 9522852327) Diego Bally,d A2C (test 8.98 cm code = 4530838523) LV EF,A4C (test code 19.94 % = 0798417267) LV EF,A2C (test code 27.30 % = 0077980737) AoV VTI (test code = 0.14 m 5176074103) LVOT VTI (test code 0.12 m = 6090290330) LA diam s (test code 4.0 cm = 4754324774) LA Volume Index 45.0 mL/m2 See_Comment A [Automated (test code = message] The 1497859197) system which generated this result transmitted reference range : <=35. The reference range was not used to interpret this result as normal/abnormal . LA VOL 2C (test code 66.0 ml = 1517571433) LA Vol 4C (test code 72.0 ml = 8833273885) D E excurs (test code = 6040763080) E f slope (test code = 8720993266) E prime lat (test code = 8391247816) E favio sept (test code = 9376807604) IVC diam (test code 1.9 cm = 6602444108) RVSP (test code = mmHg 2534680498) RA pressure (test mmHg code = 6186570279) PV acc T slope (test code = 0225162706) LINDA (test code = LINDA) Left Ventricle: Left ventricle is mildly dilated. Normal wall thickness. Global hypokinesis present. Severely reduced systolic function with a visually estimated EF of 20 - 25%. Grade II (pseudonormal) diastolic dysfunction. Elevated left ventricular filling pressure. Left Atrium: Left atrium is mildly dilated. Right Ventricle: Right ventricle is mildly dilated. Mildly reduced systolic function. Mitral Valve: Moderate valvular regurgitation with a posterior eccentrically directed jet. Tricuspid Valve: Moderate to severe valvular regurgitation with a centrally directed jet. IVC/SVC: IVC diameter is less than or equal to 21 mm and decreases greater than 50% during inspiration; therefore the estimated right atrial pressure is normal (~3 mmHg). IVC shows systolic flow reversal. Left VentricleLeft ventricle is mildly dilated. Normal wall thickness. Global hypokinesis present. Severely reduced systolic function with a visually estimated EF of 20 - 25%. Grade II (pseudonormal) diastolic dysfunction. Elevated left ventricular filling pressure.Right VentricleRight ventricle is mildly dilated. Mildly reduced systolic function.Left AtriumLeft atrium is mildly dilated.Right AtriumRight atrium size is normal.IVC/SVCIVC diameter is less than or equal to 21 mm and decreases greater than 50% during inspiration; therefore the estimated right atrial pressure is normal (~3 mmHg). IVC shows systolic flow reversal.Mitral ValveValve structure is normal. Mildly restricted motion. Moderate valvular regurgitation with a posterior eccentrically directed jet. No stenosis.Tricuspid ValveValve structure is normal. No restricted motion. Moderate to severe valvular regurgitation with a centrally directed jet. No stenosis.Aortic ValveValve structure is normal. No restricted motion. No significant valvular regurgitation. No stenosis.Pulmonic ValveNot well visualized. No significant valvular regurgitation.Perica rdiumNo significant pericardial effusion.AortaNormal sized annulus.Study DetailsStudy quality was good. A complete echocardiogram was performed. Patient exhibited sinus rhythm. Lab Interpretation Abnormal (test code = 58566-3) [facility] (w Contrast, Strain and 3D if needed)2021-12-13 18:26:58 Test Item Value Reference Interpretation Comments Range EF (test code = 26 % 54-74 A 2241313751) LV EF,BP (test code 23.28 % = 8291169155) IVS,d (test code = 0.74 cm 0.6-0.9 3270289830) IVS s 2D (test code 0.93 cm = 8144232795) LVPWD,d (test code = 0.74 cm 0.6-0.9 6489734966) LVPW s PLAX (test 1.29 cm code = 8866591968) LV,d (test code = 4.99 cm 9075667976) LV,s (test code = 4.38 cm 9673070793) LVOT Diam,S (test 2.05 cm code = 6610039342) LV HEDRICK VOL (test 117.76 ml 46-106 A code = 0991945056) LV SYS VOL (test 86.69 ml 14-42 A code = 1062266809) LV Vol,d A2C (test 225.25 mL code = 8902646695) LV Vol,s A2C (test 163.76 mL code = 4701190294) LV Vol,d A4C (test 83.27 ml code = 4954979139) LV Vol,s A4C (test 66.67 ml code = 6128188607) MV Peak E [place] (test 1.07 m/s code = 9501327418) MV Peak A [place] (test 0.97 m/s code = 4914755794) E/A ratio (test code 1.10 <=0.8 A = 0740749085) E wave decelartion 66.48 See_Comment A [Automat ed time (test code = message] T he 6897608141) system which generated this result transmitted reference range : 200 msec. The reference range was not used to interpret this result as normal/abnormal . LV SV Teich 2D (test 31.07 ml code = 5996007919) LVOT stroke volume 0.40 cm3 (test code = 8909079040) LA Vol MOD A4C (test 72.11 ml code = 7597512837) LA Ao Ratio Mmode 1.54 (test code = 2632241095) LVOT area (test code 3.30 cm2 = 3616203836) LVOT Vmax (test code 0.83 m/s = 8798466859) AoV Mean PG (test 2.66 See_Comment [Automate d code = 2958806047) message] The system which generated this result transmitted reference range : 20 mmHg. The reference range was not used to interpret this result as normal/abnormal . AoV Peak PG (test 4.41 mmHg code = 3983536913) AV LVOT peak 2.79 mmHg gradient (test code = 8268112078) AoV Area, Vmax (test 2.61 cm2 <=2.6 A code = 6976100734) LVOT VTI (CM) (test 12.00 cm code = 8518314548) LVOT SI (test code = 22.68 ml/m2 0478681444) AoV Vmax (test code 1.05 m/s = 3677908162) AoV Vmn (test code = 0.78 m/s 0649303332) AoV Cusp sep (test 1.37 code = 8491275802) Velocity Ratio 0.79 m/s (V1/V2) (test code = 4689) AoV Area, VTI (test 2.92 cm2 code = 8600799879) MR peak grad (test 96.75 mmHg code = 8403575241) MV stenosis pressure 48.94 ms <=150 1/2 time (test code = 4080805160) MV E A ratio (test 1.10 code = 4061055496) MV valve area p 1/2 4.50 cm2 method (test code = 4060180227) Ao root annulus 2.62 cm (test code = 7189904634) TR pk grad (test 20.2 mmHg code = 3556895791) TR Vpeak (test code 2.33 mm/s = 6467421758) PV AT (test code = 86.51 msec 9204456460) MV Decel slope (test 16.07 m/s2 code = 2022308029) LVOT mean grad (test 1.45 mmHg code = 7021607217) Pt Wt (test code = 70.31 5774810438) Pt Size (test code = 165.10 4601326610) LVOT Vmn (test code 0.56 = 1097332068) MR Vmax (test code = 4.92 m/s 9344001550) MR Inst Flow Rt 156.66 ml/s (test code = 6753416403) LV Vol,s BP (test 108.69 nl code = 0725844130) LV Vol,d BP (test 141.67 ml code = 1202004016) LV SV,A4C (test code 16.60 % = 1925990696) LV SV,A2C (test code 61.49 % = 1451730548) Diego Bally,s A4C (test 7.16 cm code = 9811504456) Diego Bally,s A2C (test 7.81 cm code = 5316502464) Diego Bally,d A4C (test 8.06 cm code = 1154230629) Diego Bally,d A2C (test 8.98 cm code = 4625482183) LV EF,A4C (test code 19.94 % = 6173528145) LV EF,A2C (test code 27.30 % = 5277863793) AoV VTI (test code = 0.14 m 3450844212) LVOT VTI (test code 0.12 m = 1973692354) LA diam s (test code 4.0 cm = 6617925257) LA Volume Index 45.0 mL/m2 <=35 A (test code = 5470157620) LA VOL 2C (test code 66.0 ml = 2592696707) LA Vol 4C (test code 72.0 ml = 1607938582) D E excurs (test 1.6 code = 5820054939) E f slope (test code 0.13 = 5408771314) E prime lat (test 0.09 code = 9515673954) E favio sept (test 0.07 code = 2200115281) IVC diam (test code 1.9 cm = 3557226338) RVSP (test code = 25.2 mmHg 0188695507) RA pressure (test 5.0 mmHg code = 2882630014) PV acc T slope (test 4.3 code = 7055818458) LINDA (test code = LINDA) Left Ventricle: Left ventricle is mildly dilated. Normal wall thickness. Global hypokinesis present. Severely reduced systolic function with a visually estimated EF of 20 - 25%. Grade II (pseudonormal) diastolic dysfunction. Elevated left ventricular filling pressure. Left Atrium: Left atrium is mildly dilated. Right Ventricle: Right ventricle is mildly dilated. Mildly reduced systolic function. Mitral Valve: Moderate valvular regurgitation with a posterior eccentrically directed jet. Tricuspid Valve: Moderate to severe valvular regurgitation with a centrally directed jet. IVC/SVC: IVC diameter is less than or equal to 21 mm and decreases greater than 50% during inspiration; therefore the estimated right atrial pressure is normal (~3 mmHg). IVC shows systolic flow reversal. Left VentricleLeft ventricle is mildly dilated. Normal wall thickness. Global hypokinesis present. Severely reduced systolic function with a visually estimated EF of 20 - 25%. Grade II (pseudonormal) diastolic dysfunction. Elevated left ventricular filling pressure.Right VentricleRight ventricle is mildly dilated. Mildly reduced systolic function.Left AtriumLeft atrium is mildly dilated.Right AtriumRight atrium size is normal.IVC/SVCIVC diameter is less than or equal to 21 mm and decreases greater than 50% during inspiration; therefore the estimated right atrial pressure is normal (~3 mmHg). IVC shows systolic flow reversal.Mitral ValveValve structure is normal. Mildly restricted motion. Moderate valvular regurgitation with a posterior eccentrically directed jet. No stenosis.Tricuspid ValveValve structure is normal. No restricted motion. Moderate to severe valvular regurgitation with a centrally directed jet. No stenosis.Aortic ValveValve structure is normal. No restricted motion. No significant valvular regurgitation. No stenosis.Pulmonic ValveNot well visualized. No significant valvular regurgitation.Perica rdiumNo significant pericardial effusion.AortaNormal sized annulus.Study DetailsStudy quality was good. A complete echocardiogram was performed. Patient exhibited sinus rhythm. Lab Interpretation Abnormal (test code = 82466-0) [facility] ED Preliminary Interpretation - Not an [id number] 03:26:41 Test Item Value Reference Range Interpretation Comments LINDA (test code = LINDA) Jesus Posada Jr., MD 12/12/2021 2:53 [facility] Preliminary Interpretation - Not an OrderPerformed by: Jesus Posada Jr., MDAuthorized by: Jesus Posada Jr., MD ECG reviewed by ED Physician in the absence of a cafeteria counter attendant: yes Interpretation: Interpretation: abnormal Rate: ECG rate: 124 ECG rate assessment: tachycardic Rhythm: Rhythm: sinus tachycardia Ectopy: Ectopy: none QRS: QRS axis: Normal QRS intervals: NormalConduction: Conduction: abnormal Abnormal conduction: LAFB ST segments: ST segments: NormalT waves: T waves: normal Lab Interpretation Abnormal (test code = 69067-8) [facility] METABOLIC [id number] 08:24:00 Test Item Value Reference Range Interpretation Comments SODIUM (test code = NA) 137 mEq/L 134-147 N POTASSIUM (test code = 4.0 mEq/L 3.4-5.0 N K) CHLORIDE (test code = 102 mEq/L 100-108 N CL) CARBON DIOXIDE (test 25 mEq/l 21-33 N code = CO2) ANION GAP (test code = 14 0-20 N GAP) GLUCOSE (test code = 98 mg/dL 70-110 N GLU) BLOOD UREA NITROGEN 19 mg/dL 7-18 H (test code = BUN) GLOMERULAR FILTRATION 76.9 95-105 L Units of measure = RATE (test code = GFR) ml/mi n/1.73 m2 CREATININE (test code = 0.8 mg/dL 0.6-1.3 N CREAT) CALCIUM (test code = 10.2 mg/dL 8.0-10.5 N CA) CBC W/AUTO [id number] 07:11:00 Test Item Value Reference Range Interpretation [...] (test code NO = MDIFF) CBC W/AUTO [id number] 08:15:00 Test Item Value Reference Range Interpretation [...] (test code NO = MDIFF) BASIC METABOLIC [id number] 07:57:00 Test Item Value Reference Range Interpretation [...] 9.6 mg/dL 8.0-10.5 N CA) CBC W/AUTO [id number] 08:50:00 Test Item Value Reference Range Interpretation [...] (test code NO = MDIFF) BASIC METABOLIC [id number] 07:23:00 Test Item Value Reference Range Interpretation [...] code = 9.3 mg/dL 8.0-10.5 N CA) [id number] 10:30:00 Test Item Value Reference Range Interpretation Comments MAGNESIUM (test code = MAG) 2.12 mg/dL 1.80-2.40 COMMENTS: may use this AM specimen in labBASIC METABOLIC [id number] 07:45:00 Test Item Value Reference Range Interpretation [...] 8.5 mg/dL 8.0-10.5 N CA) CBC W/AUTO [id number] 07:41:00 Test Item Value Reference Range Interpretation [...] (test code NO = MDIFF) BASIC METABOLIC [id number] 06:17:00 Test Item Value Reference Range Interpretation [...] WITH RATIO (test code = CHOL/HDL RATIOS: RISK CHOLHDL) MALE FEMALE1/2 AVERAGE 3.43 3.27AVERAG E 4.97 4.442X AVERAGE 9.55 7.053X AVERAGE 23.39 11.04 NOTE THAT THE REFERENCE VALUE IS RELATEDTO RISK LEVELS RECOMMENDED BY THE NATL.HEART, KATINA G, AND BLOOD INST. HDL CHOLESTEROL < 20.0 mg/dL 39-96 L (test code = HDL) LIPOPROTEIN LDL 73.4 mg/dL 0-100 N <100 OPTIMAL 100-129 (test code = LDL) NEAR OPTIM AL/ABOVE [id number] 89 HIGH>KA=680 AVERY Y HIGH*Guidelines provided by the National [facility] terol EducationProgra m Adult Treatment Panel III [id number] 06:17:00 Test Item Value Reference Range Interpretation Comments PHOSPHOROUS (test code = PHOS) 3.7 MG/DL 2.5-4.9 N [id number] 06:17:00 Test Item Value Reference Range Interpretation Comments MAGNESIUM (test code = MAG) 1.45 mg/dL 1.80-2.40 L CBC W/AUTO [id number] 05:59:00 Test Item Value Reference Range Interpretation [...] code NO = MDIFF) TSH REFLEX TO [id number] 11:40:00 Test Item Value Reference Range Interpretation Comments TSH REFLEX TO FT4 (test code = 3.13 IU/mL 0.42-5.47 N TSHREFLEX) [id number]%2021-09-02 11:32:00 Test Item Value Reference Range Interpretation Comments HGBA1C% (test code = HGBA1C%) 6.2 %A1C 4.8-6.0 H TROP-I HIGH [id number] 05:15:00 Test Item Value Reference Range Interpretation Comments TROP-I HIGH 149 ng/L 0-34 HH CAUTION: Units of the SENSITIVITY (test current te st methodology code = TROPIHS) (ng/L) diffe rfrom the prior test meth odology (ng/mL) by a fa ctor of 1000. 99t h Percentile Uppe r Reference Limit (URL): Fe males: 34 ng/LMales: 54 n g/L In order to distin guish acute elevations of h igh sensitivitytrop onin from other clinical conditions, the FourthUnive rsal Definition of M yocardial Infarction stressesclinica l assessment and the demonstration o f a rise and/orfall in s erial troponin result s above the URL. These resu lts were obtained using Siemens [employer]ell[employer] InDeed IM TnI Hreagent. Results from di fferent methodologies s hould not becompared to o ne another as quantitative results and URLs mayvar y by method. UA RFLX MICR CULT IF [id number] 04:09:00 Test Item Value Reference Range Interpretation [...] culture: RiskForSepsis-no oth srcSpecimen Description: CLEAN CATCHLIPOPROTEIN [id number] 03:52:00 Test Item Value Reference Range Interpretation Comments LIPOPROTEIN LDL 67.7 mg/dL 0-100 N <100 OPTIMA H527-349 (test code = LDL) NEAR OPTIM AL/ABOVE [id number] 89 HIGH>YS=396 AVERY Y HIGH*Guidelines provided by the National Cholesterol EducationProgra m Adult Treatment Panel III B-TYPE NATRIURETIC [id number] 03:38:00 Test Item Value Reference Range Interpretation Comments B-TYPE NATRIURETIC PEPTIDE (test 1360.0 PG/ML 0-100 H code = BNP) [id number] 03:33:00 Test Item Value Reference Range Interpretation Comments LIPASE (test code = LIP) 27 U/L 13-57 N TROP-I HIGH [id number] 03:33:00 Test Item Value Reference Range Interpretation Comments TROP-I HIGH 148 ng/L 0-34 HH Critical result called to SENSITIVITY (test GLUER AND SLICER HAND STONE [facility] code = TROPIHS) G.LAB.WC1 at 0331 09/02/21Nurse r ead back result and tech confirmed it's correct? Y ESCAUTION: Units of the cu rrent test methodology (ng /L) differfrom the prior test methodology (ng /mL) by a factor of 1000. 99t h Percentile Uppe r Reference Limit (URL): Fe males: 34 ng/LMales: 54 n g/L In order to distin guish acute elevations of h igh sensitivitytrop onin from other clinical conditions, the FourthUnive rsal Definition of M yocardial Infarction stressesclinica l assessment and the demonstration o f a rise and/orfall in s erial troponin result s above the URL. These resu lts were obtained using Siemens Atellica IM TnI Hreagent. Results from di fferent methodologies s hould not becompared to o ne another as quantitative results and URLs mayvar y by method. BASIC METABOLIC [id number] 03:33:00 Test Item Value Reference Range Interpretation [...] 9.2 mg/dL 8.0-10.5 N CA) HEPATIC FUNCTION [id number] 03:33:00 Test Item Value Reference Range Interpretation [...] IUnit/L 20-125 H code = ALKP) LACTIC [id number] 03:29:00 Test Item Value Reference Range Interpretation Comments LACTIC ACID (test code = LACT) 1.4 mmol/L 0.4-1.9 N CBC W/AUTO [id number] 03:21:00 Test Item Value Reference Range Interpretation [...] 3/uL 0.0-0.1 N NRBC#) COVID 19 INHOUSE [id number] 03:03:00 Test Item Value Reference Range Interpretation Comments COVID 19 INHOUSE POSITIVE Negative A AG (test code = --A negative [id number]) result is presu mptive and should be confi rmedwith an FDA authorized molecular assay, if neces mata forpatient jessica gement.A positive result does not rule out co-inf [...] waivedcomplexit y tests. - XR CHEST 1 [id number] 00:00:00 [facility] : 1975 Sex: F FAX: Stone Gamino NP [phone] [place]: St: REG Name: ASHLY HAYWOOD [facility] : 1975 Age/S: 45/F [address] [facility] Unit #: [id number] Loc: [place] [address] Phys: Stone Gamino NP Acct: [id number] Dis Date: Status: REG ER PHONE #: [phone] Exam Date: 09/02/2021339 FAX #: [phone] Reason: SOB EXAMS: CPT CODE: [id number] XR CHEST 1 V 99819 PROCEDURE INFORMATION: Exam: XR Chest Exam dateand time: 09/02/2021 3:34 AM Age: 45 years old Clinical indication: Cough and fever and shortness of breath; Additional info: SOB TECHNIQUE: Imaging protocol: XR of the chest. Views: 1 view. COMPARISON:CR XR CHEST 1V 09/19/2016 9:49 PM FINDINGS: Lungs: Lung volumes are maintained. There are no infiltrates. Pleural spaces: Unremarkable. No pleural effusion. No pneumothorax. Heart/Mediastinum: The cardiac silhouette is enlarged. Bones/joints: Unremarkable. IMPRESSION: No acute findings. at 0347 Reported and signed by: Nohemi Porter M.D CC: Stone Gamino NP Technologist: RT Lani(Honey) Trnscrd Date/Time/By: 09/02/2021 (0347) : By: [email or web address] Orig Print D/T: S: 09/02/2021 (0347) PAGE 1 Signed Report- XR SHOULDER 2 + V [id number] 04:14:00 [facility] : 1975 Sex: F FAX: Carmita Barrios [phone] [place]: St: REG FAX: Jose Herrmann MD Name: AHSLY HAYWOOD [facility] : 1975 Age/S: 45/F [address] [facility] Unit #: [id number] Loc: [address] Phys: [place] [id number] Acct: [id number] Dis Date: Status: REG ER PHONE #: [phone] Exam Date: 12/05/2020 0401 FAX #: [phone] Reason: pain EXAMS: CPT CODE: [id number] XR SHOULDER 2 + V [place] [id number] EXAM: - XR SHOULDER 2 + V [...] CC: Carmita Randall MD; Jose Herrmann MD Technologist:NGUYEN RÍOS Trnscrd Date/Time/By: 12/05/2020 (0414) : By: [email or web address] PAGE 1 Signed Report FAX: Carmita Truong [phone] [place]: St: REG FAX: Jose Herrmann MD Name: ASHLY HAYWOOD [facility] : 1975 Age/S: 45/F [address] [facility] Unit #: [id number] Loc: [address] Phys:[place] [id number] Acct: [id number] Dis Date: Status: REG ER PHONE #: [phone] Exam Date: 12/05/2020400 FAX #: [phone] Reason: pain EXAMS: CPT CODE: [id number] XR SHOULDER 2 + [place] [id number] (Continued) Orig Print D/T: S: 12/05/2020 (0418) PAGE 2 Signed ReportECG [address] [place], [place] [id number] 03:49:04 Test Item Value Reference Range Interpretation Comments Ventricular rate (test code = 253) Atrial rate (test code = 255) CO interval (test code = 266) QRSD interval [...] of 19-NOV-2020 13:58,-No significant change was found-- [facility] 12 [id number] 03:49:04 Test Item Value Reference Range Interpretation Comments Ventricular rate (test code = 253) Atrial rate (test code = 255) CO interval (test code = 266) QRSD interval [...] of 19-NOV-2020 13:58,-No significant change was found-- [facility] 12 [id number] 03:49:04 Test Item Value Reference Range Interpretation Comments Ventricular rate (test code = 253) Atrial rate (test code = 255) CO interval (test code = 266) QRSD interval [...] of 19-NOV-2020 13:58,-No significant change was found-- [facility] Vw [id number] 10:11:23Examination: XR CHEST 1 PORTABLEClinical history: "SOB" Comparison: Prior imaging, including a lili st radiograph obtained on 11/19/2020.One radiographic view of the chest was evaluated. Impression: There are no apparent infiltrates, pleural effusions, or pneumothoraces. The cardiomediastinal silhouette, the imaged bones, and the remainder of the chest are stable in appearance. [facility] Interface, Radiology Results Incoming - 12/02/2020 5:14 AM CDT Examination: XR CHEST 1 PORTABLEClinical history: "SOB" Comparison: Prior imaging, including a chest radiograph obtained on 11/19/2020.One radiographic view of the chest was evaluated.Impression: There are no apparent infiltrates, pleural effusions, or pneumothoraces. The cardiomediastinal silhouette, the imaged bones, and the remainder of the chest are stable in appearance.[facility] 2020-12-02 10:11:23Examination: XR CHEST 1 PORTABLEClinical history: "SOB" Comparison: Prior imaging, including a chest radiograph obtained on 11/19/2020.One radiographic view of the chest was evaluated. Impression: There are no apparent infiltrates, pleural effusions, or pneumothoraces. The cardiomediastinal silhouette, the imaged bones, and the remainder of the chest are stable in appearance. [facility], Radiology Results Incoming 12/02/2020 5:14 AM CDT Examination: XR CHEST 1 PORTABLEClinical history: "SOB" Comparison: Prior imaging, including a chest radiograph obtained on 11/19/2020.One radiographic view of the chest was evaluated.Impression: There are no apparent infiltrates, pleural effusions, or pneumothoraces. The cardiomediastinal silhouette, the imaged bones, and the remainder of the chest are stable in appearance.[facility] ED Preliminary Interpretation - Not an [id number] 10:02:38Calvin uDval MD 12/02/2020 5:48 AMECG ED Preliminary Interpretation - Not an OrderPerformed by: Calvin Duval MDAuthorized by: Calvin Duval MD Interpretation: Interpretation: non- specific Quality: Tracing quality: Limited by artifactRate: ECG rate: 110 ECG rate assessment: tachycardic Rhythm: Rhythm: sinus tachycardia Ectopy: Ectopy: none ST segments: ST segments: Non-specificT waves: T waves: non-specificEC ED Preliminary Interpretation - Not an [id number] 10:02:38Calvin Duval MD 12/02/2020 5:48 [facility] ED Preliminary Interpretation - Not an OrderPerformed by: Calvin Duval MDAuthorized by: Calvin Duval MD Interpretation: Interpretation: non-specific Quality: Tracing quality: Limited by artifactRate: ECG rate: 110 ECG rate assessment: tachycardic Rhythm: Rhythm: sinus tachycardia Ectopy: Ectopy: none ST segments: ST segments: Non-specificT waves: T waves: non-specificUrine [id number] 19:17:27 Test Item Value Reference Range Interpretation Comments Urine culture Mixed lawrence Specimen isolate (test <=10-3 col/cc InformationSp ecimen code = 58385-9) Source: [facility] [id number] 19:17:27 Test Item Value Reference Range Interpretation Comments Urine culture Mixed lawrence Specimen isolate (test <=10-3 col/cc InformationSp ecimen code = 51167-5) Source: Urin eSpecime [facility] [id number] 19:17:27 Test Item Value Reference Range Interpretation Comments Urine culture isolate Mixed lawrence <=10-3 (test code = 73787-5) [facility] [Presence] in Respiratory specimen by SYD with probe [id number] 05:35:10 Test Item Value Reference Range Interpretation Comments SARS-CoV-2 (COVID-19) RNA Not detected Not-Detected [Presence] in Respiratory specimen by SYD with probe detection (test code = 95947-3) [facility] [id number] 21:55:30 EXAMINATION:CT ANGIOGRAM PE CHEST CLINICAL HISTORY: dyspnea tachycarida h o copd TECHNIQUE:CT angiographic images of the chest were obtained during intravenous administration of iodinated contrast. Computerized reformatted images and 3-D MIP images were also obtained and archived (CT pulmonary embolusprotocol). Approximately 60 cc of Omnipaque [address] scan performed using radiation dosereduction techniques. Technical factors are evaluated and adjusted to ensure appropriate moderation of exposure. Automated dose management technology is applied to adjust the radiation dose to minimizeexpose while achieving a diagnostic quality image. COMPARISON: [...] in density of left upper lobe groundglass nodule,suggestive of resolving pneumonitis. Stable right middle lobe [...] were also obtained and archived (CT pulmonary embolusprotocol). Approximately 60 cc of Omnipaque [address] scan performed using radiation dose reduction techniques. Technical factors are evaluated and adjusted to ensure appropriate moderation of exposure. Automated dose management technology is applied to adjust the radiation dose to minimize e xpose while achieving a diagnostic quality image.COMPARISON:10/13/2020FINDINGS:The main [...] a granuloma.Indeterminate mild right hilar adenopathy as prior.[id number] Chest 2020-11-19 21:55:30EXAMINATION:CT ANGIOGRAM PE CHEST CLINICAL HISTORY: dyspnea tachycarida h o copd TECHNIQUE:CT angiographic images of the chest were obtained during intravenous administration of iodinated contrast. Computerized reformatted images and 3-D MIP images were also obtained and archived (CT pulmonary embolusprotocol). Approximately 60 cc of Omnipaque [address] scan performed using radiation dosereduction techniques. Technical factors are evaluated and adjusted to ensure appropriate moderation of exposure. Automated dose management technology is applied to adjust the radiation dose to minimizeexpose while achieving a diagnostic quality image. COMPARISON: [...] abdomen viscera is unremarkable. IMPRESSION: No CTA ev idence of pulmonary embolism. No CTA evidence of aortic aneurysm or dissection. Interval resolution of right pulmonary groundglass nodules and decrease in density of left upper lobe groundglass nodule,suggestive of resolving pneumonitis. Stable right middle lobe [...] were also obtained and archived (CT pulmonary embolusprotocol). Approximately 60 cc of Omnipaque 350 was [...] a granuloma.Indeterminate mild right hilar adenopathy as prior.[id number]CT [facility]dom[facility] Pelvis W Contrast 2020-11-19 21:54:35EXAMINATION: CT ABDOMEN PELVIS W CONTRAST CLINICAL HISTORY: abdominal pain TECHNIQUE: Multiple axialimages of the abdomen and pelvis were obtained [...] liver as before No focal hepatic abnormality P ortal veins patent No biliary dilatation Gallbladder grossly unremarkable. Spleen normal. Adrenal glands normal. Pancreas normal Abdominal aorta normal caliber. [...] ABDOMEN PELVIS W CONTRASTCLINICAL HISTORY: abdominal painTECHNIQUE: Multipleaxial images of the abdomen and pelvis were obtained following intravenous administration of iodinated contrast. Sagittal and coronal computerized reformatted images were also obtained. CT imaging was performed with iterative reconstruction technique and/or automated exposure control to reduce radiation dose.COMPARISON: June 28, 2007 CT abdomen pelvisFINDINGS:The lung bases are clear. No free intra peritoneal air or fluid.Abdomen:Fatty infiltration of the liver as beforeNo focal hepatic abnormalityPortal veins patentNo biliary dilatationGallbladder grossly unremarkable.Spleen normal.Adrenal glands normal.Pancreas normalAbdominal aorta normal caliber. Moderate atherosclerosisNo bowel obstruction.Scattered fecal material throughout the colon. Appendectomy clips.Normal size kidneys. Symmetrical function from each kidney. No renal mass. No hydronephrosis or tract calculusPelvis:Scattered fecalmaterial throughout the colon. No diverticulitis or bowel obstruction.Uterus grossly unremarkable.Follicular changes on the ovaries.No pelvic mass or sidewall adenopathy.Urinary bladder grossly unremarkable.Diffuse subcutaneous infiltration and at the level of the patient's pediculus. No focal fluid co llection seenVisualized skeleton intact. Moderate degenerative lumbar facet hypertrophy. Mild scattered osteophytic changesIMPRESSION:Changes suspicious for panniculitisFatty infiltration of the liver as on previousOtherwise unremarkable CT abdomen [id number]CT [facility] Pelvis W [id number] 21:54:35EXAMINATION: CT ABDOMEN PELVIS W CONTRAST CLINICAL HISTORY: abdominal pain TECHNIQUE: Multiple axialimages of the abdomen and pelvis were obtained [...] biliary dilatation Gallbladder grossly unremarkable. Spleen normal. Adrenal glands normal. Pancreas normal Abdominal aorta normal caliber. [...] ABDOMEN PELVIS W CONTRASTCLINICAL HISTORY: abdominal painTECHNIQUE: Multipleaxial images of the abdomen and pelvis were obtained following intravenous administration of iodinated contrast. Sagittal and coronal computerized reformatted images were also obtained. CT imaging was performed with iterative reconstruction technique and/or automated exposure control to reduce radiation dose.COMPARISON: June 28, 2007 CT abdomen pelvisFINDINGS:The lung bases are clear. No free intra peritoneal air or fluid.Abdomen:Fatty infiltration of the liver as beforeNo focal hepatic abnormalityPortal veins patentNo biliary dilatationGallbladder grossly unremarkable.Spleen normal.Adrenal glands normal.Pancreas normalAbdominal aorta normal caliber. Moderate atherosclerosisNo bowel obstruction.Scattered fecal material throughout the colon. Appendectomy clips.Normal size kidneys. Symmetrical function from each kidney. No renal mass. No hydronephrosis or tract calculusPelvis:Scattered fecalmaterial throughout the colon. No diverticulitis or bowel obstruction.Uterus grossly unremarkable.Follicular changes on the ovaries.No pelvic mass or sidewall adenopathy.Urinary bladder grossly unremarkable.Diffuse subcutaneous infiltration and at the level of the patient's pediculus. No focal fluid co llection seenVisualized skeleton intact. Moderate degenerative lumbar facet hypertrophy. Mild scattered osteophytic changesIMPRESSION:Changes suspicious for panniculitisFatty infiltration of the liver as on previousOtherwise unremarkable CT abdomen [id number] HospitalCat lab procedure 2020-10-28 16:57:33Novaleri Haywood09/03/[id number] Indications:New onset systolic CHF Procedures:Coronary angiogramLHC with LVgramRHC with cardiac output Closure:TR band Access site:Right radial artery and Right internal jugular vein Procedure details: Risks and benefits were discussed with the patient, informed consent was obtained.Patient was brought to the open hearth laborer in a fasting state and prepped in a sterile manner. Patient was sedated with fentanyl and versed. The site was then infiltrated with 1% lidocaine. Right radial artery and Right internal jugular vein was then accessed. A 5Fr balloon guided swan-garcía catheter was then inserted into the venous sheath and directed toward the heart. Pressures were then measure. The catheter was then left at the PA position and thermodilution cardiac output was then measure. O2 sat was also obtained. The catheter was then removed from the body. RHC:CPWP: 41 mmHgPA: 51/15 mmHg Mean 41RV: 53/18 mmHg Mean 27RA: 26 O2 sat: Arterial 99%; PA 61%; RA 65%C.O. 3.57 (T)2.46 (F)C.I. 2.48 (T) 1.71 (F) PPVR: A slender 6 Fr sheath was then inserted over the wire in theright radial artery without difficulty. A 5 Fr [place] catheter was then advance over the wire into the ascending aorta. Angiogram of the left and right coronary was performed. The [place] catheter was then position in the LV. Left ventriculogram was performed. Pull back showed no gradient across the aortic valve. The catheter was then removed over the wire. Findings:Right dominantOverall No significant diseaseLeft main: Patent. Subdivided into LAD and left circumflexLAD: Long vessel with one large D1 and several small diagonals. Reaching all the way to apex and wrapped around the distal inferior wall.No significant diseaseLeft circumflex: with 3 OM. No significant diseaseRCA: is the dominant vessel giving rise to PDA and PLB. NO significant disease LV gram: estimated EF 35%Wall motion: Global hypoki nesisMitral regurgitation: 1+LVEDP: 17 mmHgAo Pressure: 127/95 mmHg Sheath was then removed and hemostasis was achieved with TR band closure device. Patient tolerate the procedure well. Complication: There is no immediate complication EBL: 5 cc Impression: NICMVolume overloaded Plan: DiuresingOptimizing medical therapy Total contrast used: 35 mlFlouro-time: 1.5 minutesAir Kerma: 505 mGy 10/27/20Sk[facility]resh[facility] lab [id number] 16:57:33Norma Irving Gates09/03/[id number]/08/21 Indications:New onset systolic CHF Procedures:Coronary angiogramLHC with LVgramRHC with cardiac output Closure:TR band Access site:Right radial artery and Right internal jugular vein Procedure details: Risks and benefits were discussed with the patient, informed consent was obtained.Patient was brought to the open hearth laborer in a fasting state and prepped in a sterile manner. Patient was sedated with fentanyl and versed. The site was then infiltrated with 1% lidocaine. Right radial artery and Right internal jugular vein was then accessed. A 5Fr balloon guided swan-garcía catheter was then inserted into the venous sheath and directed toward the heart. Pressures were then measure. The catheter was then left [...] Fr sheath was then inserted over the wire in theright radial artery without difficulty. A 5 Fr [place] catheter was then advance over the wire into the ascending aorta. Angiogram of the left and right coronary was performed. The [place] catheter was then position in the LV. Left ventriculogram was performed. Pull back showed no gradient across the aortic valve. The catheter was then removed over the wire. Findings:Right dominantOverall No significant diseaseLeft main: Patent. Subdivided into LAD and left circumflexLAD: Long vessel with one large D1 and several small diagonals. Reaching all the way to apex and wrapped around the distal inferior wall.No significant diseaseLeft circumflex: with 3 OM. No significant diseaseRCA: is the dominant vessel giving rise to PDA and PLB. NO significant disease LV gram: estimated EF 35%Wall motion: Global hypoki nesisMitral regurgitation: 1+LVEDP: 17 mmHgAo Pressure: 127/95 mmHg Sheath was then removed and hemostasis was achieved with TR band closure device. Patient tolerate the procedure well. Complication: There is no immediate complication EBL: 5 cc Impression: NICMVolume overloaded Plan: DiuresingOptimizing medical therapy Total contrast used: 35 mlFlouro-time: 1.5 minutesAir Kerma: 505 mGy 10/27/20[facility] Hospitalradhames RuedaHouston [facility] HospitalTransthoracic Echocardiogram Complete, (w Contrast, Strain and 3D if needed)2020-10-26 17:20:16 Test Item Value Reference Range Interpretation Comments Velocity Ratio (V1/V2) 0.70 m/s (test code = 4689) IVS,d (test code = 1.05 cm 4019948191) EF (test code = 27.14 % 8412832681) LVPWD,d (test code = 0.97 cm 0882028122) AoV Mean PG (test code mmHg = 4157233136) AV LVOT peak gradient mmHg (test code = 9094565207) MV valve area p 1/2 5.59 cm2 method (test code = 1317218861) E wave decelartion time msec (test code = 7323368138) LVOT Diam,S (test code 2.23 cm = 9665367523) LVOT area (test code = 3.90 cm2 5902441240) LVOT Vmax (test code = 0.99 m/s 5197235478) LVOT VTI (test code = 0.17 m 9821802300) LVOT stroke volume 0.66 cm3 (test code = 4307909361) AoV Peak PG (test code mmHg = 4118955392) MV Peak E Rome (test 1.32 m/s code = 5337984674) MV stenosis pressure 39.33 ms 1/2 time (test code = 7585125444) MV Peak A [place] (test 0.00 m/s code = 7179285471) LV Vol,s A2C (test code 126.84 mL = 8372654244) LV Vol,d A2C (test code 186.07 mL = 2297479283) AoV Area, Vmax (test 2.73 cm2 code = 3677352354) AoV Area, VTI (test 3.37 cm2 code = 7942192922) AoV Vmax (test code = 1.42 m/s 9685027129) LV,d (test code = 5.39 cm 2178247345) LV,s (test code = 4.70 cm 5049649568) LV Vol,d A4C (test code 164.06 ml = 9573204509) LV Vol,s A4C (test code 106.99 ml = 2268157994) TR Vpeak (test code = 2.66 mm/s 4512374857) MV E A ratio (test code = 1462545021) RA pressure (test code mmHg = 8694237831) TR pk grad (test code = mmHg 4034565542) MR peak grad (test code mmHg = 0957629339) LA Vol 4C (test code = 97.00 ml 1757017487) RVSP (test code = mmHg 2768310336) LV SYS VOL (test code = 102.44 ml 0142951045) LV HEDRICK VOL (test code 140.60 ml = 2517798696) LA diam s (test code = 4.10 cm 7990207252) LA area s A4C (test 28.10 cm2 code = 5577444401) LA Vol MOD A4C (test 97.27 ml code = 8849672488) LV SV Teich 2D (test 38.16 ml code = 0174381553) LVOT SI (test code = 33.69 ml/m2 6181818482) AoV Cusp sep (test code = 0137541775) Aortic Root (test code 2.53 cm = 7560381673) AoV Vmn (test code = 2419086974) IVS s 2D (test code = 8876702212) LA Ao Ratio Mmode (test code = 3891237757) CO End Hedrick Grad (test code = 8568125460) CO End Diat Rome (test code = 1031736651) D E excurs (test code = 0805194100) E f slope (test code = 1326420810) E prime lat (test code = 8372629125) E favio sept (test code = 9785688086) PV acc T slope (test code = 3345457231) PV AT (test code = msec 2947035201) NGUYEN BP EF (test 32.00 % code = 2022260415) LA VOL 2C (test code = 74.00 ml 3369772009) AoV VTI (test code = 0.20 m 1799442396) LV EF,A2C (test code = 31.83 % 8388039926) LV EF,A4C (test code = 34.78 % 0358654900) LV EF,BP (test code = 32.29 % 1111038798) Diego Bally,d A2C (test 9.24 cm code = 4543741446) Diego Bally,d A4C (test 9.11 cm code = 7012192574) Diego Bally,s A2C (test 8.07 cm code = 3217835630) Diego Bally,s A4C (test 7.70 cm code = 4133929672) LV SV,A2C (test code = 59.23 % 5979212472) LV SV,A4C (test code = 57.06 % 1377817291) LV Vol,d BP (test code 175.67 ml = 6919732588) LV Vol,s BP (test code 118.95 nl = 2910900794) MR Vmax (test code = 5.55 m/s 1391587871) LVOT Vmn (test code = 2419937267) Pt Size (test code = 6012390429) Pt Wt (test code = 9655180251) LVOT mean grad (test mmHg code = 4246882480) LVPW s PLAX (test code 1.17 cm = 2666302377) MV Decel slope (test 10.79 m/s2 code = 3494179052) LVOT VTI (CM) (test 17.00 cm code = 1200057687) LINDA (test code = LINDA) The left [...] ventricular diastolic filling. Elevated LV filling pressure. [facility], (w Contrast, Strain and 3D if needed)2020-10-26 17:20:16 Test Item Value Reference Range Interpretation Comments Velocity Ratio 0.70 m/s (V1/V2) (test code = 4689) IVS,d (test code = 1.05 cm 9469219089) EF (test code = 27.14 % 1623892420) LVPWD,d (test code = 0.97 cm 6175545031) AoV Mean PG (test mmHg code = 1051745714) AV LVOT peak gradient mmHg (test code = 3036996867) MV valve area p 1/2 5.59 cm2 method (test code = 9852056798) E wave decelartion msec time (test code = 5655091265) LVOT Diam,S (test 2.23 cm code = 5932201345) LVOT area (test code 3.90 cm2 = 5794178328) LVOT Vmax (test code 0.99 m/s = 9696144208) LVOT VTI (test code = 0.17 m 0027707294) LVOT stroke volume 0.66 cm3 (test code = 3447518187) AoV Peak PG (test mmHg code = 3282745338) MV Peak E [place] (test 1.32 m/s code = 8459216666) MV stenosis pressure 39.33 ms 1/2 time (test code = 0439210202) MV Peak A [place] (test 0.00 m/s code = 3778605835) LV Vol,s A2C (test 126.84 mL code = 6158336658) LV Vol,d A2C (test 186.07 mL code = 3265332044) AoV Area, Vmax (test 2.73 cm2 code = 3074937071) AoV Area, VTI (test 3.37 cm2 code = 7773486102) AoV Vmax (test code = 1.42 m/s 9016721906) LV,d (test code = 5.39 cm 9129839562) LV,s (test code = 4.70 cm 4225402552) LV Vol,d A4C (test 164.06 ml code = 9352198559) LV Vol,s A4C (test 106.99 ml code = 4052798935) TR Vpeak (test code = 2.66 mm/s 3886343953) MV E A ratio (test code = 3581300726) RA pressure (test mmHg code = 8219808203) TR pk grad (test code mmHg = 0330041191) MR peak grad (test mmHg code = 1239682707) LA Vol 4C (test code 97.00 ml = 6971437213) RVSP (test code = mmHg 6171948041) LV SYS VOL (test code 102.44 ml = 5989476344) LV HEDRICK VOL (test 140.60 ml code = 9811070936) LA diam s (test code 4.10 cm = 7146076000) LA area s A4C (test 28.10 cm2 code = 9998775393) LA Vol MOD A4C (test 97.27 ml code = 7790578480) LV SV Teich 2D (test 38.16 ml code = 5971063883) LVOT SI (test code = 33.69 ml/m2 8894867939) AoV Cusp sep (test code = 6816153239) Aortic Root (test 2.53 cm code = 8875256657) AoV Vmn (test code = 0178196592) IVS s 2D (test code = 5474453197) LA Ao Ratio Mmode (test code = 3026770019) CO End Hedrick Grad (test code = 6419968171) CO End Diat [place] (test code = 1857405270) D E excurs (test code = 0731538499) E f slope (test code = 9944476807) E prime lat (test code = 6930010922) E favio sept (test code = 5699303720) PV acc T slope (test code = 5051854544) PV AT (test code = msec 0813672524) NGUYEN BP EF (test 32.00 % code = 9547403777) LA VOL 2C (test code 74.00 ml = 9129450772) AoV VTI (test code = 0.20 m 7686102675) LV EF,A2C (test code 31.83 % = 6928385360) LV EF,A4C (test code 34.78 % = 9002215467) LV EF,BP (test code = 32.29 % 2345544217) Diego Bally,d A2C (test 9.24 cm code = 1265736373) Diego Bally,d A4C (test 9.11 cm code = 9603806586) Diego Bally,s A2C (test 8.07 cm code = 0107411704) Diego Bally,s A4C (test 7.70 cm code = 9477271581) LV SV,A2C (test code 59.23 % = 1497861492) LV SV,A4C (test code 57.06 % = 1374171690) LV Vol,d BP (test 175.67 ml code = 2465321028) LV Vol,s BP (test 118.95 nl code = 3719510267) MR Vmax (test code = 5.55 m/s 6078488200) LVOT Vmn (test code = 7983699576) Pt Size (test code = 9260473773) Pt Wt (test code = 6381907087) LVOT mean grad (test mmHg code = 5507640167) LVPW s PLAX (test 1.17 cm code = 3109113865) MV Decel slope (test 10.79 m/s2 code = 7539035843) LVOT VTI (CM) (test 17.00 cm code = 3944598477) LINDA (test code = LINDA) The left [...] left ventricular wall motion is globally hypokinetic. [facility], (w Contrast, Strain and 3D if needed)2020-10-26 17:20:16 Test Item Value Reference Range Interpretation Comments Velocity Ratio (V1/V2) (test code 0.70 m/s = 4689) IVS,d (test code = 3241429514) 1.05 cm EF (test code = 3925344352) 27.14 % LVPWD,d (test code = 8657845199) 0.97 cm AoV Mean PG (test code = mmHg 4092094187) AV LVOT peak gradient (test code mmHg = 5258008545) MV valve area p 1/2 method (test 5.59 cm2 code = 7757653328) E wave decelartion time (test msec code = 4061413004) LVOT Diam,S (test code = 2.23 cm 6871833763) LVOT area (test code = 3.90 cm2 5076129700) LVOT Vmax (test code = 0.99 m/s 3043639645) LVOT VTI (test code = 6276730136) 0.17 m LVOT stroke volume (test code = 0.66 cm3 8781159716) AoV Peak PG (test code = mmHg 4995368921) MV Peak E [place] (test code = 1.32 m/s 6652566859) MV stenosis pressure 1/2 time 39.33 ms (test code = 2090720464) MV Peak A [place] (test code = 0.00 m/s 7855702430) LV Vol,s A2C (test code = 126.84 mL 8609687541) LV Vol,d A2C (test code = 186.07 mL 9937831329) AoV Area, Vmax (test code = 2.73 cm2 7028822467) AoV Area, VTI (test code = 3.37 cm2 3908507409) AoV Vmax (test code = 0245350491) 1.42 m/s LV,d (test code = 8094126169) 5.39 cm LV,s (test code = 5036507956) 4.70 cm LV Vol,d A4C (test code = 164.06 ml 8755354469) LV Vol,s A4C (test code = 106.99 ml 2833646180) TR Vpeak (test code = 9635833030) 2.66 mm/s MV E A ratio (test code = 1087995619) RA pressure (test code = mmHg 6914392457) TR pk grad (test code = mmHg 3740276762) MR peak grad (test code = mmHg 0977828623) LA Vol 4C (test code = 97.00 ml 0986735282) RVSP (test code = 6560200124) mmHg LV SYS VOL (test code = 102.44 ml 1938467198) LV HEDRICK VOL (test code = 140.60 ml 8368255128) LA diam s (test code = 4.10 cm 5861360568) LA area s A4C (test code = 28.10 cm2 4163532536) LA Vol MOD A4C (test code = 97.27 ml 6796182850) LV SV Teich 2D (test code = 38.16 ml 6579162532) LVOT SI (test code = 4853591837) 33.69 ml/m2 AoV Cusp sep (test code = 1180402044) Aortic Root (test code = 2.53 cm 4222249049) AoV Vmn (test code = 0308393526) IVS s 2D (test code = 5615716262) LA Ao Ratio Mmode (test code = 8546347559) CO End Hedrick Grad (test code = 3338976675) CO End Diat [place] (test code = 1195921644) D E excurs (test code = 8163441832) E f slope (test code = 6053193776) E prime lat (test code = 9851289928) E favio sept (test code = 7184321300) PV acc T slope (test code = 3793983049) PV AT (test code = 4523890604) msec NGUYEN BP EF (test code = 32.00 % 5369568892) LA VOL 2C (test code = 74.00 ml 8406313387) AoV VTI (test code = 0777290751) 0.20 m LV EF,A2C (test code = 31.83 % 1554014899) LV EF,A4C (test code = 34.78 % 7192277643) LV EF,BP (test code = 9805772554) 32.29 % Diego Bally,d A2C (test code = 9.24 cm 5149032251) Diego Bally,d A4C (test code = 9.11 cm 5901113871) Diego Bally,s A2C (test code = 8.07 cm 8850256982) Diego Bally,s A4C (test code = 7.70 cm 8398344768) LV SV,A2C (test code = 59.23 % 0924614564) LV SV,A4C (test code = 57.06 % 3401076831) LV Vol,d BP (test code = 175.67 ml 9470960896) LV Vol,s BP (test code = 118.95 nl 5833010386) MR Vmax (test code = 1032982111) 5.55 m/s LVOT Vmn (test code = 5036389214) Pt Size (test code = 1304936478) Pt Wt (test code = 2645935747) LVOT mean grad (test code = mmHg 6624717804) LVPW s PLAX (test code = 1.17 cm [id number]) MV Decel slope (test code = 10.79 m/s2 [id number]) LVOT VTI (CM) (test code = 17.00 cm [id number]) LINDA (test code = LINDA) [facility] [Presence] in Respiratory specimen by SYD with probe [id number] 05:38:53 Test Item Value Reference Range Interpretation Comments SARS-CoV-2 (COVID-19) RNA Not detected Not-Detected [Presence] in Respiratory specimen by SYD with probe detection (test code = 98162-3) [facility] [id number] 04:16:24 CLINICAL HISTORY: 45 years Female Cough persistent COMPARISON: AP view of the chest from 10/13/2020.IMPRESSION: Lines/Tubes: None. Lungs/Pleura: No significant pleural effusion is identified. There ismild bibasilar atelectasis. No consolidation or pneumothorax identified. Heart/Mediastinum: The cardiac silhouette is enlarged. Mediastinal contours are normal. Bones: No acute osseous abnormality. 1D2R [id number] Interface, Radiology Results [facility] - 10/24/2020 10:19 PM CST CLINICAL HISTORY: 45 years Female Cough persistentCOMPARISON: AP view of the chest from 10/13/2020.IMPRESSION:Lines/Tubes: None.Lungs/Pleura: No significant pleural effusion is identified. There is mild bibasilar atelectasis. No consolidation or pneumothorax identified.Heart/Mediastinum: The cardiac silhouette is enlarged. Mediastinal contours are normal.Bones: No acute osseous abnormality.[id number] [facility] Chest 1 [id number] 04:16:24 CLINICAL HISTORY: 45 years Female Cough persistent COMPARISON: AP view of the chest from 10/13/2020. IMPRESSION: Lines/Tubes: None. Lungs/Pleura: No significant pleural effusion is identified. There ismild bibasilar atelectasis. No consolidation or pneumothorax identified. [...] Mediastinal contours are normal.Bones: No acute osseous abnormality.[id number] [facility]2021-02-23 21:58:42EXAMINATION: US HEPATIC CLINICAL HISTORY: abnormal hepatic function tests COMPARISON: None. IMPRESSION: Liver: The liver is normal in size and echogenicity. There is no evidence of focal mass or intrahepatic biliary ductal dilatation. Portal vein: The portal vein is normal in size and demonstrates normal hepatopetal flow. Gallbladder: Contracted. No stones. Common bile duct: Normal caliber. [facility]-[id number] Interface, Radiology Results Incoming - 10/14/2020 4:01 PM CST EXAMINATION: US HEPATICCLINICAL HISTORY: abnormal hepatic function testsCOMPARISON: None.IMPRESSION:Liver: The liver is normal in size and echogenicity. There is no evidence of focal mass or intrahepatic biliary ductal dilatation.Portal vein: The portal vein is normal in size and demonstrates normal hepatopetal flow.Gallbladder: Contracted. No stones.Common bile duct: Normal caliber.[facility]-[id number] [facility]20[facility] 21:58:42EXAMINATION: US HEPATIC CLINICAL HISTORY: abnormal hepatic function tests COMPARISON: None. IMPRESSION: Liver: The liver is normal in size and echogenicity. There is no evidence of focal mass or intrahepatic biliary ductal dilatation. Portal vein: The portal vein is normal in size and demonstrates normal hepatopetal flow. Gallbladder: Contracted. No stones. Common bile duct: Normal caliber. [facility]-[id number] [facility], Radiology Results - 10/14/2020 4:01 PM CST EXAMINATION: US HEPATICCLINICAL HISTORY: abnormal hepatic function testsCOMPARISON: None.IMPRESSION:Liver: The liver is normal in size and echogenicity. There is no evidence of focal mass or intrahepatic biliary ductal dilatation.Portal vein: The portal vein is normal in size and demonstrates normal hepatopetal flow.Gallbladder: Contracted. No stones.Common bile duct: Nor mal caliber.[facility]-[id number] Hospital
--- NOTE | 2022-11-02 13:15 | ER ---
Nurse's Notes [facility] Name: Anahi Downing Age: 47 yrs Sex: Female : 1975 Arrival Date: 11/02/2022 Time: 12:46 Bed 10 Private MD: Diagnosis: Dental root caries Presentation: 11/02 12:50 Chief complaint: Patient states: abscess of tooth called dentist cant see for 2months. hb Coronavirus screen: Client denies travel out of the [place] in the last 14 days. Ebola Screen: Patient denies exposure to infectious person. Patient denies travel to an Ebola-affected area in the 21 days before illness onset. Initial Sepsis Screen: Does the patient meet any 2 criteria? No. Patient's initial sepsis screen is negative. Does the patient have a suspected source of infection? No. Patient's initial sepsis screen is negative. Risk Assessment: Do you want to hurt yourself or someone else? Patient reports no desire to harm self or others. Onset of symptoms was October 31, 2022. 12:50 Method Of Arrival: Ambulatory hb 12:50 Acuity: RALPH 3 hb Historical: - Allergies: 12:52 Flagyl; hb - PMHx: 12:52 COPD; Hypertension; Pneumonia; EMBOLISM; pulmonary embolisim; Pulmonary emphysema; CHF; hb - PSHx: 12:52 Appendectomy; Ligation of fallopian tube; right ankle sx; hb - Immunization history:: Client reports receiving the 2nd dose of the Covid vaccine. - Social history:: Smoking status: Patient reports the use of cigarette tobacco products, smokes one-half pack cigarettes per day. Vital Signs: 12:50 BP 164 / 88; Pulse 86; Resp 16; Temp 97.9(TE); Pulse Ox 99% on R/A; Weight 81.65 kg; hb Height 5 ft. 5 in. ; Pain 10/10; 12:50 Body Mass Index 29.95 (81.65 kg, 165.1 cm) hb 12:50 Pain Scale: Adult hb ED Course: 12:46 Patient arrived in ED. mr 12:49 Valentin Bowie MD is Attending Physician. bs3 12:52 Triage completed. hb 12:52 Arm band placed on left wrist. hb 13:06 Anahi Bruce, SIN is Primary Nurse. nj1 Administered Medications: No medications were administered Outcome: 13:15 Discharge ordered by . bs3 Signatures: Rosetta Thompson Heather, RN RN Valentin Monique MD MD bs3 Anahi Bruce RN RN nj1
--- NOTE | 2022-11-02 13:15 | EDPHYS ---
Physician Documentation [facility] Name: Anahi Downing Age: 47 yrs Sex: Female : 1975 Arrival Date: 11/02/2022 Time: 12:46 Bed 10 Private MD: ED Physician Valentin Bowie HPI: 11/02 13:10 This 47 yrs old Female presents to ER via Ambulatory with complaints of bs3 abscess tooth. 13:10 47-year-old multiple medical problems presents with tooth pain she notes that her crown bs3 fell off and since then she has a tooth pain moderate intensity worse with eating better with rest denies fevers chills change in voice difficulty breathing or swallowing she tried to get a dental appointment but it is a month out and therefore she came in here. Historical: - Allergies: 12:52 Flagyl; hb - PMHx: 12:52 COPD; Hypertension; Pneumonia; EMBOLISM; pulmonary embolisim; Pulmonary emphysema; CHF; hb - PSHx: 12:52 Appendectomy; Ligation of fallopian tube; right ankle sx; hb - Immunization history:: Client reports receiving the 2nd dose of the Covid vaccine. - Social history:: Smoking status: Patient reports the use of cigarette tobacco products, smokes one-half pack cigarettes per day. ROS: 13:10 Constitutional: Negative for fever, chills bs3 13:10 All other systems are negative. Exam: 13:10 Constitutional: This is a well developed, well nourished patient who is awake, alert, bs3 and in no acute distress. Head/Face: Normocephalic, atraumatic. Eyes: Pupils equal round and reactive to light, extra-ocular motions intact. Lids and lashes normal. ENT: Very poor dentition, no visible periapical abscess she has pain to percussion her right lower teeth no trismus no drooling Neck: Trachea midline, no thyromegaly, no neck stiffness Chest/axilla: Normal chest wall appearance and motion. Nontender with no deformity. No lesions are appreciated. Vital Signs: 12:50 BP 164 / 88; Pulse 86; Resp 16; Temp 97.9(TE); Pulse Ox 99% on R/A; Weight 81.65 kg; hb Height 5 ft. 5 in. ; Pain 10/10; 12:50 Body Mass Index 29.95 (81.65 kg, 165.1 cm) hb 12:50 Pain Scale: Adult hb MDM: 12:49 Patient medically screened. bs3 13:10 Differential diagnosis: dental carmen vs periapical abscess, considered captain assistant/rpa/robby bs3 but less likely. Data reviewed: vital signs, nurses notes. ED course: will cover with antibiotics, advised dental f/u, return precautiosn. . Administered Medications: No medications were administered Disposition Summary: 11/02/22 13:15 Discharge Ordered Location: Home bs3 Problem: new bs3 Symptoms: have improved bs3 Condition: Stable bs3 Diagnosis - Dental root caries bs3 Followup: bs3 - With: Private Physician - When: As needed - Reason: Re-evaluation by your physician Discharge Instructions: - Discharge Summary Sheet bs3 - Dental Caries, Adult bs3 Forms: - Prescription Opioid Use bs3 - Medication Reconciliation Form bs3 - Thank You Letter bs3 - Antibiotic Education bs3 Prescriptions: - Augmentin 875-125 mg Oral Tablet - take 1 tablet by ORAL route every 12 hours for 10 days; 20 tablet; Refills: 0, bs3 Product Selection Permitted Signatures: Azra Borden, RN RN Valentin Monique MD MD bs3
[2022-11-02 16:16] VITALS: TEMP 97.9
[2022-11-02 16:18] VITALS: BP 133/82; O2SAT 97
== END 2022-11-02 13:33 | disposition home or self-care (01) ==
LOC: ER 12:42
DX: K02.7 Dental root caries (principal)
CPT/HCPCS: 99282